=== PATIENT | male | born 1960 | race Caucasian/White ===

== ENCOUNTER → 2018-09-22 15:12 | Outpatient (CLI) | payer BC, SELFPAY | PROVIDERS: PCP Family Medicine; Visit Provider Nurse Practitioner Family | DX: G47.33 Obstructive sleep apnea (adult) (pediatric) (principal); R06.83 Snoring; R40.0 Somnolence; R94.30 Abnormal result of cardiovascular function study, unspecified | CPT/HCPCS: 95806 ==

== ENCOUNTER → 2019-02-02 07:57 | Outpatient (POV) | payer BC, SELFPAY | PROVIDERS: Visit Provider Dermatology | DX: Z00.00 Encounter for general adult medical examination without abnormal findings (principal) ==

== ENCOUNTER → 2019-03-01 07:32 | Outpatient (CLI) | payer BC, SELFPAY ==
--- NOTE | 2019-03-01 07:35 | XR_ITS ---
PROCEDURE: XR FOOT WT BEARING LT 3V CLINICAL INDICATION: pain Left foot pain COMPARISON: No exams were available for comparison FINDINGS: No fracture or dislocation. No lytic or blastic change. There is normal mineralization. There are mild osteoarthritic changes at the 1st metatarsophalangeal joint and at the talonavicular joint Other findings:There is a small os trigonum IMPRESSION: Mild osteoarthritic change Dictated by: Rk Still MD 03/01/2019 12:17 Electronically signed by Rk Still MD in [place] 03/01/2019 12:17
--- NOTE | 2019-03-01 07:35 | XR_ITS ---
PROCEDURE: XR FOOT WT BEARING RT 3V CLINICAL INDICATION: pain Right foot pain COMPARISON: No exams were available for comparison FINDINGS: No fracture or dislocation. No lytic or blastic change. There is normal mineralization. Mild osteoarthritis 1st MTP joint and talonavicular joint and navicular cuneiform joint posteriorly with a small calcaneal spur noted Other findings:None. IMPRESSION: Mild osteoarthritis Dictated by: Rk Still MD 03/01/2019 12:18 Electronically signed by Rk Still MD in [place] 03/01/2019 12:18
== END ==
PROVIDERS: PCP Family Medicine; Visit Provider Podiatrist
DX: M79.672 Pain in left foot (principal); M79.671 Pain in right foot
CPT/HCPCS: 73630

== ENCOUNTER → 2019-11-03 16:02 | Outpatient (CLI) | payer BC, SELFPAY | PROVIDERS: PCP Family Medicine; Visit Provider Nurse Practitioner Family | DX: G47.33 Obstructive sleep apnea (adult) (pediatric) (principal) | CPT/HCPCS: 94762 ==

== ENCOUNTER 2020-11-22 16:30 | Outpatient (RCR) | payer BC, SELFPAY | END 2020-11-22 17:24 | disposition home or self-care (01) | LOC: PT 16:30 | PROVIDERS: PCP Family Medicine; Visit Provider Internal Medicine | DX: M54.41 Lumbago with sciatica, right side (principal) | CPT/HCPCS: 97010; 97014; 97035; 97110; 97163; G0283 ==

== ENCOUNTER → 2020-12-05 07:42 | Outpatient (CLI) | payer BC, SELFPAY ==
--- NOTE | 2020-12-05 07:46 | MR_ITS ---
PROCEDURE: MR LUMBAR SPINE WO CON CLINICAL INDICATION: LUMBAGO WITH RIGHT SCIATICA Low back pain with right leg pain COMPARISON: No exams were available for comparison TECHNIQUE: Standard multiplanar multiecho sequences are performed without contrast. 3-D MIP and myelographic images are also rendered and reviewed FINDINGS: There is normal alignment. The spinal cord ends at the L1-L2 level. No acute fracture. T11-T12: Minimal bulging disc with mild degenerative disc disease. T12-L1: Mild degenerative disc disease. L1-L2: Unremarkable. Small lipoma or lipid rich hemangioma at L2 vertebral body on the right at 9 mm L2-L3: Mild facet and ligamentum hypertrophy. L3-L4: Mild facet and ligamentum hypertrophy. Small hemangioma versus lipoma of L3 vertebral body at 11 mm. L4-5: Degenerative disc disease with mild bulging disc. 3 mm anterolisthesis of L4. Severe facet hypertrophic change with severe bilateral lateral recess narrowing . Canal stenosis is present. The facet and ligamentum hypertrophy is causing some severe bilateral lateral recess narrowing. This is greater on the right and is impinging upon the right L5 nerve root. There is severe bilateral foraminal narrowing slightly greater on the left with encroachment of the exiting L4 nerve roots. L5-S1: Degenerative disc disease. 4 mm retrolisthesis of L5 with bulging disc and facet hypertrophic change with moderate bilateral foraminal narrowing and lateral recess narrowing. Incidental note made of a 4 cm right renal cyst. IMPRESSION: Abnormal MRI of the lumbar spine with multilevel lumbar spondylosis with degenerative disc disease, bulging discs, facet and ligamentum hypertrophy with lateral recess and foraminal narrowing and canal stenosis. Please see above for detailed description at each level. Dictated by: kR Still MD 12/06/2020 09:16 Rk Still MD in [place] 12/06/2020 09:16
== END ==
PROVIDERS: PCP Internal Medicine; Visit Provider Internal Medicine
DX: M54.41 Lumbago with sciatica, right side (principal)
CPT/HCPCS: 72148; 76376

== ENCOUNTER → 2021-02-05 10:41 | Outpatient (CLI) | payer BC, SELFPAY | PROVIDERS: Visit Provider Surgery | DX: Z01.812 Encounter for preprocedural laboratory examination (principal); Z11.52 Encounter for screening for COVID-19; Z12.11 Encounter for screening for malignant neoplasm of colon | CPT/HCPCS: C9803; U0003; U0005 ==

== ENCOUNTER 2021-02-07 10:20 | Day surgery (SDC) | payer BC, SELFPAY ==
[2021-02-05 10:18] VITALS: BMI 37.3
[2021-02-07] VITALS (8 sets, daily range): BP systolic 84–149; BP diastolic 36–76; PULSE 63–71; RESP 16–18; TEMP 36.2–36.4; O2SAT 92–100
--- NOTE | 2021-02-07 10:34 | HMH.ANESCL ---
[facility] Anesthesia Checklist - Patient Identification Patient Identification: Arm Band - Structural Data Admitted From: Home Planned Operative Procedure/s: Colonoscopy Consent for Planned Operative Procedure(s) Verified: Yes - NPO Status Verified Time NPO: 00:00 - Airway Assessment C-Spine Mobility Assessed: Yes TMJ Mobility Assessed: Yes Dentition: Good Dentition - Neurological Assessment Level of Consciousness: Awake Hx Seizures: No Numbness or tingling in extremities: No - Anesthesia Plan Anesthesia Risk discussed: Yes Anesthesia Plan: Verified ASA Class: II Anesthesia Type: MAC [facility] History I have reviewed the patient's past medical history: Yes Medical History: Reports:: Hyperlipidemia, Hypertension Denies:: Cancer, Diabetes Mellitus Type 1, Diabetes Mellitus Type 2, Internal Pacemaker, MRSA, Seizures *Have you ever received a pneumonia vaccine?: No *Have you received a flu vaccine this season?: Yes Other Medical History: Reports: Other Anesthesia experience/problems:: None Laterality Cases: Left: Arthroscopy Shoulder, Bilateral: Tonsillectomy Other Surgeries: Yes: Cardiac Catheterization, Colonoscopy. No: Pacemaker Amputation: No - *Social History Last grade of school completed: 11th or 12th Smoking Status: Never smoker Alcohol Intake: never Alcohol Intake Frequency:: holidays/special occasions only Substance Use Type: denies use *Occupational Status:: employed Housing: house Household Members: spouse *Travel in the last 8 weeks: None Family Hx:: No significant family history
--- NOTE | 2021-02-07 12:23 | HMH.SCOPE ---
- Procedure: Date: 02/07/21 Patient Date of :: 1960 Procedure Performed:: Colonoscopy with polypectomy Indications:: Patient is a 60-year-old male. He had undergone screening colonoscopy 10 or 11 years ago which was reportedly normal. He presents for screening colonoscopy. Performing Provider:: Vadim Anderson MD Referring Provider:: Win Mccauley MD Sedation:: Propofol Procedure:: Patient was taken to endoscopy procedure room. He was positioned in lateral decubitus position. Digital examination was performed which was unremarkable. Variable stiffness Olympus colonoscope was inserted via the anus. Was advanced to the cecum. Ileocecal valve and appendiceal orifice were clearly identified. Within the cecum there were several tiny diminutive polyps. These were removed with cold biopsy forceps. At the hepatic flexure there was a small diminutive polyp removed with snare followed by biopsy. In the descending colon there was a small diminutive polyp removed with cold biopsy forceps. There were 1 or 2 diverticuli in the distal sigmoid. Retroflexion within the rectum revealed nonpathologic internal hemorrhoids. Colonoscope was withdrawn. Findings:: Tiny diminutive polyps as noted above 1-2 distal sigmoid diverticuli Recommendations:: Follow-up colonoscopy pending pathology, if adenomatous component likely 5 years. Complications:: None immediately apparent Estimated blood obtained (mL): 2
== END 2021-02-07 13:10 | disposition home or self-care (01) ==
LOC: OUTP 10:21
PROVIDERS: PCP Internal Medicine; Visit Provider Surgery
PROC: 0DJD8ZZ Inspection of Lower Intestinal Tract, Via Natural or Artificial Opening Endoscopic (ICD-10-PCS; CPT 45380; principal; 2021-02-07 11:30)
DX: Z12.11 Encounter for screening for malignant neoplasm of colon (principal); K63.5 Polyp of colon; K57.30 Diverticulosis of large intestine without perforation or abscess without bleeding
CPT/HCPCS: 45380; J2704

== ENCOUNTER → 2021-02-15 11:32 | Outpatient (CLI) | payer BC, SELFPAY | PROVIDERS: PCP Internal Medicine; Visit Provider Nurse Practitioner | DX: Z20.822 Contact with and (suspected) exposure to COVID-19 (principal); U07.1 COVID-19 | CPT/HCPCS: C9803; U0003; U0005 ==

== ENCOUNTER → 2021-02-17 07:59 | Outpatient (CLI) | payer BC, SELFPAY | PROVIDERS: PCP Internal Medicine; Visit Provider Internal Medicine | DX: U07.1 COVID-19 (principal); Z23 Encounter for immunization | CPT/HCPCS: 96365 ==

== ENCOUNTER 2021-02-27 10:00 | Outpatient (RCR) | payer BC, SELFPAY | END 2021-02-27 10:05 | disposition home or self-care (01) | LOC: PT 10:00 | PROVIDERS: PCP Internal Medicine; Visit Provider Anesthesiology Pain Medicine | DX: M48.062 Spinal stenosis, lumbar region with neurogenic claudication (principal) | CPT/HCPCS: 97014; 97110; 97113; 97163; G0283 ==

== ENCOUNTER → 2021-07-25 13:36 | Outpatient (CLI) | payer BC, SELFPAY ==
[2021-07-25 15:35] LABS: Basophils # 0.1 K/mm3 (0-0.2); Basophils % 1.4 % (0.1-2.0); Eosinophils # 0.7 K/mm3 (0.0-0.4); Hematocrit 50.2 % (42.0-52.0); Hemoglobin 16.8 g/dL (14.1-18.0); Lymphocytes # 2.3 K/mm3 (0.7-4.5); Lymphocytes % 26.5 % (10-50); Mean Corpuscular HGB Conc 33.5 g/dL (31.8-35.4); Mean Corpuscular Hemoglobin 31.5 pg (27.0-31.2); Mean Platelet Volume 8.9 fl (7.4-10.4); Monocytes # 0.7 K/mm3 (0.1-1.0); Monocytes % 8.1 % (1.7-9.3); Neutrophils # 4.9 K/mm3 (1.8-7.8); Neutrophils % 55.9 % (37.0-80.0); Platelet Count 286 K/mm3 (142-424); Red Blood Count 5.34 M/mm3 (4.60-6.20); Red Cell Distribution Width 12.7 % (11.5-17.5); White Blood Count 8.7 K/mm3 (4.8-10.8)
[2021-07-25 16:07] LABS: Alanine Aminotransferase 28 U/L (12-78); Albumin Level 4.3 g/dl (3.5-5.0); Albumin/Globulin Ratio 1.4 (1.1-1.8); Alkaline Phosphatase 85 U/L (38-126); Anion Gap 12.1 mEq/L (5-15); Aspartate Amino Transferase 26 U/L (17-59); Bilirubin,Total 0.9 mg/dl (0.2-1.3); Blood Urea Nitrogen 19 mg/dl (9-20); Calcium 9.1 mg/dl (8.4-10.2); Carbon Dioxide 30 mmol/L (22.0-30.0); Chloride 100 mmol/L (98-107); Chol/HDL Ratio 4.2 (1-3.5); Cholesterol 165 mg/dl (140-200); Estimated Glomerular Filt Rate 99 ml/min (>60); GFR (African American) 120 ML/MIN (>60); Glucose 90 mg/dl (74-100); HDL Cholesterol 39 mg/dl (40-60); Potassium 4.1 mmoL/L (3.5-5.1); Sodium 138 mmol/L (136-145); Total Protein,Serum 7.3 g/dl (6.3-8.2); Triglycerides 137 mg/dl (30-150); VLDL Cholesterol 27 mg/dL (0-40)
[2021-07-25 16:18] LABS: Direct LDL Cholesterol 90.58 mg/dL (100-129)
[2021-07-25 16:36] LABS: Prostate Specific Ag Screen 1.3 ng/ml (0.0-4.0)
== END ==
PROVIDERS: Visit Provider Internal Medicine
DX: Z00.01 Encounter for general adult medical examination with abnormal findings (principal); I10 Essential (primary) hypertension; R73.01 Impaired fasting glucose; Z12.5 Encounter for screening for malignant neoplasm of prostate
CPT/HCPCS: 80053; 80061; 85025; G0103

== ENCOUNTER 2021-08-30 11:00 | Outpatient (RCR) | payer BC, SELFPAY | END 2021-08-30 11:05 | disposition home or self-care (01) | LOC: PT 11:00 | PROVIDERS: PCP Internal Medicine; Visit Provider Physician Assistant Surgical | DX: M48.062 Spinal stenosis, lumbar region with neurogenic claudication (principal) | CPT/HCPCS: 97010; 97014; 97110; 97163; G0283 ==

== ENCOUNTER → 2021-10-17 11:27 | Outpatient (CLI) | payer BC, SELFPAY ==
--- NOTE | 2021-10-17 11:30 | XR_ITS ---
FINAL REPORT CLINICAL HISTORY: LT MEDIAL KNEE PAIN FINDINGS: LEFT KNEE: Three views of the left knee were obtained. There is no acute fracture or dislocation. There are mild to moderate degenerative changes. There is medial compartment narrowing. There is a small joint effusion. There is a chronic calcification adjacent to the medial tibial plateau. IMPRESSION: [id number] degenerative changes. Small joint effusion. Reviewed, Interpreted and Dictated by Vadim Calhoun III, MD Transcribed by Meka Sherwood Authenticated and [facility]
== END ==
PROVIDERS: PCP Internal Medicine; Visit Provider Internal Medicine
DX: M25.562 Pain in left knee (principal)
CPT/HCPCS: 73562

== ENCOUNTER → 2022-01-29 14:51 | Outpatient (CLI) | payer BC, SELFPAY ==
[2022-01-29 18:55] LABS: Basophils # 0.6 K/mm3 (0-0.2); Basophils % 4.6 % (0.1-2.0); Eosinophils # 0.7 K/mm3 (0.0-0.4); Eosinophils % 5.2 % (0.1-12.0); Hemoglobin 16.4 g/dL (14.1-18.0); Lymphocytes # 3.5 K/mm3 (0.7-4.5); Lymphocytes % 25.3 % (10-50); Mean Corpuscular HGB Conc 26.8 g/dL (31.8-35.4); Mean Corpuscular Hemoglobin 30.2 pg (27.0-31.2); Mean Corpuscular Volume 112.6 fl (80-94); Mean Platelet Volume 23.5 fl (7.4-10.4); Monocytes # 1.1 K/mm3 (0.1-1.0); Monocytes % 7.9 % (1.7-9.3); Neutrophils # 8.6 K/mm3 (1.8-7.8); Neutrophils % 61.6 % (37.0-80.0); Platelet Count 200 K/mm3 (142-424); Red Blood Count 5.45 M/mm3 (4.60-6.20); Red Cell Distribution Width 19.6 % (11.5-17.5)
[2022-01-29 19:42] LABS: Hematocrit 61.4 % (42.0-52.0)
[2022-01-29 20:31] LABS: Alanine Aminotransferase 33 U/L (12-78); Albumin Level 4.2 g/dl (3.5-5.0); Albumin/Globulin Ratio 1.4 (1.1-1.8); Alkaline Phosphatase 119 U/L (38-126); Anion Gap 15.8 mEq/L (5-15); Aspartate Amino Transferase 34 U/L (17-59); Blood Urea Nitrogen 22 mg/dl (9-20); Carbon Dioxide 28 mmol/L (22.0-30.0); Chloride 100 mmol/L (98-107); Chol/HDL Ratio 4.1 (1-3.5); Cholesterol 160 mg/dl (140-200); Estimated Glomerular Filt Rate 99 ml/min (>60); GFR (African American) 120 ML/MIN (>60); Globulin 2.9 g/dL (1.3-3.2); Glucose 77 mg/dl (74-100); HDL Cholesterol 39 mg/dl (40-60); Potassium 4.8 mmoL/L (3.5-5.1); Sodium 139 mmol/L (136-145); Total Protein,Serum 7.1 g/dl (6.3-8.2); Triglycerides 92 mg/dl (30-150); VLDL Cholesterol 18 mg/dL (0-40)
[2022-01-29 20:44] LABS: Direct LDL Cholesterol 97.09 mg/dL (100-129)
[2022-01-29 21:04] LABS: Prostate Specific Ag Screen 1.1 ng/ml (0.0-4.0); Thyroid Stimulating Hormone 1.03 uIU/mL (0.465-4.68)
[2022-02-01 14:46] LABS: Peripheral Smear Review Scanned Result
== END ==
PROVIDERS: PCP Internal Medicine; Visit Provider Internal Medicine
DX: I10 Essential (primary) hypertension (principal); E78.5 Hyperlipidemia, unspecified; R73.09 Other abnormal glucose; N40.1 Benign prostatic hyperplasia with lower urinary tract symptoms; Z12.5 Encounter for screening for malignant neoplasm of prostate
CPT/HCPCS: 80053; 80061; 84443; 85025; G0103

== ENCOUNTER → 2022-02-01 12:42 | Outpatient (CLI) | payer BC, SELFPAY ==
--- NOTE | 2022-02-01 12:46 | CA_ITS ---
FINAL REPORT TECHNIQUE: Color Doppler, duplex Doppler and francisco scale sonography of the bilateral neck arterial vasculature was performed. Velocities were measured in the carotid arteries. Stenosis evaluation based on the validated velocity criteria. CLINICAL HISTORY: DIZZINESS,HTN,HLD FINDINGS: The peak systolic velocity of the right common carotid artery is 103 cm/s. The peak systolic velocity of the right internal carotid artery is 81 cm/s and end diastolic velocity 26 cm/s. The ICA/CCA ratio is 0.82. A small amount of plaque is present. The right external carotid artery is patent. The right vertebral artery is patent with antegrade flow. The peak systolic velocity of the left common carotid artery is 98 cm/s. The peak systolic velocity of the left internal carotid artery is 120 cm/s and end diastolic velocity 45 cm/s. The ICA/CCA ratio is 1.3. A small amount of plaque is present. The left external carotid artery is patent.The left vertebral artery is patent with antegrade flow. IMPRESSION: Less than 50% bilateral carotid stenoses. Bilateral patent vertebral arteries with antegrade flow. If indicated, CTA or MRA could further evaluate. Reviewed, Interpreted and Dictated by Vadim Calhoun III, MD Transcribed by Nash Kumar Authenticated and [facility]
== END ==
PROVIDERS: PCP Internal Medicine; Visit Provider Physician Assistant
DX: R42 Dizziness and giddiness (principal); I51.7 Cardiomegaly; I45.10 Unspecified right bundle-branch block; I25.10 Atherosclerotic heart disease of native coronary artery without angina pectoris; I11.9 Hypertensive heart disease without heart failure; E78.2 Mixed hyperlipidemia
CPT/HCPCS: 93880

== ENCOUNTER → 2022-02-14 10:39 | Outpatient (CLI) | payer BC, SELFPAY ==
--- NOTE | 2022-02-14 10:44 | US_ITS ---
FINAL REPORT CLINICAL HISTORY: ELEVATED HCT/WBC FINDINGS: Sonographic images of the abdomen were obtained. There is a 1.2 cm hepatic cyst. The gallbladder has an unremarkable appearance without evidence of gallstones. There is no evidence of biliary ductal dilatation. The common hepatic duct measures 3 mm, which is within normal limits. Limited images of the pancreas are unremarkable. The spleen size is normal. The right kidney measures 14.2 cm in length. There is a cyst in the lower pole of the right kidney measuring 3.5 cm. The left kidney measures 13.6 cm in length. There is normal renal echogenicity. There is no evidence of hydronephrosis. The aorta has an unremarkable appearance. Limited images of the inferior vena cava are unremarkable. IMPRESSION: Hepatic and renal cysts. Reviewed, Interpreted and Dictated by Vadim Calhoun III, MD Transcribed by Saritha Vargas Authenticated and [facility]
== END ==
PROVIDERS: PCP Internal Medicine; Visit Provider Internal Medicine
DX: R71.8 Other abnormality of red blood cells (principal); D72.89 Other specified disorders of white blood cells
CPT/HCPCS: 76700

== ENCOUNTER 2022-02-15 09:40 | Outpatient (CLI) | payer BC, SELFPAY ==
[2022-02-15 09:47] VITALS: BMI 36.1
[2022-02-15 10:17] LABS: Hematocrit 49.6 % (42.0-52.0); Hemoglobin 16.4 g/dL (14.1-18.0)
--- NOTE | 2022-02-15 10:17 | PC.NURSE ---
0955-BLOOD DRAWN FOR H/H USING BUTTERFLY NEEDLE AT THIS TIME.
== END 2022-02-15 10:45 | disposition home or self-care (01) ==
LOC: INF 09:41
PROVIDERS: PCP Internal Medicine; Visit Provider Internal Medicine
DX: R71.8 Other abnormality of red blood cells (principal); D72.829 Elevated white blood cell count, unspecified
CPT/HCPCS: 36415; 85014; 85018

== ENCOUNTER → 2022-07-31 12:33 | Outpatient (CLI) | payer OTHER, SELFPAY ==
[2022-07-31 14:53] LABS: Basophils # 0.1 K/mm3 (0-0.2); Basophils % 0.9 % (0.1-2.0); Eosinophils # 0.6 K/mm3 (0.0-0.4); Eosinophils % 6.5 % (0.1-12.0); Hematocrit 49.3 % (42.0-52.0); Lymphocytes # 2.3 K/mm3 (0.7-4.5); Lymphocytes % 25.9 % (10-50); Mean Corpuscular HGB Conc 32.4 g/dL (31.8-35.4); Mean Corpuscular Hemoglobin 29.9 pg (27.0-31.2); Mean Corpuscular Volume 92.1 fl (80-94); Mean Platelet Volume 8.8 fl (7.4-10.4); Monocytes # 0.7 K/mm3 (0.1-1.0); Monocytes % 7.5 % (1.7-9.3); Neutrophils # 5.4 K/mm3 (1.8-7.8); Neutrophils % 59.2 % (37.0-80.0); Platelet Count 262 K/mm3 (142-424); Red Blood Count 5.35 M/mm3 (4.60-6.20); Red Cell Distribution Width 12.9 % (11.5-17.5)
[2022-07-31 15:41] LABS: Alanine Aminotransferase 32 U/L (12-78); Albumin Level 4.6 g/dl (3.5-5.0); Albumin/Globulin Ratio 1.5 (1.1-1.8); Alkaline Phosphatase 80 U/L (38-126); Anion Gap 10.2 mEq/L (5-15); Aspartate Amino Transferase 33 U/L (17-59); Bilirubin,Total 0.9 mg/dl (0.2-1.3); Blood Urea Nitrogen 25 mg/dl (9-20); Calcium 9.1 mg/dl (8.4-10.2); Carbon Dioxide 28 mmol/L (22.0-30.0); Chloride 101 mmol/L (98-107); Chol/HDL Ratio 4.2 (1-3.5); Cholesterol 159 mg/dl (140-200); Estimated Glomerular Filt Rate 99 ml/min (>60); GFR (African American) 119 ML/MIN (>60); Globulin 3.1 g/dL (1.3-3.2); Glucose 86 mg/dl (74-100); HDL Cholesterol 38 mg/dl (40-60); Potassium 4.2 mmoL/L (3.5-5.1); Sodium 135 mmol/L (136-145); Total Protein,Serum 7.7 g/dl (6.3-8.2); Triglycerides 117 mg/dl (30-150); VLDL Cholesterol 23 mg/dL (0-40)
[2022-07-31 15:52] LABS: Direct LDL Cholesterol 100.04 mg/dL (100-129)
[2022-07-31 16:14] LABS: Prostate Specific Ag Screen 1.5 ng/ml (0.0-4.0)
== END ==
PROVIDERS: PCP Internal Medicine; Visit Provider Internal Medicine
DX: I10 Essential (primary) hypertension (principal); E78.5 Hyperlipidemia, unspecified; M54.41 Lumbago with sciatica, right side; Z12.5 Encounter for screening for malignant neoplasm of prostate
CPT/HCPCS: 80053; 80061; 85025; G0103

== ENCOUNTER → 2022-08-29 10:49 | Outpatient (POV) | payer OTHER, SELFPAY ==
--- NOTE | 2022-08-29 10:56 | EXP.PAIN.OV ---
HPI Data of Consult Patient: new to practice Consult date: 08/29/22 Requesting Physician: Sandy Sandoval APRN Consult Narrative Reason for consult: Low back pain, bilateral lower extremity pain History of present illness: Mr. Hawkins is a 62 year old male who presents today as a new patient. He is a referral from Dr. Mccauley's office. Today he rates his pain at 8 out of 10. He states his pain is all in his low back that radiates into his bilateral lower extremities stopping at his knees. Patient states this has been going on for a couple years and progressively worsened over time. He does describe this as an aching sensation with numbness and tingling into his lower extremities. Patient does take Tylenol and diclofenac daily along with heating pad with minimal improvement. He states he was prescribed the diclofenac for his arthritis in his knee and does believe it helps some of his back issues. Patient has been in physical therapy with no improvement noted. He does continue to exercise and do home stretching every day. He did have a right foraminotomy by Dr. Elizabeth in 2021 that did help some of the tingling in his right leg however it has started to come back. He does even state that now it is bilaterally. He states in the past he has had 1 injection that did provide approximately 2 weeks worth of relief. He states he is okay with trying the injections again. Patient did just retire approximately 6 months ago and did change insurance so he had put off seeking medical attention for this issue however it is becoming more bothersome to where it is affecting his everyday activities such as cooking and cleaning. Patient states he does continue to walk daily and frequently does have to take breaks. He does state his pain does seem to be better when he is sitting with a chair with a straight back. Often times he states in other chairs that are leaning back or reclined he does have additional pain and that he will frequently reposition for some relief. He does state that his pain is aggravated by activity such as lifting. He is very active and still continues to try and play golf from time to time. He has bought a back brace for additional support when he is doing these activities. Patient is not on any scheduled medications. Patient does have history of cardiac issues. His Martin is [id number]. Its been reviewed and appropriate. CC: Sandy Sandoval APRN [facility] Disclaimer: The information contained in this section may have been updated after the patient was seen, as this information can be updated by other users. Family History (Updated 01/29/22 @ 10:32 by Elisha Lin) Other Hypertension Social History Smoking Status: Never smoker alcohol intake: never substance use type: denies use current occupational status: employed Travel in the last 8 weeks: Inside the [place] household members: spouse housing: house current occupation: [employer] caffeine: Yes Review of Systems Review of Systems Review of systems:: pertinent systems reviewed and negative unless documented below Review of systems (narrative): Review of Systems: General: No recent weight changes, no fever, no sleep disturbances Respiratory: No cough, no shortness of air, no recurring pulmonary infections Cardiovascular/peripheral vascular: No chest pain, no palpitations, no edema, no shortness of breath Gastrointestinal: No new onset incontinence, normal bowel movements reported Genitourinary: No new onset incontinence Musculoskeletal: Low back pain, bilateral lower extremity pain Psychiatric: [Normal mood/affect] Neurological: [Denies weakness in extremities] Meds Home Medications and Allergies Home Medications Medication Instructions Recorded Confirmed Type atorvastatin 40 mg tablet (Lipitor) 40 mg PO DAILY Cholesterol 08/14/18 01/29/22 History aspirin 81 mg tablet,delayed 81 mg PO DAILY Supple
[2022-08-29 11:58] VITALS: BP 101/65; PULSE 70; RESP 20; O2SAT 97; BMI 36.6
== END ==
PROVIDERS: Visit Provider Nurse Practitioner Family
DX: M51.16 Intervertebral disc disorders with radiculopathy, lumbar region (principal); M47.26 Other spondylosis with radiculopathy, lumbar region; M24.28 Disorder of ligament, vertebrae; M48.061 Spinal stenosis, lumbar region without neurogenic claudication
CPT/HCPCS: 99202; G0463

== ENCOUNTER 2022-09-10 07:43 | Day surgery (SDC) | payer OTHER, SELFPAY ==
[2022-09-10 08:11] VITALS: BP 128/74; PULSE 71; RESP 18; TEMP 36.4; O2SAT 99; BMI 36.6
[2022-09-10 08:36] VITALS: BP 128/68; PULSE 67; RESP 20; O2SAT 97
[2022-09-10 08:44] VITALS: BP 129/79; PULSE 62; RESP 18; O2SAT 99
--- NOTE | 2022-09-10 08:52 | EXP.PAIN.PRO ---
Procedure Date: 09/10/22 Time: 08:30 Anesthesiologist:: Curly Rodríguez CRNA Complications:: None Pre-procedure Diagnosis:: Degenerative disc lumbar spine multilevels. Lumbar radiculopathy. Lumbar spinal stenosis. Lumbar postlaminectomy syndrome. Post-procedure Diagnosis:: Same. Indications for Procedure:: Patient is a pleasant 62-year-old male that comes our clinic today for lumbar epidural steroid injection at the L4-5 level with epidurogram. Patient complains of low back pain as well as bilateral hip and leg radicular symptoms at times. Left greater than right. Procedure Details:: Procedure: Lumbar epidural steroid injection under fluoroscopy Informed consent was obtained and the risks and benefits of the procedure were explained to the patient. The patient was taken to the procedure room and noninvasive monitors placed, including noninvasive blood pressure cuff and pulse oximeter. The back was viewed using C-arm Fluoroscopy and prepped using Chloraprep as a cleansing solution and the L4-L5 interspace was palpated. Skin and subcutaneous tissues were anesthetized using lidocaine 1.5% and a 25-gauge needle. After this, an 18-gauge Touhy epidural needle was placed into the L4-L5 interspace and advanced using fluoroscopic guidance and loss of resistance to air until the epidural space was encountered. After confirmation of needle placement in the epidural space, with dye, a solution containing normal saline, 3 mL and Depo-Medrol 80 mg were incrementally injected into the lumbar epidural space. The patient tolerated the procedure well with no complications. The patient was observed in the Pain Clinic and then discharged home neurologically intact. Plan and Disposition:: Patient was discharged without incident.
== END 2022-09-10 08:44 | disposition home or self-care (01) ==
LOC: SC.PAINP 07:44
PROVIDERS: PCP Internal Medicine; Visit Provider Nurse Anesthetist, Certified Registered
DX: M51.16 Intervertebral disc disorders with radiculopathy, lumbar region (principal); M48.061 Spinal stenosis, lumbar region without neurogenic claudication; M96.1 Postlaminectomy syndrome, not elsewhere classified
CPT/HCPCS: 62323; J1040; Q9966

== ENCOUNTER → 2023-01-02 13:05 | Outpatient (POV) | payer OTHER, SELFPAY ==
--- NOTE | 2023-01-02 13:33 | EXP.PAIN.SOA ---
[facility] Pain Management SOAP Note Subjective:: Patient is a pleasant 62-year-old male who presents today for follow-up. We are currently treating the patient for degenerative disc disease of lumbar spine with lumbar radiculopathy symptoms, spinal stenosis with neurogenic claudication symptoms. Today he rates his pain an 8 out of 10. Patient states his pain is all in his low back with radiating symptoms into his bilateral lower extremities. He does state that his left leg is the worst leg. He describes this as an aching sensation with tingling down both bilateral extremities to his feet. Patient does state he also has history of neuropathy and takes gabapentin 300 mg 3 times daily however he does not notice significant improvement. Patient does state his low back pain does interfere with his ability perform activities of daily living such as cooking and cleaning. Patient did previously have a lumbar epidural steroid injection back in August that did provide significant improvement of more than 50% lasting several months. It patient is interested in repeating this injection at today's visit. His Martin has been reviewed and is appropriate. Review of Systems: General: No recent weight changes, no fever, no sleep disturbances Respiratory: No cough, no shortness of air, no recurring pulmonary infections Cardiovascular/peripheral vascular: No chest pain, no palpitations, no edema, no shortness of breath Gastrointestinal: No new onset incontinence, normal bowel movements reported Genitourinary: No new onset incontinence Musculoskeletal: Low back pain, bilateral lower leg pain Psychiatric: [Normal mood/affect] Neurological: [Denies weakness in extremities], [denies balance issues] Objective:: Physical Exam: General: Alert and oriented x3, no acute distress, pleasant and cooperative Lungs: Respirations even and unlabored, symmetrical chest expansion Eyes: PERRL Musculoskeletal: Flexion and extension of lumbar [spine] somewhat guarded secondary to pain, [antalgic gait noted] Neurological: Speech clear, no gross sensory deficit Assessment:: Degenerative disc disease of lumbar spine with lumbar radiculopathy symptoms, lumbar spinal stenosis with neurogenic claudication symptoms Plan:: Patient is experiencing worsening low back pain that radiates into his bilateral lower extremities. I have discussed with the patient that he may benefit from repeat lumbar epidural steroid injection. Risk and benefits were discussed with the patient and he would like to proceed forward with this plan of care. Patient is not on any blood thinners. Patient did previously get at least 50% improvement lasting several months with his last lumbar epidural. Patient will be scheduled for a LESI L4-L5. I will also order the patient a compounded cream. Patient has been instructed to contact the clinic with any concerns before the next appointment. Dr. Kern has reviewed this note and agrees with this plan of care. This note was dictated using voice recognition software and make contain errors or omissions. [facility] Disclaimer: The information contained in this section may have been updated after the patient was seen, as this information can be updated by other users. Medical History CAD (coronary artery disease) GERD (gastroesophageal reflux disease) HLD (hyperlipidemia) HTN (hypertension) JET (obstructive sleep apnea) Surgical History H/O colonoscopy H/O shoulder surgery History of cardiac cath Hx of tonsillectomy Previous back surgery Family History Other Hypertension Social History Smoking Status: Never smoker alcohol intake: never substance use type: denies use current occupational status: retired Travel in the last 8 weeks: None household members: spouse
== END ==
PROVIDERS: PCP Internal Medicine; Visit Provider Nurse Practitioner Family
DX: M51.16 Intervertebral disc disorders with radiculopathy, lumbar region (principal); M48.062 Spinal stenosis, lumbar region with neurogenic claudication
CPT/HCPCS: 99212; G0463

== ENCOUNTER → 2023-01-07 12:57 | Outpatient (POV) | payer OTHER, SELFPAY | PROVIDERS: Visit Provider Dermatology | DX: Z00.00 Encounter for general adult medical examination without abnormal findings (principal) ==

== ENCOUNTER 2023-01-14 08:55 | Day surgery (SDC) | payer OTHER, SELFPAY ==
[2023-01-14 09:00] VITALS: BP 131/71; PULSE 70; RESP 16; TEMP 36.4; O2SAT 98; BMI 37.3
[2023-01-14 09:23] VITALS: BP 139/84; PULSE 69; RESP 18; O2SAT 98
--- NOTE | 2023-01-14 09:23 | P.PCN_ITS ---
Procedure Date: 01/14/23 Time: 09:15 Anesthesiologist:: Curly Rodríguez CRNA Complications:: None Pre-procedure Diagnosis:: Degenerative disc lumbar spine multilevels. Lumbar radiculopathy. Lumbar postlaminectomy syndrome. Lumbar spinal stenosis. Lumbar facet arthropathy Post-procedure Diagnosis:: Same. Indications for Procedure:: Patient is a pleasant 62-year-old male that comes our clinic today for lumbar epidural steroid injection at the L4-5 level. Patient is status post lumbar d iscectomy/laminectomy several years ago. He complains of low back pain he describes as constant, dull, aching. Patient also reports bilateral hip and leg radicular symptoms. He has difficulty ambulating secondary to lumbar back pain. Patient had a recent visit with Dr. Elizabeth regarding surgery option. No surgery recommended at this time. Procedure Details:: Procedure: Lumbar epidural steroid injection under fluoroscopy Informed consent was obtained and the risks and benefits of the procedure were explained to the patient. The patient was taken to the procedure room and noninvasive monitors placed, including noninvasive blood pressure cuff and pulse oximeter. The back was viewed using C-arm Fluoroscopy and prepped using Chloraprep as a cleansing solution and the L4-L5 interspace was palpated. Skin and subcutaneous tissues were anesthetized using lidocaine 1.5% and a 25-gauge needle. After this, an 18-gauge Touhy epidural needle was placed into the L4-L5 interspace and advanced using fluoroscopic guidance and loss of resistance to air until the epidural space was encountered. After confirmation of needle placement in the epidural space, with dye, a solution containing normal saline, 3 mL and Depo-Medrol 80 mg were incrementally injected into the lumbar epidural space. The patient tolerated the procedure well with no complications. The patient was observed in the Pain Clinic and then discharged home neurologically intact. Plan and Disposition:: Patient was discharged without incident.
[2023-01-14 09:34] VITALS: BP 124/42; PULSE 72; RESP 18; O2SAT 93
[2023-01-14 09:42] VITALS: BP 124/42; PULSE 72; RESP 18; O2SAT 93
== END 2023-01-14 09:23 | disposition home or self-care (01) ==
PROVIDERS: PCP Internal Medicine; Visit Provider Nurse Anesthetist, Certified Registered
DX: M51.16 Intervertebral disc disorders with radiculopathy, lumbar region (principal); M96.1 Postlaminectomy syndrome, not elsewhere classified; M47.26 Other spondylosis with radiculopathy, lumbar region; M48.061 Spinal stenosis, lumbar region without neurogenic claudication
CPT/HCPCS: 62323; J1040

== ENCOUNTER → 2023-01-31 08:20 | Outpatient (POV) | payer OTHER, SELFPAY ==
[2023-01-31 08:40] VITALS: BP 134/78; PULSE 72; RESP 20; BMI 37.3
--- NOTE | 2023-01-31 09:49 | EXP.PAIN.SOA ---
[facility] Pain Management SOAP Note Subjective:: This patient is a very pleasant 62-year-old male that comes our clinic today for follow-up visit after receiving lumbar epidural steroid injection at the L4-5 level. Patient reports 75% improvement terms of his overall low back pain as well as bilateral hip and leg radicular symptoms. Patient is status post lumbar discectomy laminectomy several years ago. Patient also has degenerative disc lumbar spine multilevels. Lumbar radiculopathy. Patient reports today sitting, standing or ambulating for any length of time increases pain. However, lumbar epidural steroid injections help decrease pain substantially which allows him to do these things. He is now able to do some light housework. Light yard work. Patient had an appointment on 01/29/[address] Elizabeth did recommend lumbar fusion, however patient not ready for fusion at this time. We will continue treating him conservatively with injection therapy. I also discussed with him spinal cord stimulator therapy. Gave him a brochure. Patient's Martin #[id number] is been reviewed and appropriate. Objective:: Patient is awake alert [place] x3. In no acute distress. Flexion-extension lumbar spine somewhat guarded secondary to pain. Deep tendon reflexes upper lower extremities normal. Motor strength upper and lower extremities normal. There is no sensory deficit. Gait is normal. Assessment:: Degenerative disc lumbar spine multilevels. Lumbar radiculopathy. Lumbar postlaminectomy syndrome. Lumbar spinal stenosis. Multilevel lumbar facet arthropathy. Plan:: Patient requesting a repeat of lumbar epidural steroid injection in late March. I think this is appropriate. We will see him at that time. [facility] Disclaimer: The information contained in this section may have been updated after the patient was seen, as this information can be updated by other users. Medical History CAD (coronary artery disease) GERD (gastroesophageal reflux disease) HLD (hyperlipidemia) HTN (hypertension) JET (obstructive sleep apnea) Surgical History H/O colonoscopy H/O shoulder surgery History of cardiac cath Hx of tonsillectomy Previous back surgery Family History Other Hypertension Social History Smoking Status: Never smoker alcohol intake: never substance use type: denies use current occupational status: other Travel in the last 8 weeks: None household members: spouse housing: house current occupation: [employer] caffeine: Yes
== END ==
PROVIDERS: PCP Internal Medicine; Visit Provider Nurse Anesthetist, Certified Registered
DX: M51.16 Intervertebral disc disorders with radiculopathy, lumbar region (principal); M96.1 Postlaminectomy syndrome, not elsewhere classified; M48.061 Spinal stenosis, lumbar region without neurogenic claudication; M47.26 Other spondylosis with radiculopathy, lumbar region
CPT/HCPCS: 99212; G0463

== ENCOUNTER 2023-04-08 08:44 | Day surgery (SDC) | payer OTHER, SELFPAY ==
[2023-04-08 09:04] VITALS: BP 135/70; PULSE 77; RESP 20; O2SAT 98; BMI 37.3
[2023-04-08 09:15] VITALS: BP 138/88; PULSE 76; RESP 18; O2SAT 97
[2023-04-08 09:18] VITALS: BP 138/88; PULSE 76; RESP 18; O2SAT 97
--- NOTE | 2023-04-08 09:21 | EXP.PAIN.PRO ---
Procedure Date: 04/08/23 Time: 09:10 Anesthesiologist:: Curly Rodríguez CRNA Complications:: None Pre-procedure Diagnosis:: Degenerative disc disease lumbar spine multilevels. Lumbar radiculopathy. Lumbar postlaminectomy syndrome. Lumbar spondylosis. Multilevel lumbar facet arthropathy. Post-procedure Diagnosis:: Same. Indications for Procedure:: Patient is a very pleasant 63-year-old male comes our clinic today for repeat lumbar epidural steroid injection. His 2 previous lumbar epidural steroid injections him at the L4-5 level. This is the level of his hemilaminectomy in the past. I will move the injection into the L3-4 level to see if this provides him any increased relief. He reports 40 to 50% in terms of overall low back pain is bilateral hip and leg radicular symptoms with previous injections. Procedure Details:: Procedure: Lumbar epidural steroid injection under fluoroscopy Informed consent was obtained and the risks and benefits of the procedure were explained to the patient. The patient was taken to the procedure room and noninvasive monitors placed, including noninvasive blood pressure cuff and pulse oximeter. The back was viewed using C-arm Fluoroscopy and prepped using Chloraprep as a cleansing solution and the L3-4 interspace was palpated. Skin and subcutaneous tissues were anesthetized using lidocaine 1.5% and a 25-gauge needle. After this, an 18-gauge Touhy epidural needle was placed into the L3-4 interspace and advanced using fluoroscopic guidance and loss of resistance to air until the epidural space was encountered. After confirmation of needle placement in the epidural space, with dye, a solution containing normal saline, 3 mL and Depo-Medrol 80 mg were incrementally injected into the lumbar epidural space. The patient tolerated the procedure well with no complications. The patient was observed in the Pain Clinic and then discharged home neurologically intact. Plan and Disposition:: Patient was discharged without incident.
[2023-04-08 09:25] VITALS: BP 144/76; PULSE 69; O2SAT 98
== END 2023-04-08 09:20 | disposition home or self-care (01) ==
PROVIDERS: PCP Internal Medicine; Visit Provider Nurse Anesthetist, Certified Registered
DX: M51.16 Intervertebral disc disorders with radiculopathy, lumbar region (principal); M96.1 Postlaminectomy syndrome, not elsewhere classified; M47.26 Other spondylosis with radiculopathy, lumbar region
CPT/HCPCS: 62323; J1040

== ENCOUNTER 2023-04-09 10:00 | Outpatient (RCR) | payer OTHER, SELFPAY | END 2023-04-09 11:05 | disposition home or self-care (01) | LOC: OT 10:00 | PROVIDERS: PCP Internal Medicine; Visit Provider Orthopaedic Surgery | DX: M25.531 Pain in right wrist (principal) | CPT/HCPCS: 97010; 97014; 97035; 97110; 97140; 97165; G0283 ==

== ENCOUNTER → 2023-04-16 13:57 | Outpatient (CLI) | payer OTHER, SELFPAY ==
[2023-04-16 14:26] LABS: Basophils # 0.1 K/mm3 (0-0.2); Basophils % 0.6 % (0.1-2.0); Eosinophils # 0.3 K/mm3 (0.0-0.4); Eosinophils % 2.4 % (0.1-12.0); Hematocrit 46.7 % (42.0-52.0); Hemoglobin 15.8 g/dL (14.1-18.0); Lymphocytes # 2.5 K/mm3 (0.7-4.5); Mean Corpuscular HGB Conc 33.8 g/dL (31.8-35.4); Mean Corpuscular Hemoglobin 29.6 pg (27.0-31.2); Mean Corpuscular Volume 87.6 fl (80-94); Mean Platelet Volume 8.9 fl (7.4-10.4); Monocytes # 0.8 K/mm3 (0.1-1.0); Monocytes % 7.5 % (1.7-9.3); Neutrophils # 6.9 K/mm3 (1.8-7.8); Neutrophils % 65.5 % (37.0-80.0); Platelet Count 267 K/mm3 (142-424); Red Blood Count 5.33 M/mm3 (4.60-6.20); Red Cell Distribution Width 13.4 % (11.5-17.5); White Blood Count 10.6 K/mm3 (4.8-10.8)
[2023-04-16 15:09] LABS: Alanine Aminotransferase 31 U/L (12-78); Albumin Level 4.2 g/dl (3.5-5.0); Albumin/Globulin Ratio 1.4 (1.1-1.8); Alkaline Phosphatase 81 U/L (38-126); Anion Gap 13.1 mEq/L (5-15); Aspartate Amino Transferase 29 U/L (17-59); Bilirubin,Total 0.6 mg/dl (0.2-1.3); Blood Urea Nitrogen 25 mg/dl (9-20); Calcium 8.7 mg/dl (8.4-10.2); Carbon Dioxide 23 mmol/L (22.0-30.0); Chloride 102 mmol/L (98-107); Chol/HDL Ratio 3.9 (1-3.5); Cholesterol 156 mg/dl (140-200); Estimated Glomerular Filt Rate 76 ml/min (>60); GFR (African American) 92 ML/MIN (>60); Globulin 3.1 g/dL (1.3-3.2); Glucose 81 mg/dl (74-100); HDL Cholesterol 40 mg/dl (40-60); Potassium 4.1 mmoL/L (3.5-5.1); Sodium 134 mmol/L (136-145); Total Protein,Serum 7.3 g/dl (6.3-8.2); Triglycerides 133 mg/dl (30-150); VLDL Cholesterol 27 mg/dL (0-40)
[2023-04-16 15:20] LABS: Direct LDL Cholesterol 87.32 mg/dL (100-129)
== END ==
LOC: LAB.DROPOF 13:58
PROVIDERS: PCP Internal Medicine; Visit Provider Internal Medicine
DX: I10 Essential (primary) hypertension (principal); E78.5 Hyperlipidemia, unspecified; M47.27 Other spondylosis with radiculopathy, lumbosacral region; E66.8 Other obesity; Z68.37 Body mass index [BMI] 37.0-37.9, adult
CPT/HCPCS: 80053; 80061; 85025

== ENCOUNTER 2023-07-16 13:15 | Outpatient (POV) | payer MEDICARE, SELFPAY ==
--- NOTE | 2023-07-16 13:35 | EXP.PAIN.SOA ---
[facility] Pain Management SOAP Note Subjective:: Patient is a pleasant 63-year-old male who presents today for 3-month follow-up. Today he rates his pain an 8 out of 10. He denies any new trauma or injury. He does state that he continues to experience significant pain throughout his low back that does radiate into his legs with numbness and tingling. Patient does state the bulk of his pain is into his low back however. He describes it as a constant aching sensation that is worse with increased activity or ambulation. He states he cannot walk very far without having to stop and take breaks due to the pain. It is interfering with his ability to perform activities of daily living such as cooking and cleaning. Patient states that he did have updated imaging within the last couple of years at [facility]. Patient did have lumbar surgery back in May 2021. Patient does she use [id number] Tylenol along with heat and ice and topicals. His Martin has been reviewed and is appropriate. Review of Systems: General: No recent weight changes, no fever, no sleep disturbances Respiratory: No cough, no shortness of air, no recurring pulmonary infections Cardiovascular/peripheral vascular: No chest pain, no palpitations, no edema, no shortness of breath Gastrointestinal: No new onset incontinence, normal bowel movements reported Genitourinary: No new onset incontinence Musculoskeletal: Low back pain, bilateral leg pain Psychiatric: [Normal mood/affect] Neurological: [Denies weakness in extremities], [denies balance issues] Objective:: Physical Exam: General: Alert and oriented x3, no acute distress, pleasant and cooperative Lungs: Respirations even and unlabored, symmetrical chest expansion Eyes: PERRL Musculoskeletal: Flexion and extension of lumbar [spine] somewhat guarded secondary to pain, [antalgic gait noted] Neurological: Speech clear, no gross sensory deficit MRI of lumbar spine without contrast August 21, 2022 Findings: There are postsurgical changes at the L4-L5 level. There is a grade 1 anterolisthesis of L4 on L5. There is a grade 1 retrolisthesis of L5 on S1. There is disc desiccation at L4-L5 and L5-S1. There are acute on chronic degenerative endplate changes noted at L4-L5 and L5-S1. There is a hemangioma noted at the L3 vertebral body and a couple smaller hemangioma suspected within the sacrum and L2 vertebral body. There is fat signal in the pedicles of L4 and L5 which may be additional hemangiomas are related to chronic arthritic changes. There is mild wedging of T12. There is small disc herniation at T11-T12 which is incompletely assessed on the study. There are renal cystic lesions incompletely assessed on the study. There is clumping of the nerve roots in the lower lumbar spine. There is an enhancing nerve root in the cauda equina at the L4-L5 level presumedly and neuritis T12-L1: Mild articular facet disease. No significant canal or foraminal stenosis L1-2: Small disc bulge with mild articular facet disease no significant canal or foraminal stenosis L2-3: Small disc bulge without significant narrowing L3-4: Small disc bulge with mild articular facet disease no significant canal or foraminal stenosis L4-5: Concentric disc bulge with moderate articular facet disease there is laminectomy defect on the right with enhancing granulation tissue extending along the right side of the canal and to the ventral surface. There is small disc osteophyte complex formation and enhancing granulation component. There is moderate ligamentum flavum hypertrophy. There is fluid signal interposed between the articular facets which can suggest motion. There is moderate canal narrowing and moderate to severe foraminal narrowing. The disc material extending up into the foraminal region and impinging upon the exiting L4 nerve roots bilaterally L5-S1: There is disc osteophyte complex formation with moderate to severe foraminal narrowing and mild canal narrowing Assessment:: Degenerative disc disease of lumbar spine with lumbar radiculopathy symptoms, lumbar postlaminectomy syndrome, lumbar spondylosis, multilevel lumbar facet arthropathy Plan:: Patient is experiencing worsening pain in his low back and legs with limited range of motion. I have discussed with the patient that he may benefit from repeat lumbar epidural steroid injection. Risk and benefits were discussed with patient and he would like to proceed forward with this plan of care. Patient has had these injections in the past that did provide approximately 50% relief of more. I have also discussed with the patient that I will reach out to [facility] and get a copy of his updated imaging to confirm injection placement. Patient will be scheduled for an LESI L4-L5 under fluoroscopy. Patient has been instructed to contact the clinic with any concerns before the next appointment. Dr. Kern has reviewed this note and agrees with this plan of care. This note was dictated using voice recognition software and make contain errors or omissions. PFSH PFSH Disclaimer: The information contained in this section may have been updated after the patient was seen, as this information can be updated by other users. Medical History CAD (coronary artery disease) GERD (gastroesophageal reflux disease) HLD (hyperlipidemia) HTN (hypertension) JET (obstructive sleep apnea) Surgical History H/O colonoscopy H/O shoulder surgery History of cardiac cath Hx of tonsillectomy Previous back surgery Family History Other Hypertension Social History (Updated 04/08/23 @ 09:04 by Nano Abdul RN) Smoking Status: Never smoker alcohol intake: never substance use type: denies use current occupational status: employed and other Travel in the last 8 weeks: None household members: spouse housing: house current occupation: [employer] caffeine: Yes
[2023-07-17 07:44] VITALS: BP 128/81; PULSE 70; RESP 18; O2SAT 20; BMI 36.9
== END 2023-07-16 23:59 ==
LOC: SC.PAIN 13:17
PROVIDERS: PCP Internal Medicine; Visit Provider Nurse Practitioner Family
DX: M51.16 Intervertebral disc disorders with radiculopathy, lumbar region (principal); M96.1 Postlaminectomy syndrome, not elsewhere classified; M47.26 Other spondylosis with radiculopathy, lumbar region
CPT/HCPCS: 99212; G0463

== ENCOUNTER 2023-08-12 10:19 | Day surgery (SDC) | payer MEDICARE, SELFPAY ==
[2023-08-12 10:35] VITALS: BP 104/62; PULSE 65; RESP 16; TEMP 37; O2SAT 100; BMI 37.3
[2023-08-12] MEDS: methylPREDNISolone ACETATE 80MG/ML VIAL 80 MG (10:58)
--- NOTE | 2023-08-12 10:58 | P.PCN_ITS ---
Procedure Date: 08/12/23 Time: 10:30 Anesthesiologist:: Curly Rodríguez CRNA Complications:: None Pre-procedure Diagnosis:: Degenerative disc lumbar spine multilevels. Lumbar radiculopathy. Lumbar postlaminectomy syndrome. Post-procedure Diagnosis:: Same. Indications for Procedure:: Patient is a pleasant 63-year-old male comes to clinic today for lumbar epidural steroid injection at the L4-5 level. Patient reporting low back pain that is constant, dull, aching. Also some bilateral hip and leg radicular symptoms at times. Rates his pain 7/10. Procedure Details:: Procedure: Lumbar epidural steroid injection under fluoroscopy Informed consent was obtained and the risks and benefits of the procedure were explained to the patient. The patient was taken to the procedure room and noninvasive monitors placed, including noninvasive blood pressure cuff and pulse oximeter. The back was viewed using C-arm Fluoroscopy and prepped using Chloraprep as a cleansing solution and the L4-L5 interspace was palpated. Skin and subcutaneous tissues were anesthetized using lidocaine 1.5% and a 25-gauge needle. After this, an 18-gauge Touhy epidural needle was placed into the L4-L5 interspace and advanced using fluoroscopic guidance and loss of resistance to air until the epidural space was encountered. After confirmation of needle placement in the epidural space, with dye, a solution containing normal saline, 3 mL and Depo-Medrol 80 mg were incrementally injected into the lumbar epidural space. The patient tolerated the procedure well with no complications. The patient was observed in the Pain Clinic and then discharged home neurologic ally intact. Plan and Disposition:: Patient was discharged without incident.
[2023-08-12 11:00] VITALS: BP 150/90; PULSE 74; RESP 18; O2SAT 95
[2023-08-12 11:03] VITALS: BP 150/90; PULSE 74; RESP 18; O2SAT 95
[2023-08-12 11:05] VITALS: BP 127/80; PULSE 67; RESP 18; O2SAT 100
== END 2023-08-12 11:05 | disposition home or self-care (01) ==
LOC: SC.PAINP 10:21
PROVIDERS: PCP Internal Medicine; Visit Provider Nurse Anesthetist, Certified Registered
DX: M51.16 Intervertebral disc disorders with radiculopathy, lumbar region (principal); M96.1 Postlaminectomy syndrome, not elsewhere classified
CPT/HCPCS: 62323; J1010

== ENCOUNTER 2023-09-29 10:19 | Outpatient (POV) | payer MEDICARE, SELFPAY ==
[2023-09-29 10:57] VITALS: BP 106/47; PULSE 76; RESP 18; O2SAT 97; BMI 37.3
--- NOTE | 2023-09-29 12:13 | A.OFFVIS_ITS ---
[facility] Pain Management SOAP Note Subjective:: Patient is a pleasant 63-year-old male who presents today for follow-up of lumbar epidural steroid injection of L4-L5 back in August 11. Patient does state that he had at least 75 to 80% relief with this injection and it did last at least a month if not longer. Patient states that he did go on a golf trip and did a lot of walking and may have aggravated some of his symptoms. Patient does state today his pain is a 9 out of 10. He denies any new trauma or injury or change to location or type of pain he experiences. Patient does describe it as an aching, throbbing sensation with numbness and tingling into his legs. Patient does state the pain interferes with his ability perform activities of daily living such as cooking and cleaning. Patient is interested in an additional injection therapy. His Martin has been reviewed and is appropriate. Review of Systems: General: No recent weight changes, no fever, no sleep disturbances Respiratory: No cough, no shortness of air, no recurring pulmonary infections Cardiovascular/peripheral vascular: No chest pain, no palpitations, no edema, no shortness of breath Gastrointestinal: No new onset incontinence, normal bowel movements reported Genitourinary: No new onset incontinence Musculoskeletal: Low back pain, bilateral leg pain Psychiatric: [Normal mood/affect] Neurological: [Denies weakness in extremities], [denies balance issues] Objective:: Physical Exam: General: Alert and oriented x3, no acute distress, pleasant and cooperative Lungs: Respirations even and unlabored, symmetrical chest expansion Eyes: PERRL Musculoskeletal: Flexion and extension of lumbar [spine] somewhat guarded secondary to pain, [antalgic gait noted] Neurological: Speech clear, no gross sensory deficit Assessment:: Degenerative disc disease of lumbar spine with lumbar radiculopathy symptoms, prior lumbar surgery, lumbar spondylosis, lumbar facet arthropathy Plan:: At her last visit we did review over that the patient did have moderate ligamentum flavum hypertrophy along the L4-L5 level. I have gone over with the patient that he may be a minimally invasive lumbar decompression candidate. Risk and benefits and educational handouts were reviewed during today's visit. We will discuss this at future visits. I have discussed due to his continued pain in his low back and legs that he may benefit from a repeat lumbar epidural with epidurogram to see if he is a possible lumbar decompression candidate in the future. Patient does state that when he had his prior lumbar surgery that he thought it was a foraminotomy. Patient has tried and failed conservative therapy including continued at home stretching exercise between injections. We will submit to insurance for the lumbar epidural steroid injection L4-L5 under fluoroscopy with epidurogram. Patient has had significant relief from the lumbar epidurals in the past with his last 1 providing about 80% relief lasting over a month. Patient did have improved function overall. Patient has been instructed to contact the clinic with any concerns before the next appointment. Dr. Kern has reviewed this note and agrees with this plan of c are. This note was dictated using voice recognition software and make contain errors or omissions. [facility] Disclaimer: The information contained in this section may have been updated after the patient was seen, as this information can be updated by other users. Medical History CAD (coronary artery disease) GERD (gastroesophageal reflux disease) HLD (hyperlipidemia) HTN (hypertension) JET (obstructive sleep apnea) Surgical History H/O colonoscopy H/O shoulder surgery History of cardiac cath Hx of tonsillectomy Previous back surgery Family History Other Hypertension Social History Smoking Status: Never smoker alcohol intake: never substance use type: denies use current occupational status: other Travel in the last 8 weeks: None household members: spouse housing: house current occupation: [employer] caffeine: Yes
== END 2023-09-29 23:59 | disposition home or self-care (01) ==
LOC: SC.PAIN 10:20
PROVIDERS: PCP Internal Medicine; Visit Provider Nurse Practitioner Family
DX: M51.16 Intervertebral disc disorders with radiculopathy, lumbar region (principal); Z98.890 Other specified postprocedural states; M47.26 Other spondylosis with radiculopathy, lumbar region
CPT/HCPCS: 99212; G0463

== ENCOUNTER 2023-10-21 11:17 | Day surgery (SDC) | payer MEDICARE, SELFPAY ==
[2023-10-21 11:24] VITALS: BP 125/70; PULSE 68; RESP 18; TEMP 36.8; O2SAT 98; BMI 37.3
[2023-10-21] MEDS: IOPAMIDOL-200 (41%);10ML VIAL 10 ML IV (11:32)
[2023-10-21 11:34] VITALS: BP 113/62; PULSE 62; RESP 18; O2SAT 96
[2023-10-21] MEDS: methylPREDNISolone ACETATE 80MG/ML VIAL 80 MG (11:34)
[2023-10-21 11:35] VITALS: BP 113/62; PULSE 65; RESP 18; O2SAT 96
--- NOTE | 2023-10-21 11:37 | EXP.PAIN.PRO ---
Procedure Date: 10/21/23 Time: 11:30 Anesthesiologist:: Curly Rodríguez CRNA Complications:: None Pre-procedure Diagnosis:: Degenerative disc lumbar spine multilevels. Lumbar radiculopathy. Lumbar postlaminectomy syndrome. Post-procedure Diagnosis:: Same. Indications for Procedure:: Patient is a very pleasant 63-year-old male comes our clinic today for repeat L4-5 lumbar epidural steroid injection. Patient reports moderate improvement terms of her overall low back pain as well as bilateral hip and leg radicular symptoms with previous injection. He rates his pain today 7/10. Procedure Details:: Procedure: Lumbar epidural steroid injection under fluoroscopy Informed consent was obtained and the risks and benefits of the procedure were explained to the patient. The patient was taken to the procedure room and noninvasive monitors placed, including noninvasive blood pressure cuff and pulse oximeter. The back was viewed using C-arm Fluoroscopy and prepped using Chloraprep as a cleansing solution and the L4-L5 interspace was palpated. Skin and subcutaneous tissues were anesthetized using lidocaine 1.5% and a 25-gauge needle. After this, an 18-gauge Touhy epidural needle was placed into the L4-L5 interspace and advanced using fluoroscopic guidance and loss of resistance to air until the epidural space was encountered. After confirmation of needle placement in the epidural space, with dye, a solution containing normal saline, 3 mL and Depo-Medrol 80 mg were incrementally injected into the lumbar epidural space. The patient tolerated the procedure well with no complications. The patient was observed in the Pain Clinic and then discharged home neurologically intact. Plan and Disposition:: Patient was discharged without incident.
[2023-10-21 11:43] VITALS: BP 125/77; PULSE 62; RESP 18; O2SAT 96
== END 2023-10-21 11:44 | disposition home or self-care (01) ==
PROVIDERS: PCP Internal Medicine; Visit Provider Nurse Anesthetist, Certified Registered
DX: M54.16 Radiculopathy, lumbar region (principal); M96.1 Postlaminectomy syndrome, not elsewhere classified; M51.36 Other intervertebral disc degeneration, lumbar region
CPT/HCPCS: 62323; J1010; Q9966

== ENCOUNTER 2023-11-12 10:19 | Outpatient (POV) | payer MEDICARE, SELFPAY ==
[2023-11-12 10:35] VITALS: BP 122/70; PULSE 78; RESP 18; O2SAT 96; BMI 37.3
--- NOTE | 2023-11-12 10:45 | A.OFFVIS_ITS ---
[facility] Disclaimer: The information contained in this section may have been updated after the patient was seen, as this information can be updated by other users. Medical History CAD (coronary artery disease) GERD (gastroesophageal reflux disease) HLD (hyperlipidemia) HTN (hypertension) JET (obstructive sleep apnea) Surgical History H/O colonoscopy H/O shoulder surgery History of cardiac cath Hx of tonsillectomy Previous back surgery Family History Other Hypertension Social History Smoking Status: Never smoker alcohol intake: never substance use type: denies use current occupational status: retired Travel in the last 8 weeks: None household members: spouse housing: house current occupation: [employer] caffeine: Yes PM Subjective & Objective Subjective Subjective:: Patient is a pleasant 63-year-old male who presents today for follow-up of lumbar epidural steroid injection on 10/21/2023 of L4-L5. Today he rates his pain a 3 out of 10. Patient denies any new trauma or injury. He does state that he has had at least 50% improvement following this injection and feels like it still helping. Patient does state that he still has pain but it is definitely not as severe or not as consistent. Patient does state that he still has to watch what he is doing because if he does a lot of activity he will feel it the next day. His Martin has been reviewed and is appropriate. Review of Systems: General: No recent weight changes, no fever, no sleep disturbances Respiratory: No cough, no shortness of air, no recurring pulmonary infections Cardiovascular/peripheral vascular: No chest pain, no palpitations, no edema, no shortness of breath Gastrointestinal: No new onset incontinence, normal bowel movements reported Genitourinary: No new onset incontinence Musculoskeletal: Low back pain Psychiatric: [Normal mood/affect] Neurological: [Denies weakness in extremities], [denies balance issues] Pain at rest (0-10 scale): 3 Objective Objective:: Physical Exam: General: Alert and oriented x3, no acute distress, pleasant and cooperative Lungs: Respirations even and unlabored, symmetrical chest expansion Eyes: PERRL Musculoskeletal: Flexion and extension of lumbar [spine] somewhat guarded secondary to pain, [antalgic gait noted] Neurological: Speech clear, no gross sensory deficit Has patient had previous pain injection?: Yes Percent improvement in pain since last injection: 50% Conservative treatment options previously tried: Home exercise plan Length of treatment: Longer than 8 weeks Meds Home Medications and Allergies Home Medications ?Medication ?Instructions ?Recorded ?Confirmed ?Type aspirin 81 mg tablet,delayed 81 mg PO DAILY Supplement 08/20/18 11/12/23 History release (Adult Low Dose Aspirin) ramipril 5 mg capsule 5 mg PO DAILY BP 08/20/18 11/12/23 History diclofenac sodium 75 mg 75 mg PO BID Pain 01/29/22 11/12/23 History tablet,delayed release famotidine 20 mg tablet 20 mg PO DAILY . 12/04/22 11/12/23 History spironolactone 25 mg tablet 25 mg PO Q OTHER DAY Fluid #30 tabs 07/01/23 11/12/23 Rx atorvastatin 40 mg tablet See Rx Instructions .Route 10/30/23 11/12/23 Rx .COMPLEX #90 tabs hydrocortisone 2.5 % topical cream 1 applic OK QID PRN hemorrhoids 11/09/23 11/12/23 Rx with perineal applicator #30 grams ([facility] ) New Prescriptions to Start Prescriptions: Allergies Allergy/AdvReac Type Severity Reaction Status Date / Time No Known Allergies Allergy Verified 10/21/23 11:24 Assessment and Plan *Assessment and plan (1) Degenerative disc disease, lumbar: Status: Acute Category: Medical Code(s): M51.36 - Other intervertebral disc degeneration, lumbar region (2) Lumbar radiculopathy: Status: Acute Category: Medical Code(s): M54.16 - Radiculopathy, lumbar region Plan Patient has had significant improvement following his injection and does not require any additional injection therapy. Patient will return to clinic in 1 month. I will order the patient a compounded cream. Patient has been instructed to contact the clinic with any concerns before the n ext appointment. Dr. Kern has reviewed this note and agrees with this plan of care. This note was dictated using voice recognition software and make contain errors or omissions.
== END 2023-11-12 23:59 | disposition home or self-care (01) ==
LOC: SC.PAIN 10:20
PROVIDERS: PCP Internal Medicine; Visit Provider Nurse Practitioner Family
DX: M51.36 Other intervertebral disc degeneration, lumbar region (principal); M54.16 Radiculopathy, lumbar region
CPT/HCPCS: 99212; G0463

== ENCOUNTER 2023-12-11 10:56 | Outpatient (POV) | payer MEDICARE, SELFPAY ==
--- NOTE | 2023-12-11 12:11 | A.OFFVIS_ITS ---
[facility] Disclaimer: The information contained in this section may have been updated after the patient was seen, as this information can be updated by other users. Medical History GERD (gastroesophageal reflux disease) JET (obstructive sleep apnea) CAD (coronary artery disease) HLD (hyperlipidemia) HTN (hypertension) Surgical History Previous back surgery H/O colonoscopy Hx of tonsillectomy History of cardiac cath H/O shoulder surgery Family History Other Hypertension Social History Smoking Status: Never smoker alcohol intake: never substance use type: denies use current occupational status: retired Travel in the last 8 weeks: None household members: spouse housing: house current occupation: [employer] caffeine: Yes PM Subjective & Objective Subjective Subjective:: Patient is a pleasant 63-year-old male who presents today for follow-up. Today he rates his pain a 7 out of 10. He denies any new trauma or injury. He does still state that he is starting to have more pain throughout his low back and legs. He does state it is worse with increased activity and that it is very limiting when it does flareup. Patient did previously have a lumbar epidural of L4-L5 back in October that did provide more than 50% relief and felt like it has at least taken down the severity to where the pain is more manageable. He does state that he would like to see a little bit longer before he decides about another injection. He is prescribed compounded cream and states it did not seem to do as much for his low back but did really help his knees. His Martin has been reviewed and is appropriate. Review of Systems: General: No recent weight changes, no fever, no sleep disturbances Respiratory: No cough, no shortness of air, no recurring pulmonary infections Cardiovascular/peripheral vascular: No chest pain, no palpitations, no edema, no shortness of breath Gastrointestinal: No new onset incontinence, normal bowel movements reported Genitourinary: No new onset incontinence Musculoskeletal: Low back pain, leg pain Psychiatric: [Normal mood/affect] Neurological: [Denies weakness in extremities], [denies balance issues] Pain at rest (0-10 scale): 7 Objective Objective:: Physical Exam: General: Alert and oriented x3, no acute distress, pleasant and cooperative Lungs: Respirations even and unlabored, symmetrical chest expansion Eyes: PERRL Musculoskeletal: Flexion and extension of lumbar [spine] somewhat guarded secondary to pain, [antalgic gait noted] Neurological: Speech clear, no gross sensory deficit Has patient had previous pain injection?: No Conservative treatment options previously tried: Home exercise plan Length of treatment: Longer than 6 weeks Meds Home Medications and Allergies Home Medications ?Medication ?Instructions ?Recorded ?Confirmed ?Type aspirin 81 mg tablet,delayed 81 mg PO DAILY Supplement 08/20/18 12/08/23 History release (Adult Low Dose Aspirin) ramipril 5 mg capsule 5 mg PO DAILY BP 08/20/18 12/08/23 History famotidine 20 mg tablet 20 mg PO DAILY . 12/04/22 12/08/23 History spironolactone 25 mg tablet 25 mg PO Q OTHER DAY Fluid #30 tabs 07/01/23 12/08/23 Rx atorvastatin 40 mg tablet See Rx Instructions .Route 10/30/23 12/08/23 Rx .COMPLEX #90 tabs hydrocortisone 2.5 % topical cream 1 applic [place] QID PRN hemorrhoids 11/09/23 12/08/23 Rx with perineal applicator #30 grams (Procto-Med ) diclofenac sodium 75 mg See Rx Instructions .Route 12/03/23 12/08/23 Rx tablet,delayed release .COMPLEX #180 tabs doxycycline hyclate 20 mg tablet 20 mg PO DAILY 12/08/23 12/08/23 History methocarbamol 750 mg tablet 750 mg PO BID PRN muscle pain #28 12/11/23 Rx tabs New Prescriptions to Start Prescriptions: methocarbamol Sandy Sandoval Allergies Allergy/AdvReac Type Severity Reaction Status Date / Time No Known Allergies Allergy Verified 12/08/23 10:15 Assessment and Plan *Assessment and plan (1) Lumbar radiculopathy: Status: Acute Category: Medical Code(s): M54.16 - Radiculopathy, lumbar region Plan I have discussed with the patient that I will send in methocarbamol 750 mg twice daily as needed with 28 tablets. Patient was counseled to try this as needed for times worsening pain. Patient will return to clinic in 1 month for reevaluation of symptoms and plan of care. Patient has been instructed to contact the clinic with any concerns before the next appointment. Dr. Kern has reviewed this note and agrees with this plan of care. This note was dictated using voice recognition software and make contain errors or omissions. All injections are used with Lidocaine or Bupivacaine and Depo Medrol.
[2023-12-11 12:34] VITALS: BP 126/71; PULSE 87; RESP 16; O2SAT 96; BMI 37.3
== END 2023-12-11 23:59 | disposition home or self-care (01) ==
PROVIDERS: PCP Internal Medicine; Visit Provider Nurse Practitioner Family
DX: M54.16 Radiculopathy, lumbar region (principal)
CPT/HCPCS: 99212; G0463

== ENCOUNTER 2024-01-08 11:16 | Outpatient (POV) | payer MEDICARE, SELFPAY ==
[2024-01-08 11:37] VITALS: BP 108/63; PULSE 78; RESP 18; O2SAT 97; BMI 37.3
--- NOTE | 2024-01-08 12:08 | A.OFFVIS_ITS ---
[facility] Disclaimer: The information contained in this section may have been updated after the patient was seen, as this information can be updated by other users. Medical History GERD (gastroesophageal reflux disease) JET (obstructive sleep apnea) CAD (coronary artery disease) HLD (hyperlipidemia) HTN (hypertension) Surgical History Previous back surgery H/O colonoscopy Hx of tonsillectomy History of cardiac cath H/O shoulder surgery Family History Other Hypertension Social History Smoking Status: Never smoker alcohol intake: never substance use type: denies use current occupational status: retired Travel in the last 8 weeks: None household members: spouse housing: house current occupation: [employer] caffeine: Yes PM Subjective & Objective Subjective Subjective:: Patient is a pleasant 63-year-old male who presents today for follow-up. Today he rates his pain an 8 out of 10. Patient denies any new trauma or injury. He states he has been experiencing worsening pain in his low back with radiating symptoms down into his lower extremities. Patient states he did just play golf on Friday and had worsening pain for about 3 days. Patient states the pain does interfere with his ability perform activities of daily living such as cooking and cleaning. Patient did previously have a lumbar epidural in October that did provide more than 50% relief and has lasted overall really well up until the last week or so. Patient is interested in repeating this injection. Patient has tried and failed conservative therapy. He has recently been tried on methocarbamol however states that really did not seem to make much difference. He was prescribed compounded cream however he stated it did not do much on his back but really helped his knees. Patient does also state he has tried Aleve recently and it did seem like it may have helped better than the diclofenac. His Martin has been reviewed and is appropriate. Review of Systems: General: No recent weight changes, no fever, no sleep disturbances Respiratory: No cough, no shortness of air, no recurring pulmonary infections Cardiovascular/peripheral vascular: No chest pain, no palpitations, no edema, no shortness of breath Gastrointestinal: No new onset incontinence, normal bowel movements reported Genitourinary: No new onset incontinence Musculoskeletal: Low back pain, leg pain Psychiatric: [Normal mood/affect] Neurological: [Denies weakness in extremities], [denies balance issues] Pain at rest (0-10 scale): 8 Objective Objective:: Physical Exam: General: Alert and oriented x3, no acute distress, pleasant and cooperative Lungs: Respirations even and unlabored, symmetrical chest expansion Eyes: PERRL Musculoskeletal: Flexion and extension of lumbar [spine] somewhat guarded secondary to pain, [antalgic gait noted] Neurological: Speech clear, no gross sensory deficit Has patient had previous pain injection?: No Conservative treatment options previously tried: Home exercise plan Length of treatment: Longer than 6 weeks Meds Home Medications and Allergies Home Medications ?Medication ?Instructions ?Recorded ?Confirmed ?Type aspirin 81 mg tablet,delayed 81 mg PO DAILY Supplement 08/20/18 01/08/24 History release (Adult Low Dose Aspirin) ramipril 5 mg capsule 5 mg PO DAILY BP 08/20/18 01/08/24 History spironolactone 25 mg tablet 25 mg PO Q OTHER DAY Fluid #30 tabs 07/01/23 01/08/24 Rx atorvastatin 40 mg tablet See Rx Instructions .Route 10/30/23 01/08/24 Rx .COMPLEX #90 tabs hydrocortisone 2.5 % topical cream 1 applic [place] QID PRN hemorrhoids 11/09/23 01/08/24 Rx with perineal applicator #30 grams (Procto-Med ) diclofenac sodium 75 mg See Rx Instructions .Route 12/03/23 01/08/24 Rx tablet,delayed release .COMPLEX #180 tabs doxycycline hyclate 20 mg tablet 20 mg PO DAILY 12/08/23 01/08/24 History methocarbamol 750 mg tablet 750 mg PO BID PRN muscle pain #28 12/11/23 01/08/24 Rx tabs famotidine 20 mg tablet See Rx Instructions .Route 01/06/24 01/08/24 Rx .COMPLEX #90 tabs New Prescriptions to Start Prescriptions: Allergies Allergy/AdvReac Type Severity Reaction Status Date / Time No Known Allergies Allergy Verified 12/08/23 10:15 Assessment and Plan *Assessment and plan (1) Lumbar facet arthropathy: Status: Acute Category: Medical Code(s): M47.816 - Spondylosis without myelopathy or radiculopathy, lumbar region (2) Low back pain: Status: Acute Category: Medical Code(s): M54.50 - Low back pain, unspecified (3) Lumbar radiculopathy: Status: Acute Category: Medical Code(s): M54.16 - Radiculopathy, lumbar region (4) Degenerative disc disease, lumbar: Status: Acute Category: Medical Code(s): M51.36 - Other intervertebral disc degeneration, lumbar region Plan EpiduralPatient is experiencing worsening pain throughout his low back and legs with limited range of motion. I did discuss with the patient that he may benefit from repeat steroid injection. Risk and benefits were discussed with the patient and he would like to proceed forward with this plan of care. Patient has had these injections in the past and it has provided more than 50% improvement lasting nearly 3 months. Patient is not on any blood thinners. We will schedule the patient for an LESI L4-L5 with fluoroscopy. Patient was counseled if he tries the Aleve to discontinue the diclofenac while he is on this medication. Patient acknowledges understanding. Patient has been instructed to contact the clinic with any concerns before the next appointment. Dr. Kern has reviewed this note and agrees with this plan of care. This note was dictated using voice recognition software and make contain errors or omissions. All injections are used with Lidocaine or Bupivacaine and Depo Medrol.
== END 2024-01-08 23:59 | disposition home or self-care (01) ==
LOC: SC.PAIN 11:17
PROVIDERS: PCP Internal Medicine; Visit Provider Nurse Practitioner Family
DX: M54.50 Low back pain, unspecified; M47.26 Other spondylosis with radiculopathy, lumbar region; M51.16 Intervertebral disc disorders with radiculopathy, lumbar region; Z73.89 Other problems related to life management difficulty
CPT/HCPCS: 99212; G0463

== ENCOUNTER 2024-01-27 10:28 | Day surgery (SDC) | payer MEDICARE, SELFPAY ==
[2024-01-27 10:48] VITALS: BP 125/68; PULSE 65; RESP 16; TEMP 36.8; O2SAT 98; BMI 37.3
[2024-01-27 10:49] VITALS: BP 132/83; PULSE 76; RESP 18; O2SAT 95
[2024-01-27] MEDS: methylPREDNISolone ACETATE 80MG/ML VIAL 80 MG (10:49)
[2024-01-27 10:51] VITALS: BP 132/83; PULSE 70; RESP 18; O2SAT 97
[2024-01-27 10:56] VITALS: BP 125/68; PULSE 65; RESP 16; O2SAT 98
--- NOTE | 2024-01-27 11:02 | EXP.PAIN.PRO ---
Procedure Date: 01/27/24 Time: 10:50 Anesthesiologist:: Curly Rodríguez CRNA Complications:: None Pre-procedure Diagnosis:: Degenerative disc lumbar spine multilevels. Lumbar radiculopathy. Lumbar postlaminectomy syndrome. Post-procedure Diagnosis:: Same. Indications for Procedure:: Patient is a very pleasant 63-year-old male who comes our clinic today for lumbar epidural steroid injection at the L4-5 level. Patient has had right sided discectomy laminectomy in the past. He reports low back pain as well as bilateral hip and leg radicular symptoms. Left leg greater than right. Procedure Details:: Procedure: Lumbar epidural steroid injection under fluoroscopy Informed consent was obtained and the risks and benefits of the procedure were explained to the patient. The patient was taken to the procedure room and noninvasive monitors placed, including noninvasive blood pressure cuff and pulse oximeter. The back was viewed using C-arm Fluoroscopy and prepped using Chloraprep as a cleansing solution and the L5-S1 interspace was palpated. Skin and subcutaneous tissues were anesthetized using lidocaine 1.5% and a 25-gauge needle. After this, an 18-gauge Touhy epidural needle was placed into the L5-S1 interspace and advanced using fluoroscopic guidance and loss of resistance to air until the epidural space was encountered. After confirmation of needle placement in the epidural space, with dye, a solution containing normal saline, 3 mL and Depo-Medrol 80 mg were incrementally injected into the lumbar epidural space. The patient tolerated the procedure well with no complications. The patient was observed in the Pain Clinic and then discharged home neurologically intact. Plan and Disposition:: Patient was discharged without incident.
== END 2024-01-27 10:56 | disposition home or self-care (01) ==
PROVIDERS: PCP Internal Medicine; Visit Provider Nurse Anesthetist, Certified Registered
DX: M51.16 Intervertebral disc disorders with radiculopathy, lumbar region (principal); M96.1 Postlaminectomy syndrome, not elsewhere classified
CPT/HCPCS: 62323; J1010

== ENCOUNTER 2024-04-12 15:24 | Outpatient (CLI) | payer MEDICARE, SELFPAY ==
[2024-04-12 13:34] LABS: Alanine Aminotransferase 25 U/L (12-78); Albumin Level 4.1 g/dl (3.5-5.0); Albumin/Globulin Ratio 1.4 (1.1-1.8); Alkaline Phosphatase 84 U/L (38-126); Anion Gap 10.7 mEq/L (5-15); Aspartate Amino Transferase 32 U/L (17-59); Bilirubin,Total 0.8 mg/dl (0.2-1.3); Blood Urea Nitrogen 20 mg/dl (9-20); Calcium 9.7 mg/dl (8.4-10.2); Carbon Dioxide 29 mmol/L (22.0-30.0); Chloride 105 mmol/L (98-107); Chol/HDL Ratio 3.8 (1-3.5); Cholesterol 148 mg/dl (140-200); Estimated Glomerular Filt Rate 86 ml/min (>60); GFR (African American) 103 ML/MIN (>60); Globulin 2.9 g/dL (1.3-3.2); Glucose 96 mg/dl (74-100); HDL Cholesterol 39 mg/dl (40-60); Potassium 4.7 mmoL/L (3.5-5.1); Sodium 140 mmol/L (136-145); Triglycerides 133 mg/dl (30-150); VLDL Cholesterol 27 mg/dL (0-40)
[2024-04-12 13:45] LABS: Direct LDL Cholesterol 79.95 mg/dL (100-129)
[2024-04-12 14:00] LABS: Hematocrit 44.1 % (42.0-52.0); Hemoglobin 14.1 g/dL (14.1-18.0); Mean Corpuscular Hemoglobin 26.5 pg (27.0-31.2); Mean Corpuscular Volume 82.9 fl (80-94); Red Blood Count 5.32 M/mm3 (4.60-6.20); White Blood Count 9.4 K/mm3 (4.8-10.8)
[2024-04-12 14:01] LABS: Basophils # 0.1 K/mm3 (0-0.2); Eosinophils # 0.6 K/mm3 (0.0-0.4); Eosinophils % 6.6 % (0.1-12.0); Lymphocytes # 2.1 K/mm3 (0.7-4.5); Lymphocytes % 22.3 % (10-50); Monocytes # 0.8 K/mm3 (0.1-1.0); Monocytes % 8.8 % (1.7-9.3); Neutrophils # 5.7 K/mm3 (1.8-7.8); Platelet Count 303 K/mm3 (142-424); Red Cell Distribution Width 13.8 % (11.5-17.5)
[2024-04-12 14:04] LABS: Prostate Specific Ag Screen 1.2 ng/ml (0.0-4.0)
== END 2024-04-12 23:59 | disposition home or self-care (01) ==
LOC: LAB.DROPOF 15:25
PROVIDERS: PCP Internal Medicine; Visit Provider Internal Medicine
DX: Z12.5 Encounter for screening for malignant neoplasm of prostate (principal); E78.5 Hyperlipidemia, unspecified; I10 Essential (primary) hypertension; E66.01 Morbid (severe) obesity due to excess calories; Z68.39 Body mass index [BMI] 39.0-39.9, adult; I25.10 Atherosclerotic heart disease of native coronary artery without angina pectoris
CPT/HCPCS: 80053; 80061; 85025; G0103

== ENCOUNTER 2024-05-24 10:23 | Outpatient (POV) | payer MEDICARE, SELFPAY ==
[2024-05-24 10:33] VITALS: BP 127/65; PULSE 75; RESP 14; O2SAT 97; BMI 38.4
--- NOTE | 2024-05-24 10:53 | A.OFFVIS_ITS ---
[facility] Disclaimer: The information contained in this section may have been updated after the patient was seen, as this information can be updated by other users. Medical History GERD (gastroesophageal reflux disease) JET (obstructive sleep apnea) CAD (coronary artery disease) HLD (hyperlipidemia) HTN (hypertension) Surgical History Previous back surgery H/O colonoscopy Hx of tonsillectomy History of cardiac cath H/O shoulder surgery Family History Other Hypertension Social History Smoking Status: Never smoker alcohol intake: never substance use type: denies use current occupational status: other Travel in the last 8 weeks: None household members: spouse housing: house current occupation: [employer] caffeine: Yes PM Subjective & Objective Subjective Subjective:: Patient is a pleasant 64-year-old male who presents today for worsening pain. He does rates his pain an 8 out of 10. He denies any new trauma or injury. Patient did previously have a lumbar epidural steroid injection L5-S1 back in January that did provide more than 50% improvements and lasted more than 3 months. He does state that he feels like this injection has worn off and would like to get scheduled for repeat injection. He states the pain is constant and describes it as an aching, throbbing sensation with numbness into his legs. He does state the pain is interfering with his ability perform activities of daily living such as cooking and cleaning. Patient has continued conservative treatment with no additional changes. His Martin has been reviewed and is appropriate. Review of Systems: General: No recent weight changes, no fever, no sleep disturbances Respiratory: No cough, no shortness of air, no recurring pulmonary infections Cardiovascular/peripheral vascular: No chest pain, no palpitations, no edema, no shortness of breath Gastrointestinal: No new onset incontinence, normal bowel movements reported Genitourinary: No new onset incontinence Musculoskeletal: Low back pain, bilateral leg pain Psychiatric: [Normal mood/affect] Neurological: [Denies weakness in extremities], [denies balance issues] Pain at rest (0-10 scale): 8 Objective Objective:: Physical Exam: General: Alert and oriented x3, no acute distress, pleasant and cooperative Lungs: Respirations even and unlabored, symmetrical chest expansion Eyes: PERRL Musculoskeletal: Flexion and extension of lumbar [spine] somewhat guarded secondary to pain, [antalgic gait noted] positive leg raise Neurological: Speech clear, no gross sensory deficit Has patient had previous pain injection?: No Conservative treatment options previously tried: Home exercise plan Length of treatment: Longer than 12 weeks Meds Home Medications and Allergies Home Medications ?Medication ?Instructions ?Recorded ?Confirmed ?Type aspirin 81 mg tablet,delayed 81 mg PO DAILY Supplement 08/20/18 05/24/24 History release (Adult Low Dose Aspirin) spironolactone 25 mg tablet 25 mg PO Q OTHER DAY Fluid #30 tabs 07/01/23 05/24/24 Rx hydrocortisone 2.5 % topical cream 1 applic [place] QID PRN hemorrhoids 11/09/23 05/24/24 Rx with perineal applicator #30 grams (Procto-Med HC) famotidine 20 mg tablet See Rx Instructions .Route 01/06/24 05/24/24 Rx .COMPLEX #90 tabs ramipril 5 mg capsule 5 mg PO DAILY BP #90 caps 02/26/24 05/24/24 Rx flu vacc [id number] 6mos up(PF) 45 1 ml IM DIRECTED 04/12/24 05/24/24 History mcg(15mcg x3)/0.5 mL IM syringe (Fluarix Triv [id number] (PF)) ibuprofen 800 mg tablet 800 mg PO TID PRN pain #90 tabs 04/12/24 05/24/24 Rx atorvastatin 40 mg tablet See Rx Instructions .Route 04/22/24 05/24/24 Rx .COMPLEX #90 tabs New Prescriptions to Start Prescriptions: Allergies Allergy/AdvReac Type Severity Reaction Status Date / Time No Known Allergies Allergy Verified 04/12/24 10:04 Assessment and Plan *Assessment and plan (1) Lumbar facet arthropathy: Status: Acute Category: Medical Code(s): M47.816 - Spondylosis without myelopathy or radiculopathy, lumbar region (2) Lumbar radiculopathy: Status: Acute Category: Medical Code(s): M54.16 - Radiculopathy, lumbar region (3) Degenerative disc disease, lumbar: Status: Acute Category: Medical Code(s): M51.369 - Other intervertebral disc degeneration, lumbar region without mention of lumbar back pain or lower extremity pain Plan Patient is experiencing worsening pain in his low back with numbness and tingling into his lower extremities. Patient did have limited range of motion of his lumbar spine with a positive leg raise. I did discuss with patient that I do believe they would benefit from a lumbar epidural steroid injection. Risk and benefits were discussed with patient and the patient would like to proceed forward with this plan of care. Patient is not on any blood thinners. Patient has tried and failed conservative therapy including continued at home stretching exercise for longer than 12 weeks between injections. Patient did previously have a lumbar epidural back in January that provided more than 50% relief and lasted longer than 3 months. We will schedule the patient for an LESI L5-S1 under fluoroscopy. Patient has been instructed to contact the clinic with any concerns before the next appointment. Dr. Kern has reviewed this note and agrees with this plan of care. This note was dictated using voice recognition software and make contain errors or omissions. All injections are used with Lidocaine, Bupivacaine and Depo Medrol. Occasionally urine drug screen is needed to verify patient's compliance with our office pain contract. This is ordered based off specific treatments related to chronic pain with the potential to abuse certain medications.
== END 2024-05-24 23:59 | disposition home or self-care (01) ==
LOC: SC.PAIN 10:24
PROVIDERS: PCP Internal Medicine; Visit Provider Nurse Practitioner Family
DX: M47.26 Other spondylosis with radiculopathy, lumbar region (principal); M51.16 Intervertebral disc disorders with radiculopathy, lumbar region; Z73.89 Other problems related to life management difficulty
CPT/HCPCS: 99212; G0463

== ENCOUNTER 2024-06-15 09:31 | Day surgery (SDC) | payer MEDICARE, SELFPAY ==
[2024-06-15 09:46] VITALS: BP 132/73; PULSE 56; RESP 16; TEMP 35.9; O2SAT 99; BMI 38.7
[2024-06-15] MEDS: methylPREDNISolone ACETATE 80MG/ML VIAL 80 MG (10:14)
[2024-06-15 10:15] VITALS: BP 129/68; PULSE 71; RESP 18; O2SAT 96
[2024-06-15 10:20] VITALS: BP 144/73; PULSE 66; RESP 16; O2SAT 99
--- NOTE | 2024-06-15 10:21 | EXP.PAIN.PRO ---
Procedure Date: 06/15/24 Time: 10:00 Anesthesiologist:: Curly Rodríguez CRNA Complications:: None Pre-procedure Diagnosis:: Degenerative disc lumbar spine multilevels. Lumbar radiculopathy. Lumbar postlaminectomy syndrome. Post-procedure Diagnosis:: Same. Indications for Procedure:: Patient is a pleasant 64-year-old male who comes our clinic today for lumbar epidural steroid injection at the L5-S1 level. Patient describes low lumbar back pain as well as bilateral hip and leg radicular symptoms. He rates his pain 6/10. Procedure Details:: Procedure: Lumbar epidural steroid injection under fluoroscopy Informed consent was obtained and the risks and benefits of the procedure were explained to the patient. The patient was taken to the procedure room and noninvasive monitors placed, including noninvasive blood pressure cuff and pulse oximeter. The back was viewed using C-arm Fluoroscopy and prepped using Chloraprep as a cleansing solution and the L5-S1 interspace was palpated. Skin and subcutaneous tissues were anesthetized using lidocaine 1.5% and a 25-gauge needle. After this, an 18-gauge Touhy epidural needle was placed into the L5-S1 interspace and advanced using fluoroscopic guidance and loss of resistance to air until the epidural space was encountered. After confirmation of needle placement in the epidural space, with dye, a solution containing normal saline, 3 mL and Depo-Medrol 80 mg were incrementally injected into the lumbar epidural space. The patient tolerated the procedure well with no complications. The patient was observed in the Pain Clinic and then discharged home neurologically intact. Plan and Disposition:: Patient was discharged without incident.
[2024-06-15 10:22] VITALS: BP 129/68; PULSE 71; RESP 18; O2SAT 96
== END 2024-06-15 10:20 | disposition home or self-care (01) ==
PROVIDERS: PCP Internal Medicine; Visit Provider Nurse Anesthetist, Certified Registered
DX: M51.16 Intervertebral disc disorders with radiculopathy, lumbar region (principal); M96.1 Postlaminectomy syndrome, not elsewhere classified
CPT/HCPCS: 62323; J1010

== ENCOUNTER 2024-08-02 09:10 | Outpatient (CLI) | payer MEDICARE, SELFPAY ==
[2024-08-02 09:49] LABS: Basophils # 0.1 K/mm3 (0-0.2); Basophils % 0.7 % (0.1-2.0); Eosinophils # 0.6 K/mm3 (0.0-0.4); Eosinophils % 6.4 % (0.1-12.0); Hematocrit 46.8 % (42.0-52.0); Hemoglobin 15.1 g/dL (14.1-18.0); Lymphocytes # 1.8 K/mm3 (0.7-4.5); Lymphocytes % 19.6 % (10-50); Mean Corpuscular HGB Conc 32.3 g/dL (31.8-35.4); Mean Corpuscular Hemoglobin 26.6 pg (27.0-31.2); Mean Corpuscular Volume 82.4 fl (80-94); Mean Platelet Volume 9.7 fl (7.4-10.4); Monocytes # 0.8 K/mm3 (0.1-1.0); Monocytes % 8.1 % (1.7-9.3); Neutrophils % 64.8 % (37.0-80.0); Nucleated Red Blood Cells # 0 10^3/uL; Nucleated Red Blood Cells % 0 %; Platelet Count 275 K/mm3 (142-424); Red Blood Count 5.68 M/mm3 (4.60-6.20); Red Cell Distribution Width 14.9 % (11.5-17.5); Red Cell Distribution Width-SD 44.6 fL; White Blood Count 9.3 K/mm3 (4.8-10.8)
[2024-08-02 10:02] LABS: Albumin Level 3.8 g/dl (3.5-5.0); Chloride 103 mmol/L (98-107); Sodium 140 mmol/L (136-145)
[2024-08-02 10:04] LABS: Bilirubin,Unconjugated 0.6 mg/dL (0.0-1.1); Blood Urea Nitrogen 17 mg/dl (9-20); Estimated Glomerular Filt Rate 98 ml/min (>60); GFR (African American) 119 ML/MIN (>60)
[2024-08-02 10:05] LABS: Alanine Aminotransferase 20 U/L (12-78); Alkaline Phosphatase 98 U/L (38-126); Aspartate Amino Transferase 25 U/L (17-59); Bilirubin,Direct 0.2 mg/dl (0.0-0.4); Bilirubin,Indirect 0.6 mg/dL (0.0-0.9); Bilirubin,Total 0.8 mg/dl (0.2-1.3); Calcium 9.2 mg/dl (8.4-10.2); Carbon Dioxide 28 mmol/L (22.0-30.0); Chol/HDL Ratio 3.5 (1-3.5); Cholesterol 156 mg/dl (140-200); Glucose 148 mg/dl (74-100); HDL Cholesterol 45 mg/dl (40-60); Magnesium 1.6 mg/dl (1.6-2.3); Total Protein,Serum 7.1 g/dl (6.3-8.2); Triglycerides 166 mg/dl (30-150); VLDL Cholesterol 33 mg/dL (0-40)
[2024-08-02 10:17] LABS: Direct LDL Cholesterol 83.18 mg/dL (100-129)
[2024-08-02 10:35] LABS: Thyroid Stimulating Hormone 1.39 uIU/mL (0.465-4.68)
== END 2024-08-02 23:59 | disposition home or self-care (01) ==
LOC: RT 09:11
PROVIDERS: PCP Internal Medicine; Visit Provider Nurse Practitioner
DX: R42 Dizziness and giddiness (principal); R94.31 Abnormal electrocardiogram [ECG] [EKG]; I10 Essential (primary) hypertension; I25.10 Atherosclerotic heart disease of native coronary artery without angina pectoris; E78.2 Mixed hyperlipidemia
CPT/HCPCS: 36415; 80048; 80061; 80076; 83735; 84439; 84443; 85025; 93225; 93227

== ENCOUNTER 2024-08-04 09:35 | Outpatient (CLI) | payer MEDICARE, SELFPAY ==
--- OUTSIDE RECORDS SUMMARY | 2024-08-04 09:38 | XMS_ITS ---
Author Organization Unknown TREATMENT PLAN Planned Care Start Date Provider Encounter for Check-up [id number] [facility]
== END 2024-08-04 23:59 | disposition home or self-care (01) ==
LOC: RT 09:37
PROVIDERS: PCP Internal Medicine; Visit Provider Nurse Practitioner
DX: R42 Dizziness and giddiness (principal); R94.31 Abnormal electrocardiogram [ECG] [EKG]; I10 Essential (primary) hypertension; I25.10 Atherosclerotic heart disease of native coronary artery without angina pectoris; E78.2 Mixed hyperlipidemia
CPT/HCPCS: 93270

== ENCOUNTER 2024-08-10 07:12 | Outpatient (CLI) | payer MEDICARE, SELFPAY ==
--- NOTE | 2024-08-10 | CA_ITS ---
APPROVED REPORT Exam: Exercise Treadmill Technologist: Mary Orellana Ht: 5 ft 10 in Wt: 272 lbs BSA: 2.38 m2 HR: 67 bpm BP: 138/79 mmHg Stress Test Details Test: Lexiscan HR Resting HR: 67 bpm Max Heart Rate (APMHR): 158.326899 bpm Max HR Achieved: 93 bpm Target HR (85% APMHR): 134.436737 bpm % of APMHR: 58.86 Recovery HR: 74 bpm BP Resting BP: 138.0/79.0 mmHg Max BP: 138.0/79.0 mmHg Recovery BP: 111.0/79.0 mmHg ECG Resting ECG: Sinus rhythm, right bundle branch block Stress ECG Conclusion Symptoms: Dyspnea Arrhythmias/Ectopy: - ST-T Changes: Baseline abnormalities Conclusion: EKG unremarkable due to Lexiscan infusion. Electronically signed by : Aracely Alonzo MD 08/10/2024 15:24:33
--- NOTE | 2024-08-10 07:30 | NM_ITS ---
APPROVED REPORT Exam: Nuclear Stress Test Indication: Abnormal EKG, HTN, High cholesterol, CAD Patient Location: Outpatient Stress Tech: Mary Orellana NM Tech:Guadalupe Atkinson, ARRT, RT (R)(N) Ht: 5 ft 10 in Wt: 270 lbs HR: 64 bpm BP: 138/79 mmHg BSA: 2.37 m2 TID: 1.23 BMI: 38.7 History: Abnormal EKG, HTN, High cholesterol, CAD Procedure: Patient received 0.4 mg of intravenous Lexiscan, resting heart rate 64 bpm, resting blood pressure 138/79 mmHg, with Lexiscan maximum heart rate achieved was 96 bpm which is % of the maximum predicted heart rate and blood pressure was 122/75 mmHg. With Lexiscan, patient denied any complaint of chest pain. Cardiac Stress and Resting SPECT Images: Cardiac Stress and Resting SPECT images were obtained using technetium 99m Myoview 32.0 mCi stress and 10.45 mCi at rest. Resting and stress images in supine and prone positions demonstrate a medium sized, moderate, partially reversible perfusion defect in the inferior LV wall. There is increase in transient ischemic dilatation ratio (TID 1.23), suggestive of possible multivessel disease or balanced ischemia. Gated imaging demonstrates normal global LV systolic function. LVEF is calculated at 54%. Conclusion: Medium sized, moderate, partially reversible perfusion defect in the inferior LV wall. Findings are suggestive of partial reversible ischemia. There is increase in transient ischemic dilatation ratio (TID 1.23), suggestive of possible multivessel disease or balanced ischemia. Gated imaging demonstrates normal global LV systolic function. LVEF is calculated at 54%. Electronically signed by : Aracely Alonzo MD 08/10/2024 12:06:29
[2024-08-10] MEDS: REGADENOSON 0.4MG/5ML SYRINGE 0.4 MG IV (09:14)
[2024-08-10] MEDS: ISOTOPE MYOVIEW (PER STUDY) 1 DOSE IV (09:14)
[2024-08-10] MEDS: SODIUM CHLORIDE 0.9% 10ML SYR (RAD ONLY) 10 ML IV ×2 (09:14)
== END 2024-08-10 23:59 | disposition home or self-care (01) ==
LOC: RAD 07:13
PROVIDERS: PCP Internal Medicine; Visit Provider Nurse Practitioner
DX: R94.31 Abnormal electrocardiogram [ECG] [EKG] (principal); R42 Dizziness and giddiness; I25.10 Atherosclerotic heart disease of native coronary artery without angina pectoris; E78.2 Mixed hyperlipidemia; I11.9 Hypertensive heart disease without heart failure; I10 Essential (primary) hypertension
CPT/HCPCS: 78452; 93017; 93018; A9502; J2785

== ENCOUNTER 2024-08-13 12:37 | Outpatient (CLI) | payer MEDICARE, SELFPAY ==
--- NOTE | 2024-08-13 | CA_ITS ---
APPROVED REPORT EXAM: Comprehensive 2D, Doppler, and color-flow Echocardiogram Waredresser: Rossana Kumari CRT Ht: 5 ft 10 in Wt: 272lbs BSA: 2.38 BP: 113/71 mmHg Indications: CAD, Hyperlipidemia, Hypertension/HDD, RBBB, JET, GERD, dizziness 2D Dimensions LA Volume 56.30 mL LA Volume Index 23.10 mL/m2 (M/F) 16-34 M-Mode Dimensions RVDd 2.20 cm (0.9-2.6) LA Diam 4.17 cm (1.9-4.0) LVDd 5.31 cm (3.5-5.7) LVDs 2.62 cm (3.5-5.7) IVSd 1.71 cm (0.6-1.1) PWd 0.87 cm (0.6-1.1) EF (Teich) 81.50% FS 50.70% EDV (Teich) 135.90 mL TAPSE 2.02 (<1.7) ESV (Teich) 25.10 mL LV Diastology E Decel Time 177 (160-240 msec) E/A Ratio 1.06 Aortic Valve AO Peak GR. 10.30 mmHg Mitral Valve MV E Max Scott. 86.0 (40-130 cm/s) MV A Velocity 81.0 (40-130 cm/s) E/A Ratio 1.06 MV PHT 52.0 ms Pulmonary Valve PV Peak Velocity 111.0 (50-150 cm/s) Tricuspid Valve TR P. Velocity 202.00 cm/s Left Ventricle The left ventricle is normal size. The left ventricular systolic function is normal. The left ventricular ejection fraction is within the normal range. There is increase of wall thickness. There is normal LV segmental wall motion. The left ventricular diastolic function is normal. LVEF is 55%. Right Ventricle The right ventricle is normal size. The right ventricular systolic function is normal. Atria The left atrium size is normal. The right atrium size is normal. There is no Doppler evidence of interatrial shunt. Aortic Valve Aortic valve is mildly thickened. There is no aortic valvular stenosis. No aortic regurgitation is present. Mitral Valve The mitral valve is normal in structure. No evidence of mitral valve stenosis. Trace mitral regurgitation. Tricuspid Valve Tricuspid valve is grossly normal in structure and function. Mild tricuspid regurgitation. RVSP is normal. Pulmonic Valve The pulmonary valve is normal in structure. Trace pulmonic regurgitation. Great Vessels The aortic root is normal in size. IVC is normal in size and collapses >50% with inspiration. Pericardium There is no pericardial effusion. Other Information Study Quality: Fair Conclusion Normal biventricular systolic function. Mild TR. Electronically signed by : Aracely Alonzo MD 08/16/2024 02:08:26
--- NOTE | 2024-08-13 13:00 | CA_ITS ---
FINAL REPORT TECHNIQUE: Cook scale, color and spectral doppler images of the bilateral carotid arteries were obtained. CLINICAL HISTORY: Dizziness COMPARISON: 02/01/2022 FINDINGS: Peak systolic velocity in the right internal carotid artery is 82 cm/sec. The internal carotid to common carotid artery ratio is 0.9. There is no significant carotid artery stenosis and no significant plaque formation. The right vertebral artery is normal in direction. Peak systolic velocity in the left internal carotid artery is 118 cm/sec. The internal carotid to common carotid artery ratio is 1.2. There is no significant carotid artery stenosis and no significant plaque formation. The left vertebral artery is normal in direction. A complex right thyroid cystic mass is incidentally noted, measuring 1.4 cm in diameter. IMPRESSION: No ultrasound evidence of hemodynamically significant carotid artery stenosis. Normal peak systolic velocities and normal internal to common carotid artery ratios bilaterally. A complex right thyroid cystic mass is incidentally noted. Recommend dedicated thyroid ultrasound for further evaluation. Reviewed, Interpreted and Dictated by Álvaro Lira MD Transcribed by Vannesa Lara Authenticated and [facility]
== END 2024-08-13 23:59 | disposition home or self-care (01) ==
LOC: RT 12:38
PROVIDERS: PCP Internal Medicine; Visit Provider Nurse Practitioner
DX: I36.1 Nonrheumatic tricuspid (valve) insufficiency (principal); I10 Essential (primary) hypertension; I25.10 Atherosclerotic heart disease of native coronary artery without angina pectoris; R94.31 Abnormal electrocardiogram [ECG] [EKG]; R42 Dizziness and giddiness; E78.2 Mixed hyperlipidemia
CPT/HCPCS: 93306; 93880

== ENCOUNTER 2024-08-16 14:19 | Outpatient (POV) | payer MEDICARE, SELFPAY ==
--- NOTE | 2024-08-16 14:24 | A.OFFVIS_ITS ---
[facility] Disclaimer: The information contained in this section may have been updated after the patient was seen, as this information can be updated by other users. Medical History Abnormal ECG Lightheadedness GERD (gastroesophageal reflux disease) JET (obstructive sleep apnea) CAD (coronary artery disease) HLD (hyperlipidemia) HTN (hypertension) Surgical History Previous back surgery H/O colonoscopy Hx of tonsillectomy History of cardiac cath H/O shoulder surgery Family History Other Hypertension Social History Smoking Status: Never smoker alcohol intake: never substance use type: denies use current occupational status: other Travel in the last 8 weeks: None household members: spouse housing: house current occupation: [employer] caffeine: Yes PM Subjective & Objective Subjective Subjective:: Patient is a pleasant 64-year-old male who presents today for worsening pain. Today he rates his pain a 8 out of 10. He denies any new falls or injuries. He does state it still on the same overall back pain that is worse with certain activities. He does state that he feels like on the left side it is a little w orse than the right side. Patient states when he does get up and walks for longer periods he may notice some worsening symptoms into his legs otherwise overall it just stays at his low back. Patient states the pain does interfere with his ability perform activities of daily living such as cooking and cleaning. Patient does state that he would like to try another injection to see if this does help. Patient states if this injection does not do as well he probably will proceed forward with going back to neurosurgery to see about surgical intervention. He states that the injections have been helpful however some of them have not worked as well as others. Patient has continued conservative treatment. Patient does state that he is scheduled for a cardiac cath coming up. He states he had been having some vertigo and was put on meclizine.He is prescribed compounded cream. His Martin has been reviewed and is appropriate. Review of Systems: General: No recent weight changes, no fever, no sleep disturbances Respiratory: No cough, no shortness of air, no recurring pulmonary infections Cardiovascular/peripheral vascular: No chest pain, no palpitations, no edema, no shortness of breath Gastrointestinal: No new onset incontinence, normal bowel movements reported Genitourinary: No new onset incontinence Musculoskeletal: Low back pain Psychiatric: [Normal mood/affect] Neurological: [Denies weakness in extremities], [denies balance issues] Pain at rest (0-10 scale): 8 Objective Objective:: Physical Exam: General: Alert and oriented x3, no acute distress, pleasant and cooperative Lungs: Respirations even and unlabored, symmetrical chest expansion Eyes: PERRL Musculoskeletal: Flexion and extension of lumbar [spine] somewhat guarded secondary to pain, positive Kemps test Neurological: Speech clear, no gross sensory deficit Has patient had previous pain injection?: No Conservative treatment options previously tried: Home exercise plan Length of treatment: Longer than 12 weeks Meds Home Medications and Allergies Home Medications ?Medication ?Instructions ?Recorded ?Confirmed ?Type aspirin 81 mg tablet,delayed 81 mg PO DAILY Supplement 08/20/18 08/16/24 History release (Adult Low Dose Aspirin) ramipril 5 mg capsule 5 mg PO DAILY BP #90 caps 02/26/24 08/16/24 Rx ibuprofen 800 mg tablet 800 mg PO TID PRN pain #90 tabs 04/12/24 08/16/24 Rx atorvastatin 40 mg tablet See Rx Instructions .Route 04/22/24 08/16/24 Rx .COMPLEX #90 tabs spironolactone 25 mg tablet See Rx Instructions .Route 06/15/24 08/16/24 Rx .COMPLEX #45 tabs famotidine 20 mg tablet See Rx Instructions .Route 07/09/24 08/16/24 Rx .COMPLEX #90 tabs meclizine 25 mg tablet 25 mg PO .COMPLEX #60 tabs 08/05/24 08/16/24 Rx New Prescriptions to Start Prescriptions: Allergies Allergy/AdvReac Type Severity Reaction Status Date / Time No Known Allergies Allergy Verified 08/16/24 09:36 Assessment and Plan *Assessment and plan (1) Degenerative disc disease: Status: Acute Category: Medical (2) Low back pain: Status: Acute Category: Medical Code(s): M54.50 - Low back pain, unspecified (3) Lumbar facet arthropathy: Status: Acute Category: Medical Code(s): M47.816 - Spondylosis without myelopathy or radiculopathy, lumbar region Plan Patient is experiencing significant pain in his low back that is worse with bending, twisting or lifting. Patient did have limited range of motion of his lumbar spine with a positive Kemps test during today's visit. I did discuss with the patient that I do believe he would benefit from a lumbar medial branch block. Risk and benefits were discussed with the patient and he would like to proceed forward with this plan of care. Patient has tried and failed conservative therapy including oral medications, heat and ice, topicals, at home stretching exercise for longer than 12 weeks. Patient has been experiencing chronic low back pain for years. Patient was counseled that if he does get significant relief with his first lumbar medial branch block that we will plan on repeating it with the plan to progress forward to a lumbar RFA at a later date. Patient agrees with this plan of care. Patient has had chronic low back pain for longer than 6 months. Patient has also had imaging that did show multilevel lumbar facet arthropathy. Patient will be scheduled for his first diagnostic lumbar medial branch block bilaterally L4-L5 and L5-S1 under fluoroscopy. Patient has been instructed to contact the clinic with any concerns before the next appointment. Dr. Kern has reviewed this note and agrees with this plan of care. This note was dictated using voice recognition software and make contain errors or omissions. All injections are used with Lidocaine, Bupivacaine and dexamethasone. Occasionally urine drug screen is needed to verify patient's compliance with our office pain contract. This is ordered based off specific treatments related to chronic pain with the potential to abuse certain medications.
[2024-08-16 14:32] VITALS: BP 127/78; PULSE 77; RESP 16; O2SAT 97; BMI 38.7
== END 2024-08-16 23:59 | disposition home or self-care (01) ==
LOC: SC.PAIN 14:20
PROVIDERS: PCP Internal Medicine; Visit Provider Nurse Practitioner Family
DX: M54.50 Low back pain, unspecified (principal); M47.816 Spondylosis without myelopathy or radiculopathy, lumbar region; Z73.89 Other problems related to life management difficulty
CPT/HCPCS: 99212; G0463

== ENCOUNTER 2024-08-19 08:43 | Day surgery (SDC) | payer MEDICARE, SELFPAY ==
[2024-08-19] VITALS (9 sets, daily range): BP systolic 102–137; BP diastolic 57–78; PULSE 56–85; RESP 18–20; O2SAT 93–98; BMI 39.0
--- NOTE | 2024-08-19 07:07 | IR_ITS ---
APPROVED REPORT Patient Location: Outpatient PROCEDURES Left heart catheterization Left ventriculogram Selective coronary angiogram INDICATION Angina pectoris, Abnormal Myoview Informed consent was obtained prior to the procedure. COMPLICATIONS NONE Estimated Blood Loss: LESS THAN 10 ML TECHNIQUE One percent lidocaine used to anesthetize the right anterior aspect of the wrist. The right radial artery was accessed via the Seldinger technique. A 6 Japanese sheath was placed in the right radial artery. 2.5 mg of Verapamil, 800 mcg of nitroglycerin, 1mg Lidocaine and 5000 U Heparin were given through the arterial sheath. The 6 Japanese JL 3 guide catheter was also used to perform left heart catheterization, left ventriculogram and selective coronary angiogram. At the end of the procedure the sheath was removed good hemostasis was achieved using Traclet band, patient was transferred to the postop holding area in stable condition. ANGIOGRAPHIC RESULTS The left main artery Normal The left anterior descending artery Proximally normal with a mid vessel smooth 30% long concentric stenosis The circumflex artery Codominant normal The right coronary artery Codominant normal The MORGAN ventriculogram reveals Normal 65% The left ventricular end-diastolic pressure 15 mmHg IMPRESSION A long mild to moderate smooth concentric mid LAD stenosis Normal ejection fraction Normal LVEDP PLAN 1. Medical management 2. Risk factor modification Electronically signed by : Doni Trujillo MD 08/19/2024 12:22:41
[2024-08-19 09:04] LABS: Basophils # 0.1 K/mm3 (0-0.2); Basophils % 0.8 % (0.1-2.0); Eosinophils # 0.5 Kmm3 (0.0-0.4); Eosinophils % 5.2 % (0.1-12.0); Hematocrit 45.2 % (42.0-52.0); Hemoglobin 15.1 g/dL (14.1-18.0); Lymphocytes # 2.2 K/mm3 (0.7-4.5); Lymphocytes % 24.3 % (10-50); Mean Corpuscular HGB Conc 33.4 g/dL (31.8-35.4); Mean Corpuscular Hemoglobin 27.4 pg (27.0-31.2); Mean Corpuscular Volume 81.9 fl (80-94); Mean Platelet Volume 9.1 fl (7.4-10.4); Monocytes # 0.8 K/mm3 (0.1-1.0); Neutrophils # 5.5 K/mm3 (1.8-7.8); Neutrophils % 60.3 % (37.0-80.0); Nucleated Red Blood Cells # 0 10^3/uL; Nucleated Red Blood Cells % 0 %; Platelet Count 253 K/mm3 (142-424); Red Blood Count 5.52 M/mm3 (4.60-6.20); Red Cell Distribution Width 14.6 % (11.5-17.5); Red Cell Distribution Width-SD 43.4 fL; White Blood Count 9.1 K/mm3 (4.8-10.8)
[2024-08-19 09:11] LABS: Chloride 107 mmol/L (98-107); Sodium 138 mmol/L (136-145)
[2024-08-19 09:14] LABS: Blood Urea Nitrogen 16 mg/dl (9-20); Calcium 9.4 mg/dl (8.4-10.2); Carbon Dioxide 26 mmol/L (22.0-30.0); Creatinine Clearance Estimated 134 mL/min (50-200); Estimated Glomerular Filt Rate 86 ml/min (>60); GFR (African American) 103 ML/MIN (>60); Glucose 109 mg/dl (74-100)
[2024-08-19] MEDS: MIDAZOLAM HCL 1MG/ML 5ML VIAL 1 MG IV (11:53)
[2024-08-19] MEDS: diphenhydrAMINE 50MG/ML VIAL 50 MG IV (11:53)
[2024-08-19] MEDS: LIDOCAINE 1% 10ML MDV 10 ML IJ (11:53)
[2024-08-19] MEDS: FENTANYL 100MCG/2ML VIAL 50 MCG IV (11:53)
[2024-08-19] MEDS: HEPARIN 1,000 UNITS/500ML NS (CATH LAB) 3000 UNIT IV (11:53)
[2024-08-19] MEDS: 0.9 % SODIUM CHLORIDE 500 ML 25 ML IV (11:53)
[2024-08-19] MEDS: NITROGLYCERIN 800MCG/8ML SYR (CATH LAB) 800 MCG IA (11:54)
[2024-08-19] MEDS: HEPARIN 1,000 UNITS/ML 10ML VIAL (CATH LAB) 5000 UNIT IV (11:54)
[2024-08-19] MEDS: IOPAMIDOL-370 (76%);100ML BOTTLE 50 ML IV ×2 (18:29)
== END 2024-08-19 14:19 | disposition home or self-care (01) ==
LOC: CATHLAB 08:43
PROVIDERS: PCP Internal Medicine; Visit Provider Internal Medicine
PROC: 4A023N7 Measurement of Cardiac Sampling and Pressure, Left Heart, Percutaneous Approach (ICD-10-PCS; CPT 93452; principal; 2024-08-19 11:00)
DX: R94.31 Abnormal electrocardiogram [ECG] [EKG] (principal); E04.1 Nontoxic single thyroid nodule; E78.5 Hyperlipidemia, unspecified; R42 Dizziness and giddiness; I25.10 Atherosclerotic heart disease of native coronary artery without angina pectoris; I45.10 Unspecified right bundle-branch block; I11.9 Hypertensive heart disease without heart failure; G47.33 Obstructive sleep apnea (adult) (pediatric); E66.9 Obesity, unspecified; K21.9 Gastro-esophageal reflux disease without esophagitis; R06.02 Shortness of breath; Z79.82 Long term (current) use of aspirin; Z79.899 Other long term (current) drug therapy; Z68.39 Body mass index [BMI] 39.0-39.9, adult
CPT/HCPCS: 80048; 85025; 93452; 99152; C1725; C1769; J1200; J1644; J3010; Q9967

== ENCOUNTER 2024-08-23 08:12 | Outpatient (CLI) | payer MEDICARE, SELFPAY ==
--- NOTE | 2024-08-23 08:30 | US_ITS ---
FINAL REPORT TECHNIQUE: Sonographic images of the thyroid gland were obtained in the longitudinal and transverse planes. CLINICAL HISTORY: thyroid nodules COMPARISON: None FINDINGS: The right lobe measures 5.8 cm. The right lobe is homogeneous. There is a 1.5 cm cyst present in the right lobe of the thyroid gland. There is a second mass, a hypoechoic, 9 mm in size nodule, a TI-RADS category 4 nodule. The left lobe measures 4.4 cm. The left lobe is homogeneous. There are no cystic or solid nodules. The isthmus measures 5 mm. This is normal. IMPRESSION: 1. TIRADS category 4 nodule in the right lobe. Based on size, there are no current recommendations regarding follow up. 2. There is a 1.5 cm cyst present in the right lobe of the thyroid gland. Reviewed, Interpreted and Dictated by Genoveva Zepeda MD Transcribed by Vannesa Lara Authenticated and [facility]
== END 2024-08-23 23:59 | disposition home or self-care (01) ==
LOC: RAD 08:13
PROVIDERS: PCP Internal Medicine; Visit Provider Physician Assistant
DX: R94.31 Abnormal electrocardiogram [ECG] [EKG] (principal); I25.10 Atherosclerotic heart disease of native coronary artery without angina pectoris; E04.1 Nontoxic single thyroid nodule
CPT/HCPCS: 76536

== ENCOUNTER 2024-08-31 10:59 | Day surgery (SDC) | payer MEDICARE, SELFPAY ==
[2024-08-31 11:21] VITALS: BP 131/85; PULSE 68; RESP 18; O2SAT 96
[2024-08-31 11:22] VITALS: BP 117/62; PULSE 61; RESP 16; TEMP 36.8; O2SAT 97; BMI 38.7
[2024-08-31] MEDS: LIDOCAINE 1% 5ML PF VIAL 5 ML (11:22)
[2024-08-31] MEDS: BUPIVACAINE 0.25% 10ML INJ 25 MG IJ (11:22)
[2024-08-31] MEDS: DEXAMETHASONE 10MG/ML 1ML VIAL 10 MG (11:22)
[2024-08-31 11:29] VITALS: BP 118/76; PULSE 66; RESP 16; O2SAT 99
--- NOTE | 2024-08-31 11:29 | P.PCN_ITS ---
Procedure Date: 08/31/24 Time: 11:20 Anesthesiologist:: Curly Rodríguez CRNA Complications:: None Pre-procedure Diagnosis:: Degenerative disc lumbar spine multilevels. Lumbar radiculopathy. Lumbar spondylosis. Multilevel lumbar facet arthropathy. Post-procedure Diagnosis:: Same. Indications for Procedure:: Patient is a very pleasant 64-year-old male who comes our clinic today for lumbar medial branch block/facet block at the bilateral L4-5, L5-S1 levels. He describes low back pain as constant, dull, aching. He reports difficulty with lumbar flexion, extension, left and right rotation. He rates his pain 7/10. Procedure Details:: Informed consent was obtained and the risk and benefits of the procedure was explained to the patient. Patient was taken to the procedure room where noninvasive monitors were placed, including noninvasive blood pressure cuff as well as pulse oximeter. The area over the lumbar spine was cleansed using chlorhexidine as a cleansing solution. I anesthetized the skin and subcutaneous tissues with 1% Lidocaine. I placed 22-gauge spinal needles into the facet joint/ medial branches of L4-L5, and L5-S1] bilaterally. Needle placement was confirmed with fluoroscopy. After confirmation of needle placement, each site was injected with 1 mL of 1% lidocaine and 0.25 % Marcaine and 10 mg of Depo- Medrol. A total of 80 mg of depo medrol was used for bilateral medial branch blocks of L4-L5, and L5-S1] bilaterally. Patient tolerated the procedure without difficulty. There were no complications. Plan and Disposition:: Patient was discharged without incident.
== END 2024-08-31 11:29 | disposition home or self-care (01) ==
PROVIDERS: PCP Internal Medicine; Visit Provider Nurse Anesthetist, Certified Registered
DX: M47.816 Spondylosis without myelopathy or radiculopathy, lumbar region (principal); M51.369 Other intervertebral disc degeneration, lumbar region without mention of lumbar back pain or lower extremity pain
CPT/HCPCS: 64493; 64494; J1100

== ENCOUNTER 2024-12-27 11:16 | Outpatient (CLI) | payer MEDICARE, SELFPAY ==
--- OUTSIDE RECORDS SUMMARY | 2024-10-27 14:00 | XMS_ITS | Encounter Summary ---
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 Role Phone Win Mccauley MD Primary Care Provider [phone] Encounter Details Date Type Department Care Team (Late st Contact Info) Description 10/27/2024 2:00 PM EDT Office Visit [facility] [address] [phone] Apro, Rika Rivera PA-C [address] [facility] [address] [place] [phone] Spinal stenosis of lumbar region without neurogenic claudication (Primary Dx); Spondylolisthesis of lumbar region; Lumbar radiculopathy; Abnormal findings on diagnostic imaging of other parts of musculoskeletal system Social History Tobacco Use Types Packs/Day Years Used Date Smoking Tobacco: Never Smokeless Tobacco: Never Tobacco Cessation:Counseling Given: Not Answered Alcohol Use Standard Drinks/Week Comments Yes 8 (1 standard drink = 0.6 oz pur e alcohol) sometimes on weekend PHQ-2 Answer Date Recorded Retired Total Score 0 01/25/2021 Sex and Gender Information Value Date Recorded Sex Assigned at Male 09/23/2024 2:54 PM EDT Legal Sex Male 12:00 PM EDT Gender Identity Not on file Sexual Orientation Not on file documented as of this encounter Last Filed Vital Signs Vital Sign Reading Time Taken Comments Blood Pressure - - Pulse - - Temperature 36.2 C (97.1 F) 10/27/2024 1:56 PM EDT Respiratory Rate - - Oxygen Saturation - - Inhaled Oxygen Concentration - - Weight 125 kg (274 lb 8 oz) 10/27/2024 1:56 PM E DT Height 177.8 cm (5' 10 ) 10/27/2024 1:56 PM EDT Body Mass Index 39.39 10/27/2024 1:56 PM EDT documented in this encounter Progress Notes * Felicia, Rika Rivera PA-C - 10/27/2024 2:00 PM EDT Patient: Huan Hawkins : 1960 Chart #: [id number] Date of Service: 10/27/2024 CHIEF COMPLAINT: Low back pain with walking and standing intolerance History of Present Illness Mr. 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 Elizabeth service. On 06/11/2021 he underwent right L4-5 foraminotomy. He did wellfor a little while and then returned with recurrent symptoms. MRI demonstrated a fair amount of stenosis at L4-5 which is dynamic on flexion-extension plain films. Surgery has been discussed however he has tried to exhaust nonoperative measures. Since his last visit on 01/29/2023 he has been participating in physical therapy. He has undergone numerous epidural injections including one just a month ago. He has been prescribed nonsteroidal anti-inflammatories. Symptoms have progressively worsened. His walking is very limited. Pain improves with sitting. Past Medical History: Diagnosis Date Arthritis Back problem Hypertension Low back pain RBBB (right bundle branch block) Sleep apnea BiPAP compliant (settings 12 and 16 per pt) Wears glasses Current Outpatient Medications: acetaminophen (Tylenol 8 Hour Arthritis Pain) 650 MG 8 hr tablet, , Disp: , Rfl: aspirin 81 MG chewable tablet, Chew 1 tablet Daily., Disp: , Rfl: atorvastatin (LIPITOR) 40 MG tablet, Take 1 tablet by mouth every night at bedtime., Disp: , Rfl: diclofenac (VOLTAREN) 75 MG EC tablet, Take 1 tablet by mouth 2 (Two) Times a Day With Meals., Disp: , Rfl: famotidine (PEPCID) 20 MG tablet, Take 1 tablet by mouth 2 (Two) Times a Day., Disp: , Rfl: Hydrocortisone, Perianal, (Procto-Med HC) 2.5 % rectal cream, APPLY CREAM RECTALLY 4 TIMES DAILY ASNEEDED HEMORRHOIDS, Disp: , Rfl: ibuprofen (ADVIL,MOTRIN) 800 MG tablet, Take 1 tablet by mouth 3 (Three) Times a Day As Needed. forpain, Disp: , Rfl: meclizine (ANTIVERT) 25 MG tablet, TAKE 1/2 TO 1 (ONE-HALF TO ONE) TABLET BY MOUTH EVERY 8 HOURS ASNEEDED FOR DIZZINESS, Disp: , Rfl: naproxen sodium (Aleve) 220 MG tablet, , Disp: , Rfl: ramipril (ALTACE) 5 MG capsule, Take 1 capsule by mouth Every Morning., Disp: , Rfl: spironolactone (ALDACTONE) 25 MG tablet, Take 1 tablet by mouth Every Other Day., Disp: , Rfl: Chlorhexidine Gluconate 4 % solution, Shower each day with solution for 5 days beginning 5 days before surgery., Disp: 120 mL, Rfl: 0 mupirocin (BACTROBAN) 2 % nasal ointment, Apply to the inside of each nostril with a cotton swab two times daily, morning and evening, for 5 days before surgery., Disp: 10 each, Rfl: 0 No current facility-administered medications for this visit. Facility-Administered Medications Ordered in Other Visits: mupirocin (BACTROBAN) 2 % nasal ointment, , Nasal, BID, Park Swartz PA-C Past Surgical History: Procedure Laterality Date BACK SURGERY 2021 CARDIAC CATHETERIZATION 08/19/2018 COLONOSCOPY LUMBAR DISCECTOMY Right 06/11/2021 Procedure: Foraminotomy Right L4-5; Surgeon: Modesto Elizabeth MD; Location: [facility]; Service: Neurosurgery; Laterality: Right; ROTATOR CUFF REPAIR Left 2013 TONSILLECTOMY Social History Socioeconomic History Marital status: Tobacco Use Smoking status: Never Smokeless tobacco: Never Vaping Use Vaping status: Never Used Substance and Sexual Activity Alcohol use: Yes Alcohol/week: 8.0 standard drinks of alcohol Types: 8 Cans of beer per week Comment: sometimes on weekend Drug use: Never Sexual activity: Defer Review of Systems Constitutional: Negative for activity change, appetite change, chills, diaphoresis, fatigue, fever and unexpected weight change. HENT: Negative for congestion, dental problem, drooling, ear discharge, ear pain, facial swelling, hearing loss, mouth sores, nosebleeds, postnasal drip, rhinorrhea, sinus pressure, sinus pain, sneezing, sore throat, tinnitus, trouble swallowing and voice change. Eyes: Negative for photophobia, pain, discharge, redness, itching and visual disturbance. Respiratory: Positive for apnea. Negative for cough, choking, chest tightness, shortness of breath,wheezing and stridor. Cardiovascular: Negative for chest pain, palpitations and leg swelling. Gastrointestinal: Negative for abdominal distention, abdominal pain, anal bleeding, blood in stool,constipation, diarrhea, nausea, rectal pain and vomiting. Endocrine: Negative for cold intolerance, heat intolerance, polydipsia, polyphagia and polyuria. Genitourinary: Negative for decreased urine volume, difficulty urinating, dysuria, enuresis, flank pain, frequency, genital sores, hematuria, penile discharge, penile pain, penile swelling, scrotal swelling, testicular pain and urgency. Musculoskeletal: Positive for back pain. Negative for arthralgias, gait problem, joint swelling, myalgias, neck pain and neck stiffness. Skin: Negative for color change, pallor, rash and wound. Allergic/Immunologic: Negative for environmental allergies, food allergies and immunocompromised state. Neurological: Negative for dizziness, tremors, seizures, syncope, facial asymmetry, speech difficulty, weakness, light-headedness, numbness and headaches. Hematological: Negative for adenopathy. Does not bruise/bleed easily. Psychiatric/Behavioral: Negative for agitation, behavioral problems, confusion, decreased concentration, dysphoric mood, hallucinations, self-injury, sleep disturbance and suicidal ideas. The patientis not nervous/anxious and is not hyperactive. Objective Vital Signs: Temperature 97.1 ??F (36.2 ??C), temperature source Infrared, height 177.8 cm (70 ), weight 125 kg (274 lb 8 oz). Physical Exam Vitals and nursing note reviewed. Constitutional: General: He is not in acute distress. Appearance: He is well-developed. HENT: Head: Normocephalic and atraumatic. Psychiatric: Behavior: Behavior normal. Thought Content: Thought content normal. Musculoskeletal: Strength is intact in upper and lower extremities to direct testing. Station and gait are normal. Neurologic: Muscle tone is normal throughout. Coordination is intact. Patient is oriented to person, place, and time. Independent review of radiographic imaging: MRI lumbar spine dated 10/12/2024 demonstrates anterior listhesis at L4-5 where there is moderate spinal canal stenosis and significant instability on flexion-extension plain films. There a degenerative disc at L5-S1 with disc space collapse and foraminal narrowing. Assessment & Plan Diagnosis: 1. L4-5 spondylolisthesis with pratik instability 2. Lumbar stenosis with neurogenic claudication 3. Lumbar radiculopathy Medical Decision Making: Mr. Hawkins has been struggling with progressive symptoms for couple years now. He has tried to put off having surgery by undergoing physical therapy, epidural injections, and taking nonsteroidal anti- inflammatories. Ultimately nothing is providing lasting relief. Dr Elizabeth has recommended decompression, fusion, and stabilization at L4-5 and L5-S1. I have discussed the general nature of this procedure as well as risks, limitations and possible complications and patienthas agreed to proceed. Dr Elizabeth stepped in to answer questions. Diagnoses and all orders for this visit: 1. Spinal stenosis of lumbar region without neurogenic claudication (Primary) 2. Spondylolisthesis of lumbar region 3. Lumbar radiculopathy 4. Abnormal findings on diagnostic imaging of other parts of musculoskeletal system - Rika Duarte PA-C Patient Care Team: Win Mccauley MD as PCP - General (Internal Medicine) Win Mccauley MD as Referring Physician (Internal Medicine) Modesto Elizabeth MD as Surgeon (Neurosurgery) documented in this encounter Plan of Treatment Upcoming Encounters Date Type Department Care Team (Late st Contact Info) Description 02/16/2025 11:20 AM EDT Office Visit [facility] [address] [phone] Modesto Elizabeth MD [address] [phone] documented as of this encounter Results * (ABNORMAL) Comprehensive Metabolic Panel (11/22/2024 9:04 AM EDT) Glucose 101(H) 65 - 99 mg/dL 11/22/2024 9:53 AM [facility] BUN 16.4 8.0 - 23.0 mg/dL 11/22/2024 9:53 AM [facility] Creatinine 0.81 0.76 - 1.27 mg/dL 11/22/2024 9:53 AM [facility] Sodium 139 136 - 145 mmol/L 11/22/2024 9:53 AM [facility] Potassium 4.2 3.5 - 5.2 mmol/L 11/22/2024 9:53 AM [facility] Chloride 104 98 - 107 mmol/L 11/22/2024 9:53 AM [facility] CO2 25.0 22.0 - 29.0 mmol/L 11/22/2024 9:53 AM [facility] Calcium 9.1 8.6 - 10.5 mg/dL 11/22/2024 9:53 AM [facility] Total Protein 7.0 6.0 - 8.5 g/dL 11/22/2024 9:53 AM [facility] Albumin 4.0 3.5 - 5.2 g/dL 11/22/2024 9:53 AM [facility] ALT (SGPT) 16 1 - 41 U/L 11/22/2024 9:53 AM [facility] AST (SGOT) 18 1 - 40 U/L 11/22/2024 9:53 AM [facility] Alkaline Phosphatase 94 39 - 117 U/L 11/22/2024 9:53 AM [facility] Total Bilirubin 0.5 0.0 - 1.2 mg/dL 11/22/2024 9:53 AM [facility] Globulin 3.0 gm/dL 11/22/2024 9:53 AM [facility] Comment:Calculated Result A/G Ratio 1.3 g/dL 11/22/2024 9:53 AM [facility] BUN/Creatinine Ratio 20.2 7.0 - 25.0 11/22/2024 9:53 AM EDT [facility] Anion Gap 10.0 5.0 - 15.0 mmol/L 11/22/2024 9:53 AM EDT [facility] eGFR 99.7 >60.0 mL/min/1.7 3 11/22/2024 9:53 AM EDT [facility] Blood Venipuncture / Unknown 11/22/2024 9:04 AM EDT 11/22/2024 9:18 AM EDT Narrative [facility] - 11/22/2024 9:53 AM EDT GFR Categories in Chronic Kidney Disease (CKD) GFR Category GFR (mL/min/1.73) Interpretation G1 90 or greater Normal or high (1) G2 60-89 Mild decrease (1) G3a 45-59 Mild to moderate decrease G3b 30-44 Moderate to severe decrease G4 15-29 Severe decrease G5 14 or less Kidney failure (1)In the absence of evidence of kidney disease, neither GFR category G1 or G2 fulfill the criteria for CKD. eGFR calculation 2020 CKD-EPI creatinine equation, which does not include race as a factor Rika Duarte PA-C LAB BLOOD ORDERABLES [facility] Result [facility]
[address] [place] [address], * MRSA Screen Culture (Outpatient) - Swab, Nares (11/22/2024 9:04 AM EDT) MRSA Screen Cx No Methicillin Resistant Staphylococcus aureus isolated SARI 11/23/2024 1:52 PM EDT [facility] Swab Structure of anterior naris / Unknown Collection / Unknown 11/22/2024 9:04 AM EDT 11/22/2024 9:24 AM EDT Narrative [facility] - 11/23/2024 1:52 PM EDT The negative predictive value of this diagnostic test is high and should only be used to consider de-escalating anti-MRSA therapy. A positive result may indicate colonization with MRSA and must be correlated clinically. Rika Duarte PA-C MICROBIOLOGY - GENERAL ORDERABLES Final Result [facility]
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
--- OUTSIDE RECORDS SUMMARY | 2024-11-22 09:30 | XMS_ITS | Encounter Summary ---
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 Heavy Duty Press Operator Name Role Phone Win Mccauley MD Primary Care Provider [phone] Encounter Details Date Type Department Care Team (Latest Contact Info) Description 11/22/2024 9:30 AM EDT Pre-Admission Testing [facility] [address] [place] [address] Spinal stenosis of lumbar region without neurogenic claudication; Abnormal findings on diagnostic imaging of other parts of musculoskeletal system Anesthesia Record Procedure Summary Procedure Name Responsible Anesthesiologist Anesthesia Start Time Anesthesia Stop Time LUMBAR FUSION DECOMPRESSION WITH PEDICLE SCREWS L4-5, L5-S1 (Spine Lumbar) Efren Jeter MD 11/29/24 0806 11/29/24 1324 Events Date Time Event Comment 11/29/2024 0708 0749 AN Equip Check 0806 An Start The patient was reevaluated immediately before moderate or deep sedation use and before anesthesia induction. 0806 An Start Data 0809 An Induction 0812 An Intubation 1314 An Extubation 1314 an stop data 1324 Handoff to RN The following has been completed: 1. Identification of Patient, maldonado family member(s) or patient surrogate 2. Identification of the responsible Practitioner (primary service) 3. Discussion of the pertinent/attainable medical history 4. Discussion of the surgical/procedure course (procedure, reason for surgery, procedure performed) 5. Intraoperative anesthetic management and issue/concerns to include things such as airway, hemodynamics, narcotic, sedation level and paralytic management and intravenous fluids/blood products and urine output during the procedure 6. Expectations/Plans for the early post-procedure period to include things such as anticipated course (anticipatory guidance), complications, need for laboratory or ECG and medication administration 7. Opportunity for questions and acknowledgment of understanding of report from the receiving PACU/ICU team 1324 An Stop Meds * Agents No agents on file. * Blood No blood administrations on file. Lines, Drains, and Airways Type Details Placement Removal Wound 11/29/24; lumbar spi ne; Surgical; Closed Surgi 11/29/24 0000 by Juany Benitez RN Closed/Suction Drain 11/29/24; Yes; 1; Inferior; Back; Accordion; Per order 11/29/24 0000 by Juany Benitez RN 12/02/24 0927 by Aristeo Schulte RN Peripheral IV Placement Date: 11/29/24; Placement Time: 702; Catheter Size: 18 G; Orientation: Left, Posterior; Location: Hand; Site Prep: Chlorhexidine; Local Anes: None; Technique: Anatomical landmarks; Inserted by: HALLEY Aldana; Insertion Attempts: 1; Patient Tolerance: Tolerated well; Removal Date: 12/02/24; Removal Time: 92411/29/24 0703 by Jovan Higginbotham RN 12/02/24 0925 by Aristeo Schulte RN ETT Placement Date: 11/29/24; Placement Time: 811 (created via procedure documentation); Blade Size: 3; Location: Oral; Removal Date: 11/29/24; Removal Time: 13111/29/24 0812 by Elena Scott CRNA 11/29/24 1314 by Elena Scott CRNA Urethral Catheter Placement Date: 11/29/24; Placement Time: 1313; Inserted by: Juany Wagner RN; Type: Silicone; Size: 16 Fr.; Urine Returned: Yes; Removal Date: 11/29/24; Removal Time: 1316 11/29/24 1314 by Juany Benitez RN 11/29/24 1316 by Juany Benitez RN documented in this encounter Social History Tobacco Use Types Packs/Day Years Used Date Smoking Tobacco: Never Smokeless Tobacco: Never Alcohol Use Standard Drinks/Week Comments Yes 8 (1 standard drink = 0.6 oz pur e alcohol) sometimes on weekend PHQ-2 Answer Date Recorded Retired Total Score 0 01/25/2021 Abuse Screen Answer Date Recorded Feels Unsafe at Home or Work/School no 11/22/2024 Feels Threatened by Someone no 07/2024 Does Anyone Try to Keep You From Having Contact with Others or Doing Things Outside Your Home? no 11/22/2024 Physical Signs of Abuse Present no 11/22/2024 Education Answer Date Recorded Help with school or training? Not on file Preferred Language Syrian 11/22/2024 Sex and Gender Information Value Date Recorded Sex Assigned at Male 09/23/2024 2:54 PM EDT Legal Sex Male 12:00 PM EDT Gender Identity Not on file Sexual Orientation Not on file documented as of this encounter Last Filed Vital Signs Vital Sign Reading Time Taken Comments Blood Pressure - - Pulse - - Temperature - - Respiratory Rate - - Oxygen Saturation - - Inhaled Oxygen Concentration - - Weight 124 kg (272 lb 6.1 oz) 11/22/2024 8:51 AM EDT Height 177.8 cm (5' 10 ) 11/22/2024 8:51 AM EDT Body Mass Index 39.08 11/22/2024 8:51 AM EDT documented in this encounter OR Notes * JOSÉ MIGUEL - Terri Cordon RN - 11/22/2024 9:30 AM EDT An arrival time for procedure was not provided during PAT visit. If patient had any questions or concerns about their arrival time, they were instructed to contact their surgeon/physician. Additionally, if the patient referred to an arrival time that was acquired from their my chart account, patient was encouraged to verify that time with their surgeon/physician. Arrival times are NOT provided inPre Admission Testing Department. Patient viewed general PAT education video as instructed in their preoperative information receivedfrom their surgeon. Patient stated the general PAT education video was viewed in its entirety and survey completed. Copies of [facility] general education handouts (Incentive Spirometry, Meds to Beds Program, Patient Belongings, Pre-op skin preparation instructions, Blood Glucose testing, Visitor policy, Surgery FAQ, Code H) distributed to patient if not printed. Education related to the PAT pass and skin preparation for surgery (if applicable) completed in PAT as a reinforcement to PAT education video. Patient instructed to return PAT pass provided today as well as completed skin preparation sheet ( if applicable) on the day of procedure. Additionally if patient had not viewed video yet but intended to view it at home or in our waiting area, then referred them to the handout with QR code/link provided during PAT visit. Encouraged patient/family to read PAT general education handouts thoroughly and notify PAT staff with any questionsor concerns. Patient verbalized understanding of all information and priority content. Per Anesthesia Request, patient instructed not to take their ROQUE/ARB medications on the AM of surgery. Patient denies any current skin issues. Bactroban (if prescribed) and Chlorhexidine Prescription prescribed by physician before PAT visit. Verified with patient that medication(s) were picked up from their pharmacy. Written instructions given to patient during PAT visit. Patient/family also instructed to complete skin prep checklist and return the checklist on the day of surgery to preoperative staff. Patient/family verbalized understanding. Patient to apply Chlorhexadine wipes to surgical area (as instructed) the night before procedure and the AM of procedure. Wipes provided. Patient instructed to drink 20 ounces of Gatorade or Gatorlyte (if diabetic) and it needs to be completed 1 hour (for Main OR patients) or 2 hours (scheduled section & [facility] patients) before given arrival time for procedure (NO RED Gatorade and NO Gatorade Zero). Patient verbalized understanding. Patient instructed to bring CPAP mask and tubing to the hospital for overnight stay. Explained thatit is not necessary to bring their CPAP machine to the hospital instead a CPAP machine will be provided for use by the hospital. If patient knows their CPAP settings, those settings will be implemented. If not, the CPAP machine will be utilized on the auto setting using their mask and tubing. Patient verbalized understanding. EKG from PAT today faxed to anesthesiology department for review and cardiac clearance. RN spoke with Dr. Walsh and reviewed pertinent medical history and EKG results. Per Dr. Walsh, patient is cleared to proceed with procedure as planned without additional cardiac testing. Patient denies chest pain or increased shortness of breath. documented in this encounter Plan of Treatment Upcoming Encounters Date Type Department Care Team (Late st Contact Info) Description 02/16/2025 11:20 AM EDT Office Visit [facility] [address] [place] [address] Modesto Elizabeth MD [address] [place] [address] documented as of this encounter Procedures Procedure Name Priority Date/Time Associated Diagnosis Comments ECG 12-LEAD Routine 11/22/2024 9:20 AM EDT CBC WITH AUTO DIFFERENTIAL Routine 11/22/2024 9:04 AM EDT Spinal stenosis of lumbar region without neurogenic claudication Abnormal findings on diagnostic imaging of other parts of musculoskeletal system CBC AND DIFFERENTIAL Routine 11/22/2024 9:04 AM EDT Spinal stenosis of lumbar region without neurogenic claudication Abnormal findings on diagnostic imaging of other parts of musculoskeletal system MRSA SCREEN Routine 11/22/2024 9:04 AM EDT Spinal stenosis of lumbar region without neurogenic claudication HEMOGLOBIN A1C Routine 11/22/2024 9:04 AM EDT COMPREHENSIVE METABOLIC PANEL Routine 11/22/2024 9:04 AM EDT Spinal stenosis of lumbar region without neurogenic claudication SCANNED EKG 11/22/2024 documented in this encounter Results * ECG 12 Lead (11/22/2024 9:20 AM EDT) QT Interval 452 ms ECG QTC Interval 452 ms ECG 11/22/2024 9:20 AM EDT 11/23/2024 6:12 PM EDT Narrative ECG - 11/23/2024 6:12 PM EDT Test Reason : Pre-Op / Pre-Procedure Blood Pressure : */* mmHG Vent. Rate : 60 BPM Atrial Rate : 60 BPM P-R Int : 194 ms QRS Dur : 186 ms QT Int : 452 ms P-R-T Axes : 21 -68 40 degrees QTcB Int : 452 ms Normal sinus rhythm Right bundle branch block Left anterior fascicular block Bifascicular block Minimal voltage criteria for LVH, may be normal variant ( R in aVL ) Abnormal ECG When compared with ECG of 08-Jun-2021 12:37, premature supraventricular complexes are no longer present Criteria for Septal infarct are no longer present Confirmed by Hubert Malcolm ([id number]) on 11/23/2024 6:12:54 PM Referred By: Confirmed By: Hubert Malcolm Procedure Note Hubert Malcolm MD - 11/23/2024 Test Reason : Pre-Op / Pre-Procedure Blood Pressure : */* mmHG Vent. Rate : 60 BPM Atrial Rate : 60 BPM P-R Int : 194 ms QRS Dur : 186 ms QT Int : 452 ms P-R-T Axes : 21 -68 40 degrees QTcB Int : 452 ms Normal sinus rhythm Right bundle branch block Left anterior fascicular block Bifascicular block Minimal voltage criteria for LVH, may be normal variant ( R in aVL ) Abnormal ECG When compared with ECG of 08-Jun-2021 12:37, premature supraventricular complexes are no longer present Criteria for Septal infarct are no longer present Confirmed by Hubert Malcolm ([id number]) on 11/23/2024 6:12:54 PM Referred By: Confirmed By: Hubert Malcolm us Modesto Elizabeth MD ECG ORDERABLES Final Result ECG * (ABNORMAL) CBC Auto Differential (11/22/2024 9:04 AM EDT) [facility] Signature WBC 8.82 3.40 - 10.80 10*3/mm3 11/22/2024 9:26 AM EDT [facility] RBC 5.34 4.14 - 5.80 10*6/mm3 11/22/2024 9:26 AM EDT [facility] Hemoglobin 14.7 13.0 - 17.7 g/dL [facility]24 [facility] Hematocrit 44.3 37.5 - 51.0 % 11/22/2024 9:26 AM EDT [facility] MCV 83.0 79.0 - 97.0 fL 11/22/2024 [facility] MCH 27.5 26.6 - 33.0 pg 11/22/2024 9:[facility] MCHC 33.2 31.5 - 35.7 g/dL 11/22/2024 9:[facility] RDW 13.6 12.3 - 15.4 % 11/22/2024 9:26 AM [facility] RDW-SD 40.7 37.0 - 54.0 fl 11/22/2024 9:26 AM [facility] MPV 9.5 6.0 - 12.0 fL 11/22/2024 9:26 AM [facility] Platelets 270 140 - 450 10*3/mm3 11/22/2024 9:26 AM [facility] Neutrophil % 54.9 42.7 - 76.0 % 11/22/2024 9:26 AM [facility] Lymphocyte % 25.4 19.6 - 45.3 % 11/22/2024 9:26 AM [facility] Monocyte % 10.9 5.0 - 12.0 % 11/22/2024 9:[facility] Eosinophil % 7.7(H) 0.3 - 6.2 % 11/22/2024 9:26 [facility] Basophil % 0.9 0.0 - 1.5 % 11/22/2024 9:[facility] Immature Grans % 0.2 0.0 - 0.5 % 11/22/2024 9:26 AM [facility] Neutrophils, Absolute 4.84 1.70 - 7.00 10*3/mm3 11/22/2024 9:26 [facility] Lymphocytes, Absolute 2.24 0.70 - 3.10 10*3/mm3 11/22/2024 9:26 AM EDT [facility] Monocytes, Absolute 0.96(H) 0.10 - 0.90 10*3/mm3 11/22/2024 9:26 AM EDT [facility] Eosinophils, Absolute 0.68(H) 0.00 - 0.40 10*3/mm3 11/22/2024 9:26 AM EDT [facility] Basophils, Absolute 0.08 0.00 - 0.20 10*3/mm3 11/22/2024 9:26 AM EDT [facility] Immature Grans, Absolute 0.02 0.00 - 0.05 10*3/mm3 11/22/2024 9:26 AM EDT [facility] nRBC 0.0 0.0 - 0.2 /100 WBC 11/22/2024 9:26 AM EDT [facility] Blood Venipuncture / Unknown 11/22/2024 9:04 AM EDT 11/22/2024 9:18 AM EDT Rika Duarte PA-C LAB BLOOD ORDERABLES Fi nal Result [facility]
[address] [place] [address], * (ABNORMAL) Comprehensive Metabolic Panel (11/22/2024 9:04 AM EDT) Glucose 101(H) 65 - 99 mg/dL 11/22/2024 9:53 AM EDT [facility] BUN 16.4 8.0 - 23.0 mg/dL 11/22/2024 9:53 AM EDT [facility] Creatinine 0.81 0.76 - 1.27 mg/dL 11/22/2024 9:53 AM EDT [facility] Sodium 139 136 - 145 mmol/L 11/22/2024 9:53 AM EDT [facility] Potassium 4.2 3.5 - 5.2 mmol/L 11/22/2024 9:53 AM [facility] Chloride 104 98 - 107 mmol/L 11/22/2024 9:53 AM [facility] CO2 25.0 22.0 - 29.0 mmol/L 11/22/2024 9:53 AM [facility] Calcium 9.1 8.6 - 10.5 mg/dL 11/22/2024 9:53 AM [facility] Total Protein 7.0 6.0 - 8.5 g/dL 11/22/2024 9:53 AM [facility] Albumin 4.0 3.5 - 5.2 g/dL 11/22/2024 9:53 AM [facility] ALT (SGPT) 16 1 - 41 U/L 11/22/2024 9:53 AM [facility] AST (SGOT) 18 1 - 40 U/L 11/22/2024 9:53 AM [facility] Alkaline Phosphatase 94 39 - 117 U/L 11/22/2024 9:53 AM [facility] Total Bilirubin 0.5 0.0 - 1.2 mg/dL 11/22/2024 9:53 AM [facility] Globulin 3.0 gm/dL 11/22/2024 9:53 AM [facility] Comment:Calculated Result A/G Ratio 1.3 g/dL 11/22/2024 9:53 AM [facility] BUN/Creatinine Ratio 20.2 7.0 - 25.0 11/22/2024 9:53 AM [facility] Anion Gap 10.0 5.0 - 15.0 mmol/L 11/22/2024 9:53 AM [facility] eGFR 99.7 >60.0 mL/min/1.7 3 11/22/2024 9:53 AM [facility] Blood Venipuncture / Unknown 11/22/2024 9:04 AM EDT 11/22/2024 9:18 AM EDT Narrative [facility] - 11/22/2024 9:53 AM EDT GFR [...] does not include race as a factor [facility] S-cubism Felicia PA-C LAB BLOOD ORDERABLES Fi nal Result Performing Organization Address [facility]/ZIP Co de Phone Number [facility]
[address] [place] [address], [place] [phone] * MRSA Screen Culture (Outpatient) - Swab, Nares (11/22/2024 9:04 AM EDT) [facility] MRSA Screen Cx No Methicillin Resistant Staphylococcus aureus isolated SARI 11/23/2024 1:52 PM EDT [facility] Swab Structure of anterior naris / Unknown Collection / Unknown 11/22/2024 9:04 AM EDT 11/22/2024 9:24 AM EDT Narrative [facility] - 11/23/2024 1:52 PM EDT The negative predictive value of this diagnostic test is high and should only be used to consider de-escalating anti-MRSA therapy. A positive result may indicate colonization with MRSA and must be correlated clinically. [facility] S-cubism Felicia PA-C MICROBIOLOGY - GENERAL ORDERABLES Final Result Performing Organization Address [facility] Co de Phone Number [facility]
[address] [place] [address], [place] [phone] * (ABNORMAL) Hemoglobin A1c (11/22/2024 9:04 AM EDT) Pathologist [facility] Hemoglobin A1C 5.76(H) 4.80 - 5.60 % 11/22/2024 10:28 AM EDT [facility] Blood Venipuncture / Unknown 11/22/2024 9:04 AM EDT 11/22/2024 9:18 AM EDT Narrative [facility] - 11/22/2024 10:28 AM EDT Hemoglobin A1C Ranges: Increased Risk for Diabetes 5.7% to 6.4% Diabetes >= 6.5% Diabetic Goal < 7.0% Modesto Elizabeth MD LAB BLOOD ORDERABLES Final Re sult [facility]
[address] [place] [address], * ECG Scan (11/22/2024) [facility] ECG ORDERABLES Final Result documented in this encounter Visit Diagnoses Diagnosis Spinal stenosis of lumbar region without neurogenic claudication Abnormal findings on diagnostic imaging of other parts of musculoskeletal system documented in this encounter Administered Medications Active Administered Medications - up to 3 most recent administrations Medication Order MAR Action Action Date Dose Rate Site mupirocin (BACTROBAN) 2 % nasal ointment Nasal, 2 Times Daily, First dose on Fri11/22/24 at 0930, Instill Into Nares Night Before and Morning of Surgery As Directed ([facility])Indications:Spinal stenosis of lumbar region without neurogenic claudication documented in this encounter Care Teams Heavy Duty Press Operator Relationship Specialty Start Date End Date Win Mccauley MD [address] [facility] [address] [place] [address] PCP - General Internal Medicine 12/19/20 documented as of this encounter
--- OUTSIDE RECORDS SUMMARY | 2024-11-29 06:35 | XMS_ITS | Encounter Summary ---
Author Organization [facility] Address [address] [place] [address] Care Team Providers Care Magnetic Resonance Imaging Coordinator Name Role Phone Win Mccauley MD Primary Care Provider [phone] Reason for Visit * Auth/Cert Specialty Diagnoses / Procedures Referred By Contac t Referred To Contact Diagnoses Spinal stenosis of lumbar region without neurogenic claudication Spinal stenosis of lumbar region without neurogenic claudication [M48.061] Procedures FL EDWARDS FACETECTOMY & FORAMOTOMY 1 VRT SGM LUMBAR LUMBAR FUSION DECOMPRESSON WITH PEDICLE SCREWS L4-5, L5-S1 Referral ID Status Reason Start Date Expiration Date Visits Re quested Visits Authorized [id number] 1 1 Encounter Details Date Type Department Care Team (Late st Contact Info) Description 11/29/2024 6:35 AM EDT - 12/02/2024 11:58 AM EDT Hospital Encounter [address] [place] [address] Modesto Elizabeth MD [address] [address] Spinal stenosis of lumbar region without neurogenic claudication Discharge Disposition: Home or Self Care Social History Tobacco Use Types Packs/Day Years Used Date Smoking Tobacco: Never Smokeless Tobacco: Never Alcohol Use Standard Drinks/Week Comments Yes 8 (1 standard drink = 0.6 oz pur e alcohol) sometimes on weekend AUDIT-C Answer Date Recorded Q1: How often do you have a drink containing alc ohol? Monthly or less 11/29/2024 Q2: How many drinks containi ng alcohol do you have on a typical day when you are drinking? 1 or 2 11/29/2024 Q3: How often do you have si x or more drinks on one occasion? Never 11/29/2024 PHQ-2 Answer Date Recorded Retired Total Score 0 01/25/2021 Abuse Screen Answer Date Recorded Feels Unsafe at Home or Work/School no 11/29/2024 Feels Threatened by Someone no 11/19 Does Anyone Try to Keep You From Having Contact with Others or Doing Things Outside Your Home? no 11/29/2024 Physical Signs of Abuse Present no 11/29/2024 Housing Stability Answer Date Recorded Current Living Arrangements home 11/19 Potentially Unsafe Housing Conditions Not on angélica e 11/30/2024 Disabilities Answer Date Recorded Difficulty Concentrating, Remembering or Making Decisions no 11/29/2024 Difficulty Managing Errands Independently no 11/29/2024 Education Answer Date Recorded Help with school or training? Not on file Preferred Language [place] 11/22/2024 Sex and Gender Information Value Date Recorded Sex Assigned at Male 09/23/2024 2:54 PM EDT Legal Sex Male 12:00 PM EDT Gender Identity Not on file Sexual Orientation Not on file documented as of this encounter Last Filed Vital Signs Vital Sign Reading Time Taken Comments Blood Pressure 121/86 12/02/2024 8:24 AM EDT Pulse 100 12/02/2024 8:29 AM EDT Temperature 37 C (98.6 F) 12/02/2024 8:24 AM EDT Respiratory Rate 16 12/02/2024 8:24 AM EDT Oxygen Saturation 98% 12/02/2024 8:24 AM EDT Inhaled Oxygen Concentration - - Weight 120 kg (265 lb) 11/29/2024 6:36 PM EDT Height 177.8 cm (5' 10 ) 11/29/2024 6:36 PM EDT Body Mass Index 38.02 11/29/2024 6:36 PM EDT documented in this encounter Functional Status * Question Answer Date of Assessment Author 1. Wish to be (Past 1 Month) No 025 7:03 AM EDT Jovan Higginbotham, RN 2. Non-Specific Active Suici julia Thoughts (Past 1 Month) No 11/29/2024 7:03 AM EDJovan Elliott RN * Calculated C-SSRS Risk Score (Lifetime/Recent) Answer Date of Assessment Author No Risk Indicated 11/29/2024 7:03 AM Jovan Choe RN * [place] Suicide Severity Rating Scale (Screener/Recent Self-Report) Question Answer Date of Assessment Author 6. Suicidal Behavior (Lifetime) No 7:03 AM Jovan Choe RN documented as of this encounter Discharge Instructions * Attachments The following attachments cannot be sent through Care Everywhere. * Surgical Spinal Decompression Care After ([place]) * Spinal Stenosis [id number]-vh-Acnv ([place]) * How to Prevent Constipation After Surgery ([place]) * Fall Prevention in the Home Adult Tldl-bo-Zrex ([place]) * Acute Back Pain Adult ([place]) documented in this encounter Medications at Time of Discharge acetaminophen (Tylenol 8 Hour Arthritis Pain) 650 MG 8 hr tablet aspirin 81 MG chewable tablet Chew 1 tablet Daily. atorvastatin (LIPITOR) 40 MG tablet Take 1 tablet by mouth every night at bedtime. 09/27/2020 cetirizine (zyrTEC) 10 MG tablet Take 1 tablet by mouth Daily. famotidine (PEPCID) 20 MG tablet Take 1 tablet by mouth 2 (Two) Times a Day. Hydrocortisone, Perianal, (Procto-Med HC) 2.5 % rectal cream APPLY CREAM RECTALLY 4 TIMES DAILY NEEDED HEMORRHOIDS meclizine (ANTIVERT) 25 MG tablet TAKE 1/2 TO 1 (ONE-HALF TO ONE) TABLET BY MOUTH EVERY 8 HOURS NEEDED FOR DIZZINESS 08/05/2024 ramipril (ALTACE) 5 MG capsule Take 1 capsule by mouth Every Morning. 09/28/2020 spironolactone (ALDACTONE) 25 MG tablet Take 1 tablet by mouth Every Other Day. 12/06/2020 ibuprofen (ADVIL,MOTRIN) 800 MG tablet Take 1 tablet by mouth 3 (Three) Times a Day As Needed. for pain 08/17/2024 naloxone (NARCAN) 4 MG/0.1ML nasal spray Call 911. Don't prime. [place] in 1 nostril for overdose. Repeat in 2-3 minutes in other nostril if no or minimal breathing/respon siveness. 2 each 12/02/2024 5 oxyCODONE-acetamin ophen (PERCOCET) 7.5-325 MG per tabletIndications: Spinal stenosis of lumbar region without neurogenic claudication Take 1 tablet by mouth Every 6 (Six) Hours As Needed for Severe Pain. 20 tablet 12/02/2024 5 documented as of this encounter Progress Notes * Modesto Elizabeth MD - 12/02/2024 6:07 AM EDT NEUROSURGERY PROGRESS NOTE LOS: 0 days Patient Care Team: Win Mccauley MD as PCP - General (Internal Medicine) Win Mccauley MD as Referring Physician (Internal Medicine) Modesto Elizabeth MD as Surgeon (Neurosurgery) Chief Complaint: Low back pain with walking and standing intolerance. POD#: 3 Days Post-Op Procedures: L4-S1 PLIF. Interval History: Patient Complaints: Incisional pain. Patient Denies: Voiding difficulty or weakness. Vital Signs: Blood pressure 121/73, pulse 99, temperature 97.8 ??F (36.6 ??C), temperature source Oral, resp. rate 18, height 177.8 cm (70 ), weight 120 kg (265 lb), SpO2 98%. Intake/Output: Intake/Output Summary (Last 24 hours) at 12/02/2024 0607 Last data filed at 12/02/2024 0300 Gross per 24 hour Intake 1898 ml Output 2410 ml Net -512 ml Drain output: 150/40 mL. Physical Exam: The patient is awake and alert. He is in good spirits. He appears reasonably comfortable. Dry dressing in place on his incision. Assessment/Plan: 1. L4-5 spondylolisthesis and stenosis with instability as well as biforaminal narrowing at L5-S1 status post L4-S1 PLIF. 2. Hypertension. 3. Hyperlipidemia. 4. Disposition: Discontinue drain. Home this morning. Follow-up with [facility] in my office in approximately 3 weeks. Modesto Elizabeth MD 12/02/24 06:07 EDT * Modesto Elizabeth MD - 12/01/2024 6:34 AM EDT NEUROSURGERY PROGRESS NOTE LOS: 0 days Patient Care Team: Win Mccauley MD as PCP - General (Internal Medicine) Win Mccauley MD as Referring Physician (Internal Medicine) Modesto Elizabeth MD as Surgeon (Neurosurgery) Chief Complaint: Low back pain with walking and standing intolerance. POD#: 2 Days Post-Op Procedures: L4-S1 PLIF. Interval History: Patient Complaints: Severe pain yesterday afternoon but fairly improved this morning. He has some numbness in his anterior thighs. Patient Denies: Voiding difficulty. Vital Signs: Blood pressure 138/77, pulse 89, temperature 99.2 ??F (37.3 ??C), temperature source Oral, resp. rate 18, height 177.8 cm (70 ), weight 120 kg (265 lb), SpO2 97%. Intake/Output: Intake/Output Summary (Last 24 hours) at 12/01/2024 0634 Last data filed at 12/01/2024 0334 Gross per 24 hour Intake 900 ml Output 2850 ml Net -1950 ml Drain output: 330/120 mL. Physical Exam: The patient is awake and alert. Her dressing is in place on his incision. Data Review: Results from last 7 days Lab Units 11/30/24 0739 HEMOGLOBIN g/dL 12.0* HEMATOCRIT % 36.6* Assessment/Plan: 1. L4-5 spondylolisthesis and stenosis with instability as well as biforaminal narrowing at L5-S1 status post L4-S1 PLIF. 2. Hypertension. 3. Hyperlipidemia. 4. Disposition: Mobilize patient. Hopefully home tomorrow. Modesto Elizabeth MD 12/01/24 06:34 EDT * Modesto Elizabeth MD - 11/30/2024 6:17 AM EDT NEUROSURGERY PROGRESS NOTE LOS: 0 days Patient Care Team: Win Mccauley MD as PCP - General (Internal Medicine) Win Mccauley MD as Referring Physician (Internal Medicine) Modesto Elizabeth MD as Surgeon (Neurosurgery) Chief Complaint: Low back pain with walking and standing intolerance. POD#: 1 Day Post-Op Procedures: L4-S1 PLIF. Interval History: The patient has ambulated in the [place]. Patient Complaints: Incisional pain. Patient Denies: Voiding difficulty. Vital Signs: Blood pressure 117/77, pulse 77, temperature 97.3 ??F (36.3 ??C), temperature source Oral, resp. rate 16, height 177.8 cm (70 ), weight 120 kg (265 lb), SpO2 92%. Intake/Output: Intake/Output Summary (Last 24 hours) at 11/30/2024 0617 Last data filed at 11/30/2024 0529 Gross per 24 hour Intake 2480 ml Output 2970 ml Net -490 ml Drain output: 230/340 mL. Physical Exam: The patient awakens easily. He moves about uncomfortably. Dry dressing is in place on his incision. Motor function is intact. Data Review: H&H pending. Assessment/Plan: 1. L4-5 spondylolisthesis and stenosis with instability as well as biforaminal narrowing at L5-S1 status post L4-S1 PLIF. 2. Hypertension. 3. Hyperlipidemia. 4. Disposition: Mobilize patient. Continue IV fluids for now. I anticipate that he will be discharged home in a couple of days. Modesto Elizabeth MD 11/30/24 06:17 EDT documented in this encounter H&P Notes * Isabella Arriaza APRN - 11/29/2024 7:07 AM EDT Pre-Op H&P Huan Hawkins [id number] 1960 Chief complaint: Back pain Subjective: Patient is a 64 y.o.male presents for scheduled surgery by Dr. Elizabeth. He anticipates a LUMBAR FUSION DECOMPRESSON WITH PEDICLE SCREWS L4-5, L5-S1 today. He reports previous back surgery in May 2021. He said he had some pain relief for short time. The pain has gotten more severe over the last year and a half. Pain runs down bilateral lower extremities, L> R. No saddle anesthesia. MRI demonstrated a fair amount of stenosis at L4-5 which is dynamic on flexion- extension plain films. He tried PT and numerous epidural injections without benefit. Review of Systems: Constitutional-- No fever, chills or sweats. No fatigue. CV-- No chest pain, palpitation or syncope. +HTN, HLD Resp-- No SOB, cough, hemoptysis. +JET on bipap Skin--No rashes or lesions Allergies: No Known Allergies Home Meds: Medications Prior to Admission Medication Sig Dispense Refill Last Dose/Taking acetaminophen (Tylenol 8 Hour Arthritis Pain) 650 MG 8 hr tablet 11/28/2024 at 8:00 PM aspirin 81 MG chewable tablet Chew 1 tablet Daily. 11/29/2024 at 4:45 AM atorvastatin (LIPITOR) 40 MG tablet Take 1 tablet by mouth every night at bedtime. 11/28/2024 at 8:00 PM cetirizine (zyrTEC) 10 MG tablet Take 1 tablet by mouth Daily. 11/29/2024 at 4:45 AM Chlorhexidine Gluconate 4 % solution Shower each day with solution for 5 days beginning 5 days before surgery. 120 mL 0 diclofenac (VOLTAREN) 75 MG EC tablet Take 1 tablet by mouth 2 (Two) Times a Day With Meals. famotidine (PEPCID) 20 MG tablet Take 1 tablet by mouth 2 (Two) Times a Day. Hydrocortisone, Perianal, (Procto-Med HC) 2.5 % rectal cream APPLY CREAM RECTALLY 4 TIMES DAILY NEEDED HEMORRHOIDS ibuprofen (ADVIL,MOTRIN) 800 MG tablet Take 1 tablet by mouth 3 (Three) Times a Day As Needed. for pain meclizine (ANTIVERT) 25 MG tablet TAKE 1/2 TO 1 (ONE-HALF TO ONE) TABLET BY MOUTH EVERY 8 HOURS NEEDED FOR DIZZINESS mupirocin (BACTROBAN) 2 % nasal ointment Apply to the inside of each nostril with a cotton swab twotimes daily, morning and evening, for 5 days before surgery. 10 each 0 naproxen sodium (Aleve) 220 MG tablet ramipril (ALTACE) 5 MG capsule Take 1 capsule by mouth Every Morning. 11/28/2024 at 7:00 AM spironolactone (ALDACTONE) 25 MG tablet Take 1 tablet by mouth Every Other Day. 11/29/2024 Morning traMADol (ULTRAM) 50 MG tablet Take 1 tablet by mouth Every 6 (Six) Hours As Needed for Moderate Pain. 50 tablet 0 11/25/2024 Morning PMH: Past Medical History: Diagnosis Date Arthritis Back problem Disease of thyroid gland THYROID NODULE- RIGHT (FOLLOWING WITH ENT) Hyperlipidemia Hypertension Low back pain RBBB (right bundle branch block) Sleep apnea BiPAP compliant (settings 12 and 16 per pt) Wears glasses PSH: Past Surgical History: Procedure Laterality Date CARDIAC CATHETERIZATION 08/19/201808/2024 COLONOSCOPY LUMBAR DISCECTOMY Right 06/11/2021 Procedure: Foraminotomy Right L4-5; Surgeon: Modesto Elizabeth MD; Location: [facility]; Service: Neurosurgery; Laterality: Right; ROTATOR CUFF REPAIR Left 2013 TONSILLECTOMY Immunization History: Influenza: UTD Pneumococcal: No Tetanus: Unknown Social History: Tobacco: Social History Tobacco Use Smoking Status Never Smokeless Tobacco Never Alcohol: Social History Substance and Sexual Activity Alcohol Use Yes Alcohol/week: 8.0 standard drinks of alcohol Types: 8 Cans of beer per week Comment: sometimes on weekend Physical Exam:BP 140/80 (BP Location: Right arm, Patient Position: Lying) Pulse 73 Temp 98.3 ??F (36.8 ??C) (Temporal) Resp 16 SpO2 99% General Appearance: Alert, cooperative, no distress, appears stated age Head: Normocephalic, without obvious abnormality, atraumatic Lungs: Clear to auscultation bilaterally, respirations unlabored Heart: Regular rate and rhythm, S1 and S2 normal Abdomen: Soft without tenderness Extremities: Extremities normal, atraumatic, no cyanosis or edema Skin: Skin color, texture, turgor normal, no rashes or lesions Neurologic: Grossly intact Results Review: LABS: Lab Results Component Value Date WBC 8.82 11/22/2024 HGB 14.7 11/22/2024 HCT 44.3 11/22/2024 MCV 83.0 11/22/2024 PLT 270 11/22/2024 NEUTROABS 4.84 11/22/2024 GLUCOSE 101 (H) 11/22/2024 BUN 16.4 11/22/2024 CREATININE 0.81 11/22/2024 EGFRIFNONA 90 06/08/2021 NA 139 11/22/2024 K 4.2 11/22/2024 CL 104 11/22/2024 CO2 25.0 11/22/2024 CALCIUM 9.1 11/22/2024 ALBUMIN 4.0 11/22/2024 AST 18 11/22/2024 ALT 16 11/22/2024 BILITOT 0.5 11/22/2024 RADIOLOGY: Study Result Narrative & Impression XR SPINE LUMBAR FLEX AND EXT Date of Exam: 10/11/2024 2:33 PM EDT Indication: pain Comparison: 01/25/2021 Technique: Lateral flexion and extension radiographs of the lumbar spine were obtained. Findings: There is normal height of the lumbar vertebral bodies. There is moderate disc space narrowing at the L4/5 and L5/S1 levels. With flexion there is 13 mm of anterolisthesis of L4 on L5. This decreases to 10 mm with extension. No subluxation at any other lumbar vertebral level. IMPRESSION: Impression: 1. 13 mm of anterior listhesis of L4 on L5 with flexion decreasing to 10 mm with extension. I reviewed the patient's new clinical results. Cancer Staging (if applicable) Cancer Patient: __ yes __no __unknown; If yes, clinical stage T:__ N:__M:__, stage group or __N/A Impression: Spinal stenosis of lumbar region without neurogenic claudication Plan: LUMBAR FUSION DECOMPRESSON WITH PEDICLE SCREWS L4-5, L5-S1 Isabella Arriaza APRN 11/29/2024 07:08 EDT Cosigned by Modesto Elizabeth MD at 11/29/2024 7:33 AM EDT Associated attestation - Modesto Elizabeth MD - 11/29/2024 7:33 AM EDT . documented in this encounter Nursing Notes * Rhoda Heard, PT - 12/02/2024 8:35 AM EDT Goal Outcome Evaluation: Plan of Care Reviewed With: patient Progress: improving Outcome Evaluation: Pt ambulated 700 ft unsupported and navigated 3 steps w/o handrail use, CGA forsafety. No LOB or knee buckling noted. Pt able to recall spinal precautions and tolerated HEP. Pt would continue to benefit from IP PT services while hospitalized. Recommend home w/ assist at d/c. Anticipated Discharge Disposition (PT): home with assist * Lashonda Hernandez RN - 12/02/2024 8:32 AM EDT Problem: Adult Inpatient Plan of Care Goal: Plan of Care Review Outcome: Progressing Goal: Patient-Specific Goal (Individualized) Outcome: Progressing Goal: Absence of Hospital-Acquired Illness or Injury Outcome: Progressing Intervention: Identify and Manage Fall Risk Recent Flowsheet Documentation Taken 12/01/20242009 by Lashonda Hernandez RN Safety Promotion/Fall Prevention: activity supervised safety round/check completed room organization consistent nonskid shoes/slippers when out of bed Intervention: Prevent Skin Injury Recent Flowsheet Documentation Taken 12/01/20242009 by Lashonda Hernandez RN Body Position: supine heels elevated Skin Protection: incontinence pads utilized Intervention: Prevent and Manage VTE (Venous Thromboembolism) Risk Recent Flowsheet Documentation Taken 12/01/20242009 by Lashonda Hernandez RN VTE Prevention/Management: (heparin) other (see comments) Intervention: Prevent Infection Recent Flowsheet Documentation Taken 12/01/20242009 by Lashonda Hernandez RN Infection Prevention: rest/sleep promoted Goal: Optimal Comfort and Wellbeing Outcome: Progressing Intervention: Monitor Pain and Promote Comfort Recent Flowsheet Documentation Taken 12/02/2024 014 by Lashonda Hernandez RNv belt coverer Interventions: pain medication given Intervention: Provide Person-Centered Care Recent Flowsheet Documentation Taken 12/01/20242009 by Lashonda Hernandez RN Trust Relationship/Rapport: care explained Goal: Readiness for Transition of Care Outcome: Progressing Goal Outcome Evaluation: * Lashonda Hernandez RN - 12/02/2024 6:00 AM EDT Patient ambulated with staff through hallway for two complete laps, approximately 700 feet with no adverse side effects noted. * Lashonda Hernandez RN - 12/01/2024 8:20 PM EDT Patient ambulated in hallway with standby assist x 1 with gait belt. Ambulated approximately 350 feet with no side effects noted. Patient currently resting back in bed. Hemovac emptied 40 ml serous drainage thus far this shift. Bordered dressing to back noted with serosanguinous dried drainage, no new drainage noted. * Brooke Marin, PT - 12/01/2024 3:05 PM EDT Goal Outcome Evaluation: Plan of Care Reviewed With: patient Progress: improving Outcome Evaluation: Pt with good effort and ambulated 350' with SBA and no AD. He also navigated steps with good stability and cues for sequencing. No LOB or knee buckling. HEP and precautions reviewed. Pt continues to present below baseline with elevated pain and decreased endurance. Further IPPT is warrented. PT will progress as able per POC. Anticipated Discharge Disposition (PT): home with assist * Mary Spencer RN - 12/01/2024 12:07 AM EDT Patient states pain level is as high as it can gets . Requires both PO and IV analgesic for painmanagement. Amount of drainage has subsided. Febrile at the beginning of the shift. Border dressingremains CDI. On RA. Call light in reach. * Terri Chong OT - 11/30/2024 10:35 AM EDT Goal Outcome Evaluation: Plan of Care Reviewed With: patient Progress: no change (OT IE) Outcome Evaluation: OT evaluation completed. Pt presents with decreased I in ADLs, related t/fs andmobility compared to PLOF limited by decreased activity tolerance, impaired balance, muscle weakness at BUEs, fatigue with more dynamic demands, decreased distal reach toward LEs and persistent pain at low back. OT issued LH AE to assist with distal reach and further educated pt on use for improvedI and safety in ADLs. Pt demonstrated need for less A w/ LB ADLs with use. Pt req'd some A in all ADLs. Pt req'd CGA to min A for bed mobility w/ log roll tech and SBA to CGA in fxl t/fs and mob without AD. Pt would benefit from IPOT POC and home w/ A at d/c when medically ready. Anticipated Discharge Disposition (OT): home with assist * Brooke Marin, PT - 11/30/2024 8:57 AM EDT Goal Outcome Evaluation: Plan of Care Reviewed With: patient Progress: no change Outcome Evaluation: PT initial eval completed. Pt presents below his functional baseline with weakness, acute pain, and decreased endurance. Spinal precautions reviewed, pt verbalized understanding. Ambulation of 450' with CGA and no AD was well tolerated. Further IPPT is warrented. PT rec d/c homewith assist when medically appropriate. Anticipated Discharge Disposition (PT): home with assist * Mary Spencer RN - 11/29/2024 9:33 PM EDT Patient ambulated in hallway approximately 350 ft with one assist. 100 ml of drainage released fromHemovac at the beginning of the shift. Intermittent localized aches to lower back incision site adequately controlled with PO medications. VSS on RA, voids independently. Call light in reach. documented in this encounter OR Notes * Op Note - Modesto Elizabeth MD - 11/29/2024 8:33 AM EDT NEUROSURGICAL OPERATIVE NOTE PREOPERATIVE DIAGNOSIS: Lumbar stenosis with neurogenic claudication L4-5 spondylolisthesis with instability POSTOPERATIVE DIAGNOSIS: Same PROCEDURE: 1. Arthrodesis interbody type L4-5 and L5-S1 2. L4-5 and L5-S1 laminectomies with partial facetectomies and foraminotomies 3. Bilateral L4-5 and L5-S1 discectomies with bilateral Adaptix cage placement at each level 4. Segmental pedicle screw fixation L4-S1 utilizing Solera 5. Use of MagnetOs and local autograft 6. Stealth stereotaxy utilized in conjunction with O arm imaging SURGEON: Modesto Elizabeth M.D. PICKER TENDER HELPER: Noelle Sandoval PA-C PAC assisted with: Suctioning Retraction Tying Suturing Closing Application of dressing Skilled neurosurgery PA assistance was necessary to perform this procedure. ANESTHESIA: General ESTIMATED BLOOD LOSS: 800 mL SPECIMEN: None DRAINS: Hemovac COMPLICATIONS: None Spinal Surgery Levels Completed:2 Levels CLINICAL NOTE: The patient is a 64-year-old gentleman with chronic progressive low back pain with walking and standing intolerance. Studies demonstrate significant central stenosis as well as severe biforaminal stenosis at L5-S1. There is also a spondylolisthesis at L4-5 with pratik instability. As such, the patient presents at this time for lumbar decompression with fusion and stabilization. The nature of the procedure as well as the potential risks, complications, limitations, and alternatives to the procedure were discussed at length with the patient and the patient has agreed to proceed with surgery. TECHNICAL NOTE: The patient was brought to the operating room and while on his cart, general endotracheal anesthesia was achieved. He was then turned prone onto the Naren table. Special care was ensured to protectpressure points. His low back was prepared and draped in the usual fashion. A localizing radiographwas obtained with the spinal needle in the lumbosacral midline. Based on this, a several centimetervertical incision was fashioned. Underlying tissues were divided with cautery to provide exposure to the posterior spinal elements from L4 to the sacrum. Reference frame was affixed to the spinous process and O-arm imaging ensued. These images were downloaded into the [employer] using Stealth f rameless stereotaxy. Each of the pedicle screw hole sites at L4, L5 and S1 bilaterally were marked,drilled, and tapped. All screws placed were 6.5 mm in diameter x 50 mm in length. These were placedonce again bilaterally at L4, L5, and S1. [place] rongeur was then utilized to remove the spinous processes at L4, L5, and the upper aspect of S1. Markedly overgrown ligament was removed. There was overgrown fat. All of this was very tenacious and adherent to the dura. There was particularly significant granulation tissue on the right at L4-5 where he had undergone previous decompression. All of this was cleaned out. Facet complexes were subtotally resected bilaterally at each level. The C-arm was brought into use and beginning on the right at L4-5 the disk was incised and evacuated piecemealwith an array of rongeurs, punches, and curettes. Ultimately an 11 x 24 mm Adaptix cage was impacted into place using fluoroscopic guidance. The cage had been packed with local autograft. Attention was turned to the L5-S1 level where similarly the disk space was prepared and an 8 x 24 mm Adaptix cage was impacted into place. This was also packed with local autograft. I then moved contralaterally and after preparing the disk space at each level, similar Adaptix cages were placed at each level. Prior to doing this, MagnetOs wafers and additional bone graft were placed in the midline and anteriorly before each of the second cages were impacted into the disk space. Nerve roots were well decompressed on each side; 65 mm Solera rods were then affixed to the screw heads using mechanical senior sales operations analyst,the L4 screws were brought up to the tahira by reducing the spondylolisthesis. Compression was performed across the disk space at each level on each side, before tightening and breaking off the set screws. The wound was washed out with saline solution. There was a continuous ooze throughout the entireprocedure that resulted in generous blood loss. The patient remained hemodynamically stable throughout the case. Gelfoam was left at the decompression sites on each side at each level. Hemovac drain was brought in through a separate stab incision and left in the epidural space. The paraspinous muscle and fascia were reapproximated in interrupted fashion with 0 Vicryl suture. Marcaine 0.25% was instilled in the paraspinous musculature and subcutaneous tissues. Subcutaneous tissues were closed inlayers with 2-0 followed by 3-0 Vicryl suture. The skin was closed in a running subcuticular fashion with 3-0 Vicryl suture. Steri-Strips and sterile dressing were applied. He was rolled onto his cart, extubated, and taken to the recovery room in satisfactory condition. Modesto Elizabeth M.D. documented in this encounter Miscellaneous Notes * Therapy Treatment Note - Rhoda Heard, PT - 12/02/2024 8:35 AM EDT Images from the original note were not included. Patient Name: Huan Hawkins : 1960 Today's Date: 12/02/2024 Admit Date: 11/29/2024 Visit Dx: ICD-10-CM ICD-9-CM 1. 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 Spondylolisthesis, lumbar region Moderate obesity Spinal stenosis of lumbar region without neurogenic claudication Past Medical History: Diagnosis Date Arthritis Back problem Disease of thyroid gland THYROID NODULE- RIGHT (FOLLOWING WITH ENT) Hyperlipidemia Hypertension Low back pain RBBB (right bundle branch block) Sleep apnea BiPAP compliant (settings 12 and 16 per pt) Wears glasses Past Surgical History: Procedure Laterality Date CARDIAC CATHETERIZATION 08/19/201808/2024 COLONOSCOPY LUMBAR DISCECTOMY Right 06/11/2021 Procedure: Foraminotomy Right L4-5; Surgeon: Modesto Elizabeth MD; Location: [facility]; Service: Neurosurgery; Laterality: Right; LUMBAR LAMINECTOMY WITH FUSION N/A 11/29/2024 Procedure: LUMBAR FUSION DECOMPRESSION WITH PEDICLE SCREWS L4-5, L5-S1; Surgeon: Modesto Elizabeth MD; Location: [facility]; Service: Neurosurgery; Laterality: N/A; ROTATOR CUFF REPAIR Left 2014 TONSILLECTOMY General Information Row Name 12/02/24 0957 Physical Therapy Time and Intention Document Type therapy note (daily note) - Mode of Treatment physical therapy;individual therapy - Row Name 08/956 General Information Patient Profile Reviewed yes - Existing Precautions/Restrictions fall;spinal;other (see comments) hemovac - Barriers to Rehab none identified -[facility] Name 12/02/24956 Cognition Orientation Status (Cognition) oriented x 4 -[facility] Name 12/02/24956 Safety Issues/Impairments Affecting Functional Mobility Safety Issues Affecting Function (Mobility) insight into deficits/self-awareness - Impairments Affecting Function (Mobility) endurance/activity tolerance;pain - User Engel (r) = Recorded By, (t) = Taken By, (c) = Cosigned By Initials Name Provider Type Rhoda Heard PT Physical Therapist Mobility Row Name 12/02/24956 Bed Mobility Comment, (Bed Mobility) Sitting EOB pre/post tx -[facility] Name 12/02/24956 Transfers Comment, (Transfers) Pt demo good hand placement and sequencing. Knowledgeable of spinal precautions -[facility] Name 12/02/24956 Sit-Stand Transfer Sit-Stand [place] (Transfers) supervision;verbal cues - Comment, (Sit-Stand Transfer) No AD -[facility] Name 12/02/24956 Gait/Stairs (Locomotion) [place] Level (Gait) standby assist;verbal cues - Patient was able to Ambulate yes - Distance in Feet (Gait) 700 - Deviations/Abnormal Patterns (Gait) bilateral deviations;kimber decreased;gait speed decreased;stride length decreased - [place] Level (Stairs) contact guard;1 person assist;verbal cues - Handrail Location (Stairs) none - Number of Steps (Stairs) 3 - Ascending Technique (Stairs) [id number] - Descending Technique (Stairs) [id number] - Comment, (Gait/Stairs) Pt demo step through gait pattern at slow pace. No LOB. Navigated 3 steps w/o handrail use. No LOB or unsteadiness - User Engel (r) = Recorded By, (t) = Taken By, (c) = Cosigned By Initials Name Provider Type Rhoda Heard PT Physical Therapist Obj/Interventions Row Name 12/02/24 1002 Motor Skills Therapeutic Exercise hip;knee;ankle;other (see comments) abd sets x10, BKFO x10 - Row Name 12/02/24 1002 Shoulder (Therapeutic Exercise) Shoulder (Therapeutic Exercise) AROM (active range of motion) - Shoulder AROM (Therapeutic Exercise) bilateral;flexion;extension;10 repetitions - Row Name 12/02/24 1002 Hip (Therapeutic Exercise) Hip (Therapeutic Exercise) isometric exercises;AROM (active range of motion) - Hip AROM (Therapeutic Exercise) bilateral;external rotation;internal rotation;10 repetitions - Hip Isometrics (Therapeutic Exercise) bilateral;gluteal sets;10 repetitions - Row Name 12/02/24 1002 Knee (Therapeutic Exercise) Knee (Therapeutic Exercise) isometric exercises;strengthening exercise - Knee Isometrics (Therapeutic Exercise) bilateral;quad sets;10 repetitions - Knee Strengthening (Therapeutic Exercise) bilateral;heel slides;10 repetitions - Row Name 12/02/24 1002 Ankle (Therapeutic Exercise) Ankle (Therapeutic Exercise) AROM (active range of motion) - Ankle AROM (Therapeutic Exercise) bilateral;dorsiflexion;plantarflexion;10 repetitions - Row Name 12/02/24 1002 Balance Balance Assessment sitting static balance;sitting dynamic balance;standing static balance;standing dynamic balance - Static Sitting Balance independent - Dynamic Sitting Balance independent - Position, Sitting Balance unsupported;sitting edge of bed - Static Standing Balance supervision - Dynamic Standing Balance standby assist - Position/Device Used, Standing Balance unsupported - Balance Interventions sitting;standing;sit to stand;supported;static;dynamic - User Engel (r) = Recorded By, (t) = Taken By, (c) = Cosigned By Initials Name Provider Type Rhoda Heard, PT Physical Therapist Goals/Plan No documentation. Clinical Impression [facility] Name 12/02/24 1003 Pain Pretreatment Pain Rating 5/10 - Posttreatment Pain Rating 5/10 - Pain Location back - Pain Side/Orientation medial - Pain Management Interventions activity modification encouraged;exercise or physical activity utilized;positioning techniques utilized - Response to Pain Interventions activity participation with tolerable pain -[facility] Name 12/02/24 1003 Plan of Care Review Plan of Care Reviewed With patient - Progress improving - Outcome Evaluation Pt ambulated 700 ft unsupported and navigated 3 steps w/o handrail use, CGA for safety. No LOB or knee buckling noted. Pt able to recall spinal precautions and tolerated HEP. Pt would continue to benefit from PT services while hospitalized. Recommend home w/ assist at d/c. - Row Name 12/02/24 1003 Vital Signs Pre Systolic BP Rehab 121 - Pre Treatment Diastolic BP 86 - Row Name 12/02/24 1003 Positioning and Restraints Pre-Treatment Position in bed - Post Treatment Position bed - In Bed notified nsg;sitting EOB;call light within reach;encouraged to call for assist exit alarm formerly [facility] - User Engel (r) = Recorded By, (t) = Taken By, (c) = Cosigned By Initials Name Provider Type Rhoda Heard, EVE Physical Therapist Outcome Measures Row Name 12/02/24 1005 12/02/24 0824 How much help from another person do you currently need... Turning from your back to your side while in flat bed without using bedrails? 4 - 4 -TAYLOR Moving from lying on back to sitting on the side of a flat bed without bedrails? 4 - 4 -TAYLOR Moving to and from a bed to a chair (including a wheelchair)? 4 - 4 -TAYLOR Standing up from a chair using your arms (e.g., wheelchair, bedside chair)? 4 - 4 -TAYLOR Climbing 3-5 steps with a railing? 3 - 3 -TAYLOR To walk in hospital room? 3 - 4 -TAYLOR AM-PAC 6 Clicks Score (PT) 22 - 23 -TAYLOR Highest Level of Mobility Goal Walk 25 Feet or More-7 - Walk 25 Feet or More-7 -TAYLOR Row Name 12/02/24 1005 Functional Assessment Outcome Measure Options AM-PAC 6 Clicks Basic Mobility (PT) - User Engel (r) = Recorded By, (t) = Taken By, (c) = Cosigned By Initials Name Provider Type Aristeo Adam, HALLEY Registered Nurse Rhoda Heard, PT Physical Therapist Physical Therapy Education Title: PT OT LASTING MACHINE OPERATOR HAND METHOD Therapies (In Progress) Topic: Physical Therapy (Done) Point: Mobility training (Done) Learning Progress Summary Patient Acceptance, E, VU,DU,NR by at 12/02/2024 1005 Acceptance, E,D,H, VU,DU by at 12/01/2024 1621 Acceptance, E,D,H, VU,DU by AB at 11/30/2024 1030 Point: Home exercise program (Done) Learning Progress Summary Patient Acceptance, E, VU,DU,NR by at 12/02/2024 1005 Acceptance, E,D,H, VU,DU by at 12/01/2024 1621 Acceptance, E,D,H, VU,DU by at 11/30/2024 1030 Point: Body mechanics (Done) Learning Progress Summary Patient Acceptance, E, VU,DU,NR by at 12/02/2024 1005 Acceptance, E,D,H, VU,DU by AB at 12/01/2024 1621 Acceptance, E,D,H, VU,DU by AB at 11/30/2024 1030 Point: Precautions (Done) Learning Progress Summary Patient Acceptance, E, VU,DU,NR by at 12/02/2024 1005 Acceptance, E,D,H, VU,DU by at 12/01/2024 1621 Acceptance, E,D,H, VU,DU by AB at 11/30/2024 1030 User Engel Initials Effective Dates Name Provider Type Discipline 01/10/22 - Brooke Marin, PT Physical Therapist PT 01/09/23 - Rhoda Heard PT Physical Therapist PT PT Recommendation and Plan Recommended discharge disposition is based on the functional assessment performed by PT/OT/Speech therapy (as applicable) and may not reflect the medical necessity determined by your provider or services covered by an individual patient's insurance plan or patient resource. Progress: improving Outcome Evaluation: Pt ambulated 700 ft unsupported and navigated 3 steps w/o handrail use, CGA forsafety. No LOB or knee buckling noted. Pt able to recall spinal precautions and tolerated HEP. Pt would continue to benefit from IP PT services while hospitalized. Recommend home w/ assist at d/c. Time Calculation: PT Charges Row Name 12/02/24 1005 Time Calculation Start Time 0835 - PT Received On 12/02/24 - PT Goal Re-Cert Due Date 12/10/24 - Timed Charges 80438 - PT Therapeutic Exercise Minutes 10 - 90655 - Gait Training Minutes 13 - Total Minutes Timed Charges Total Minutes 23 - Total Minutes - User Engel (r) = Recorded By, (t) = Taken By, (c) = Cosigned By Initials Name Provider Type Rhoda Heard, PT Physical Therapist Therapy Charges for Today Code Description Service Date Service Provider Modifiers Qty [id number] PT THER PROC EA 15 MIN 12/02/2024 Rhoda Heard, PT GP 1 [id number] HC GAIT TRAINING EA 15 MIN 12/02/2024 Rhoda Heard, PT GP 1 PT G-Codes Outcome Measure Options: AM-PAC 6 Clicks Basic Mobility (PT) AM-PAC 6 Clicks Score (PT): 22 AM-PAC 6 Clicks Score (OT): 20 PT Discharge Summary Anticipated Discharge Disposition (PT): home with assist Rhoda Heard, EVE 12/02/2024 * Therapy Treatment Note - Brooke Marin, PT - 12/01/2024 3:05 PM EDT Images from the original note were not included. Patient Name: Huan Hawkins : 1960 Today's Date: 12/01/2024 Admit Date: 11/29/2024 Visit Dx: ICD-10-CM ICD-9-CM 1. 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 Spondylolisthesis, lumbar region Moderate obesity Spinal stenosis of lumbar region without neurogenic claudication Past Medical History: Diagnosis Date Arthritis Back problem Disease of thyroid gland THYROID NODULE- RIGHT (FOLLOWING WITH ENT) Hyperlipidemia Hypertension Low back pain RBBB (right bundle branch block) Sleep apnea BiPAP compliant (settings 12 and 16 per pt) Wears glasses Past Surgical History: Procedure Laterality Date CARDIAC CATHETERIZATION 08/19/201808/2024 COLONOSCOPY LUMBAR DISCECTOMY Right 06/11/2021 Procedure: Foraminotomy Right L4-5; Surgeon: Modesto Elizabeth MD; Location: [facility]; Service: Neurosurgery; Laterality: Right; LUMBAR LAMINECTOMY WITH FUSION N/A 11/29/2024 Procedure: LUMBAR FUSION DECOMPRESSION WITH PEDICLE SCREWS L4-5, L5-S1; Surgeon: Modesto Elizabeth MD; Location: [facility]; Service: Neurosurgery; Laterality: N/A; ROTATOR CUFF REPAIR Left 2014 TONSILLECTOMY General Information Row Name 12/01/24 1614 Physical Therapy Time and Intention Document Type therapy note (daily note) -AB Mode of Treatment physical therapy -AB Row Name 12/01/241613 General Information Patient Profile Reviewed yes -AB Existing Precautions/Restrictions fall;other (see comments);spinal hemovac -AB Barriers to Rehab none identified -AB Row Name 12/01/241613 Cognition Orientation Status (Cognition) oriented x 4 -AB Row Name 12/01/24 161 Safety Issues/Impairments Affecting Functional Mobility Safety Issues Affecting Function (Mobility) insight into deficits/self-awareness -AB Impairments Affecting Function (Mobility) endurance/activity tolerance;pain -AB User Engel (r) = Recorded By, (t) = Taken By, (c) = Cosigned By Initials Name Provider Type AB Brooke Marin, PT Physical Therapist Mobility Row Name 12/01/241614 Bed Mobility Bed Mobility sidelying-sit;rolling right -AB Rolling Left [place] (Bed Mobility) standby assist -AB Sidelying-Sit [place] (Bed Mobility) standby assist;1 person assist;verbal cues -AB Comment, (Bed Mobility) good use of logroll -AB Row Name 12/01/241614 Transfers Comment, (Transfers) Cues for hand placement and sequencing. -AB Row Name 12/01/241614 Sit-Stand Transfer Sit-Stand [place] (Transfers) standby assist;1 person assist;verbal cues -AB Row Name 12/01/241614 Gait/Stairs (Locomotion) [place] Level (Gait) 1 person assist;verbal cues;standby assist -AB Patient was able to Ambulate yes -AB Distance in Feet (Gait) 350 -AB Deviations/Abnormal Patterns (Gait) bilateral deviations;kimber decreased;gait speed decreased;stride length decreased -AB [place] Level (Stairs) contact guard;1 person assist;verbal cues -AB Handrail Location (Stairs) none -AB Number of Steps (Stairs) 3 -AB Ascending Technique (Stairs) [id number] -AB Descending Technique (Stairs) [id number] -AB Comment, (Gait/Stairs) Pt ambulated with step through gait pattern at a slightly slowed pace. No overt LOB or knee buckling. He also navigated steps with good stability and cues fro sequencing. -AB User Engel (r) = Recorded By, (t) = Taken By, (c) = Cosigned By Initials Name Provider Type AB Brooke Marin PT Physical Therapist Obj/Interventions Row Name 12/01/241615 Motor Skills Therapeutic Exercise shoulder;hip;knee;ankle abdominal sets x10; BKFO x10 -AB Row Name 12/01/241615 Shoulder (Therapeutic Exercise) Shoulder (Therapeutic Exercise) AROM (active range of motion) -AB Shoulder AROM (Therapeutic Exercise) bilateral;flexion;10 repetitions -AB Row Name 12/01/241615 Hip (Therapeutic Exercise) Hip (Therapeutic Exercise) isometric exercises;AROM (active range of motion) -AB Hip AROM (Therapeutic Exercise) bilateral;external rotation;internal rotation;10 repetitions -AB Hip Isometrics (Therapeutic Exercise) bilateral;gluteal sets;10 repetitions -AB Row Name 12/01/241615 Knee (Therapeutic Exercise) Knee (Therapeutic Exercise) isometric exercises;strengthening exercise -AB Knee Isometrics (Therapeutic Exercise) bilateral;quad sets;10 repetitions -AB Knee Strengthening (Therapeutic Exercise) bilateral;heel slides;10 repetitions -AB Row Name 12/01/241615 Ankle (Therapeutic Exercise) Ankle (Therapeutic Exercise) AROM (active range of motion) -AB Ankle AROM (Therapeutic Exercise) bilateral;dorsiflexion;plantarflexion;10 repetitions -AB Row Name 12/01/241615 Balance Balance Assessment sitting static balance;sitting dynamic balance;standing static balance;standing dynamic balance -AB Static Sitting Balance independent -AB Dynamic Sitting Balance independent -AB Position, Sitting Balance unsupported;sitting edge of bed -AB Static Standing Balance standby assist -AB Dynamic Standing Balance standby assist -AB Position/Device Used, Standing Balance unsupported -AB Balance Interventions sitting;standing;sit to stand;static;dynamic;occupation based/functional task-AB User Engel (r) = Recorded By, (t) = Taken By, (c) = Cosigned By Initials Name Provider Type AB Brooke Marin PT Physical Therapist Goals/Plan No documentation. Clinical Impression Row Name 12/01/241616 Pain Pretreatment Pain Rating 5/10 -AB Posttreatment Pain Rating 5/10 -AB Pain Location back -AB Pain Side/Orientation generalized;lower -AB Pain Management Interventions activity modification encouraged;exercise or physical activity utilized;positioning techniques utilized -AB Response to Pain Interventions activity participation with tolerable pain -AB Row Name 12/01/24 1617 Plan of Care Review Plan of Care Reviewed With patient -AB Progress improving -AB Outcome Evaluation Pt with good effort and ambulated 350' with SBA and no AD. He also navigated steps with good stability and cues for sequencing. No LOB or knee buckling. HEP and precautions reviewed. Pt continues to present below baseline with elevated pain and decreased endurance. Further IPPT is warrented. PT will progress as able per POC. -AB Row Name 12/01/24 1617 Vital Signs Pre Systolic BP Rehab 130 -AB Pre Treatment Diastolic BP 79 -AB O2 Delivery Pre Treatment room air -AB O2 Delivery Intra Treatment room air -AB O2 Delivery Post Treatment room air -AB Pre Patient Position Supine -AB Intra Patient Position Standing -AB Post Patient Position Sitting -AB Row Name 12/01/24 1617 Positioning and Restraints Pre-Treatment Position in bed -AB Post Treatment Position chair -AB In Chair notified nsg;sitting;reclined;call light within reach;legs elevated;waffle cushion no alarm on upon entry to room, left off post treatment session. -AB User Engel (r) = Recorded By, (t) = Taken By, (c) = Cosigned By Initials Name Provider Type AB Brooke Marin, PT Physical Therapist Outcome Measures Row Name 12/01/24 1620 12/01/24 0800 How much help from another person do you currently need... Turning from your back to your side while in flat bed without using bedrails? 4 -AB 4 -AP Moving from lying on back to sitting on the side of a flat bed without bedrails? 3 -AB 4 -AP Moving to and from a bed to a chair (including a wheelchair)? 3 -AB 4 -AP Standing up from a chair using your arms (e.g., wheelchair, bedside chair)? 3 - AB 4 -AP Climbing 3-5 steps with a railing? 3 -AB 3 -AP To walk in hospital room? 3 -AB 3 -AP AM-PAC 6 Clicks Score (PT) 19 -AB 22 -AP Highest Level of Mobility Goal Walk 10 Steps or More-6 -AB Walk 25 Feet or More- 7 -AP Row Name 12/01/24 1620 Functional Assessment Outcome Measure Options AM-PAC 6 Clicks Basic Mobility (PT) - User Engel (r) = Recorded By, (t) = Taken By, (c) = Cosigned By Initials Name Provider Type Koby Mireles, RN Registered Nurse Brooke Polanco, PT Physical Therapist Physical Therapy Education Title: PT OT LASTING MACHINE OPERATOR HAND METHOD Therapies (In Progress) Topic: Physical Therapy (Done) Point: Mobility training (Done) Learning Progress Summary Patient Acceptance, E,D,H, VU,DU by at 12/01/2024 1621 Acceptance, E,D,H, VU,DU by at 11/30/2024 1030 Point: Home exercise program (Done) Learning Progress Summary Patient Acceptance, E,D,H, VU,DU by at 12/01/2024 1621 Acceptance, E,D,H, VU,DU by at 11/30/2024 1030 Point: Body mechanics (Done) Learning Progress Summary Patient Acceptance, E,D,H, VU,DU by at 12/01/2024 1621 Acceptance, E,D,H, VU,DU by at 11/30/2024 1030 Point: Precautions (Done) Learning Progress Summary Patient Acceptance, E,D,H, VU,DU by at 12/01/2024 1621 Acceptance, E,D,H, VU,DU by at 11/30/2024 1030 User Engel Initials Effective Dates Name Provider Type [facility] 01/10/22 - Brooke Marin, PT Physical Therapist PT PT Recommendation and Plan Recommended discharge disposition is based on the functional assessment performed by PT/OT/Speech therapy (as applicable) and may not reflect the medical necessity determined by your provider or services covered by an individual patient's insurance plan or patient resource. Planned Therapy Interventions (PT): balance training, bed mobility training, gait training, home exercise program, patient/family education, postural re- education, transfer training, stretching, strengthening, ROM (range of motion), stair training Therapy Frequency (PT): daily Progress: improving Outcome Evaluation: Pt with good effort and ambulated 350' with SBA and no AD. He also navigated steps with good stability and cues for sequencing. No LOB or knee buckling. HEP and precautions reviewed. Pt continues to present below baseline with elevated pain and decreased endurance. Further IPPT is warrented. PT will progress as able per POC. Time Calculation: PT Evaluation Complexity History, PT Evaluation Complexity: 1-2 personal factors and/or comorbidities Examination of Body Systems (PT Eval Complexity): total of 3 or more elements Clinical Presentation (PT Evaluation Complexity): stable Clinical Decision Making (PT Evaluation Complexity): low complexity Overall Complexity (PT Evaluation Complexity): low complexity PT Charges Row Name 12/01/24 1621 Time Calculation Start Time 1505 -AB PT Received On 12/01/24 -AB Timed Charges 51216 - PT Therapeutic Exercise Minutes 10 -AB 51547 - Gait Training Minutes 10 -AB 16042 - PT Therapeutic Activity Minutes 3 -AB Total Minutes Timed Charges Total Minutes 23 -AB Total Minutes 23 -AB User Engel (r) = Recorded By, (t) = Taken By, (c) = Cosigned By Initials Name Provider Type AB Brooke Marin, PT Physical Therapist Therapy Charges for Today Code Description Service Date Service Provider Modifiers Qty [id number] HC GAIT TRAINING EA 15 MIN 11/30/2024 Brooke Marin, PT GP 1 [id number] HC PT EVAL LOW COMPLEXITY 4 11/30/2024 Brooke Marin, PT GP 1 67154620084 HC PT THER PROC EA 15 MIN 12/01/2024 Brooke Marin, PT GP 1 83023212821 HC GAIT TRAINING EA 15 MIN 12/01/2024 Brooke Marin, PT GP 1 PT G-Codes Outcome Measure Options: AM-PAC 6 Clicks Basic Mobility (PT) AM-PAC 6 Clicks Score (PT): 19 AM-PAC 6 Clicks Score (OT): 20 PT Discharge Summary Anticipated Discharge Disposition (PT): home with assist Brooke Marin PT 12/01/2024 * Case Management/Social Work - Rosaura Troncoso RN - 12/01/2024 10:51 AM EDT Continued Stay Note ROYA Zapien Patient Name: Huan Hawkins Today's Date: 12/01/2024 Admit Date: 11/29/2024 Plan: home Discharge Plan Row Name 12/01/24 2060 Plan Plan home Patient/Family in Agreement with Plan yes Plan Comments Pt lives in [facility] with his . He is independent with ADLs and mobility. Denies current use of any DME. Pt is followed by his PCP and has drug coverage. At this time his plan for discharge is to return home. No dc needs at this time Final Discharge Disposition Code 01 - home or self-care Discharge Codes No documentation. Rosaura Troncoso RN * Therapy Evaluation - Terri Chong, OT - 11/30/2024 10:35 AM EDT Images from the original note were not included. Patient Name: Huan Hawkins : 1960 Today's Date: 11/30/2024 Admit Date: 11/29/2024 Visit Dx: ICD-10-CM ICD-9-CM 1. 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 Spondylolisthesis, lumbar region Moderate obesity Spinal stenosis of lumbar region without neurogenic claudication Past Medical History: Diagnosis Date Arthritis Back problem Disease of thyroid gland THYROID NODULE- RIGHT (FOLLOWING WITH ENT) Hyperlipidemia Hypertension Low back pain RBBB (right bundle branch block) Sleep apnea BiPAP compliant (settings 12 and 16 per pt) Wears glasses Past Surgical History: Procedure Laterality Date CARDIAC CATHETERIZATION 08/19/201808/2024 COLONOSCOPY LUMBAR DISCECTOMY Right 06/11/2021 Procedure: Foraminotomy Right L4-5; Surgeon: Modesto Elizabeth MD; Location: [facility]; Service: Neurosurgery; Laterality: Right; LUMBAR LAMINECTOMY WITH FUSION N/A 11/29/2024 Procedure: LUMBAR FUSION DECOMPRESSION WITH PEDICLE SCREWS L4-5, L5-S1; Surgeon: Modesto Elizabeth MD; Location: [facility]; Service: Neurosurgery; Laterality: N/A; ROTATOR CUFF REPAIR Left 2014 TONSILLECTOMY General Information Row Name 11/30/24 1116 OT Time and Intention Document Type evaluation -JY Mode of Treatment occupational therapy;individual therapy -JY Row Name 11/30/24 1116 General Information Patient Profile Reviewed yes -JY Prior Level of Function independent:;all household mobility;community mobility;gait;transfer;bed mob ility;ADL's;feeding;grooming;dressing;bathing;driving;using stairs limited by pain at back, spouse A with IADLs for convenience vs actual need for A; no AD used at baseline; denies any falls -JY Existing Precautions/Restrictions fall;other (see comments);spinal hemovac -JY Barriers to Rehab none identified -JY Row Name 11/30/24 1116 Occupational Profile Environmental Supports and Barriers (Occupational Profile) tub/shower combo, standard toilet; no DME used; has access to FWW -JY Patient Goals (Occupational Profile) to return to PLOF -JY Row Name 11/30/24 1116 Living Environment Current Living Arrangements home -JY People in Home spouse -JY Row Name 11/30/24 1116 Home Main Entrance Number of Stairs, Main Entrance two -JY Stair Railings, Main Entrance none -JY Row Name 11/30/24 1116 Stairs Within Home, Primary Number of Stairs, Within Home, Primary none -JY Row Name 11/30/24 1116 Cognition Orientation Status (Cognition) oriented x 4 -JY Row Name 11/30/24 1116 Safety Issues/Impairments Affecting Functional Mobility Safety Issues Affecting Function (Mobility) insight into deficits/self- awareness;safety precaution awareness;safety precautions follow- through/compliance -JY Impairments Affecting Function (Mobility) endurance/activity tolerance;strength;pain -JY Comment, Safety Issues/Impairments (Mobility) pt alert and able to follow commands; cognizant of spinal precautions -JY User Engel (r) = Recorded By, (t) = Taken By, (c) = Cosigned By Initials Name Provider Type Terri Shearer OT Occupational Therapist Mobility/ADL's Row Name 11/30/24 1119 Bed Mobility Bed Mobility sidelying-sit;sit-sidelying;rolling right -JY Rolling Right [place] (Bed Mobility) contact guard;verbal cues -JChavo Sidelying-Sit [place] (Bed Mobility) minimum assist (75% patient effort);1 person assist;verbal cues -TIA Sit-Sidelying [place] (Bed Mobility) contact guard;1 person assist;verbal cues -JY Assistive Device (Bed Mobility) bed rails;head of bed elevated -JY Comment, (Bed Mobility) educated on log roll tech with good return demo w/ cues on sequential steps; min A to fully advance LEs over EOB -TIA Osorio Name 11/30/24 111 Transfers Transfers sit-stand transfer;stand-sit transfer;toilet transfer -JY Comment, (Transfers) cues for optimal hand placement for controlled ascend, descend specifically topush up from seated surface, to reach back prior to sitting once aligned and in close proximity to seated surface; emphasized adherence to spinal precautions dmitry decreased flexion in ascend, descend -TIA Osorio Name 11/30/24 111 Sit-Stand Transfer Sit-Stand [place] (Transfers) standby assist;1 person assist;verbal cues -JY Assistive Device (Sit-Stand Transfers) other (see comments) no AD used -TIA Osorio Name 11/30/241118 Stand-Sit Transfer Stand-Sit [place] (Transfers) standby assist;1 person assist;verbal cues -JY Assistive Device (Stand-Sit Transfers) other (see comments) no AD used -TIA Osorio Name 11/30/24 111 Toilet Transfer Type (Toilet Transfer) sit-stand;stand-sit -JY [place] Level (Toilet Transfer) standby assist;1 person assist;verbal cues -JY Assistive Device (Toilet Transfer) commode;raised toilet seat;grab bars/safety frame -JY Comment, (Toilet Transfer) educated pt on option for home set up improvement with use of BSC over top of toilet for extended height and BUE with various options presented, pt verbalized understanding-TIA Osorio Name 11/30/241118 Functional Mobility Functional Mobility- Ind. Level contact guard assist;1 person;verbal cues required -JChavo Functional Mobility- Device other (see comments) no AD used -TIA Functional Mobility-Distance (Feet) -- in room ADL related mobility -JY Functional Mobility- Comment defer to PT for specifics however during in room ADL related mobility pt req'd gross CGA w/o AD used; slower pace, CGA for safety w/ increased pain -JY Patient was able to Ambulate yes -TIA Osorio Name 11/30/24 111 Activities of Daily Living BADL Assessment/Intervention upper body dressing;lower body dressing;grooming;toileting;bathing -J Row Name 11/30/24 111 Upper Body Dressing Assessment/Training [place] Level (Upper Body Dressing) doff;don;pajama/robe;minimum assist (75% patient effort) -JY Position (Upper Body Dressing) edge of bed sitting -JY Comment, (Upper Body Dressing) min A for proximal and posterior mgmt of gown; situational A for mgmt around IV - Row Name 11/30/24 111 Lower Body Dressing Assessment/Training [place] Level (Lower Body Dressing) doff;don;socks;contact guard assist;verbal cues -JY Assistive Devices (Lower Body Dressing) long-handled shoe horn;certified legal secretary specialist;sock- aid;other (see comments) issued AE to assist w/ safe distal reach while adhering to spinal precautions -JY Position (Lower Body Dressing) edge of bed sitting -JY Comment, (Lower Body Dressing) pt u/a to achieve d/d socks w/o AE and adhere to spinal precautions,improved CGA w/ sock aid used; educated on how to use AE for pants, undergarments too - Row Name 11/30/241118 Grooming Assessment/Training [place] Level (Grooming) wash face, hands;set up -JY Position (Grooming) sitting up in bed -[facility] Name 11/30/241118 Toileting Assessment/Training [place] Level (Toileting) adjust/manage clothing;standby assist;perform perineal hygiene;supervision -JY Assistive Devices (Toileting) toilet paper aid -JY Position (Toileting) unsupported sitting;unsupported standing -JY Comment, (Toileting) simulated toilet t/f and discussed option for elevated height; based on skill set and observations, SBA for toileting CM and spv for hygiene; emphasized use of wipe assist to complete posterior hygiene safely - Row Name 11/30/241118 Bathing Assessment/Intervention [place] Level (Bathing) bathing skills;not tested -JY Assistive Devices (Bathing) long-handled sponge -JY Comment, (Bathing) did not assess authentic bathing this session yet educated pt on adhering to spinal precautions w/ use of LH sponge; anticipate follow through w/ use of LH sponge -JY User Engel (r) = Recorded By, (t) = Taken By, (c) = Cosigned By Initials Name Provider Type Terri Shearer OT Occupational Therapist Obj/Interventions [facility] Name 11/30/24 1127 Sensory Assessment (Somatosensory) Sensory Assessment (Somatosensory) bilateral UE;sensation intact -J Bilateral UE Sensory Assessment general sensation;light touch awareness;intact -JY Sensory Assessment denies any numbness or tingling and able to recognize LT stimuli as intact and symmetrical [facility]7 Vision Assessment/Intervention Visual Impairment/Limitations corrective lenses full-time - Vision Assessment Comment no acute changes to vision -[facility] 11/30/24 1127 Range of Motion Comprehensive General Range of Motion bilateral upper extremity ROM WFL -[facility] 11/30/24 1127 Strength Comprehensive (MMT) Comment, General Manual Muscle Testing (MMT) Assessment abbreviated MMT d/t acute spinal sx; anticipate with hand grasp assessment and observation, at least 4/5 -[facility] 11/30/24 1127 Motor Skills Motor Skills functional endurance;coordination -JY Coordination bilateral;upper extremity;finger to nose;other (see comments);WFL finger thumb opposition -JY Functional Endurance decreased activity tolerance toward more dynamic tasks -[facility] 11/30/24 1127 Balance Balance Assessment sitting static balance;sitting dynamic balance;standing static balance;standing dynamic balance -JY Static Sitting Balance independent -JY Dynamic Sitting Balance independent -JY Position, Sitting Balance unsupported;sitting edge of bed -JY Static Standing Balance standby assist -JY Dynamic Standing Balance contact guard;verbal cues -JY Position/Device Used, Standing Balance unsupported -JY Balance Interventions sitting;standing;static;dynamic;sit to stand;supported;occupation based/functional task -JY Comment, Balance no overt LOB during seated or standing tasks -JY User Engel (r) = Recorded By, (t) = Taken By, (c) = Cosigned By Initials Name Provider Type Terri Shearer OT Occupational Therapist Goals/Plan Row Name 11/30/24 1134 Transfer Goal 1 (OT) Activity/Assistive Device (Transfer Goal 1, OT) qny-vq-bhymx/lufcv-mt-yza;dtj-fn-dolsb/bxeye-vh-hpk;toilet;commode -JY [place] Level/Cues Needed (Transfer Goal 1, OT) standby assist;verbal cues required -JY Time Frame (Transfer Goal 1, OT) long chain quiller tender goal (LTG);5 days -JY Progress/Outcome (Transfer Goal 1, OT) new goal -JY Row Name 11/30/24 1134 Dressing Goal 1 (OT) Activity/Device (Dressing Goal 1, OT) upper body dressing;lower body dressing;other (see comments) d/d TB garments with LH AE PRN and adherence to spinal precautions -JY [place]/Cues Needed (Dressing Goal 1, OT) standby assist -JY Time Frame (Dressing Goal 1, OT) jail goal (LTG);5 days -JY Progress/Outcome (Dressing Goal 1, OT) new goal -JY Row Name 11/30/24 1134 Toileting Goal 1 (OT) Activity/Device (Toileting Goal 1, OT) adjust/manage clothing;perform perineal hygiene;commode;commode, bedside without drop arms;grab bar/safety frame;raised toilet seat -JY [place] Level/Cues Needed (Toileting Goal 1, OT) supervision required;independent -JY Time Frame (Toileting Goal 1, OT) jail goal (LTG);5 days -JY Progress/Outcome (Toileting Goal 1, OT) new goal -JY Row Name 11/30/24 5800 Therapy Assessment/Plan (OT) Planned Therapy Interventions (OT) activity tolerance training;adaptive equipment training;BADL retraining;functional balance retraining;occupation/activity based interventions;patient/caregiver educa tion/training;ROM/therapeutic exercise;strengthening exercise;transfer/mobility retraining -JY User Engel (r) = Recorded By, (t) = Taken By, (c) = Cosigned By Initials Name Provider Type Terri Shearer, CARLOS Occupational Therapist Clinical Impression Row Name 11/30/24 4432 Pain Assessment Pretreatment Pain Rating 8/10 -JY Posttreatment Pain Rating 8/10 -JY Pain Location back -JY Pain Side/Orientation lower -JY Pain Management Interventions activity modification encouraged;exercise or physical activity utilized;positioning techniques utilized;nursing notified -JY Response to Pain Interventions activity participation with tolerable pain -JY Pre/Posttreatment Pain Comment persistent pain at 8/10 throughout session, offered ice and pt declined, RN notified -JChavo Row Name 11/30/24 1130 Plan of Care Review Plan of Care Reviewed With patient -JY Progress no change OT IE -JY Outcome Evaluation OT evaluation completed. Pt presents with decreased I in ADLs, related t/fs and mobility compared to PLOF limited by decreased activity tolerance, impaired balance, muscle weaknessat BUEs, fatigue with more dynamic demands, decreased distal reach toward LEs and persistent pain at low back. OT issued AE to assist with distal reach and further educated pt on use for improved I and safety in ADLs. Pt demonstrated need for less A w/ LB ADLs with use. Pt req'd some A in all ADLs. Pt req'd CGA to min A for bed mobility w/ log roll tech and SBA to CGA in fxl t/fs and mob without AD. Pt would benefit from IPOT POC and home w/ A at d/c when medically ready. -JY Row Name 11/30/24 1130 Therapy Assessment/Plan (OT) Patient/Family Therapy Goal Statement (OT) to return to PLOF -JY Rehab Potential (OT) good -JY Criteria for Skilled Therapeutic Interventions Met (OT) yes;skilled treatment is necessary -JY Therapy Frequency (OT) daily -JY Predicted Duration of Therapy Intervention (OT) 5 days -JChavo Row Name 11/30/24 1130 Therapy Plan Review/Discharge Plan (OT) Equipment Needs Upon Discharge (OT) dressing equipment;bathing equipment -JY Anticipated Discharge Disposition (OT) home with assist -JY Row Name 11/30/24 1130 Vital Signs Pre Systolic BP Rehab 103 -JY Pre Treatment Diastolic BP 54 -JY Post Systolic BP Rehab 126 -JY Post Treatment Diastolic BP 73 -JY Pretreatment Heart Rate (beats/min) 74 -JY Posttreatment Heart Rate (beats/min) 73 -JY Pre SpO2 (%) 97 -JY O2 Delivery Pre Treatment room air -JY O2 Delivery Intra Treatment room air -JY Post SpO2 (%) 96 -JY O2 Delivery Post Treatment room air -JY Pre Patient Position Supine -JY Intra Patient Position Standing -JY Post Patient Position Supine -JY Row Name 11/30/24 1130 Positioning and Restraints Pre-Treatment Position in bed -JY Post Treatment Position bed -JY In Bed notified nsg;supine;call light within reach;encouraged to call for assist;exit alarm on;siderails up x2 -JY User Engel (r) = Recorded By, (t) = Taken By, (c) = Cosigned By Initials Name Provider Type Terri Shearer, CARLOS Occupational Therapist Outcome Measures Row Name 11/30/24 1135 How much help from another is currently needed... Putting on and taking off regular lower body clothing? 3 -JY Bathing (including washing, rinsing, and drying) 3 -JY Toileting (which includes using toilet bed abebe or urinal) 3 -JY Putting on and taking off regular upper body clothing 3 -JY Taking care of personal grooming (such as brushing teeth) 4 -JY Eating meals 4 -JY AM-PAC 6 Clicks Score (OT) 20 -JY Row Name 11/30/24 1030 11/30/24 0810 How much help from another person do you currently need... Turning from your back to your side while in flat bed without using bedrails? 3 -AB 4 -SJ Moving from lying on back to sitting on the side of a flat bed without bedrails? 3 -AB 4 -SJ Moving to and from a bed to a chair (including a wheelchair)? 3 -AB 3 -SJ Standing up from a chair using your arms (e.g., wheelchair, bedside chair)? 3 - AB 3 -SJ Climbing 3-5 steps with a railing? 3 -AB 3 -SJ To walk in hospital room? 3 -AB 3 -SJ AM-PAC 6 Clicks Score (PT) 18 -AB 20 -SJ Highest Level of Mobility Goal Walk 10 Steps or More-6 -AB Walk 10 Steps or More-6 -SJ Row Name 11/30/24 1135 11/30/24 1030 Functional Assessment Outcome Measure Options AM-PAC 6 Clicks Daily Activity (OT) -JY AM-PAC 6 Clicks Basic Mobility (PT)-AB User Engel (r) = Recorded By, (t) = Taken By, (c) = Cosigned By Initials Name Provider Type [place] RN Registered Nurse Terri Shearer OT Occupational Therapist Brooke Polanco, PT Physical Therapist Occupational Therapy Education Title: PT OT LASTING MACHINE OPERATOR HAND METHOD Therapies (In Progress) Topic: Occupational Therapy (In Progress) Point: ADL training (In Progress) Learning Progress Summary Patient Acceptance, E,D, NR by TIA at 11/30/2024 1035 Point: Precautions (In Progress) Learning Progress Summary Patient Acceptance, E,D, NR by TIA at 11/30/2024 1035 Point: Body mechanics (In Progress) Learning Progress Summary Patient Acceptance, E,D, NR by TIA at 11/30/2024 1035 User Engel Initials Effective Dates Name Provider Type Discipline TIA 10/04/20 - Terri Chong OT Occupational Therapist OT OT Recommendation and Plan Recommended discharge disposition is based on the functional assessment performed by PT/OT/Speech therapy (as applicable) and may not reflect the medical necessity determined by your provider or services covered by an individual patient's insurance plan or patient resource. Planned Therapy Interventions (OT): activity tolerance training, adaptive equipment training, BADL retraining, functional balance retraining, occupation/activity based interventions, patient/caregiver education/training, ROM/therapeutic exercise, strengthening exercise, transfer/mobility retraining Therapy Frequency (OT): daily Plan of Care Review Plan of Care Reviewed With: patient Progress: no change (OT IE) Outcome Evaluation: OT evaluation completed. Pt presents with decreased I in ADLs, related t/fs andmobility compared to PLOF limited by decreased activity tolerance, impaired balance, muscle weakness at BUEs, fatigue with more dynamic demands, decreased distal reach toward LEs and persistent pain at low back. OT issued AE to assist with distal reach and further educated pt on use for improvedI and safety in ADLs. Pt demonstrated need for less A w/ LB ADLs with use. Pt req'd some A in all ADLs. Pt req'd CGA to min A for bed mobility w/ log roll tech and SBA to CGA in fxl t/fs and mob without AD. Pt would benefit from IPOT POC and home w/ A at d/c when medically ready. Time Calculation: Evaluation Complexity (OT) Review Occupational Profile/Medical/Therapy History Complexity: brief/low complexity Assessment, Occupational Performance/Identification of Deficit Complexity: 1-3 performance deficits Clinical Decision Making Complexity (OT): problem focused assessment/low complexity Overall Complexity of Evaluation (OT): low complexity Time Calculation- OT Row Name 11/30/24 1137 11/30/24 1031 Time Calculation- OT OT Start Time 1035 -JY -- OT Received On 11/30/24 - -- OT Goal Re-Cert Due Date 12/10/24 -JY -- Timed Charges 20497 - Gait Training Minutes -- 10 -AB 40186 - OT Self Care/Mgmt Minutes 11 -JY -- Untimed Charges OT Eval/Re-eval Minutes 62 -JY -- Total Minutes Timed Charges Total Minutes 11 -JY 10 -AB Untimed Charges Total Minutes 62 -JY -- Total Minutes 73 -JY 10 -AB User Engel (r) = Recorded By, (t) = Taken By, (c) = Cosigned By Initials Name Provider Type Terri Shearer OT Occupational Therapist AB Brooke Marin, PT Physical Therapist Therapy Charges for Today Code Description Service Date Service Provider Modifiers Qty [id number] HC OT SELF CARE/MGMT/TRAIN EA 15 MIN 11/30/2024 Terri Chong OT GO 1 [id number] HC-OT EVAL LOW COMPLEXITY 5 11/30/2024 Terri Chong OT 1 Terri Chong OT 11/30/2024 * Therapy Evaluation - Brooke Marin, PT - 11/30/2024 8:57 AM EDT Images from the original note were not included. Patient Name: Huan Hawkins : 1960 Today's Date: 11/30/2024 Admit Date: 11/29/2024 Visit Dx: ICD-10-CM ICD-9-CM 1. 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 Spondylolisthesis, lumbar region Moderate obesity Spinal stenosis of lumbar region without neurogenic claudication Past Medical History: Diagnosis Date Arthritis Back problem Disease of thyroid gland THYROID NODULE- RIGHT (FOLLOWING WITH ENT) Hyperlipidemia Hypertension Low back pain RBBB (right bundle branch block) Sleep apnea BiPAP compliant (settings 12 and 16 per pt) Wears glasses Past Surgical History: Procedure Laterality Date CARDIAC CATHETERIZATION 08/19/201808/2024 COLONOSCOPY LUMBAR DISCECTOMY Right 06/11/2021 Procedure: Foraminotomy Right L4-5; Surgeon: Modesto Elizabeth MD; Location: [facility]; Service: Neurosurgery; Laterality: Right; ROTATOR CUFF REPAIR Left 2014 TONSILLECTOMY General Information Row Name 11/30/24 0947 Physical Therapy Time and Intention Document Type evaluation -AB Mode of Treatment physical therapy -AB Row Name 11/30/24946 General Information Patient Profile Reviewed yes -AB Prior Level of Function independent:;all household mobility;community mobility;gait;transfer;w/c orscooter;bed mobility;ADL's Denied falls or AD use. -AB Existing Precautions/Restrictions fall;other (see comments);spinal hemovac -AB Barriers to Rehab none identified -AB Row Name 11/30/24946 Living Environment Current Living Arrangements home -AB People in Home spouse -AB Row Name 11/30/24946 Home Main Entrance Number of Stairs, Main Entrance two -AB Stair Railings, Main Entrance none -AB Row Name 11/30/24946 Stairs Within Home, Primary Stairs, Within Home, Primary all needs met on main level -AB Row Name 11/30/24946 Cognition Orientation Status (Cognition) oriented x 4 -AB Row Name 11/30/24946 Safety Issues/Impairments Affecting Functional Mobility Safety Issues Affecting Function (Mobility) insight into deficits/self- awareness;safety precaution awareness;safety precautions follow- through/compliance -AB Impairments Affecting Function (Mobility) endurance/activity tolerance;strength;pain -AB User Engel (r) = Recorded By, (t) = Taken By, (c) = Cosigned By Initials Name Provider Type AB Brooke Marin PT Physical Therapist Mobility Row Name 11/30/24 0948 Bed Mobility Bed Mobility rolling left;sit-sidelying -AB Rolling Left [place] (Bed Mobility) 1 person assist;verbal cues;contact guard -AB Sit-Sidelying [place] (Bed Mobility) 1 person assist;verbal cues;contact guard -AB Assistive Device (Bed Mobility) bed rails -AB Comment, (Bed Mobility) Education provided for logroll technique. -AB Row Name 11/30/24947 Transfers Comment, (Transfers) Cues for hand placement and sequencing. Spinal precautions reviewed, pt verbalized understanding. -AB Row Name 11/30/24947 Sit-Stand Transfer Sit-Stand [place] (Transfers) standby assist;1 person assist -AB Row Name 11/30/24947 Gait/Stairs (Locomotion) [place] Level (Gait) 1 person assist;contact guard;verbal cues -AB Patient was able to Ambulate yes -AB Distance in Feet (Gait) 450 -AB Deviations/Abnormal Patterns (Gait) bilateral deviations;kimber decreased;gait speed decreased;stride length decreased -AB [place] Level (Stairs) unable to assess -AB Comment, (Gait/Stairs) Pt ambulated with step through gait pattern at a slowed pace with no AD. Cues provided for scapular retraction and forward gaze. No overt LOB or knee buckling. Further activitylimited by pain. Will need to trial steps next session. -AB User Engel (r) = Recorded By, (t) = Taken By, (c) = Cosigned By Initials Name Provider Type AB Brooke Marin, PT Physical Therapist Obj/Interventions Row Name 11/30/24952 Range of Motion Comprehensive General Range of Motion bilateral lower extremity ROM WNL -AB Row Name 11/30/24952 Strength Comprehensive (MMT) General Manual Muscle Testing (MMT) Assessment lower extremity strength deficits identified -AB Comment, General Manual Muscle Testing (MMT) Assessment BLE grossly 4-/5 as observed during functional activity. -AB Row Name 11/30/24952 Motor Skills Therapeutic Exercise hip;knee;ankle abdominal sets x10 -AB Row Name 11/30/24952 Hip (Therapeutic Exercise) Hip (Therapeutic Exercise) isometric exercises -AB Hip Isometrics (Therapeutic Exercise) bilateral;gluteal sets;10 repetitions -AB Row Name 11/30/24952 Knee (Therapeutic Exercise) Knee (Therapeutic Exercise) isometric exercises -AB Knee Isometrics (Therapeutic Exercise) bilateral;quad sets;10 repetitions -AB Row Name 11/30/24952 Ankle (Therapeutic Exercise) Ankle (Therapeutic Exercise) AROM (active range of motion) -AB Ankle AROM (Therapeutic Exercise) bilateral;dorsiflexion;plantarflexion;20 repititions -AB Row Name 11/30/24952 Balance Balance Assessment standing dynamic balance;standing static balance;sitting static balance;sitting dynamic balance -AB Static Sitting Balance independent -AB Dynamic Sitting Balance independent -AB Position, Sitting Balance unsupported;sitting in chair -AB Static Standing Balance standby assist -AB Dynamic Standing Balance contact guard;1-person assist;verbal cues -AB Position/Device Used, Standing Balance unsupported -AB Balance Interventions sitting;standing;sit to stand;static;dynamic;occupation based/functional task-AB Comment, Balance no LOB. -AB Row Name 11/30/24 0953 Sensory Assessment (Somatosensory) Sensory Assessment (Somatosensory) LE sensation intact;other (see comments) Pt reports overall sensation intact w/ small area of decreased sensation on L lateral thigh. -AB User Engel (r) = Recorded By, (t) = Taken By, (c) = Cosigned By Initials Name Provider Type AB Brooke Marin, PT Physical Therapist Goals/Plan Row Name 11/30/24 1029 Bed Mobility Goal 1 (PT) Activity/Assistive Device (Bed Mobility Goal 1, PT) sit to supine;supine to sit -AB [place] Level/Cues Needed (Bed Mobility Goal 1, PT) independent -AB Time Frame (Bed Mobility Goal 1, PT) short term goal (STG);5 days -AB Row Name 11/30/24 1029 Transfer Goal 1 (PT) Activity/Assistive Device (Transfer Goal 1, PT) dzo-tj-bilxa/xyulf-fy-zqh;tah-ti-dcxst/qoapo-jx-lou-AB [place] Level/Cues Needed (Transfer Goal 1, PT) independent -AB Time Frame (Transfer Goal 1, PT) long chain quiller tender goal (LTG);10 days -AB Row Name 11/30/24 1029 Gait Training Goal 1 (PT) Activity/Assistive Device (Gait Training Goal 1, PT) gait (walking locomotion) -AB [place] Level (Gait Training Goal 1, PT) standby assist -AB Distance (Gait Training Goal 1, PT) 500 -AB Time Frame (Gait Training Goal 1, PT) long chain quiller tender goal (LTG);10 days -AB Row Name 11/30/24 1029 Stairs Goal 1 (PT) Activity/Assistive Device (Stairs Goal 1, PT) ascending stairs;descending stairs -AB [place] Level/Cues Needed (Stairs Goal 1, PT) contact guard required -AB Number of Stairs (Stairs Goal 1, PT) 2 -AB Time Frame (Stairs Goal 1, PT) long chain quiller tender goal (LTG);10 days -AB Row Name 11/30/24 1029 Therapy Assessment/Plan (PT) Planned Therapy Interventions (PT) balance training;bed mobility training;gait training;home exercise program;patient/family education;postural re- education;transfer training;stretching;strengthening;ROM (range of motion);stair training -AB User Engel (r) = Recorded By, (t) = Taken By, (c) = Cosigned By Initials Name Provider Type AB Brooke Marin, PT Physical Therapist Clinical Impression Row Name 11/30/24 09 Pain Pretreatment Pain Rating 6/10 -AB Posttreatment Pain Rating 7/10 -AB Pain Location back -AB Pain Side/Orientation lower -AB Pain Management Interventions activity modification encouraged;exercise or physical activity utilized;positioning techniques utilized;nursing notified -AB Response to Pain Interventions activity participation with tolerable pain -AB Row Name 11/30/24 09 Plan of Care Review Plan of Care Reviewed With patient -AB Progress no change -AB Outcome Evaluation PT initial eval completed. Pt presents below his functional baseline with weakness, acute pain, and decreased endurance. Spinal precautions reviewed, pt verbalized understanding. Ambulation of 450' with CGA and no AD was well tolerated. Further IPPT is warrented. PT rec d/c home with assist when medically appropriate. -AB Row Name 11/30/24 09 Therapy Assessment/Plan (PT) Rehab Potential (PT) good -AB Criteria for Skilled Interventions Met (PT) yes;meets criteria;skilled treatment is necessary -AB Therapy Frequency (PT) daily -AB Predicted Duration of Therapy Intervention (PT) 3 days -AB Row Name 11/30/24 09 Vital Signs Pre Systolic BP Rehab 103 -AB Pre Treatment Diastolic BP 65 -AB Pre SpO2 (%) 100 -AB O2 Delivery Pre Treatment room air -AB O2 Delivery Intra Treatment room air -AB O2 Delivery Post Treatment room air -AB Pre Patient Position Sitting -AB Intra Patient Position Standing -AB Post Patient Position Supine -AB Row Name 11/30/24 0984 Positioning and Restraints Pre-Treatment Position sitting in chair/recliner -AB Post Treatment Position bed -AB In Bed notified nsg;supine;call light within reach;encouraged to call for assist;exit alarm on -AB User Engel (r) = Recorded By, (t) = Taken By, (c) = Cosigned By Initials Name Provider Type AB Brooke Marin, PT Physical Therapist Outcome Measures Row Name 11/30/24 1030 11/30/24 0810 How much help from another person do you currently need... Turning from your back to your side while in flat bed without using bedrails? 3 -AB 4 -SJ Moving from lying on back to sitting on the side of a flat bed without bedrails? 3 -AB 4 -SJ Moving to and from a bed to a chair (including a wheelchair)? 3 -AB 3 -SJ Standing up from a chair using your arms (e.g., wheelchair, bedside chair)? 3 - AB 3 -SJ Climbing 3-5 steps with a railing? 3 -AB 3 -SJ To walk in hospital room? 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 HAND METHOD Therapies (Done) Topic: Physical Therapy (Done) Point: Mobility training (Done) Learning Progress Summary Patient Acceptance, E,D,H, VU,DU by at 11/30/2024 103 Point: Home exercise program (Done) Learning Progress Summary Patient Acceptance, E,D,H, VU,DU by at 11/30/2024 1030 Point: Body mechanics (Done) Learning Progress Summary Patient Acceptance, E,D,H, VU,DU by at 11/30/2024 1030 Point: Precautions (Done) Learning Progress Summary Patient Acceptance, E,D,H, VU,DU by at 11/30/2024 1030 User Engel Initials Effective Dates Name Provider Type Discipline 01/10/22 - Brooke Marin, PT Physical Therapist PT PT Recommendation and Plan Recommended discharge disposition is based on the functional assessment performed by PT/OT/Speech therapy (as applicable) and may not reflect the medical necessity determined by your provider or services covered by an individual patient's insurance plan or patient resource. Planned Therapy Interventions (PT): balance training, bed mobility training, gait training, home exercise program, patient/family education, postural re- education, transfer training, stretching, strengthening, ROM (range of motion), stair training Therapy Frequency (PT): daily Progress: no change Outcome Evaluation: PT initial eval completed. Pt presents below his functional baseline with weakness, acute pain, and decreased endurance. Spinal precautions reviewed, pt verbalized understanding. Ambulation of 450' with CGA and no AD was well tolerated. Further IPPT is warrented. PT rec d/c homewith assist when medically appropriate. Time Calculation: PT Evaluation Complexity History, PT Evaluation Complexity: 1-2 personal factors and/or comorbidities Examination of Body Systems (PT Eval Complexity): total of 3 or more elements Clinical Presentation (PT Evaluation Complexity): stable Clinical Decision Making (PT Evaluation Complexity): low complexity Overall Complexity (PT Evaluation Complexity): low complexity PT Charges Row Name 11/30/24 1031 Time Calculation Start Time 0857 -AB PT Received On 11/30/24 -AB PT Goal Re-Cert Due Date 12/10/24 -AB Timed Charges 51253 - Gait Training Minutes 10 -AB Untimed Charges PT Eval/Re-eval Minutes 50 -AB Total Minutes Timed Charges Total Minutes 10 -AB Untimed Charges Total Minutes 50 -AB Total Minutes 60 -AB User Engel (r) = Recorded By, (t) = Taken By, (c) = Cosigned By Initials Name Provider Type AB Brooke Marin, PT Physical Therapist Therapy Charges for Today Code Description Service Date Service Provider Modifiers Qty [id number] HC GAIT TRAINING EA 15 MIN 11/30/2024 Brooke Marin, PT GP 1 [id number] HC PT EVAL LOW COMPLEXITY 4 11/30/2024 Brooke Marin, PT GP 1 PT G-Codes Outcome Measure Options: AM-PAC 6 Clicks Basic Mobility (PT) AM-PAC 6 Clicks Score (PT): 18 PT Discharge Summary Anticipated Discharge Disposition (PT): home with assist Brooke Marin PT 11/30/2024 documented in this encounter Plan of Treatment Upcoming Encounters Date Type Department Care Team (Late st Contact Info) Description 02/16/2025 11:20 AM EDT Office Visit [facility] [address] [phone] Modesto Elizabeth MD [address] [id number] documented as of this encounter Procedures Procedure Name Priority Date/Time Associated Diagnosis Comments HEMOGLOBIN AND HEMATOCRIT, BLOOD Routine 11/30/2024 7:39 AM EDT FL C ARM DURING SURGERY Routine 11/29/2024 12:58 PM EDT FL O ARM DURING SURGERY Routine 11/29/2024 9:39 AM EDT FL EDWARDS FACETECTOMY & FORAMOTOMY 1 VRT SGM LUMBAR 11/29/2024 7:51 AM EDT Spinal stenosis of lumbar region without neurogenic claudication Special Needs FILMS AT PACS, STEALTH, O ARM, NAREN TABLE, C ARM, [employer] ~ documented in this encounter Results * (ABNORMAL) Hemoglobin & Hematocrit, Blood (11/30/2024 7:39 AM EDT) Hemoglobin 12.0(L) 13.0 - 17.7 g/dL 11/30/2024 8:27 AM EDT [facility] Hematocrit 36.6(L) 37.5 - 51.0 % 11/30/2024 8:27 AM EDT [facility] Blood Venipuncture / Unknown 11/30/2024 7:39 AM EDT 11/30/2024 8:19 AM EDT us Modesto Elizabeth MD LAB BLOOD ORDERABLES Final Re sult [facility]
[address] [place] [address], [place] [phone] * FL C Arm During Surgery (11/29/2024 12:58 PM EDT) Narrative SYSTEMGENERATED, DOCUMENTATION - 11/29/2024 1:37 PM EDT This procedure was auto-finalized with no dictation required. Modesto Elizabeth MD [facility] [place] FLUOROSCOPY ORDERABLES Fi nal Result * FL O Arm During Surgery (11/29/2024 9:39 AM EDT) Narrative SYSTEMGENERATED, DOCUMENTATION - 11/29/2024 9:41 AM EDT This procedure was auto-finalized with no dictation required. us Modesto Elizabeth MD [facility] [place] FLUOROSCOPY ORDERABLES Fi nal Result documented in this encounter Visit Diagnoses Diagnosis Spinal stenosis of lumbar region without neurogenic claudication- Primary Spinal stenosis of lumbar region without neurogenic claudication Lumbar stenosis with neurogenic claudication documented in this encounter Admitting Diagnoses Diagnosis Spinal stenosis of lumbar region without neurogenic claudication Lumbar stenosis with neurogenic claudication documented in this encounter Administered Medications Inactive Administered Medications - up to 3 most recent administrations Medication Order MAR Action Action Date Dose Rate Site acetaminophen (TYLENOL) 160 MG/5ML oral solution 650 mg 650 mg, Oral, Every 4 Hours PRN, Mild Pain, Starting on Fri11/29/24 at 1332, If given for fever, use fever parameter: fever greater than 100.4 F Based on patient request - if ordered for moderate or severe pain, provider allows for administration of a medication prescribed for a lower pain scale. Do not exceed 4 grams of acetaminophen in a 24 hr period. Max dose of 2gm for AST/ALT greater than 120 units/L. If given for pain, use the following pain scale: Mild Pain = Pain Score of 1-3, CPOT 1-2 Moderate Pain = Pain Score of 4-6, CPOT 3-4 Severe Pain = Pain Score of 7-10, CPOT 5-8 acetaminophen (TYLENOL) suppository 650 mg 650 mg, Rectal, Every 4 Hours PRN, Mild Pain, Starting on Fri11/29/24 at 1332, If given for fever, use fever parameter: fever greater than 100.4 F Based on patient request - if ordered for moderate or severe pain, provider allows for administration of a medication prescribed for a lower pain scale. Do not exceed 4 grams of acetaminophen in a 24 hr period. Max dose of 2gm for AST/ALT greater than 120 units/L. If given for pain, use the following pain scale: Mild Pain = Pain Score of 1-3, CPOT 1-2 Moderate Pain = Pain Score of 4-6, CPOT 3-4 Severe Pain = Pain Score of 7-10, CPOT 5-8 acetaminophen (TYLENOL) tablet 650 mg 650 mg, Oral, Every 4 Hours PRN, Mild Pain, Starting on 11/29/24 at 1332, If given for fever, use fever parameter: fever greater than 100.4 F Based on patient request - if ordered for moderate or severe pain, provider allows for administration of a medication prescribed for a lower pain scale. Do not exceed 4 grams of acetaminophen in a 24 hr period. Max dose of 2gm for AST/ALT greater than 120 units/L. If given for pain, use the following pain scale: Mild Pain = Pain Score of 1-3, CPOT 1-2 Moderate Pain = Pain Score of 4-6, CPOT 3-4 Severe Pain = Pain Score of 7-10, CPOT 5-8 Given 12/01/2024 8:28 PM EDT 650 mg aspirin chewable tablet 81 mg 81 mg, Oral, Daily, First dose on Fri11/30/24 at 0900, Herbal/drug interaction: Avoid use with ginkgo biloba. Based on patient request - if ordered for moderate or severe pain, provider allows for administration of a medication prescribed for a lower pain scale. Do not exceed 4 grams of aspirin in a 24 hr period. If given for pain, use the following pain scale: Mild Pain = Pain Score of 1-3, CPOT 1-2 Moderate Pain = Pain Score of 4-6, CPOT 3-4 Severe Pain = Pain Score of 7-10, CPOT 5-8 Given 12/02/2024 8:24 AM EDT 81 mg Given 12/01/2024 8:42 AM EDT 81 mg Given 11/30/2024 8:15 AM EDT 81 mg atorvastatin (LIPITOR) tablet 40 mg 40 mg, Oral, Nightly, First dose on Fri11/29/24 at 2100, Avoid grapefruit juice. Given 12/01/2024 8:29 PM EDT 40 mg Given 11/30/2024 7:22 PM EDT 40 mg Given 11/29/2024 8:12 PM EDT 40 mg bisacodyl (DULCOLAX) EC tablet 5 mg 5 mg, Oral, Daily PRN, Constipation, Use if polyethylene glycol is ineffective, Starting on Fri11/29/24 at 1332, Use if no bowel movement after 12 hours. Swallow whole. Do not crush, split, or chew tablet. Given 12/02/2024 1:45 AM EDT 5 mg bisacodyl (DULCOLAX) suppository 10 mg 10 mg, Rectal, Daily PRN, Constipation, Use if bisacodyl oral is ineffective, Starting on Fri11/29/24 at 1332, Use if no bowel movement after 12 hours. Hold for diarrhea ceFAZolin 2000 mg IVPB in 100 mL NS (MBP) 2,000 mg, Intravenous, Administer over 30 Minutes, Every 8 Hours, First dose on Fri11/29/24 at 2000, For 2 doses, Time first dose from pre-op dose. Caution: Look alike/sound alike drug alert, Indications: Surgical ProphylaxisIndications:Surgical Prophylaxis New Bag 11/30/2024 3:17 AM EDT 2,000 mg New Bag 11/29/2024 8:13 PM EDT 2,000 mg cetirizine (zyrTEC) tablet 10 mg 10 mg, Oral, Daily, First dose on Fri11/30/24 at 0900 Given 12/02/2024 8:24 AM EDT 10 mg Given 12/01/2024 8:41 AM EDT 10 mg Given 11/30/2024 8:15 AM EDT 10 mg diphenhydrAMINE (BENADRYL) capsule 25 mg 25 mg, Oral, Nightly PRN, Sleep, Starting on Fri11/29/24 at 1332, Caution: Look alike/sound alike drug alert. This med may be ordered in other forms and routes. Before giving verify the last time the drug was given by any route/form. Given 12/01/2024 10:55 PM EDT 25 mg famotidine (PEPCID) tablet 20 mg 20 mg, Oral, 30 min pre-op, Starting on Fri11/29/24 at 0658, For 1 dose, Give with sip of water the morning of surgeryIndications:Spinal stenosis of lumbar region without neurogenic claudication Given 11/29/2024 7:29 AM EDT 20 mg famotidine (PEPCID) tablet 20 mg 20 mg, Oral, 2 Times Daily, First dose on Fri11/29/24 at 2100 Given 12/02/2024 8:24 AM EDT 20 mg Given 12/01/2024 8:29 PM EDT 20 mg Given 12/01/2024 8:41 AM EDT 20 mg fentaNYL citrate (PF) (SUBLIMAZE) 50 mcg/mL injection - ADS Override Pull Starting on Fri11/29/24 at 1340, For 1 dose, Created by cabinet override If given for pain, use the following pain scale: Mild Pain = Pain Score of 1-3, CPOT 1-2 Moderate Pain = Pain Score of 4-6, CPOT 3-4 Severe Pain = Pain Score of 7-10, CPOT 5-8 fentaNYL citrate (PF) (SUBLIMAZE) injection 50 mcg 50 mcg, Intravenous, Every 5 Minutes PRN, Moderate Pain, Starting on Fri11/29/24 at 1304, For 4 doses, Maximum total dose of fentanyl is 200 mcg. If given for pain, use the following pain scale: Mild Pain = Pain Score of 1-3, CPOT 1-2 Moderate Pain = Pain Score of 4-6, CPOT 3-4 Severe Pain = Pain Score of 7-10, CPOT 5-8 Given 11/29/2024 2:09 PM EDT 50 mcg Given 11/29/2024 1:58 PM EDT 50 mcg Given 11/29/2024 1:45 PM EDT 50 mcg heparin (porcine) 5000 UNIT/ML injection 5,000 Units 5,000 Units, Subcutaneous, Every 8 Hours Scheduled, First dose on Fri12/01/24 at 0730, Indications: VTE ProphylaxisIndications:VTE Prophylaxis Given 12/02/2024 6:37 AM EDT 5,000 Units Left Upper Abdomen Given 12/01/2024 8:28 PM EDT 5,000 Units L eft Upper Abdomen Given 12/01/2024 2:14 PM EDT 5,000 Units L eft Lower Abdomen HYDROcodone-acetaminophen (NORCO) 5-325 MG per tablet 1 tablet 1 tablet, Oral, Every 4 Hours PRN, Moderate Pain, Starting on Fri11/29/24 at 1332, For 5 days, Based on patient request - if ordered for moderate or severe pain, provider allows for administration of a medication prescribed for a lower pain scale. [KATIE] Do not exceed 4 grams of acetaminophen in a 24 hr period. Max dose of 2gm for AST/ALT greater than 120 units/L If given for pain, use the following pain scale: Mild Pain = Pain Score of 1-3, CPOT 1-2 Moderate Pain = Pain Score of 4-6, CPOT 3-4 Severe Pain = Pain Score of 7-10, CPOT 5-8 Given 12/01/2024 8:41 AM EDT 1 tablet Given 11/29/2024 9:27 PM EDT 1 tablet HYDROcodone-acetaminophen (NORCO) 7.5-325 MG per tablet - ADS Override Pull Starting on Fri11/29/24 at 1639, For 1 dose, Created by cabinet override [KATIE] Do not exceed 4 grams of acetaminophen in a 24 hr period. Max dose of 2gm for AST/ALT greater than 120 units/L If given for pain, use the following pain scale: Mild Pain = Pain Score of 1-3, CPOT 1-2 Moderate Pain = Pain Score of 4-6, CPOT 3-4 Severe Pain = Pain Score of 7-10, CPOT 5-8 HYDROcodone-acetaminophen (NORCO) 7.5-325 MG per tablet 1 tablet 1 tablet, Oral, Every 4 Hours PRN, Severe Pain, Starting on Fri11/29/24 at 1304, For 5 days, Based on patient request - if ordered for moderate or severe pain, provider allows for administration of a medication prescribed for a lower pain scale. [KATIE] Do not exceed 4 grams of acetaminophen in a 24 hr period. Max dose of 2gm for AST/ALT greater than 120 units/L If given for pain, use the following pain scale: Mild Pain = Pain Score of 1-3, CPOT 1-2 Moderate Pain = Pain Score of 4-6, CPOT 3-4 Severe Pain = Pain Score of 7-10, CPOT 5-8 Given 11/29/2024 4:40 PM EDT 1 tablet HYDROmorphone (DILAUDID) 1 MG/ML injection - ADS Override Pull Starting on Fri11/29/24 at 1329, For 1 dose, Created by cabinet noelide (KATIE) Caution: Look alike/sound alike drug alert If given for pain, use the following pain scale: Mild Pain = Pain Score of 1-3, CPOT 1-2 Moderate Pain = Pain Score of 4-6, CPOT 3-4 Severe Pain = Pain Score of 7-10, CPOT 5-8 HYDROmorphone (DILAUDID) injection 0.5 mg 0.5 mg, Intravenous, Every 10 Minutes PRN, Severe Pain, Starting on Fri11/29/24 at 1304, For 4 doses, Maximum total dose of hydromorphone is 2 mg. If given for pain, use the following pain scale: Mild Pain = Pain Score of 1-3, CPOT 1-2 Moderate Pain = Pain Score of 4-6, CPOT 3-4 Severe Pain = Pain Score of 7-10, CPOT 5-8 Given 11/29/2024 3:44 PM EDT 0.5 mg Given 11/29/2024 2:35 PM EDT 0.5 mg Given 11/29/2024 2:00 PM EDT 0.5 mg lactated ringers infusion 9 mL/hr, Intravenous, Continuous, Starting on Fri11/30/24 at 0600, For 1 day, May switch to NS IV at O if renal / if indicated Currently Infusing 11/30/2024 5:03 AM EDT 9 mL/hr 9 mL/hr New Bag 11/29/2024 7:29 AM EDT 9 mL/hr 9 mL/hr lisinopril (PRINIVIL,ZESTRIL) tablet 5 mg 5 mg, Oral, Every 24 Hours Scheduled, First dose on Fri11/29/24 at 2000 Given 12/02/2024 8:24 AM EDT 5 mg Given 12/01/2024 8:41 AM EDT 5 mg Given 11/29/2024 8:13 PM EDT 5 mg meclizine (ANTIVERT) tablet 12.5 mg 12.5 mg, Oral, 3 Times Daily PRN, Dizziness, Starting on Fri11/29/24 at 1331 Given 11/30/2024 8:26 AM ED T 12.5 mg Morphine sulfate (PF) 4 MG/ML injection - ADS Override Pull Starting on Fri11/29/24 at 1714, For 1 dose, Created by cabinet override (KATIE) Caution: Look alike/sound alike drug alert If given for pain, use the following pain scale: Mild Pain = Pain Score of 1-3, CPOT 1-2 Moderate Pain = Pain Score of 4-6, CPOT 3-4 Severe Pain = Pain Score of 7-10, CPOT 5-8 Morphine sulfate (PF) injection 4 mg 4 mg, Intravenous, Every 4 Hours PRN, Severe Pain, Starting on Fri11/29/24 at 1332, For 5 days, Based on patient request - if ordered for moderate or severe pain, provider allows for administration of a medication prescribed for a lower pain scale. (KATIE) Caution: Look alike/sound alike drug alert If given for pain, use the following pain scale: Mild Pain = Pain Score of 1-3, CPOT 1-2 Moderate Pain = Pain Score of 4-6, CPOT 3-4 Severe Pain = Pain Score of 7-10, CPOT 5-8 Given 12/01/2024 10:55 PM EDT 4 mg Given 12/01/2024 2:14 PM EDT 4 mg Given 12/01/2024 9:38 AM EDT 4 mg ondansetron (ZOFRAN) injection 4 mg 4 mg, Intravenous, Every 6 Hours PRN, Nausea, Vomiting, Starting on Fri11/29/24 at 1332, If BOTH ondansetron (ZOFRAN) and promethazine (PHENERGAN) are ordered use ondansetron first and THEN promethazine IF ondansetron is ineffective. ondansetron ODT (ZOFRAN-ODT) disintegrating tablet 4 mg 4 mg, Oral, Every 6 Hours PRN, Nausea, Vomiting, Starting on Fri11/29/24 at 1332, If BOTH ondansetron (ZOFRAN) and promethazine (PHENERGAN) are ordered use ondansetron first and THEN promethazine IF ondansetron is ineffective. Place on tongue and allow to dissolve. oxyCODONE-acetaminophen (PERCOCET) 7.5-325 MG per tablet 1 tablet 1 tablet, Oral, Every 4 Hours PRN, Severe Pain, Starting on Fri11/29/24 at 1332, For 5 days, Based on patient request - if ordered for moderate or severe pain, provider allows for administration of a medication prescribed for a lower pain scale. [KATEI] Do not exceed 4 grams of acetaminophen in a 24 hr period. Max dose of 2gm for AST/ALT greater than 120 units/L If given for pain, use the following pain scale: Mild Pain = Pain Score of 1-3, CPOT 1-2 Moderate Pain = Pain Score of 4-6, CPOT 3-4 Severe Pain = Pain Score of 7-10, CPOT 5-8 Given 12/02/2024 6:37 AM EDT 1 tablet Given 12/02/2024 1:45 AM EDT 1 tablet Given 12/01/2024 8:29 PM EDT 1 tablet polyethylene glycol (MIRALAX) packet 17 g 17 g, Oral, Daily PRN, Constipation, Use if senna-docusate is ineffective, Starting on Fri11/29/24 at 1332, Use if no bowel movement after 12 hours. Mix in 6-8 ounces of water. Use 4-8 ounces of water, tea, or juice for each 17 gram dose. promethazine (PHENERGAN) suppository 12.5 mg 12.5 mg, Rectal, Every 6 Hours PRN, Nausea, Vomiting, Starting on Fri11/29/24 at 1332, If BOTH ondansetron (ZOFRAN) and promethazine (PHENERGAN) are ordered use ondansetron first and THEN promethazine IF ondansetron is ineffective promethazine (PHENERGAN) tablet 12.5 mg 12.5 mg, Oral, Every 6 Hours PRN, Nausea, Vomiting, Starting on Fri11/29/24 at 1332, If BOTH ondansetron (ZOFRAN) and promethazine (PHENERGAN) are ordered use ondansetron first and THEN promethazine IF ondansetron is ineffective. ([facility]) sennosides-docusate (PERICOLACE) 8.6-50 MG per tablet 2 tablet 2 tablet, Oral, 2 Times Daily, First dose on Fri11/29/24 at 2100, HOLD MEDICATION IF PATIENT HAS HAD BOWEL MOVEMENT. Start bowel management regimen if patient has not had a bowel movement after 12 hours. Given 12/02/2024 8:24 AM EDT 2 tablets Given 12/01/2024 8:29 PM EDT 2 tablets Given 12/01/2024 8:41 AM EDT 2 tablets sodium chloride 0.9 % flush 10 mL 10 mL, Intravenous, Every 12 Hours Scheduled, First dose on Fri11/29/24 at 1335 Given 12/02/2024 8:27 AM EDT 10 mL Given 12/01/2024 8:30 PM EDT 10 mL Given 12/01/2024 8:42 AM EDT 10 mL sodium chloride 0.9 % infusion 125 mL/hr, Intravenous, Continuous, Starting on Fri11/29/24 at 1819, For 2 hours New Bag 11/29/2024 8:13 PM EDT 125 mL/hr 12 5 mL/hr sodium chloride 0.9 % infusion 125 mL/hr, Intravenous, Continuous, Starting on Fri11/30/24 at 0715, For 1 day New Bag 11/30/2024 6:27 AM EDT 125 mL/hr 125 mL/hr spironolactone (ALDACTONE) tablet 25 mg 25 mg, Oral, Every Other Day, First dose on Fri12/01/24 at 0900, Hold for SBP less than 100, DBP less than 60. Group 1 (Yellow) Hazardous Drug - See Handling Guide Given 12/01/2024 8:42 AM EDT 25 mg documented in this encounter Active and Recently Administered Medications Times are shown in EDT. Scheduled Medication Order 11/30/2024 12/01/2024 12/02/2024 aspirin chewable tablet 81 mg 81 mg, Oral, Daily, First dose on Fri11/30/24 at 0900, Herbal/drug interaction: Avoid use with ginkgo biloba. Based on patient request - if ordered for moderate or severe pain, provider allows for administration of a medication prescribed for a lower pain scale. Do not exceed 4 grams of aspirin in a 24 hr period. If given for pain, use the following pain scale: Mild Pain = Pain Score of 1-3, CPOT 1-2 Moderate Pain = Pain Score of 4-6, CPOT 3-4 Severe Pain = Pain Score of 7-10, CPOT 5-8 0815 (Given - Provider: Park Rowan RN) 0842 (Given - Provider: Koby Banda, HALLEY) 0824 (Given - Provider: Aristeo Schulte, RN) atorvastatin (LIPITOR) tablet 40 mg 40 mg, Oral, Nightly, First dose on Fri11/29/24 at 2100, Avoid grapefruit juice. 1921 (Given - Provider: Mary Spencer RN)2199 (Canceled Entry - Provider: Mary Spencer RN) 2028 (Given - Provider: Lashonda Hernandez, HALLEY) ceFAZolin 2000 mg IVPB in 100 mL NS (MBP) (COMPLETED) 2,000 mg, Intravenous, Administer over 30 Minutes, Every 8 Hours, First dose on Fri11/29/24 at 2000, For 2 doses, Time first dose from pre-op dose. Caution: Look alike/sound alike drug alert, Indications: Surgical Prophylaxis 0317 (New Bag - Provider: Mary Spencer RN) cetirizine (zyrTEC) tablet 10 mg 10 mg, Oral, Daily, First dose on Fri11/30/24 at 0900 0815 (Given - Provider: Park Rowan RN) 08 (Given - Provider: Koby Banda, HALLEY) 0824 (Given - Provider: Aristeo Schulte, HALLEY) famotidine (PEPCID) tablet 20 mg 20 mg, Oral, 2 Times Daily, First dose on Fri11/29/24 at 2100 0817 (Not Given - Provider: Park Rowan RN - Reason: Patient/family refused)1921 (Given - Provider: Mary Spencer RN)2199 (Canceled Entry - Provider: Mary Spencer RN) 08 (Given - Provider: Koby Banda, HALLEY)2028 (Given - Provider: Lashonda Hernandez, HALLEY) 0824 (Given - Provider: Aristeo Schulte, HALLEY) heparin (porcine) 5000 UNIT/ML injection 5,000 Units 5,000 Units, Subcutaneous, Every 8 Hours Scheduled, First dose on Fri12/01/24 at 0730, Indications: VTE Prophylaxis 0842 (Given - Provider: Koby Banda RN)1414 (Given - Provider: Koby Banda, HALLEY)2027 (Given - Provider: Lashonda Hernandez, HALLEY) 0637 (Given - Provider: Lashonda Hernandez RN) lisinopril (PRINIVIL,ZESTRIL) tablet 5 mg 5 mg, Oral, Every 24 Hours Scheduled, First dose on Fri11/29/24 at 2000 0818 (Not Given - Provider: Park Rowan RN - Reason: Order parameters not met) 0841 (Given - Provider: Koby Banda RN) 0824 (Given - Provider: Aristeo Schulte, RN) sennosides-docusate (PERICOLACE) 8.6-50 MG per tablet 2 tablet(Linked Group 1) 2 tablet, Oral, 2 Times Daily, First dose on Fri11/29/24 at 2100, HOLD MEDICATION IF PATIENT HAS HAD BOWEL MOVEMENT. Start bowel management regimen if patient has not had a bowel movement after 12 hours. 0815 (Given - Provider: Park Rowan RN)1921 (Given - Provider: Mary Spencer RN)220 (Canceled Entry - Provider: Mary Spencer, HALLEY) 08 (Given - Provider: Koby Banda RN)2028 (Given - Provider: Lashonda Hernandez, HALLEY) 08 (Given - Provider: Aristeo Schulte, HALLEY) sodium chloride 0.9 % flush 10 mL 10 mL, Intravenous, Every 12 Hours Scheduled, First dose on Fri11/29/24 at 1335 0818 (Not Given - Provider: Park Rowan RN - Reason: Other - Comment: fluids infusing)192 (Given - Provider: Mary Spencer, HALLEY)2200 (Canceled Entry - Provider: Mary Spencer, HALLEY) 0842 (Given - Provider: Koby Banda, HALLEY)2029 (Given - Provider: Lashonda Hernandez, HALLEY) 08 (Given - Provider: Aristeo Schulte, HALLEY) spironolactone (ALDACTONE) tablet 25 mg 25 mg, Oral, Every Other Day, First dose on Fri12/01/24 at 0900, Hold for SBP less than 100, DBP less than 60. Group 1 (Yellow) Hazardous Drug - See Handling Guide 0842 (Given - Provider: Koby Banda, HALLEY) Continuous Medication Order 11/30/2024 12/01/2024 12/02/2024 lactated ringers infusion () 9 mL/hr, Intravenous, Continuous, Starting on Fri11/30/24 at 0600, For 1 day, May switch to NS IV at KVO if renal / if indicated 0503 (Currently Infusing - Provider: Mary Spencer RN)0728 (Canceled Entry - Provider: Mary Spencer RN - Comment: [Order ends at this time. Document the following action when infusion is complete: Stopped]) sodium chloride 0.9 % infusion (CANCELED) 125 mL/hr, Intravenous, Continuous, Starting on Fri11/30/24 at 0715, For 1 day 0627 (New Bag - Provider: Mary Spencer RN) 0759 (Stopped - Provider: Koby Banda RN - Comment: [Order ends at this time. Document the following action when infusion is complete: Stopped]) PRN Medication Order 11/30/2024 12/01/2024 12/02/2024 acetaminophen (TYLENOL) 160 MG/5ML oral solution 650 mg(Linked Group 2) 650 mg, Oral, Every 4 Hours PRN, Mild Pain, Starting on Fri11/29/24 at 1332, If given for fever, use fever parameter: fever greater than 100.4 F Based on patient request - if ordered for moderate or severe pain, provider allows for administration of a medication prescribed for a lower pain scale. Do not exceed 4 grams of acetaminophen in a 24 hr period. Max dose of 2gm for AST/ALT greater than 120 units/L. If given for pain, use the following pain scale: Mild Pain = Pain Score of 1-3, CPOT 1-2 Moderate Pain = Pain Score of 4-6, CPOT 3-4 Severe Pain = Pain Score of 7-10, CPOT 5-8 2027 (Not Given: See Alt - Provider: Lashonda Hernandez RN) acetaminophen (TYLENOL) suppository 650 mg(Linked Group 2) 650 mg, Rectal, Every 4 Hours PRN, Mild Pain, Starting on Fri11/29/24 at 1332, If given for fever, use fever parameter: fever greater than 100.4 F Based on patient request - if ordered for moderate or severe pain, provider allows for administration of a medication prescribed for a lower pain scale. Do not exceed 4 grams of acetaminophen in a 24 hr period. Max dose of 2gm for AST/ALT greater than 120 units/L. If given for pain, use the following pain scale: Mild Pain = Pain Score of 1-3, CPOT 1-2 Moderate Pain = Pain Score of 4-6, CPOT 3-4 Severe Pain = Pain Score of 7-10, CPOT 5-8 2027 (Not Given: See Alt - Provider: Lashonda Hernandez RN) acetaminophen (TYLENOL) tablet 650 mg(Linked Group 2) 650 mg, Oral, Every 4 Hours PRN, Mild Pain, Starting on Fri11/29/24 at 1332, If given for fever, use fever parameter: fever greater than 100.4 F Based on patient request - if ordered for moderate or severe pain, provider allows for administration of a medication prescribed for a lower pain scale. Do not exceed 4 grams of acetaminophen in a 24 hr period. Max dose of 2gm for AST/ALT greater than 120 units/L. If given for pain, use the following pain scale: Mild Pain = Pain Score of 1-3, CPOT 1-2 Moderate Pain = Pain Score of 4-6, CPOT 3-4 Severe Pain = Pain Score of 7-10, CPOT 5-8 2027 (Given - Provider: Lashonda Hernandez RN) bisacodyl (DULCOLAX) EC tablet 5 mg(Linked Group 1) 5 mg, Oral, Daily PRN, Constipation, Use if polyethylene glycol is ineffective, Starting on Fri11/29/24 at 1332, Use if no bowel movement after 12 hours. Swallow whole. Do not crush, split, or chew tablet. 0145 (Given - Provider: Lashonda Hernandez RN) bisacodyl (DULCOLAX) suppository 10 mg(Linked Group 1) 10 mg, Rectal, Daily PRN, Constipation, Use if bisacodyl oral is ineffective, Starting on Fri11/29/24 at 1332, Use if no bowel movement after 12 hours. Hold for diarrhea diphenhydrAMINE (BENADRYL) capsule 25 mg 25 mg, Oral, Nightly PRN, Sleep, Starting on Fri11/29/24 at 1332, Caution: Look alike/sound alike drug alert. This med may be ordered in other forms and routes. Before giving verify the last time the drug was given by any route/form. 2255 (Given - Provider: Lashonda Hernandez RN) HYDROcodone-acetaminophen (NORCO) 5-325 MG per tablet 1 tablet 1 tablet, Oral, Every 4 Hours PRN, Moderate Pain, Starting on Fri11/29/24 at 1332, For 5 days, Based on patient request - if ordered for moderate or severe pain, provider allows for administration of a medication prescribed for a lower pain scale. [KATIE] Do not exceed 4 grams of acetaminophen in a 24 hr period. Max dose of 2gm for AST/ALT greater than 120 units/L If given for pain, use the following pain scale: Mild Pain = Pain Score of 1-3, CPOT 1-2 Moderate Pain = Pain Score of 4-6, CPOT 3-4 Severe Pain = Pain Score of 7-10, CPOT 5-8 0841 (Given - Provider: Koby Banda RN) meclizine (ANTIVERT) tablet 12.5 mg 12.5 mg, Oral, 3 Times Daily PRN, Dizziness, Starting on Fri11/29/24 at 1331 0826 (Given - Provider: Park Rowan RN) Morphine sulfate (PF) injection 4 mg (CANCELED)(Linked Group 3) 4 mg, Intravenous, Every 4 Hours PRN, Severe Pain, Starting on Fri11/29/24 at 1332, For 5 days, Based on patient request - if ordered for moderate or severe pain, provider allows for administration of a medication prescribed for a lower pain scale. (KATIE) Caution: Look alike/sound alike drug alert If given for pain, use the following pain scale: Mild Pain = Pain Score of 1-3, CPOT 1-2 Moderate Pain = Pain Score of 4-6, CPOT 3-4 Severe Pain = Pain Score of 7-10, CPOT 5-8 1922 (Given - Provider: Mary Spencer RN) 0038 (Given - Provider: Mary Spencer RN)0557 (Given - Provider: Mary Spencer RN)0938 (Given - Provider: Koby Banda RN)1414 (Given - Provider: Koby Banda RN)2255 (Given - Provider: Lashonda Hernandez RN) naloxone (NARCAN) injection 0.4 mg(Linked Group 3) 0.4 mg, Intravenous, Every 5 Minutes PRN, Respiratory Depression, Starting on Fri11/29/24 at 1332, If respiratory rate is less than 8 breaths/minute or patient is difficult to arouse stop any narcotics and contact physician. Administer slow IV push. Repeat as ordered until patient's respiratory rate is greater than 12 breaths/minute. ondansetron (ZOFRAN) injection 4 mg(Linked Group 4) 4 mg, Intravenous, Every 6 Hours PRN, Nausea, Vomiting, Starting on Fri11/29/24 at 1332, If BOTH ondansetron (ZOFRAN) and promethazine (PHENERGAN) are ordered use ondansetron first and THEN promethazine IF ondansetron is ineffective. ondansetron ODT (ZOFRAN-ODT) disintegrating tablet 4 mg(Linked Group 4) 4 mg, Oral, Every 6 Hours PRN, Nausea, Vomiting, Starting on Fri11/29/24 at 1332, If BOTH ondansetron (ZOFRAN) and promethazine (PHENERGAN) are ordered use ondansetron first and THEN promethazine IF ondansetron is ineffective. Place on tongue and allow to dissolve. oxyCODONE-acetaminophen (PERCOCET) 7.5-325 MG per tablet 1 tablet 1 tablet, Oral, Every 4 Hours PRN, Severe Pain, Starting on Fri11/29/24 at 1332, For 5 days, Based on patient request - if ordered for moderate or severe pain, provider allows for administration of a medication prescribed for a lower pain scale. [KATIE] Do not exceed 4 grams of acetaminophen in a 24 hr period. Max dose of 2gm for AST/ALT greater than 120 units/L If given for pain, use the following pain scale: Mild Pain = Pain Score of 1-3, CPOT 1-2 Moderate Pain = Pain Score of 4-6, CPOT 3-4 Severe Pain = Pain Score of 7-10, CPOT 5-8 0129 (Given - Provider: Mary Spencer RN)0529 (Given - Provider: Mary Spencer RN)0908 (Given - Provider: Park Rowan RN)1356 (Given - Provider: Guadalupe Bernal RN)1749 (Given - Provider: Guadalupe Bernal RN)2139 (Given - Provider: Mary Spencer RN) 0330 (Given - Provider: Kazumi Johanna, RN)1201 (Given - Provider: Koby Banda RN)1644 (Given - Provider: Koby Banda RN)2029 (Given - Provider: Lashonda Hernandez RN) 0145 (Given - Provider: Lashonda Hernandez RN)0637 (Given - Provider: Lashonda Hernandez RN) polyethylene glycol (MIRALAX) packet 17 g(Linked Group 1) 17 g, Oral, Daily PRN, Constipation, Use if senna-docusate is ineffective, Starting on Fri11/29/24 at 1332, Use if no bowel movement after 12 hours. Mix in 6-8 ounces of water. Use 4-8 ounces of water, tea, or juice for each 17 gram dose. promethazine (PHENERGAN) suppository 12.5 mg(Linked Group 5) 12.5 mg, Rectal, Every 6 Hours PRN, Nausea, Vomiting, Starting on Fri11/29/24 at 1332, If BOTH ondansetron (ZOFRAN) and promethazine (PHENERGAN) are ordered use ondansetron first and THEN promethazine IF ondansetron is ineffective promethazine (PHENERGAN) tablet 12.5 mg(Linked Group 5) 12.5 mg, Oral, Every 6 Hours PRN, Nausea, Vomiting, Starting on Fri11/29/24 at 1332, If BOTH ondansetron (ZOFRAN) and promethazine (PHENERGAN) are ordered use ondansetron first and THEN promethazine IF ondansetron is ineffective. ([facility]) sodium chloride 0.9 % flush 10 mL 10 mL, Intravenous, As Needed, Line Care, Starting on Fri11/29/24 at 1332 sodium chloride 0.9 % infusion 40 mL 40 mL, Intravenous, As Needed, Line Care, Starting on Fri11/29/24 at 1332, Following administration of an IV intermittent medication, flush line with 40mL NS at 100mL/hr. Linked Groups Order Group 1: sennosides-docusate (PERICOLACE) 8.6-50 MG per tablet 2 tabletJump to med 2 tablet, Oral, 2 Times Daily, First dose on Fri11/29/24 at 2100, HOLD MEDICATION IF PATIENT HAS HAD BOWEL MOVEMENT. Start bowel management regimen if patient has not had a bowel movement after 12 hours. And polyethylene glycol (MIRALAX) packet 17 gJump to med 17 g, Oral, Daily PRN, Constipation, Use if senna-docusate is ineffective, Starting on Fri11/29/24 at 1332, Use if no bowel movement after 12 hours. Mix in 6-8 ounces of water. Use 4-8 ounces of water, tea, or juice for each 17 gram dose. And bisacodyl (DULCOLAX) EC tablet 5 mgJump to med 5 mg, Oral, Daily PRN, Constipation, Use if polyethylene glycol is ineffective, Starting on Fri11/29/24 at 1332, Use if no bowel movement after 12 hours. Swallow whole. Do not crush, split, or chew tablet. And bisacodyl (DULCOLAX) suppository 10 mgJump to med 10 mg, Rectal, Daily PRN, Constipation, Use if bisacodyl oral is ineffective, Starting on Fri11/29/24 at 1332, Use if no bowel movement after 12 hours. Hold for diarrhea Group 2: acetaminophen (TYLENOL) tablet 650 mgJump to med 650 mg, Oral, Every 4 Hours PRN, Mild Pain, Starting on Fri11/29/24 at 1332, If given for fever, use fever parameter: fever greater than 100.4 F Based on patient request - if ordered for moderate or severe pain, provider allows for administration of a medication prescribed for a lower pain scale. Do not exceed 4 grams of acetaminophen in a 24 hr period. Max dose of 2gm for AST/ALT greater than 120 units/L. If given for pain, use the following pain scale: Mild Pain = Pain Score of 1-3, CPOT 1-2 Moderate Pain = Pain Score of 4-6, CPOT 3-4 Severe Pain = Pain Score of 7-10, CPOT 5-8 Or acetaminophen (TYLENOL) 160 MG/5ML oral solution 650 mgJump to med 650 mg, Oral, Every 4 Hours PRN, Mild Pain, Starting on Fri11/29/24 at 1332, If given for fever, use fever parameter: fever greater than 100.4 F Based on patient request - if ordered for moderate or severe pain, provider allows for administration of a medication prescribed for a lower pain scale. Do not exceed 4 grams of acetaminophen in a 24 hr period. Max dose of 2gm for AST/ALT greater than 120 units/L. If given for pain, use the following pain scale: Mild Pain = Pain Score of 1-3, CPOT 1-2 Moderate Pain = Pain Score of 4-6, CPOT 3-4 Severe Pain = Pain Score of 7-10, CPOT 5-8 Or acetaminophen (TYLENOL) suppository 650 mgJump to med 650 mg, Rectal, Every 4 Hours PRN, Mild Pain, Starting on Fri11/29/24 at 1332, If given for fever, use fever parameter: fever greater than 100.4 F Based on patient request - if ordered for moderate or severe pain, provider allows for administration of a medication prescribed for a lower pain scale. Do not exceed 4 grams of acetaminophen in a 24 hr period. Max dose of 2gm for AST/ALT greater than 120 units/L. If given for pain, use the following pain scale: Mild Pain = Pain Score of 1-3, CPOT 1-2 Moderate Pain = Pain Score of 4-6, CPOT 3-4 Severe Pain = Pain Score of 7-10, CPOT 5-8 Group 3: Morphine sulfate (PF) injection 4 mg (CANCELED)Jump to med 4 mg, Intravenous, Every 4 Hours PRN, Severe Pain, Starting on Fri11/29/24 at 1332, For 5 days, Based on patient request - if ordered for moderate or severe pain, provider allows for administration of a medication prescribed for a lower pain scale. (KATIE) Caution: Look alike/sound alike drug alert If given for pain, use the following pain scale: Mild Pain = Pain Score of 1-3, CPOT 1-2 Moderate Pain = Pain Score of 4-6, CPOT 3-4 Severe Pain = Pain Score of 7-10, CPOT 5-8 And naloxone (NARCAN) injection 0.4 mgJump to med 0.4 mg, Intravenous, Every 5 Minutes PRN, Respiratory Depression, Starting on Fri11/29/24 at 1332, If respiratory rate is less than 8 breaths/minute or patient is difficult to arouse stop any narcotics and contact physician. Administer slow IV push. Repeat as ordered until patient's respiratory rate is greater than 12 breaths/minute. Group 4: ondansetron ODT (ZOFRAN-ODT) disintegrating tablet 4 mgJump to med 4 mg, Oral, Every 6 Hours PRN, Nausea, Vomiting, Starting on Fri11/29/24 at 1332, If BOTH ondansetron (ZOFRAN) and promethazine (PHENERGAN) are ordered use ondansetron first and THEN promethazine IF ondansetron is ineffective. Place on tongue and allow to dissolve. Or ondansetron (ZOFRAN) injection 4 mgJump to med 4 mg, Intravenous, Every 6 Hours PRN, Nausea, Vomiting, Starting on Fri11/29/24 at 1332, If BOTH ondansetron (ZOFRAN) and promethazine (PHENERGAN) are ordered use ondansetron first and THEN promethazine IF ondansetron is ineffective. Group 5: promethazine (PHENERGAN) tablet 12.5 mgJump to med 12.5 mg, Oral, Every 6 Hours PRN, Nausea, Vomiting, Starting on Fri11/29/24 at 1332, If BOTH ondansetron (ZOFRAN) and promethazine (PHENERGAN) are ordered use ondansetron first and THEN promethazine IF ondansetron is ineffective. ([facility]) Or promethazine (PHENERGAN) suppository 12.5 mgJump to med 12.5 mg, Rectal, Every 6 Hours PRN, Nausea, Vomiting, Starting on Fri11/29/24 at 1332, If BOTH ondansetron (ZOFRAN) and promethazine (PHENERGAN) are ordered use ondansetron first and THEN promethazine IF ondansetron is ineffective documented in this encounter Care Teams Magnetic Resonance Imaging Coordinator Relationship Specialty Start Date End Date Win Mccauley MD [address] [facility] [address] [place] [id number] PCP - General Internal Medicine 12/19/20 documented as of this encounter
--- OUTSIDE RECORDS SUMMARY | 2024-11-29 07:52 | XMS_ITS | Encounter Summary ---
Author Organization [facility] ystem Address [address] [place] [address] Care Team Providers Care Core Blower Operator Name Role Phone Win Mccauley MD Primary Care Provider [phone] Reason for Visit * Auth/Cert Specialty Diagnoses / Procedures Referred By Contac t Referred To Contact Diagnoses Spinal stenosis of lumbar region without neurogenic claudication Spinal stenosis of lumbar region without neurogenic claudication [M48.061] Procedures MA EDWARDS FACETECTOMY & FORAMOTOMY 1 VRT SGM LUMBAR LUMBAR FUSION DECOMPRESSON WITH PEDICLE SCREWS L4-5, L5-S1 Referral ID Status Reason Start Date Expiration Date Visits Re quested Visits Authorized [id number] 1 1 Encounter Details Date Type Department Care Team (Late st Contact Info) Description 11/29/2024 7:52 AM EDT - 11/29/2024 11:50 AM EDT Surgery [facility] [address] [place] [address] Modesto Elizabeth MD [address] [address] LUMBAR FUSION DECOMPRESSION WITH PEDICLE SCREWS L4-5, L5-S1 [91675 (CPT )] Social History Tobacco Use Types Packs/Day Years [...] or training? Not on file Preferred Language Sierra Leonean 11/22/2024 Sex and Gender Information Value Date Recorded Sex Assigned at Male 09/23/2024 2:54 PM EDT Legal Sex Male 12:00 PM EDT Gender Identity Not on file Sexual Orientation Not on file documented as of this encounter Last Filed Vital Signs Vital Sign Reading Time Taken Comments Blood Pressure 140/80 11/29/2024 7:01 AM EDT Pulse 73 11/29/2024 7:01 AM EDT Temperature 36.8 C (98.3 F) 11/29/2024 7:01 AM EDT Respiratory Rate 16 11/29/2024 7:01 AM EDT Oxygen Saturation 99% 11/29/2024 7:01 AM EDT Inhaled Oxygen Concentration - - Weight - - Height - - Body Mass Index - - documented in this encounter Functional Status * Question Answer Date of Assessment Author 1. Wish to be (Past 1 Month) No 025 7:03 AM EDT Jovan Higginbotham RN 2. Non-Specific Active Suici julia Thoughts (Past 1 Month) No 11/29/2024 7:03 AM EDT Jovan Higginbotham, RN * Calculated C-SSRS Risk Score (Lifetime/Recent) Answer Date of Assessment Author No Risk Indicated 11/29/2024 7:03 AM Jovan Choe RN * Victor Suicide Severity Rating Scale (Screener/Recent Self-Report) Question Answer Date of Assessment Author 6. Suicidal Behavior (Lifetime) No 5 7:03 AM Jovan Choe RN documented as of this encounter Discharge Instructions * Attachments The following attachments cannot be sent through Care Everywhere. * Surgical Spinal Decompression Care After (S[place]an) * Spinal Stenosis Ucff-jj-[id number] (S[place] Leonean) * How to Prevent Constipation After Surgery (S[place] Leonean) * Fall Prevention in the Home Adult Nfnk-[id number]-Jadd ([place]an) * Acute Back Pain Adult ([place]an) documented in this encounter Medications at Time [...] a Day As Needed. for pain 08/17/2024 5 naloxone (NARCAN) 4 MG/0.1ML nasal spray Call 911. Don't prime. Coldiron in 1 nostril for overdose. Repeat in 2-3 minutes in other nostril if no or minimal breathing/respon siveness. 2 each 12/02/2024 5 oxyCODONE-acetamin ophen (PERCOCET) 7.5-325 MG per tabletIndications: Spinal stenosis of lumbar region without neurogenic claudication Take 1 tablet by mouth Every 6 (Six) Hours As Needed for Severe Pain. 20 tablet 12/02/2024 documented as of this encounter Progress Notes [...] documented in this encounter H&P Notes * Arsalan IsabellaJORGE - 11/29/2024 7:07 AM EDT Pre-Op H&P Huan Hawkins [id number] 1960 Chief complaint: Back pain Subjective: Patient [...] Right L4-5; Surgeon: Modesto Elizabeth MD; Location: [facility]; Service: Neurosurgery; Laterality: Right; ROTATOR CUFF REPAIR [...] and Promote Comfort Recent Flowsheet Documentation Taken 12/02/2024144 by Lashonda Hernandez RNaluminum pourer Interventions: pain medication given Intervention: Provide Person-Centered [...] O arm imaging SURGEON: Modesto Elizabeth M.D. PROFESSOR OF GERMAN: Noelle Sandoval PA-C PAC assisted with: Suctioning [...] ensued. These images were downloaded into the [employer] using Stealth f rameless stereotaxy. Each [...] affixed to the screw heads using mechanical service operations manager,the L4 screws were brought up to the [...] Neurosurgery; Laterality: N/A; ROTATOR CUFF REPAIR Left 2013 TONSILLECTOMY General Information Row Name 12/02/24 0957 Physical Therapy Time and Intention Document Type therapy note (daily note) - Mode of Treatment physical therapy;individual therapy - Row Name 12/02/24 0957 General Information Patient Profile Reviewed yes - Existing Precautions/Restrictions fall;spinal;other (see comments) hemovac - Barriers to Rehab none identified - Row Name 08/956 Cognition Orientation Status (Cognition) oriented x 4 - Row Name 12/02/24956 Safety Issues/Impairments Affecting Functional Mobility Safety Issues Affecting Function (Mobility) insight into deficits/self-awareness - Impairments Affecting Function (Mobility) endurance/activity tolerance;pain - User Engel (r) = Recorded By, (t) = Taken By, (c) = Cosigned By Initials Name Provider Type Rhoda Heard PT Physical Therapist Mobility Row Name 12/02/24956 Bed Mobility Comment, (Bed Mobility) Sitting EOB pre/post tx -[facility] Name 12/02/24956 Transfers Comment, (Transfers) Pt demo good hand placement and sequencing. Knowledgeable of spinal precautions -[facility] Name 12/02/24956 Sit-Stand Transfer Sit-Stand [place] (Transfers) supervision;verbal cues - Comment, (Sit-Stand Transfer) No AD -[facility] Name 12/02/24956 Gait/Stairs (Locomotion) [place] Level (Gait) standby assist;verbal cues - Patient was able to Ambulate yes - Distance in Feet (Gait) 700 - Deviations/Abnormal Patterns (Gait) bilateral deviations;kimber decreased;gait speed decreased;stride length decreased - [place] Level (Stairs) contact guard;1 person assist;verbal cues - Handrail Location (Stairs) none - Number of Steps (Stairs) 3 - Ascending Technique (Stairs) [id number] - Descending Technique (Stairs) lgyc-gf-pata - Comment, (Gait/Stairs) Pt demo step through gait pattern at slow pace. No LOB. Navigated 3 steps w/o handrail use. No LOB or unsteadiness - User Engel (r) = Recorded By, (t) = Taken By, (c) = Cosigned By Initials Name Provider Type Rhoda Heard PT Physical Therapist Obj/Interventions [facility] Name 12/02/24 1002 Motor Skills Therapeutic Exercise hip;knee;ankle;other (see comments) abd sets x10, BKFO x10 -[facility] Name 12/02/24 1002 Shoulder (Therapeutic Exercise) Shoulder (Therapeutic Exercise) AROM (active range of motion) - Shoulder AROM (Therapeutic Exercise) bilateral;flexion;extension;10 repetitions -[facility] Name 12/02/24 1002 Hip (Therapeutic Exercise) Hip (Therapeutic Exercise) isometric exercises;AROM (active range of motion) - Hip AROM (Therapeutic Exercise) bilateral;external rotation;internal rotation;10 repetitions - Hip Isometrics (Therapeutic Exercise) bilateral;gluteal sets;10 repetitions -[facility] Name 12/02/24 1002 Knee (Therapeutic Exercise) Knee (Therapeutic Exercise) isometric exercises;strengthening exercise - Knee Isometrics (Therapeutic Exercise) bilateral;quad sets;10 repetitions - Knee Strengthening (Therapeutic Exercise) bilateral;heel slides;10 repetitions -[facility] Name 12/02/24 1002 Ankle (Therapeutic Exercise) Ankle (Therapeutic Exercise) AROM (active range of motion) - Ankle AROM (Therapeutic Exercise) bilateral;dorsiflexion;plantarflexion;10 repetitions -[facility] Name 12/02/24 1002 Balance Balance Assessment sitting [...] Provider Type Rhoda Heard PT Physical Therapist Goals/Plan No documentation. Clinical Impression [facility] 12/02/24 1003 Pain Pretreatment Pain Rating 5/10 - Posttreatment Pain Rating 5/10 - Pain Location back - Pain Side/Orientation medial - Pain Management Interventions activity modification encouraged;exercise or physical activity utilized;positioning techniques utilized - Response to Pain Interventions activity participation with tolerable pain -[facility] Name 12/02/24 1003 Plan of Care Review [...] hospitalized. Recommend home w/ assist at d/c. -[facility] Name 12/02/24 1003 Vital Signs Pre Systolic BP Rehab 121 - Pre Treatment Diastolic BP 86 -[facility] 12/02/24 1003 Positioning and Restraints Pre-Treatment Position in bed - Post Treatment Position bed -LH In Bed notified nsg;sitting EOB;call light within reach;encouraged to call for assist exit alarm [facility] - User Engel (r) = Recorded By, [...] Cosigned By Initials Name Provider Type Aristeo Schulte, RN Registered Nurse Rhoda Heard, PT Physical Therapist Physical Therapy Education Title: PT OT TRAFFIC COUNTER Therapies (In Progress) Topic: Physical Therapy (Done) [...] Re-Cert Due Date 12/10/24 - Timed Charges 94850 - PT Therapeutic Exercise Minutes 10 - 00921 - Gait Training Minutes 13 - Total Minutes Timed Charges Total Minutes 23 - Total Minutes 23 - User Engel (r) = Recorded By, (t) = Taken By, (c) = Cosigned By Initials Name Provider Type Rhoda Heard, PT Physical Therapist Therapy Charges for Today Code Description Service Date Service Provider Modifiers Qty 36634473428 HC PT THER PROC EA 15 MIN 12/02/2024 Rhoda Heard, PT GP 1 57277167247 HC GAIT TRAINING EA 15 MIN 12/02/2024 Rhoda Heard, PT GP 1 PT G-Codes Outcome Measure Options: AM-PAC 6 Clicks Basic Mobility (PT) AM-PAC 6 Clicks Score (PT): 22 AM-PAC 6 Clicks Score (OT): 20 PT Discharge Summary Anticipated Discharge Disposition (PT): home with assist Rhoda Heard, PT 12/02/2024 * Therapy Treatment Note - Brooke [...] of Treatment physical therapy -AB Row Name 12/01/24 1614 General Information Patient Profile Reviewed yes -AB Existing Precautions/Restrictions fall;other (see comments);spinal hemovac -AB Barriers to Rehab none identified -AB Row Name 12/01/24 1614 Cognition Orientation Status (Cognition) oriented x 4 -AB Row Name 12/01/24 1614 Safety Issues/Impairments Affecting Functional Mobility Safety Issues Affecting Function (Mobility) insight into deficits/self-awareness -AB Impairments Affecting Function (Mobility) endurance/activity tolerance;pain -AB User Engel (r) = Recorded By, (t) = Taken By, (c) = Cosigned By Initials Name Provider Type AB Brooke Marin PT Physical Therapist Mobility Row Name 12/01/24 161 Bed Mobility Bed Mobility sidelying-sit;rolling right -AB Rolling Left [place] (Bed Mobility) standby assist -AB Sidelying-Sit [place] (Bed Mobility) standby assist;1 person assist;verbal cues -AB Comment, (Bed Mobility) good use of logroll -AB Row Name 12/01/241614 Transfers Comment, (Transfers) Cues for hand placement and sequencing. -AB Row Name 12/01/241614 Sit-Stand Transfer Sit-Stand [place] (Transfers) standby assist;1 person assist;verbal cues -AB Row Name 12/01/241614 Gait/Stairs (Locomotion) [place] Level (Gait) 1 person assist;verbal cues;standby assist -AB Patient was able to Ambulate yes -AB Distance in Feet (Gait) 350 -AB Deviations/Abnormal Patterns (Gait) bilateral deviations;kimber decreased;gait speed decreased;stride length decreased -AB [place] Level (Stairs) contact guard;1 person assist;verbal cues -AB Handrail Location (Stairs) none -AB Number of Steps (Stairs) 3 -AB Ascending Technique (Stairs) [id number] -AB Descending Technique (Stairs) psbh-rw-bfki -AB Comment, (Gait/Stairs) Pt ambulated with step through gait pattern at a slightly slowed pace. No overt LOB or knee buckling. He also navigated steps with good stability and cues fro sequencing. -AB User Engel (r) = Recorded By, (t) = Taken By, (c) = Cosigned By Initials Name Provider Type AB Bayes, Brooke N, PT Physical Therapist Obj/Interventions Row Name 12/01/24 161 Motor Skills Therapeutic Exercise shoulder;hip;knee;ankle abdominal sets [...] Exercise) bilateral;gluteal sets;10 repetitions -AB Row Name 12/01/24 161 Knee (Therapeutic Exercise) Knee (Therapeutic Exercise) isometric [...] Initials Name Provider Type AB Brooke Marin N, PT Physical Therapist Goals/Plan No documentation. Clinical Impression Row Name 12/01/241616 Pain Pretreatment Pain Rating 5/10 -AB Posttreatment Pain Rating 5/10 -AB Pain Location back -AB Pain Side/Orientation generalized;lower -AB Pain Management Interventions activity modification encouraged;exercise or physical activity utilized;positioning techniques utilized -AB Response to Pain Interventions activity participation with tolerable pain -AB Row Name 12/01/241616 Plan of Care Review Plan of Care [...] Therapist Physical Therapy Education Title: PT OT TRAFFIC COUNTER Therapies (In Progress) Topic: Physical Therapy (Done) Point: Mobility training (Done) Learning Progress Summary Patient Acceptance, E,D,H, VU,DU by at 12/01/2024 1621 Acceptance, E,D,H, VU,DU by at 11/30/2024 1030 Point: Home exercise program (Done) Learning Progress Summary Patient Acceptance, E,D,H, VU,DU by at 12/01/2024 1621 Acceptance, E,D,H, VU,DU by AB at 11/30/2024 1030 Point: Body mechanics (Done) [...] PT Received On 12/01/24 -AB Timed Charges 62489 - PT Therapeutic Exercise Minutes 10 -AB 66079 - Gait Training Minutes 10 -AB 41641 - PT Therapeutic Activity Minutes 3 -AB Total Minutes Timed Charges Total Minutes 23 -AB Total Minutes 23 -AB User Engel (r) = Recorded By, (t) = Taken By, (c) = Cosigned By Initials Name Provider Type AB Brooke Marin, PT Physical Therapist Therapy Charges for Today Code Description Service Date Service Provider Modifiers Qty 06093050482 HC GAIT TRAINING EA 15 MIN 11/30/2024 Brooke Marin, PT GP 1 [id number] HC PT EVAL LOW COMPLEXITY 4 11/30/2024 Brooke Marin, PT GP 1 11392918926 HC PT THER PROC EA 15 MIN 12/01/2024 Brooke Marin, PT GP 1 [id number] HC GAIT TRAINING EA 15 MIN 12/01/2024 [...] 12/01/2024 10:51 AM EDT Continued Stay Note [facility] Patient Name: Huan Hawkins Today's Date: 12/01/2024 Admit Date: 11/29/2024 Plan: home Discharge Plan Row Name 12/01/24 9370 Plan Plan home Patient/Family in Agreement with Plan yes Plan Comments Pt lives in [facility] with his . He is independent with [...] -JY Impairments Affecting Function (Mobility) endurance/activity tolerance;strength;pain -JChavo Comment, Safety Issues/Impairments (Mobility) pt alert and able to follow commands; cognizant of spinal precautions -JY User Engel (r) = Recorded By, (t) = Taken By, (c) = Cosigned By Initials Name Provider Type Terri Shearer OT Occupational Therapist Mobility/ADL's Row Name 11/30/24 1119 Bed Mobility Bed Mobility sidelying-sit;sit-sidelying;rolling right -JY Rolling Right [place] (Bed Mobility) contact guard;verbal cues -JChavo Sidelying-Sit [place] (Bed Mobility) minimum assist (75% patient effort);1 person assist;verbal cues -JChavo Sit-Sidelying [place] (Bed Mobility) contact guard;1 person assist;verbal cues -JY Assistive Device (Bed Mobility) bed rails;head of bed elevated -JY Comment, (Bed Mobility) educated on log roll tech with good return demo w/ cues on sequential steps; min A to fully advance LEs over EOB -TIA [facility] Name 11/30/24 111 Transfers Transfers sit-stand transfer;stand-sit transfer;toilet transfer -JY Comment, (Transfers) cues for optimal hand placement for controlled ascend, descend specifically topush up from seated surface, to reach back prior to sitting once aligned and in close proximity to seated surface; emphasized adherence to spinal precautions dmitry decreased flexion in ascend, descend -TIA [facility] 11/30/24 111 Sit-Stand Transfer Sit-Stand [place] (Transfers) standby assist;1 person assist;verbal cues -JY Assistive Device (Sit-Stand Transfers) other (see comments) no AD used -TIA [facility] 11/30/241118 Stand-Sit Transfer Stand-Sit [place] (Transfers) standby assist;1 person assist;verbal cues -JY Assistive Device (Stand-Sit Transfers) other (see comments) no AD used -TIA [facility] 11/30/241118 Toilet Transfer Type (Toilet Transfer) sit-stand;stand-sit -JY [place] Level (Toilet Transfer) standby assist;1 person assist;verbal cues -JY Assistive Device (Toilet Transfer) commode;raised toilet seat;grab bars/safety frame -JY Comment, (Toilet Transfer) educated pt on option for home set up improvement with use of BSC over top of toilet for extended height and BUE with various options presented, pt verbalized understanding-TIA [facility] 11/30/241118 Functional Mobility Functional Mobility- Ind. Level contact guard assist;1 person;verbal cues required -JY Functional Mobility- Device other (see comments) no AD used -JY Functional Mobility-Distance (Feet) -- in room ADL related mobility -JY Functional Mobility- Comment defer to PT for specifics however during in room ADL related mobility pt req'd gross CGA w/o AD used; slower pace, CGA for safety w/ increased pain -JY Patient was able to Ambulate yes -TIA [facility] Name 11/30/24 111 Activities of Daily Living BADL Assessment/Intervention upper body dressing;lower body dressing;grooming;toileting;bathing -TIA [facility] 11/30/24 111 Upper Body Dressing Assessment/Training [place] Level (Upper Body Dressing) doff;don;pajama/robe;minimum assist (75% patient effort) -JY Position (Upper Body Dressing) edge of bed sitting -JY Comment, (Upper Body Dressing) min A for proximal and posterior mgmt of gown; situational A for mgmt around IV - Row Name 11/30/24 1119 Lower Body Dressing Assessment/Training [place] Level (Lower Body Dressing) doff;don;socks;contact guard assist;verbal cues -JY Assistive Devices (Lower Body Dressing) long-handled shoe horn;electrical systems engineer;sock- aid;other (see comments) issued AE to assist w/ safe distal reach while adhering to spinal precautions -JY Position (Lower Body Dressing) edge of bed sitting -Y Comment, (Lower Body Dressing) pt u/a to achieve d/d socks w/o AE and adhere to spinal precautions,improved CGA w/ sock aid used; educated on how to use AE for pants, undergarments too - Row Name 11/30/24 1119 Grooming Assessment/Training [place] Level (Grooming) wash face, hands;set up -JY Position (Grooming) sitting up in bed - Row Name 11/30/24 1119 Toileting Assessment/Training [place] Level (Toileting) adjust/manage clothing;standby assist;perform perineal hygiene;supervision - Assistive Devices (Toileting) toilet paper aid -JY Position (Toileting) unsupported sitting;unsupported standing - Comment, (Toileting) simulated toilet t/f and discussed option for elevated height; based on skill set and observations, SBA for toileting CM and spv for hygiene; emphasized use of wipe assist to complete posterior hygiene safely - Row Name 11/30/24 1119 Bathing Assessment/Intervention [place] Level (Bathing) bathing skills;not tested - Assistive Devices (Bathing) long-handled sponge - Comment, (Bathing) did not assess authentic bathing this session yet educated pt on adhering to spinal precautions w/ use of LH sponge; anticipate follow through w/ use of LH sponge -JY User Engel (r) = Recorded By, (t) = Taken By, (c) = Cosigned By Initials Name Provider Type JY Young, Terri, OT Occupational Therapist Obj/Interventions [facility] Name 11/30/24 1127 Sensory Assessment (Somatosensory) Sensory Assessment (Somatosensory) bilateral UE;sensation intact -Y Bilateral UE Sensory Assessment general sensation;light touch awareness;intact -JY Sensory Assessment denies any numbness or tingling and able to recognize LT stimuli as intact and symmetrical at BUEs -JY [facility] 11/30/24 1127 Vision Assessment/Intervention Visual Impairment/Limitations corrective lenses full-time -J Vision Assessment Comment no acute changes to vision -[facility] Name 11/30/24 1127 Range of Motion Comprehensive General Range of Motion bilateral upper extremity ROM WFL -[facility] 11/30/24 1127 Strength Comprehensive (MMT) Comment, General Manual Muscle Testing (MMT) Assessment abbreviated MMT d/t acute spinal sx; anticipate with hand grasp assessment and observation, at least 4/5 -[facility] 11/30/24 1127 Motor Skills Motor Skills functional endurance;coordination -J Coordination bilateral;upper extremity;finger to nose;other (see comments);WFL finger thumb opposition - Functional Endurance decreased activity tolerance toward more dynamic tasks -[facility] 11/30/24 1127 Balance Balance Assessment sitting static [...] Type Terri Shearer OT Occupational Therapist Goals/Plan [facility] Name 11/30/24 1134 Transfer Goal 1 (OT) Activity/Assistive Device (Transfer Goal 1, OT) jar-bs-kayde/blnge-sv-zzo;jrq-ae-uhhia/bihvk-cu-utw;toilet;commode -JY [place] Level/Cues Needed (Transfer Goal 1, OT) standby assist;verbal cues required -JY Time Frame (Transfer Goal 1, OT) terminal operations supervisor goal (LTG);5 days -JY Progress/Outcome (Transfer Goal 1, OT) new goal -JY Row Name 11/30/24 1134 Dressing Goal 1 (OT) Activity/Device (Dressing Goal 1, OT) upper body dressing;lower body dressing;other (see comments) d/d TB garments with LH AE PRN and adherence to spinal precautions -JY [place]/Cues Needed (Dressing Goal 1, OT) standby assist -JY Time Frame (Dressing Goal 1, OT) terminal operations supervisor goal (LTG);5 days -JY Progress/Outcome (Dressing Goal 1, OT) new goal -JY Row Name 11/30/24 1134 Toileting Goal 1 (OT) Activity/Device (Toileting Goal 1, OT) adjust/manage clothing;perform perineal hygiene;commode;commode, bedside without drop arms;grab bar/safety frame;raised toilet seat -JY [place] Level/Cues Needed (Toileting Goal 1, OT) supervision required;independent -JY Time Frame (Toileting Goal 1, OT) terminal operations supervisor goal (LTG);5 days -JY Progress/Outcome (Toileting Goal 1, OT) new goal -JY Row Name 11/30/24 113 Therapy Assessment/Plan (OT) Planned Therapy Interventions (OT) activity tolerance training;adaptive equipment training;BADL retraining;functional balance retraining;occupation/activity based interventions;patient/caregiver educa tion/training;ROM/therapeutic exercise;strengthening exercise;transfer/mobility retraining -JY User Engel (r) = Recorded By, (t) = Taken By, (c) = Cosigned By Initials Name Provider Type Terri Shearer, OT Occupational Therapist Clinical Impression Row Name 11/30/24 1131 Pain Assessment Pretreatment Pain Rating 8/10 -JY Posttreatment Pain Rating 8/10 -JY Pain Location back -JY Pain Side/Orientation lower -JY Pain Management Interventions activity modification encouraged;exercise or physical activity utilized;positioning techniques utilized;nursing notified -JY Response to Pain Interventions activity participation with tolerable pain -JY Pre/Posttreatment Pain Comment persistent pain at 8/10 throughout session, offered ice and pt declined, RN notified -JY Row Name 11/30/24 1130 Plan of Care [...] Duration of Therapy Intervention (OT) 5 days -JY Row Name 11/30/24 1130 Therapy Plan Review/Discharge [...] Provider Type Terri Shearer OT Occupational Therapist Outcome Measures Row Name 11/30/24 [...] Therapist Occupational Therapy Education Title: PT OT TRAFFIC COUNTER Therapies (In Progress) Topic: Occupational Therapy (In [...] Provider Type Discipline TIA 10/04/20 - Terri Chong, CARLOS Occupational Therapist OT OT Recommendation and Plan [...] 1031 Time Calculation- OT OT Start Time 5 -JY -- OT Received On 11/30/24 -JY -- OT Goal Re-Cert Due Date 12/10/24 -JY -- Timed Charges 04848 - Gait Training Minutes -- 10 -AB 94132 - OT Self Care/Mgmt Minutes 11 -JY [...] Description Service Date Service Provider Modifiers Qty [id number] HC OT SELF CARE/MGMT/TRAIN EA 15 MIN 11/30/2024 Terri Chong OT GO 1 [id number] HC-OT EVAL LOW COMPLEXITY 5 11/30/2024 Terri [...] Right L4-5; Surgeon: Modesto Elizabeth MD; Location: [facility]; Service: Neurosurgery; Laterality: Right; ROTATOR CUFF REPAIR Left 2013 TONSILLECTOMY General Information Row Name 11/30/24 0947 Physical Therapy Time and Intention Document Type evaluation -AB Mode of Treatment physical therapy -AB Row Name 11/30/2447 General Information Patient Profile Reviewed yes -AB [...] Railings, Main Entrance none -AB Row Name 11/30/2447 Stairs Within Home, Primary Stairs, Within Home, [...] Marin, PT Physical Therapist Mobility Row Name 11/30/24947 Bed Mobility Bed Mobility rolling left;sit-sidelying -AB Rolling Left [place] (Bed Mobility) 1 person assist;verbal cues;contact guard -AB Sit-Sidelying [place] (Bed Mobility) 1 person assist;verbal cues;contact guard -AB Assistive Device (Bed Mobility) bed rails -AB Comment, (Bed Mobility) Education provided for logroll technique. -AB Row Name 11/30/24947 Transfers Comment, (Transfers) Cues for hand placement and sequencing. Spinal precautions reviewed, pt verbalized understanding. -AB Row Name 11/30/2448 Sit-Stand Transfer Sit-Stand [place] (Transfers) standby assist;1 person assist -AB Row Name 11/30/24947 Gait/Stairs (Locomotion) [place] Level (Gait) 1 person assist;contact guard;verbal cues -AB Patient was able to Ambulate yes -AB Distance in Feet (Gait) 450 -AB Deviations/Abnormal Patterns (Gait) bilateral deviations;kimber decreased;gait speed decreased;stride length decreased -AB [place] Level (Stairs) unable to assess -AB Comment, [...] PT) sit to supine;supine to sit -AB [place] Level/Cues Needed (Bed Mobility Goal 1, PT) independent -AB Time Frame (Bed Mobility Goal 1, PT) short term goal (STG);5 days -AB Row Name 11/30/24 1029 Transfer Goal 1 (PT) Activity/Assistive Device (Transfer Goal 1, PT) mwg-vt-oaqkb/uoxar-xl-syr;cvl-at-ireig/ogqla-zr-esz-AB [place] Level/Cues Needed (Transfer Goal 1, PT) independent -AB Time Frame (Transfer Goal 1, PT) penitentiary goal (LTG);10 days -AB Row Name 11/30/24 1029 Gait Training Goal 1 (PT) Activity/Assistive Device (Gait Training Goal 1, PT) gait (walking locomotion) -AB [place] Level (Gait Training Goal 1, PT) standby assist -AB Distance (Gait Training Goal 1, PT) 500 -AB Time Frame (Gait Training Goal 1, PT) penitentiary goal (LTG);10 days -AB Row Name 11/30/24 1029 Stairs Goal 1 (PT) Activity/Assistive Device (Stairs Goal 1, PT) ascending stairs;descending stairs -AB [place] Level/Cues Needed (Stairs Goal 1, PT) contact guard required -AB Number of Stairs (Stairs Goal 1, PT) 2 -AB Time Frame (Stairs Goal 1, PT) penitentiary goal (LTG);10 days -AB Row Name 11/30/24 [...] Patient Position Supine -AB Row Name 11/30/24 09 Positioning and Restraints Pre-Treatment Position sitting in [...] Cosigned By Initials Name Provider Type Park Rowan, RN Registered Nurse Brooke Marin, PT Physical Therapist Physical Therapy Education Title: PT OT TRAFFIC COUNTER Therapies (Done) Topic: Physical Therapy (Done) Point: [...] Engel Initials Effective Dates Name Provider Type [facility] 01/10/22 - Brooke Marin, PT Physical Therapist [...] Re-Cert Due Date 12/10/24 -AB Timed Charges 61059 - Gait Training Minutes 10 -AB Untimed [...] Description Service Date Service Provider Modifiers Qty [id number] HC GAIT TRAINING EA 15 MIN 11/30/2024 Brooke Marin, PT GP 1 [id number] HC PT EVAL LOW COMPLEXITY 4 11/30/2024 [...] 02/16/2025 11:20 AM EDT Office Visit [facility] [address] [address] Modesto Elizabeth MD [address] [place] [address] documented as of this encounter Procedures Procedure Name Priority Date/Time Associated Diagnosis Comments HEMOGLOBIN AND HEMATOCRIT, BLOOD Routine 11/30/2024 7:39 AM EDT FL C ARM DURING SURGERY Routine 11/29/2024 12:58 PM EDT FL O ARM DURING SURGERY Routine 11/29/2024 9:39 AM EDT MA EDWARDS FACETECTOMY & FORAMOTOMY 1 VRT SGM LUMBAR 11/29/2024 7:51 AM EDT Spinal stenosis of lumbar region without neurogenic claudication Special Needs FILMS AT PACS, STEALTH, O ARM, NAREN TABLE, C ARM, [employer] ~ documented in this encounter Results * (ABNORMAL) Hemoglobin & Hematocrit, Blood (11/30/2024 7:39 AM EDT) Hemoglobin 12.0(L) 13.0 - 17.7 g/dL 11/30/2024 8:27 AM EDT [facility] Hematocrit 36.6(L) 37.5 - 51.0 % 11/30/2024 8:27 AM EDT [facility] Blood Venipuncture / Unknown 11/30/2024 7:39 AM EDT 11/30/2024 8:19 AM EDT us Modesto Elizabeth MD LAB BLOOD ORDERABLES Final Re sult [facility]
[address] [place] [address], * FL C Arm During Surgery (11/29/2024 12:58 PM EDT) Narrative SYSTEMGENERATED, DOCUMENTATION - 11/29/2024 1:37 PM EDT This procedure was auto-finalized with no dictation required. Modesto Elizabeth MD [facility] ORDERABLES Fi nal Result * FL O Arm During Surgery (11/29/2024 9:39 AM EDT) Narrative SYSTEMGENERATED, DOCUMENTATION - 11/29/2024 9:41 AM EDT This procedure was auto-finalized with no dictation required. Modesto Elizabeth MD [facility] ORDER[facility]LES Fi nal Result documented in this encounter Visit Diagnoses Diagnosis Spinal stenosis of lumbar region without neurogenic claudication- Primary Spinal stenosis of lumbar region without neurogenic claudication Lumbar stenosis with neurogenic claudication Spinal stenosis of lumbar region without neurogenic claudication documented in this encounter Admitting [...] movement after 12 hours. Hold for diarrhea bupivacaine-EPINEPHrine PF (MARCAINE w/EPI) 0.25% -[id number] injection As Needed, Starting on Fri11/29/24 at 0850 Given 11/29/2024 8:50 AM EDT 30 mL ceFAZolin 2000 mg IVPB in 100 mL [...] Given 11/29/2024 1:45 PM EDT 50 mcg floseal injection As Needed, Starting on Fri11/29/24 at 0851 Given 11/29/2024 8:51 AM EDT 10 mL gelatin absorbable 1 each, thrombin 5,000 Units mixture As Needed, Starting on Fri11/29/24 at 0851 Given 11/29/2024 8:51 AM EDT heparin (porcine) 5000 UNIT/ML injection 5,000 Units [...] 1329, For 1 dose, Created by cabinet override [...] at KVO if renal / if indicated Currently Infusing 11/30/2024 5:03 AM EDT 9 mL/hr 9 mL/hr New Bag 11/29/2024 7:29 AM EDT 9 mL/hr 9 mL/hr lisinopril (PRINIVIL,ZESTRIL) tablet 5 mg 5 mg, Oral, Every 24 Hours Scheduled, First dose on 8/11/25 at 2000 Given 12/02/2024 8:24 AM EDT [...] and THEN promethazine IF ondansetron is ineffective. ([facility]) sennosides-docusate (PERICOLACE) 8.6-50 MG per [...] 8:41 AM EDT 2 tablets sodium chloride (NS) irrigation solution As Needed, Starting on Fri11/29/24 at 0850 Given 11/29/2024 8:50 A M EDT 1,000 mL sodium chloride 0.9 % flush 10 mL [...] 6:27 AM EDT 125 mL/hr 125 mL/hr sodium chloride 0.9 % solution As Needed, Starting on Fri11/29/24 at 0851 Given 11/29/2024 8:51 AM EDT 250 mL spironolactone (ALDACTONE) tablet 25 mg 25 mg, Oral, Every Other Day, First dose on Fri12/01/24 at 0900, Hold for SBP less than 100, DBP less than 60. Group 1 (Yellow) Hazardous Drug - See Handling Guide Given 12/01/2024 8:42 AM EDT 25 mg sterile water irrigation solution As Needed, Starting on Fri11/29/24 at 0850 Given 11/29/2024 8:50 AM EDT 1,000 mL vancomycin (VANCOCIN) injection As Needed, Starting on Fri11/29/24 at 0850 Given 11/29/2024 8:50 AM EDT 1 g documented in this encounter Active and Recently [...] Rowan RN) 0842 (Given - Provider: Koby Banda RN) 0824 (Given - Provider: Aristeo Schulte, HALLEY) atorvastatin (LIPITOR) tablet 40 mg 40 mg, Oral, Nightly, First dose on Fri11/29/24 at 2100, Avoid grapefruit juice. 1921 (Given - Provider: Mary Spencer RN)2199 (Canceled Entry - Provider: Mayr Spencer RN) 2028 (Given - Provider: Lashonda Hernandez RN) ceFAZolin 2000 mg IVPB in 100 mL [...] 0815 (Given - Provider: Park Rowan RN) 0841 (Given - Provider: Koby Banda RN) 0824 (Given - Provider: Aristeo Schulte, HALLEY) famotidine (PEPCID) tablet 20 mg 20 mg, Oral, 2 Times Daily, First dose on Fri11/29/24 at 2100 0817 (Not Given - Provider: Park Rowan RN - Reason: Patient/family refused)1921 (Given - Provider: Mary Spencer RN)2199 (Canceled Entry - Provider: Mary Spencer, RN) 840 (Given - Provider: Koby Banda RN)2028 (Given - Provider: Lashonda Hernandez RN) 08 (Given - Provider: Aristeo Schulte RN) heparin (porcine) 5000 UNIT/ML injection 5,000 Units 5,000 Units, Subcutaneous, Every 8 Hours Scheduled, First dose on Fri12/01/24 at 0730, Indications: VTE Prophylaxis 0842 (Given - Provider: Koby Banda RN)1414 (Given - Provider: Koby Banda RN)2027 (Given - Provider: Lashonda Hernandez, HALLEY) 0637 (Given - Provider: Lashonda Hernandez RN) lisinopril (PRINIVIL,ZESTRIL) tablet 5 mg 5 mg, Oral, Every 24 Hours Scheduled, First dose on Fri11/29/24 at 2000 0818 (Not Given - Provider: Park Rowan RN - Reason: Order parameters not met) 840 (Given - Provider: Koby Banda RN) 08 (Given - Provider: Aristeo Schulte RN) sennosides-docusate (PERICOLACE) 8.6-50 MG per tablet 2 tablet(Linked Group 1) 2 tablet, Oral, 2 Times Daily, First dose on Fri11/29/24 at 2100, HOLD MEDICATION IF PATIENT HAS HAD BOWEL MOVEMENT. Start bowel management regimen if patient has not had a bowel movement after 12 hours. 0815 (Given - Provider: Park Rowan RN)1921 (Given - Provider: Mary Spencer, HALLEY)2200 (Canceled Entry - Provider: Mary Spencer RN) 08 (Given - Provider: Koby Banda RN)2028 (Given - Provider: Lashonda Hernandez RN) 0824 (Given - Provider: Aristeo Schulte RN) sodium chloride 0.9 % flush 10 mL 10 mL, Intravenous, Every 12 Hours Scheduled, First dose on Fri11/29/24 at 1335 0818 (Not Given - Provider: Park Rowan RN - Reason: Other - Comment: fluids infusing)1923 (Given - Provider: Mary Spencer RN)220 (Canceled Entry - Provider: Mary Spencer RN) 0842 (Given - Provider: Koby Banda, RN)2029 (Given - Provider: Lashonda Hernandez, HALLEY) 0827 (Given - Provider: Aristeo Schulte, HALLEY) spironolactone [...] at O if renal / if indicated 0503 (Currently [...] Spencer RN) 0759 (Stopped - Provider: Koby Banda, HALLEY - Comment: [Order ends at this time. [...] 2027 (Not Given: See Alt - Provider: Lashnoda Hernandez RN) acetaminophen (TYLENOL) suppository 650 mg(Linked [...] chew tablet. 0145 (Given - Provider: Lashonda Hernandez, HALLEY) bisacodyl (DULCOLAX) suppository 10 mg(Linked Group 1) [...] the drug was given by any route/form. 4297 (Given - Provider: Lashonda Hernandez RN) HYDROcodone-acetaminophen [...] CPOT 5-8 1922 (Given - Provider: Mary Spencer, HALLEY) 0038 (Given - Provider: Mary Spencer, RN)0557 (Given - Provider: Mary Spencer, RN)0938 (Given - Provider: Koby Banda, RN)1414 (Given - Provider: Koby Banda, HALLEY)2255 (Given - Provider: Lashonda Hernandez RN) naloxone [...] Mary Spencer RN)0529 (Given - Provider: Mary Spencer, RN)0952 (Given - Provider: Park Rowan RN)1356 (Given - Provider: Guadalupe Bernal RN)1749 (Given - Provider: Guadalupe Bernal RN)2139 (Given - Provider: Mary Spencer, HALLEY) 0330 (Given - Provider: Mary Spencer RN)1201 (Given - Provider: Koby Banda, HALLEY)1644 (Given - Provider: Koby Banda, HALLEY)2029 (Given - Provider: Lashonda Hernandez, HALLEY) 0145 (Given - Provider: Lashonda Hernandez, HALLEY)0637 (Given - Provider: Lashonda Hernandez RN) polyethylene [...] and THEN promethazine IF ondansetron is ineffective. ([facility]) sodium chloride 0.9 % flush [...] 6 Hours PRN, Nausea, Vomiting, Starting on 11/29/24 at 1332, If BOTH ondansetron (ZOFRAN) and promethazine (PHENERGAN) are ordered use ondansetron first and THEN promethazine IF ondansetron is ineffective documented in this encounter Care Teams Core Blower Operator Relationship Specialty Start Date End Date Win Mccauley MD [facility] [place] [address] [address] [facility] [place] [address] PCP - General Internal Medicine 12/19/20 documented as of this encounter
--- OUTSIDE RECORDS SUMMARY | 2024-11-29 08:06 | XMS_ITS | Encounter Summary ---
[facility] Address [address] [place] [address] Care Team Providers Care Seo Professional Name Role Phone Win Mccauley MD Primary Care Provider [phone] Reason for Visit * Auth/Cert Specialty Diagnoses / Procedures Referred By Contac t Referred To Contact Diagnoses Spinal stenosis of lumbar region without neurogenic claudication Spinal stenosis of lumbar region without neurogenic claudication [M48.061] Procedures SD EDWARDS FACETECTOMY & FORAMOTOMY 1 VRT SGM LUMBAR LUMBAR FUSION DECOMPRESSON WITH PEDICLE SCREWS L4-5, L5-S1 Referral ID Status Reason Start Date Expiration Date Visits Re quested Visits Authorized [id number] 1 1 Encounter Details Date Type Department Care Team (Late st Contact Info) Description 11/29/2024 8:06 AM EDT Anesthesia Event [facility] OR [address] [place] [address] Efren Jeter MD [address] [place], [place] [id number] Anesthesia Record Procedure Summary Procedure Name Responsible [...] receiving PACU/ICU team 1324 An Stop Meds Name Total lidocaine PF 1% 1 % 50 mg rocuronium 50 MG/5ML 180 mg ondansetron 2 mg/mL 4 mg dexAMETHasone 4 MG/ML 8 mg ceFAZolin 2000 mg IVPB in 100 mL NS (MBP ) 6 g propofol (DIPRIVAN) 10 mg/mL injection 2 50 mg sugammadex (BRIDION) 200 mg/2 mL injecti on 300 mg fentaNYL citrate (PF) 100 MCG/2ML 100 mc g dexmedetomidine 80 MCG/20ML 16 mcg Phenylephrine HCl-NaCl 1000-0.9 MCG/10ML -% 300 mcg ePHEDrine Sulfate (Pressors) 50 MG/ML 20 mg lactated ringers infusion 1,800 mL albumin human 5 % 500 mL * Agents Name O2 N2O Air Sevoflurane Inspired Sevoflurane * Blood No blood administrations on file. Lines, Drains, and Airways Type Details Placement Removal Wound 11/29/24; lumbar spi ne; Surgical; Closed Surgi 11/29/24 0000 by Juany Benitez RN Closed/Suction Drain 11/29/24; Yes; 1; Inferior; Back; Accordion; Per order 11/29/24 0000 by Juany Benitez RN 12/02/24 0927 by Aristeo Schulte RN Peripheral IV Placement Date: 11/29/24; Placement Time: 0703; Catheter Size: 18 G; Orientation: Left, Posterior; Location: Hand; Site Prep: Chlorhexidine; Local Anes: None; Technique: Anatomical landmarks; Inserted by: HALLEY Aldana; Insertion Attempts: 1; Patient Tolerance: Tolerated well; Removal Date: 12/02/24; Removal Time: 92411/29/24 0703 by Jovan Higginbotham RN 12/02/24 09 by Aristeo Schulte RN ETT Placement Date: 11/29/24; Placement Time: 811 (created via procedure documentation); Blade Size: 3; Location: Oral; Removal Date: 11/29/24; Removal Time: 131311/29/24 08 by Elena Scott CRNA 11/29/24 131 by Elena Scott CRNA Urethral Catheter Placement Date: 11/29/24; Placement Time: 1313; Inserted by: Juany Wagner RN; Type: Silicone; Size: 16 Fr.; Urine Returned: Yes; Removal Date: 11/29/24; Removal Time: 131511/29/24 131 by Juany Benitez RN 11/29/24 131 by Juany Benitez RN documented in this [...] or training? Not on file Preferred Language [place] Islander 11/22/2024 Sex and Gender Information Value Date Recorded Sex Assigned at Male 09/23/2024 2:54 PM EDT Legal Sex Male 12:00 PM EDT Gender Identity Not on file Sexual Orientation Not on file documented as of this encounter Functional Status * Question Answer Date of Assessment Author 1. Wish to be (Past 1 Month) No 025 7:03 AM EDT Jovan Higginbotham RN 2. Non-Specific Active Suici julia Thoughts (Past 1 Month) No 11/29/2024 7:03 AM EDT Jovan Higginbotham RN * Calculated C-SSRS Risk Score (Lifetime/Recent) Answer Date of Assessment Author No Risk Indicated 11/29/2024 7:03 AM EDT Jovan Higginbotham RN * Amorita Suicide Severity Rating Scale (Screener/Recent Self-Report) Question Answer Date of Assessment Author 6. Suicidal Behavior (Lifetime) No 7:03 AM EDT Jovan Higginbotham RN documented as of this encounter OR Notes * Anesthesia Postprocedure Evaluation - Elena Scott CRNA - 11/29/2024 1:25 PM EDT Patient: Huan Hawkins Procedure Summary Date: 11/29/24 Room / Location: [facility] OR [address] [place] [address] [facility] Anesthesia Start: 0806 Anesthesia Stop: 1324 Procedure: LUMBAR FUSION DECOMPRESSON WITH PEDICLE SCREWS L4-5, L5-S1 (Spine Lumbar) Diagnosis: Spinal stenosis of lumbar region without neurogenic claudication (Spinal stenosis of lumbar region without neurogenic claudication [M48.061]) Surgeons: Modesto Elizabeth MD Provider: Efren Jeter MD Anesthesia Type: general ASA Status: 3 Anesthesia Type: general Vitals Vitals Value Taken Time BP 126/71 11/29/24 13:24 Temp 98.8 ??F (37.1 ??C) 11/29/24 13:24 Pulse 103 11/29/24 13:24 Resp 12 11/29/24 13:24 SpO2 95 % 11/29/24 13:24 Post Anesthesia Care and Evaluation Patient location during evaluation: PACU Patient participation: complete - patient participated Level of consciousness: sleepy but conscious Pain management: adequate Airway patency: patent Anesthetic complications: No anesthetic complications PONV Status: none Cardiovascular status: hemodynamically stable and acceptable Respiratory status: nonlabored ventilation, acceptable and nasal cannula Hydration status: acceptable * Anesthesia Procedure Notes - Elena Scott CRNA - 11/29/2024 8:32 AM EDT Associated Order(s): Airway Airway Reason: elective Date/Time: 11/29/2024 8:12 AM Airway not difficult General Information and Staff Patient location during procedure: OR MOTOR VEHICLE LICENSE CLERK/CAA: Elena Scott CRNA Indications and Patient Condition Indications for airway management: airway protection Preoxygenated: yes MILS not maintained throughout Mask difficulty assessment: 1 - vent by mask Final Airway Details Final airway type: endotracheal airway Successful airway: ETT Cuffed: yes Successful intubation technique: video laryngoscopy Endotracheal tube insertion site: oral Blade: Martinez Blade size: 3 ETT size (mm): 7.5 Cormack-Lehane Classification: grade IIa - partial view of glottis Placement verified by: chest auscultation and capnometry Cuff volume (mL): 10 Measured from: lips ETT/EBT to lips (cm): 23 Number of attempts at approach: 1 Assessment: lips, teeth, and gum same as pre-op and atraumatic intubation Additional Comments Negative epigastric sounds, Breath sound equal bilaterally with symmetric chest rise and fall * Anesthesia Preprocedure Evaluation - Efren Jeter MD - 11/29/2024 6:58 AM EDT Anesthesia Evaluation Patient summary reviewed and Nursing notes reviewed Airway Mallampati: III TM distance: >3 FB Neck ROM: full Possible difficult intubation Dental - normal exam Pulmonary - normal exam (+) ,sleep apnea (BiPAP) Cardiovascular - normal exam (+) hypertension, hyperlipidemia ROS comment: RBBB/LAFB LH 09/12: normal EF, mid LAD 30%; medical management Neuro/Psych- negative ROS GI/Hepatic/Renal/Endo (+) morbid obesity, thyroid problem hypothyroidism Musculoskeletal (-) negative ROS Abdominal - normal exam Bowel sounds: normal. 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 Plan discussed with MOTOR VEHICLE LICENSE CLERK. CODE STATUS: documented in this encounter Plan of Treatment Upcoming Encounters Date Type Department Care Team (Late st Contact Info) Description 02/16/2025 11:20 AM EDT Office Visit [facility] [address] [facility] [address] [place] [address] Modesto Elizabeth MD [address] [facility] [address] [place] [address] documented as of this encounter Procedures Procedure Name Priority Date/Time Associated Diagnosis Comments ANESTHESIA INTUBATION Routine 11/29/2024 8:32 AM EDT documented in this encounter Results * BH AN ETT AIRWAY (11/29/2024 8:32 AM EDT) Narrative Elena Scott CRNA - 11/29/2024 8:32 AM EDT Elena Scott CRNA 11/29/2024 8:32 AM Airway Reason: elective Date/Time: 11/29/2024 8:12 AM Airway not difficult General Information and Staff Patient location during procedure: OR MOTOR VEHICLE LICENSE CLERK/CAA: Elena Scott CRNA Indications and Patient Condition Indications for airway management: airway protection Preoxygenated: yes MILS not maintained throughout Mask difficulty assessment: 1 - vent by mask Final Airway Details Final airway type: endotracheal airway Successful airway: ETT Cuffed: yes Successful intubation technique: video laryngoscopy Endotracheal tube insertion site: oral Blade: Martinez Blade size: 3 ETT size (mm): 7.5 Cormack-Lehane Classification: grade IIa - partial view of glottis Placement verified by: chest auscultation and capnometry Cuff volume (mL): 10 Measured from: lips ETT/EBT to lips (cm): 23 Number of attempts at approach: 1 Assessment: lips, teeth, and gum same as pre-op and atraumatic intubation Additional Comments Negative epigastric sounds, Breath sound equal bilaterally with symmetric chest rise and fall us Efren Jeter MD ANESTHESIA ORDERABLES Final R esult documented in this encounter Visit Diagnoses Not on filedocumented in this encounter Administered Medications Inactive Administered Medications - up to 3 most recent administrations Medication Order MAR Action Action Date Dose Rate Site albumin human 5 % solution Intravenous, Administer over 30 Minutes, Continuous PRN, Starting on Fri11/29/24 at 1119 New Bag 11/29/2024 12:32 PM EDT New Bag 11/29/2024 11:19 AM EDT ceFAZolin 2000 mg IVPB in 100 mL NS (MBP) 2 g, Intravenous, Administer over 30 Minutes, Once, On Fri11/29/24 at 0700, For 1 dose, Administer within 1 hour of surgical incision. Redose 4 hours from pre-op dose if procedure ongoing or >1.5 L blood loss. Caution: Look alike/sound alike drug alert, Indications: Surgical ProphylaxisIndications:Surgical Prophylaxis Bolus 11/29/2024 12:13 PM EDT 3 g New Bag 11/29/2024 8:16 AM EDT 3 g dexAMETHasone (DECADRON) injection Intravenous, As Needed, Starting on Fri11/29/24 at 0816 Given 11/29/2024 8:16 AM EDT 8 mg dexmedetomidine (PRECEDEX) injection Nasal, As Needed, Starting on Fri11/29/24 at 0935 Given 11/29/2024 11:49 AM EDT 4 mcg Given 11/29/2024 10:52 AM EDT 4 mcg Given 11/29/2024 10:02 AM EDT 4 mcg ePHEDrine Sulfate (Pressors) Intravenous, As Needed, Starting on Fri11/29/24 at 0941 Given 11/29/2024 10:58 AM EDT 10 mg Given 11/29/2024 9:41 AM EDT 10 mg fentaNYL citrate (PF) (SUBLIMAZE) injection Intravenous, As Needed, Starting on Fri11/29/24 at 0835 Given 11/29/2024 8:35 AM EDT 100 mcg lactated ringers infusion Intravenous, Continuous PRN, Starting on Fri11/29/24 at 0806 New Bag 11/29/2024 9:39 AM EDT New Bag 11/29/2024 8:06 AM EDT lidocaine PF 1% (XYLOCAINE) injection Intravenous, As Needed, Starting on Fri11/29/24 at 0809 Given 11/29/2024 8:09 AM EDT 50 mg ondansetron (ZOFRAN) injection Intravenous, As Needed, Starting on Fri11/29/24 at 1247 Given 11/29/2024 12:47 PM EDT 4 mg Phenylephrine HCl-NaCl 100 mcg/ml injection Intravenous, As Needed, Starting on Fri11/29/24 at 0857 Given 11/29/2024 9:30 AM EDT 100 mcg Given 11/29/2024 9:15 AM EDT 100 mcg Given 11/29/2024 8:57 AM EDT 100 mcg propofol (DIPRIVAN) injection Intravenous, As Needed, Starting on Fri11/29/24 at 0809 Given 11/29/2024 8:09 AM EDT 250 mg rocuronium (ZEMURON) injection Intravenous, As Needed, Starting on Fri11/29/24 at 0809 Given 11/29/2024 11:55 AM EDT 10 mg Given 11/29/2024 11:22 AM EDT 20 mg Given 11/29/2024 10:27 AM EDT 20 mg sugammadex (BRIDION) injection Intravenous, As Needed, Starting on Fri11/29/24 at 1301 Given 11/29/2024 1:01 PM EDT 300 mg documented in this encounter Care Teams Seo Professional Relationship Specialty Start Date End Date Win Mccauley MD [address] [facility] [address] [address] [place] [address] PCP - General Internal Medicine 12/19/20 documented as of this encounter
--- OUTSIDE RECORDS SUMMARY | 2024-12-22 09:53 | XMS_ITS | Encounter Summary ---
[facility] [address] [place] [address] Care Team Providers Care General Superintendent Name Role Phone Win Mccauley MD Primary Care Provider [phone] Reason for Referral * Diagnostic Imaging (Routine) - Closed Specialty Diagnoses / Procedures Referred By Contac t Referred To Contact Radiology Diagnoses Spinal stenosis of lumbar region without neurogenic claudication Lumbar radiculopathy Spondylolisthesis of lumbar region Procedures XR Spine Lumbar AP & Lateral Modesto Elizabeth MD [address] [place] [address] Phone: tel: fax: [facility] AT [address] [address] Phone: tel: fax: Referral ID Status Reason Start Date Expiration Date Visits Re quested Visits Authorized [id number] Closed 12/02/2024 03/03/2026 1 1 Reason for Visit * Diagnostic Imaging (Routine) - Closed Specialty Diagnoses / Procedures Referred By Contac t Referred To Contact Radiology Diagnoses Spinal stenosis of lumbar region without neurogenic claudication Lumbar radiculopathy Spondylolisthesis of lumbar region Procedures XR Spine Lumbar AP & Lateral Modesto Elizabeth MD [address] [address] Phone: tel: fax: [facility] AT [address] [place] [address] Phone: tel: fax: Referral ID Status Reason Start Date Expiration Date Visits Re quested Visits Authorized [id number] Closed 12/02/2024 03/03/2026 1 1 Encounter Details Date Type Department Care Team (Late st Contact Info) Description 12/22/2024 9:53 AM EDT - 12/22/2024 11:59 PM EDT Hospital Encounter [facility] AT [address] [place] [address] Modesto Elizabeth MD [address] [facility] 301 [place] [address] Spinal stenosis of lumbar region [...] or training? Not on file Preferred Language Ethiopian 11/22/2024 Sex and Gender Information Value Date [...] EVERY 8 HOURS NEEDED FOR DIZZINESS 08/05/2024 methocarbamol (ROBAXIN) 750 MG tablet Take 1 tablet by mouth 3 (Three) Times a Day. 60 tablet 12/22/2024 ramipril (ALTACE) 5 MG capsule Take 1 capsule by mouth Every Morning. 09/28/2020 spironolactone (ALDACTONE) 25 MG tablet Take 1 tablet by mouth Every Other Day. 12/06/2020 traMADol (ULTRAM) 50 MG tabletIndications: Spinal stenosis of lumbar region with neurogenic claudication Take 1 tablet by mouth Every 8 (Eight) Hours As Needed for Moderate Pain or Severe Pain. 30 tablet 12/22/2024 documented as of this encounter Plan of Treatment Upcoming Encounters Date Type Department Care Team (Late st Contact Info) Description 02/16/2025 11:20 AM EDT Office Visit [facility] [address]60 [facility] 301 [place] [address] Modesto Elizabeth MD [address] [facility] 301 [place] [address] documented as of this encounter Procedures Procedure [...] MD 12/22/2024 10:20 AM EDT Workstation ID: [id number] Narrative 12/22/2024 10:20 AM EDT XR SPINE [...] MD 12/22/2024 10:20 AM EDT Workstation ID: [id number] Modesto Elizabeth MD IMG DIAGNOSTIC IMAGING ORDERA BLES Final Result documented in this encounter Visit Diagnoses Diagnosis Spinal stenosis of lumbar region without neurogenic claudication Lumbar radiculopathy Thoracic or lumbosacral neuritis or radiculitis, unspecified Spondylolisthesis of lumbar region documented in this encounter Care Teams General Superintendent Relationship Specialty Start Date End Date Win Mccauley MD [address] [place] [address] [address] [place] [address] PCP - General Internal Medicine 12/19/20 documented as of this encounter
--- OUTSIDE RECORDS SUMMARY | 2024-12-22 13:00 | XMS_ITS | Encounter Summary ---
[facility] Address [address] [place] [address] Care Team Providers Care Jewelry Internship Name Role Phone Win Mccauley MD Primary Care Provider [phone] Encounter Details Date Type Department Care Team (Late st Contact Info) Description 12/22/2024 1:00 PM EDT Office Visit [facility] [address] [address] Apro, Rika Rivera PA-C 1760 [facility] 301 [place] [address] Spondylolisthesis of lumbar region (Primary Dx); Spinal stenosis of lumbar region with neurogenic claudication Social History Tobacco Use Types Packs/Day Years Used Date Smoking Tobacco: Never Smokeless Tobacco: Never Tobacco Cessation:Counseling Given: No Alcohol Use Standard Drinks/Week Comments Yes 8 [...] no 11/29/2024 Feels Threatened by Someone no 08/1 04/2024 Does Anyone Try to Keep You From [...] or training? Not on file Preferred Language Namibian 11/22/2024 Sex and Gender Information Value Date Recorded Sex Assigned at Male 09/23/2024 2:54 PM EDT Legal Sex Male 12:00 PM EDT Gender Identity Not on file Sexual Orientation Not on file documented as of this encounter Last Filed Vital Signs Vital Sign Reading Time Taken Comments Blood Pressure 128/72 12/22/2024 11:52 AM EDT Pulse - - Temperature 36.5 C (97.7 F) 12/22/2024 11:52 AM EDT Respiratory Rate - - Oxygen Saturation - - Inhaled Oxygen Concentration - - Weight 122 kg (269 lb 8 oz) 12/22/2024 11:52 AM EDT Height 177.8 cm (5' 10 ) 12/22/2024 11:52 AM EDT Body Mass Index 38.67 12/22/2024 11:52 AM EDT documented in this encounter Progress Notes * Felicia, Rika Rivera PA-C - 12/22/2024 1:00 PM EDT Patient: Huan Hawkins : 1960 Chart #: [id number] Date of Service: 12/22/2024 CHIEF COMPLAINT: Lumbar spondylolisthesis with stenosis and instability History of Present Illness Mr. Hawkins is a very pleasant 64-year-old gentleman with a history of progressive low back pain. He exhibited walking and standing intolerance. Preoperative studies demonstrated significant central stenosis as well as severe biforaminal stenosis at L5-S1. There was spondylolisthesis at L4- 5 with pratik instability. As such, on 11/29/2024 patient presented for decompression, fusion and stabilization at L4-5 and L5-S1 Patient is 3 weeks postop and doing better. He complains of some discomfort in the left thigh. A muscle relaxer has been helping in that regard. He has some low-grade soreness in the low back. Overall he is walking more without pain. He is also struggling with some left knee difficulties. Past Medical History: Diagnosis Date Arthritis Back [...] every night at bedtime., Disp: , Rfl: cetirizine (zyrTEC) 10 MG tablet, Take 1 tablet by mouth Daily., Disp: , Rfl: famotidine (PEPCID) 20 MG tablet, Take 1 tablet by mouth 2 (Two) Times a Day., Disp: , Rfl: Hydrocortisone, Perianal, (Procto-Med HC) 2.5 % rectal cream, APPLY CREAM RECTALLY 4 TIMES DAILY ASNEEDED HEMORRHOIDS, Disp: , Rfl: meclizine (ANTIVERT) 25 MG tablet, TAKE 1/2 TO 1 (ONE-HALF TO ONE) TABLET BY MOUTH EVERY 8 HOURS ASNEEDED FOR DIZZINESS, Disp: , Rfl: methocarbamol (ROBAXIN) 750 MG tablet, Take 1 tablet by mouth 3 (Three) Times a Day., Disp: 60 tablet, Rfl: 0 ramipril (ALTACE) 5 MG capsule, Take 1 capsule by mouth Every Morning., Disp: , Rfl: spironolactone (ALDACTONE) 25 MG tablet, Take 1 tablet by mouth Every Other Day., Disp: , Rfl: traMADol (ULTRAM) 50 MG tablet, Take 1 tablet by mouth Every 8 (Eight) Hours As Needed for ModeratePain or Severe Pain., Disp: 30 tablet, Rfl: 0 No current facility-administered medications for this visit. Facility-Administered Medications Ordered in Other Visits: mupirocin (BACTROBAN) 2 % nasal ointment, , Nasal, BID, Park Swartz, ZAFAR mupirocin (BACTROBAN) 2 % nasal ointment, , Nasal, BID, Apro, Rika Rivera PA-C Past Surgical History: Procedure Laterality Date BACK SURGERY 2021 CARDIAC CATHETERIZATION 08/19/201808/2024 COLONOSCOPY LUMBAR DISCECTOMY Right 06/11/2021 Procedure: Foraminotomy Right L4-5; Surgeon: Modesto Elizabeth MD; Location: [facility] OR; Service: Neurosurgery; Laterality: Right; LUMBAR LAMINECTOMY WITH FUSION N/A 11/29/2024 Procedure: LUMBAR FUSION DECOMPRESSION WITH PEDICLE SCREWS L4-5, L5-S1; Surgeon: Modesto Elizabeth MD; Location: [facility] OR; Service: Neurosurgery; Laterality: N/A; ROTATOR CUFF REPAIR Left 2013 SPINAL FUSION TONSILLECTOMY Social History Socioeconomic History Marital status: [...] discharge, redness, itching and visual disturbance. Respiratory: Negative for apnea, cough, choking, chest tightness, shortness of breath, wheezing andstridor. Cardiovascular: Negative for chest pain, palpitations and [...] and is not hyperactive. Objective Vital Signs: Blood pressure 128/72, temperature 97.7 ??F (36.5 ??C), temperature source Infrared, height 177.8 cm (70 ), weight 122 kg (269 lb 8 oz). Physical Exam Vitals and nursing note reviewed. Constitutional: General: He is not in acute distress. Appearance: He is well-developed. Psychiatric: Behavior: Behavior normal. Thought Content: Thought content normal. Independent review of radiographic imaging: Plain films demonstrate good positioning of construct L4-S1. Assessment & Plan Diagnosis: 1. Lumbar spondylolisthesis with stenosis and instability status post decompression, fusion and stabilization L4-S1 Medical Decision Making: Patient is 3 weeks postop and doing well. He has some low-grade complaintsthat should improve with more time. I renewed his muscle relaxer. I encouraged him to continue walking. He will follow-up with Dr. Elizabeth in 6-8 weeks. Diagnoses and all orders for this visit: 1. Spondylolisthesis of lumbar region (Primary) 2. Spinal stenosis of lumbar region with neurogenic claudication - traMADol (ULTRAM) 50 MG tablet; Take 1 tablet by mouth Every 8 (Eight) Hours As Needed for Moderate Pain or Severe Pain. Dispense: 30 tablet; Refill: 0 Other orders - methocarbamol (ROBAXIN) 750 MG tablet; Take 1 tablet by mouth 3 (Three) Times a Day. Dispense: 60tablet; Refill: 0 Rika Duarte PA-C Patient Care Team: Win Mccauley MD as PCP - General (Internal Medicine) Win Mccauley MD as Referring Physician (Internal Medicine) Modesto Elizabeth MD as Surgeon (Neurosurgery) documented in this encounter Plan of Treatment Upcoming Encounters Date Type Department Care Team (Late st Contact Info) Description 02/16/2025 11:20 AM EDT Office Visit [facility] [address]60 [facility] 301 [place] [address] Modesto Elizabeth MD [address] [facility] [address] [place] [address] documented as of this encounter Visit Diagnoses Diagnosis Spondylolisthesis of lumbar region- Primary Spinal stenosis of lumbar region with neurogenic claudication documented in this encounter Care Teams Jewelry Internship Relationship Specialty Start Date End Date Win Mccauley MD [address] [facility] [address] [place] [address] PCP - General Internal Medicine 12/19/20 documented as of this encounter
--- NOTE | 2024-12-27 11:18 | XR_ITS ---
FINAL REPORT CLINICAL HISTORY: Left knee pain COMPARISON: None FINDINGS: AP, lateral, sunrise and oblique views of the left knee were obtained. There is no prior exam for comparison. There is no acute osseous abnormality of the left knee. Degenerative joint disease is present, most pronounced in the medial compartment of the knee. The soft tissues are normal. A moderate joint effusion is present. IMPRESSION: Degenerative joint disease, most pronounced in the medial compartment of the knee. Moderate sized joint effusion. Reviewed, Interpreted and Dictated by Genoveva Zepeda MD Transcribed by Vannesa Lara Authenticated and [facility]
--- OUTSIDE RECORDS SUMMARY | 2024-12-27 11:20 | XMS_ITS | Encounter Summary ---
[facility] [address] [place] [address] Care Team Providers Care Airplane Inspector Name Role Phone Win Mccauley MD Primary Care Provider Encounter Details Date Type Department Care Team (Latest Contact Info) Description 11/22/2024 Travel Social History Tobacco Use Types Packs/Day Years Used Date Smoking Tobacco: Never Smokeless Tobacco: Never Alcohol Use Standard Drinks/Week Comments Yes 8 (1 standard drink = 0.6 oz pur e alcohol) sometimes on weekend PHQ-2 Answer Date Recorded Retired Total Score 0 01/25/2021 Abuse Screen Answer Date Recorded Feels Unsafe at Home or Work/School no 11/22/2024 Feels Threatened by Someone no 0807/2024 Does Anyone Try to Keep You From Having Contact with Others or Doing Things Outside Your Home? no 11/22/2024 Physical Signs of Abuse Present no 11/22/2024 Education Answer Date Recorded Help with school or training? Not on file Preferred Language Vietnamese 11/22/2024 Sex and Gender Information Value Date Recorded Sex Assigned at Male 09/23/2024 2:54 PM EDT Legal Sex Male 12:00 PM EDT Gender Identity Not on file Sexual Orientation Not on file documented as of this encounter Plan of Treatment Upcoming Encounters Date Type Department Care Team (Late st Contact Info) Description 02/16/2025 11:20 AM EDT Office Visit [facility] 1760 [facility] 301 [place] [address] Modesto Elizabeth MD 1760 [facility] 301 [place] [address] documented as of this encounter Visit Diagnoses Not on filedocumented in this encounter Care Teams Airplane Inspector Relationship Specialty Start Date End Date Win Mccauley MD [address] [place] [address] [address] [facility] [address] [place] [address] PCP - General Internal Medicine 12/19/20 documented as of this encounter
--- OUTSIDE RECORDS SUMMARY | 2024-12-27 11:20 | XMS_ITS | Encounter Summary ---
[facility] Address [address] [place] [address] Care Team Providers Care Pc Maintenance Technician Name Role Phone Win Mccauley MD Primary Care Provider [phone] Encounter Details Date Type Department Care Team (Latest Contact Info) Description 11/29/2024 Travel Social History Tobacco Use Types Packs/Day [...] or training? Not on file Preferred Language Slovenian 11/22/2024 Sex and Gender Information Value Date Recorded Sex Assigned at Male 09/23/2024 2:54 PM EDT Legal Sex Male 12:00 PM EDT Gender Identity Not on file Sexual Orientation Not on file documented as of this encounter Functional Status * Question Answer Date of Assessment Author 1. Wish to be (Past 1 Month) No 7:03 AM EDT Jovan Higginbotham RN 2. Non-Specific Active Suici julia Thoughts (Past 1 Month) No 11/29/2024 7:03 AM EDT Jovan Higginbotham RN * Calculated C-SSRS Risk Score (Lifetime/Recent) Answer Date of Assessment Author No Risk Indicated 11/29/2024 7:03 AM EDT Jovan Higginbotham RN * Routt Suicide Severity Rating Scale (Screener/Recent Self-Report) Question Answer Date of Assessment Author 6. Suicidal Behavior (Lifetime) No 7:03 AM EDT Jovan Higginbotham RN documented as of this encounter Plan of Treatment Upcoming Encounters Date Type Department Care Team (Late st Contact Info) Description 02/16/2025 11:20 AM EDT Office Visit [facility]UR[facility]ERY 1760 [facility] 301 [place] [address] Modesto Elizabeth MD 1760 [facility] 301 [place] [address] documented as of this encounter Visit Diagnoses Not on filedocumented in this encounter Care Teams Pc Maintenance Technician Relationship Specialty Start Date End Date Win Mccauley MD 1210 [facility] [address] [place] [address] PCP - General Internal Medicine 12/19/20 documented as of this encounter
--- OUTSIDE RECORDS SUMMARY | 2024-12-27 11:21 | XMS_ITS | Encounter Summary ---
Author Organization [facility] Address [address] [place] [address] Care Team Providers Care Semiconductor Packages Leak Tester Name Role Phone Win Mccauley MD Primary Care Provider [phone] Encounter Details Date Type Department Care Team (Late st Contact Info) Description 12/04/2024 Telephone [facility] NEUROSUR[facility]ERY [address] [address] Cinthya Baez PA-C [address] [facility] [address] [place] [address] Social History Tobacco Use Types Packs/Day Years [...] or training? Not on file Preferred Language Italian 11/22/2024 Sex and Gender Information Value Date Recorded Sex Assigned at Male 09/23/2024 2:54 PM EDT Legal Sex Male 12:00 PM EDT Gender Identity Not on file Sexual Orientation Not on file documented as of this encounter Miscellaneous Notes * Telephone Encounter - Cinthya Baez PA-C - 12/04/2024 10:49 AM EDT Spoke with Mr. Hawkins this morning. He is 5 days s/p lumbar fusion at the L4- 5, L5-S1 levels withDr. Elizabeth. He's overall doing well, but has some intermittent episodes of significant left leg pain and numbness. He's breaking up his Percocet 7.5 in halves and using Tylenol. I've sent a muscle relaxant for him to try (Robaxin 750 mg TID). He inquired about gabapentin- gabapentin is a reasonablemedication to use for nerve pain, but can also take about a week or so to build up to a therapeuticlevel in the system. If he continues to struggle with his symptoms, we'll send a prescription for that. Denies fever, chills, problems with his incision. His daughter is an an RN an will come check his incision this afternoon. Encouraged him to call with questions. documented in this encounter Plan of Treatment Upcoming Encounters Date Type Department Care Team (Late st Contact Info) Description 02/16/2025 11:20 AM EDT Office Visit [facility] NE[facility] [address] [phone] Modesto Elizabeth MD [address] [place] [address] documented as of this encounter Visit Diagnoses Not on filedocumented in this encounter Care Teams Semiconductor Packages Leak Tester Relationship Specialty Start Date End Date Win Mccauley MD [address] [facility] [address] [place] [address] PCP - General Internal Medicine 12/19/20 documented as of this encounter
--- OUTSIDE RECORDS SUMMARY | 2024-12-27 11:21 | XMS_ITS | Clinical Summary ---
Author Organization Healthcare Address [address] [place] [address] Care Team Providers Care Roaster Operator Name Role Phone Otilio Pierce MD Primary Care Provider [phone] Social History Tobacco Use Types Packs/Day Years Used Date Smoking Tobacco: Never Alcohol Use Standard Drinks/Week Comments Yes 0 (1 standard drink = 0.6 oz pur e alcohol) Sex and Gender Information Value Date Recorded Sex Assigned at Not on file Legal Sex Male 8:43 PM EDT Gender Identity Not on file Sexual Orientation Not on file Last Filed Vital Signs Vital Sign Reading Time Taken Comments Blood Pressure - - Pulse - - Temperature - - Respiratory Rate - - Oxygen Saturation - - Inhaled Oxygen Concentration - - Weight 112 kg (247 lb 15.9 oz) 11/04/2013 8:50 A M EDT Height 185.4 cm (6' 1 ) 11/04/2013 8:50 AM EDT Body Mass Index 32.72 11/04/2013 8:50 AM EDT Plan of Treatment Not on file Care Teams Roaster Operator Relationship Specialty Start Date End Date Otilio Pierce MD [address] [place] [address] PCP - General 09/01/20
--- OUTSIDE RECORDS SUMMARY | 2024-12-27 11:21 | XMS_ITS | Encounter Summary ---
[facility] Organization [facility] Address [address] [place] [address] Care Team Providers Care Cnc Lathe Programmer Name Role Phone Win Mccauley MD Primary Care Provider [phone] Encounter Details Date Type Department Care Team (Latest Contact Info) Description 12/22/2024 Travel Social History Tobacco Use Types Packs/Day [...] or training? Not on file Preferred Language Filipino 11/22/2024 Sex and Gender Information Value Date Recorded Sex Assigned at Male 09/23/2024 2:54 PM EDT Legal Sex Male 12:00 PM EDT Gender Identity Not on file Sexual Orientation Not on file documented as of this encounter Plan of Treatment Upcoming Encounters Date Type Department Care Team (Late st Contact Info) Description 02/16/2025 11:20 AM EDT Office Visit [facility] NEUROS[facility]ERY [address] [facility] [address] [place] [address] Modesto Elizabeth MD [address] [facility] [address] [place] [address] documented as of this encounter Visit Diagnoses Not on filedocumented in this encounter Care Teams Cnc Lathe Programmer Relationship Specialty Start Date End Date Win Mccauley MD [address] [facility] [address] [facility] [address] [place] [address] PCP - General Internal Medicine 12/19/20 documented as of this encounter
--- OUTSIDE RECORDS SUMMARY | 2024-12-27 11:21 | XMS_ITS | Encounter Summary ---
Author Organization [facility] Address [address] [place] [address] Care Team Providers Care Gymnastics Coach Or Instructor Name Role Phone Win Mccauley MD Primary Care Provider [phone] Reason for Visit * Reason Onset Date Comments Med Refill 12/06/2024 Encounter Details Date Type Department Care Team (Late st Contact Info) Description 12/06/2024 Refill [facility] NEUROSURGERY [address] [facility] [address] [place] [id number] Modesto Elizabeth MD [address] [facility] [address] [place] [address] Spinal stenosis of lumbar region without neurogenic claudication Social History Tobacco Use Types [...] or training? Not on file Preferred Language Hungarian 11/22/2024 Sex and Gender Information Value Date Recorded Sex Assigned at Male 09/23/2024 2:54 PM EDT Legal Sex Male 12:00 PM EDT Gender Identity Not on file Sexual Orientation Not on file documented as of this encounter Miscellaneous Notes * Telephone Encounter - Froilan Celeste RN - 12/06/2024 10:15 AM EDT Provider: Glenn Surgery/Procedure: Lumbar fusion decompression with pedicle screws L4-5, L5-S1 Surgery/Procedure Date: 11/29/24 Last visit: 10/27/24 Next visit: 12/24/24 Reason for call: Refill request for percocet pending. Patient states he is improving, but still is having significant incisional pain. Martin: 1 12/02/2024 [id number] Oxycodone/Acetaminophen 325MG/7.5MG [facility]-0591 20.00 5 45 03 [place] New 12/02/2024 [facility] [place] 1 10/27/2024 [id number] Tramadol Hydrochloride [address] [facility] 10-0591 50.00 13 19 03 [place] New 10/27/2024 [facility] [place] documented in this encounter Plan of Treatment Upcoming Encounters Date Type Department Care Team (Late st Contact Info) Description 02/16/2025 11:20 AM EDT Office Visit [facility] NEUROSURGERY [address] [phone] Modesto Elizabeth MD [address] [facility] [address] [place] [address] documented as of this encounter Visit Diagnoses Diagnosis Spinal stenosis of lumbar region without neurogenic claudication documented in this encounter Care Teams Gymnastics Coach Or Instructor Relationship Specialty Start Date End Date Win Mccauley MD [address] [facility] [address] [place] [address] PCP - General Internal Medicine 12/19/20 documented as of this encounter
--- OUTSIDE RECORDS SUMMARY | 2024-12-27 11:21 | XMS_ITS | Clinical Summary ---
Author Organization [facility] Address [address] [place] [address] Care Team Providers Care Assistant Women'S Tennis Coach Name Role Phone Win Mccauley MD Primary Care Provider [phone] Allergies No known active allergies Medications atorvastatin (LIPITOR) 40 MG tablet Take 1 tablet by mouth every night at bedtime. 021 Active ramipril (ALTACE) 5 MG capsule Take 1 capsule by mouth Every Morning. 021 Active spironolactone (ALDACTONE) 25 MG tablet Take 1 tablet by mouth Every Other Day. 021 Active aspirin 81 MG chewable tablet Chew 1 tablet Daily. Active famotidine (PEPCID) 20 MG tablet Take 1 tablet by mouth 2 (Two) Times a Day. Active meclizine (ANTIVERT) 25 MG tablet TAKE 1/2 TO 1 (ONE-HALF TO ONE) TABLET BY MOUTH EVERY 8 HOURS NEEDED FOR DIZZINESS 025 Active acetaminophen (Tylenol 8 Hour Arthritis Pain) 650 MG 8 hr tablet A ctive Hydrocortisone, Perianal, (Procto-Med HC) 2.5 % rectal cream APPLY CREAM RECTALLY 4 TIMES DAILY NEEDED HEMORRHOIDS Active cetirizine (zyrTEC) 10 MG tablet Take 1 tablet by mouth Daily. Active traMADol (ULTRAM) 50 MG tabletIndications: Spinal stenosis of lumbar region with neurogenic claudication Take 1 tablet by mouth Every 8 (Eight) Hours As Needed for Moderate Pain or Severe Pain. 30 tablet 025 Active methocarbamol (ROBAXIN) 750 MG tablet Take 1 tablet by mouth 3 (Three) Times a Day. 60 tablet Active ibuprofen (ADVIL,MOTRIN) 800 MG tablet Take 1 tablet by mouth 3 (Three) Times a Day As Needed. for pain 2024 Discontinued(* Therapy completed) naproxen sodium (Aleve) 220 MG tablet 2024 Discontinued(S top Taking at Discharge) diclofenac (VOLTAREN) 75 MG EC tablet Take 1 tablet by mouth 2 (Two) Times a Day With Meals. 2024 Discontinued(S top Taking at Discharge) mupirocin (BACTROBAN) 2 % nasal ointment Apply to the inside of each nostril with a cotton swab two times daily, morning and evening, for 5 days before surgery. 10 each 2024 Discontinued Chlorhexidine Gluconate 4 % solution Shower each day with solution for 5 days beginning 5 days before surgery. 120 mL 2024 Discontinued traMADol (ULTRAM) 50 MG tabletIndications: Spinal stenosis of lumbar region without neurogenic claudication,Spond ylolisthesis of lumbar region,Lumbar radiculopathy,Abno rmal findings on diagnostic imaging of other parts of musculoskeletal system Take 1 tablet by mouth Every 6 (Six) Hours As Needed for Moderate Pain. 50 tablet 025 2024 Discontinued(S top Taking at Discharge) oxyCODONE-acetamin ophen (PERCOCET) 7.5-325 MG per tablet Take 1 tablet by mouth Every 6 (Six) Hours As Needed. 2024 Discontinued oxyCODONE-acetamin ophen (PERCOCET) 7.5-325 MG per tabletIndications: Spinal stenosis of lumbar region without neurogenic claudication Take 1 tablet by mouth Every 6 (Six) Hours As Needed for Severe Pain. 20 tablet 2024 Discontinued(* Therapy completed) naloxone (NARCAN) 4 MG/0.1ML nasal spray Call 911. Don't prime. [place] in 1 nostril for overdose. Repeat in 2-3 minutes in other nostril if no or minimal breathing/resp onsiveness. 2 each 025 2024 Discontinued(* Therapy completed) methocarbamol (ROBAXIN) 750 MG tablet Take 1 tablet by mouth 3 (Three) Times a Day. 90 tablet 025 2024 Discontinued(R eorder) HYDROcodone-acetam inophen (NORCO) 7.5-325 MG per tabletIndications: Spinal stenosis of lumbar region without neurogenic claudication Take 1 tablet by mouth Every 12 (Twelve) Hours As Needed for Severe Pain. 20 tablet 025 2024 Discontinued(* Therapy completed) traMADol (ULTRAM) 50 MG tabletIndications: Spinal stenosis of lumbar region without neurogenic claudication Take 1 tablet by mouth Every 8 (Eight) Hours As Needed for Moderate Pain or Severe Pain. 30 tablet 025 2024 Discontinued(R eorder) Active Problems Problem Noted Date Diagnosed Date Spinal stenosis of lumbar re gion without neurogenic claudication 10/27/2024 Moderate obesity 01/25/2021 Lumbar stenosis with neurogenic claudication Spondylosis of lumbar region without myelopathy or radiculopathy 01/18/2021 Degeneration of lumbar or lumbosacral interverte bral disc 01/18/2021 Spondylolisthesis, lumbar region 01/18/2021 Encounters Date Type Department Care Team Description 12/22/2024 1:00 PM EDT Office Visit [facility] [address] [address] Felicia, Rika Rivera PA-C Spondylolisthesis of lumbar region (Primary Dx); Spinal stenosis of lumbar region with neurogenic claudication 12/22/2024 9:53 AM EDT - 12/22/2024 11:59 PM EDT Hospital Encounter [facility] XRAY AT [address] [place] [address] Modesto Elizabeth MD Spinal stenosis of lumbar region without neurogenic claudication; Lumbar radiculopathy; Spondylolisthesis of lumbar region Discharge Disposition: Home or Self Care 12/22/2024 Travel 12/13/2024 Refill [facility] [address] [facility] [address] [place] [address] Modesto Elizabeth MD Spinal stenosis of lumbar region without neurogenic claudication (Primary Dx) 12/06/2024 Refill [facility] [address] [facility] [address] [place] [address] Modesto Elizabeth MD Spinal stenosis of lumbar region without neurogenic claudication 12/04/2024 Telephone [facility] [address] [facility] [address] [place] [address] Cinthya Baez PA-C 12/03/2024 Telephone [facility] [address] [facility] [address] [place] [address]KIEFER-POST OP QUESTIONS 12/02/2024 Telephone [facility] [address] [address] Modesto Elizabeth MD 11/29/2024 8:06 AM EDT Anesthesia Event [facility] OR [address] [place] [address] Efren Jeter MD Green, Ashley E, DO 11/29/2024 7:52 AM EDT - 11/29/2024 11:50 AM EDT Surgery [facility] OR [address] [place] [address] Modesto Elizabeth MD LUMBAR FUSION DECOMPRESSION WITH PEDICLE SCREWS L4-5, L5-S1 [01876 (CPT )] 11/29/2024 6:35 AM EDT - 12/02/2024 11:58 AM EDT Hospital Encounter [facility] 3H [address] [place] [address] Modesto Elizabeth MD Spinal stenosis of lumbar region without neurogenic claudication Discharge Disposition: Home or Self Care 11/29/2024 Travel 11/22/2024 9:30 AM EDT Pre-Admission Testing [facility] T [address] [place] [address] Spinal stenosis of lumbar region without neurogenic claudication; Abnormal findings on diagnostic imaging of other parts of musculoskeletal system 11/22/2024 Travel 10/27/2024 2:00 PM EDT Office Visit [facility] [address] [place] [address] Rika Duarte PA-C Spinal stenosis of lumbar region without neurogenic claudication (Primary Dx); Spondylolisthesis of lumbar region; Lumbar radiculopathy; Abnormal findings on diagnostic imaging of other parts of musculoskeletal system 10/27/2024 Travel 10/11/2024 2:24 PM EDT - 10/11/2024 11:59 PM EDT Hospital Encounter [facility] XRAY AT [address] [place] [address] Rika Duarte PA-C Spinal stenosis of lumbar region without neurogenic claudication; Spondylolisthesis of lumbar region Discharge Disposition: Home or Self Care 10/11/2024 Travel from Last 3 Months Family History Medical History Relation Name Comments Hypertension Father David Hawkins Arthritis Mother Devika Hawkins Relation Name Status Comments Father David Hawkins Alive Mother Devika Hawkins Alive Social History Tobacco Use Types Packs/Day Years [...] or training? Not on file Preferred Language Portuguese 11/22/2024 Sex and Gender Information Value Date Recorded Sex Assigned at Male 09/23/2024 2:54 PM EDT Legal Sex Male 12:00 PM EDT Gender Identity Not on file Sexual Orientation Not on file Last Filed Vital Signs Vital Sign Reading Time Taken Comments Blood Pressure 128/72 12/22/2024 11:52 AM EDT Pulse 100 12/02/2024 8:29 AM EDT Temperature 36.5 C (97.7 F) 12/22/2024 11:52 AM EDT Respiratory Rate 16 12/02/2024 8:24 AM EDT Oxygen Saturation 98% 12/02/2024 8:24 AM EDT Inhaled Oxygen Concentration - - Weight 122 kg (269 lb 8 oz) 12/22/2024 11:52 AM EDT Height 177.8 cm (5' 10 ) 12/22/2024 11:52 AM EDT Body Mass Index 38.67 12/22/2024 11:52 AM EDT Plan of Treatment Upcoming Encounters Date Type Department Care Team (Late st Contact Info) Description 02/16/2025 11:20 AM EDT Office Visit [facility] [address] [phone] Modesto Elizabeth MD [address] [facility] [address] [place] [address] Health Maintenance Due Date Last Done Comments TDAP/TD VACCINES (2 - Tdap) 06/23/2006 06/23/1996 COLOGUARD 2007 COLON CANCER SCREENING 5 YEA R SIGMOIDOSCOPY 2007 COLONOSCOPY 2007 COLORECTAL CANCER SCREENING 2007 CT COLONOGRAPHY 2007 FECAL OCCULT BLOOD TEST 2007 FIT Testing (1 year) 2007 Pneumococcal Vaccine 50+ (1 of 1 - PCV) 02/20/2012 ZOSTER VACCINE (1 of 2) 02/20/2012 ANNUAL WELLNESS VISIT 12/27/2020 HEPATITIS C SCREENING 12/27/2020 COVID-19 Vaccine (3 - 2024-2 6 season) 2024 12/31/2020, 12/06/2020 INFLUENZA VACCINE 01/19/2025 01/23/2024, , 01/26/2021, Additional history exists Medical Devices Implanted Type Area Customer Service Leader Device Identifier Shelf Expiration Date Model / Serial / Lot Kt Seal Hemos Abs Floseal Matrx Fast/Prep 10ml - [id number] Implanted:Qt y: 1 on 06/11/2021 by Modesto Elizabeth MD at [facility] Implant Right: Spine Lumbar MitraSpan [id number] / / NA Hemost Abs Surgifoam Sz100 8x12 10mm - [id number] Implanted:Qt y: 1 on 06/11/2021 by Modesto Elizabeth MD at [facility] Implant Right: Spine Lumbar ETHICON DIV [employer] J AND J 1974 / / NA Spacr Plif/Tlif Adaptix 24x8mm - [id number] Implanted:Qt y: 1 on 11/29/2024 by Modesto Elizabeth MD at [facility] Implant N/A: Spine Lumbar [employer] [id number] / / [id number] Spacr Tlif/Dlif Adaptix 46o95ju - [id number] Implanted:Qt y: 1 on 11/29/2024 by Modesto Elizabeth MD at [facility] Implant N/A: Back [employer] A [employer] CO 12/18/2031 [id number] / / [id number] Scrw Solera Fen Mas 6.5x50mm - [id number] Implanted:Qt y: 6 on 11/29/2024 by Modesto Elizabeth MD at [facility] Implant N/A: Back [employer] [id number] / / Scrw St Solera Brkoff Ti 5.5mm - [id number] Implanted:Qt y: 6 on 11/29/2024 by Modesto Elizabeth MD at [facility] Implant N/A: Back [employer] [id number] / / Keyur Solera Crv Cocr 5.5cm 65mm - [id number] Implanted:Qt y: 2 on 11/29/2024 by Modesto Elizabeth MD at [facility] Implant N/A: Back [employer] [id number] / / Hemost Abs Surgifoam Sz100 8x12 10mm - [id number] Implanted:Qt y: 1 on 11/29/2024 by Modesto Elizabeth MD at [facility] Implant N/A: Back [employer] J [employer] J 09/02/2028 1974 / / [id number] Kt Seal Hemos Abs Floseal Matrx 1.5/Fast/Pre p 5000/Iu 10ml - [id number] Implanted:Qt y: 1 on 11/29/2024 by Modesto Elizabeth MD at [facility] Implant N/A: Back [employer] [id number] 06/26/2026 [id number] / / [id number] Wax Bone Hemo Lukens Sharpoint 2.5gm Wht - [id number] Implanted:Qt y: 1 on 11/29/2024 by Modesto Elizabeth MD at [facility] Implant N/A: Back [employer] T[employer]NA [id number] 09/23/2028 901 / / [id number] Grft Matrx Spine Magnetos Flx 0.69na6ln/Gr anule [id number] Md - [id number] Implanted:Qt y: 1 on 11/29/2024 by Modesto Elizabeth MD at [facility] Implant N/A: Back Acceptd [id number] 01/19/2027 [id number] / / [id number] Kt Seal Hemos Abs Floseal Matrx 1.5/Fast/Pre p 5000/Iu 10ml - [id number] Implanted:Qt y: 1 on 11/29/2024 by Modesto Elizabeth MD at [facility] Implant N/A: Spine Lumbar [employer] [id number] 06/26/2026 [id number] / / [id number] Spacr Tlif/Dlif Adaptix 27u70pm - [id number] Implanted:Qt y: 1 on 11/29/2024 by Modesto Elizabeth MD at [facility] Implant N/A: Spine Lumbar [employer] 01/08/2032 [id number] / / [id number] Spacr Plif/Tlif Adaptix 24x8mm - [id number] Implanted:Qt y: 1 on 11/29/2024 by Modesto Elizabeth MD at [facility] Implant N/A: Spine Lumbar [employer] 07/15/2032 [id number] / / [id number] Procedures Procedure Name Priority Date/Time Associated Diagnosis Comments XR SPINE LUMBAR AP AND LATERAL STAT 12/22/2024 9:56 AM EDT Spinal stenosis of lumbar region without neurogenic claudication Lumbar radiculopathy Spondylolisthesis of lumbar region HEMOGLOBIN AND HEMATOCRIT, BLOOD Routine 11/30/2024 7:39 AM EDT FL C ARM DURING SURGERY Routine 11/29/2024 12:58 PM EDT FL O ARM DURING SURGERY Routine 11/29/2024 9:39 AM EDT ANESTHESIA INTUBATION Routine 11/29/2024 8:32 AM EDT TX EDWARDS FACETECTOMY & FORAMOTOMY 1 VRT SGM LUMBAR 11/29/2024 7:51 AM EDT Spinal stenosis of lumbar region without neurogenic claudication Special Needs FILMS AT PACS, STEALTH, O ARM, GARY TABLE, C ARM, [employer] ~ ECG 12-LEAD Routine 11/22/2024 9:20 AM EDT CBC AND DIFFERENTIAL Routine 11/22/2024 9:04 AM EDT Spinal stenosis of lumbar region without neurogenic claudication Abnormal findings on diagnostic imaging of other parts of musculoskeletal system CBC WITH AUTO DIFFERENTIAL Routine 11/22/2024 9:04 AM EDT Spinal stenosis of lumbar region without neurogenic claudication Abnormal findings on diagnostic imaging of other parts of musculoskeletal system COMPREHENSIVE METABOLIC PANEL Routine 11/22/2024 9:04 AM EDT Spinal stenosis of lumbar region without neurogenic claudication HEMOGLOBIN A1C Routine 11/22/2024 9:04 AM EDT MRSA SCREEN Routine 11/22/2024 9:04 AM EDT Spinal stenosis of lumbar region without neurogenic claudication SCANNED EKG 11/22/2024 XR SPINE LUMBAR FLEX AND EXT Routine 10/11/2024 2:34 PM EDT Spinal stenosis of lumbar region without neurogenic claudication Spondylolisthesis of lumbar region MRI OUTSIDE FILMS Routine 10/11/2024 12:00 AM EDT SCANNED - IMAGING 10/11/2024 from Last 3 Months Results * XR Spine Lumbar AP & [...] MD 12/22/2024 10:20 AM EDT Workstation ID: [id number] Narrative 12/22/2024 10:20 AM EDT XR SPINE [...] MD 12/22/2024 10:20 AM EDT Workstation ID: [id number] Modesto Elizabeth MD IMG DIAGNOSTIC IMAGING ORDERA BLES Final Result * (ABNORMAL) Hemoglobin & Hematocrit, Blood (11/30/2024 7:39 AM EDT) Hemoglobin 12.0(L) 13.0 - 17.7 g/dL 11/30/2024 8:27 AM EDT [facility] Hematocrit 36.6(L) 37.5 - 51.0 % 11/30/2024 8:27 AM EDT [facility] Blood Venipuncture / Unknown 11/30/2024 7:39 AM EDT 11/30/2024 8:19 AM EDT Modesto Elizabeth MD LAB BLOOD ORDERABLES Final Re sult [facility]
[address] [place] [address], * FL C Arm During Surgery (11/29/2024 12:58 PM EDT) Narrative SYSTEMGENERATED, DOCUMENTATION - 11/29/2024 1:37 PM EDT This procedure was auto-finalized with no dictation required. Modesto Elizabeth MD IMG FLUOROSCOPY ORDERABLES Fi nal Result * FL O Arm During Surgery (11/29/2024 9:39 AM EDT) Narrative SYSTEMGENERATED, DOCUMENTATION - 11/29/2024 9:41 AM EDT This procedure was auto-finalized with no dictation required. Modesto Elizabeth MD IMG FLUOROSCOPY ORDERABLES Fi nal Result * BH AN ETT AIRWAY (11/29/2024 8:32 AM EDT) Narrative Elena Scott CRNA - 11/29/2024 8:32 AM EDT Elena Scott CRNA 11/29/2024 8:32 AM Airway Reason: elective Date/Time: 11/29/2024 8:12 AM Airway not difficult General Information and Staff Patient location during procedure: OR BLOCK [facility]OPPER HAND/CAA: Elena Scott CRNA Indications and Patient Condition Indications for airway management: airway protection Preoxygenated: yes MILS not maintained throughout Mask difficulty assessment: 1 - vent by mask Final Airway Details Final airway type: endotracheal airway Successful airway: ETT Cuffed: yes Successful intubation technique: video laryngoscopy Endotracheal tube insertion site: oral Blade: Roldan Blade size: 3 ETT size (mm): 7.5 [...] bilaterally with symmetric chest rise and fall Efren Jeter MD ANESTHESIA ORDERABLES Final R esult * ECG 12 Lead (11/22/2024 9:20 AM [...] PM Referred By: Confirmed By: Hubert Malcolm Modesto Elizabeth MD ECG ORDERABLES Final Result ECG * (ABNORMAL) CBC Auto Differential (11/22/2024 9:04 AM EDT) WBC 8.82 3.40 - 10.80 10*3/mm3 11/22/2024 9:26 AM EDT [facility] RBC 5.34 4.14 - 5.80 10*6/mm3 11/22/2024 9:26 AM EDT [facility] Hemoglobin 14.7 13.0 - 17.7 g/dL 11/22/2024 9:26 AM EDT [facility] Hematocrit 44.3 37.5 - 51.0 % 11/22/2024 9:26 AM EDT [facility] MCV 83.0 79.0 - 97.0 fL 11/22/2024 9:26 AM EDT [facility] MCH 27.5 26.6 - 33.0 pg 11/22/2024 9:26 AM EDT [facility] MCHC 33.2 31.5 - 35.7 g/dL 11/22/2024 9:26 AM EDT [facility] RDW 13.6 12.3 - 15.4 % 11/22/2024 9:26 AM EDT [facility] RDW-SD 40.7 37.0 - 54.0 fl 11/22/2024 9:26 AM EDT [facility] MPV 9.5 6.0 - 12.0 fL 11/22/2024 9:26 AM EDT [facility] Platelets 270 140 - 450 10*3/mm3 11/22/2024 9:26 AM EDT [facility] Neutrophil % 54.9 42.7 - 76.0 % 11/22/2024 9:26 AM EDT [facility] Lymphocyte % 25.4 19.6 - 45.3 % 11/22/2024 9:26 AM EDT [facility] Monocyte % 10.9 5.0 - 12.0 % 11/22/2024 9:26 AM EDT [facility] Eosinophil % 7.7(H) 0.3 - 6.2 % 11/22/2024 9:26 AM EDT [facility] Basophil % 0.9 0.0 - 1.5 % 11/22/2024 9:26 AM EDT [facility] Immature Grans % 0.2 0.0 - 0.5 % 11/22/2024 9:26 AM EDT [facility] Neutrophils, Absolute 4.84 1.70 - 7.00 10*3/mm3 11/22/2024 9:26 AM EDT [facility] Lymphocytes, Absolute 2.24 0.70 - 3.10 10*3/mm3 11/22/2024 9:26 AM EDT [facility] Monocytes, Absolute 0.96(H) 0.10 - 0.90 10*3/mm3 11/22/2024 9:26 AM EDT [facility] Eosinophils, Absolute 0.68(H) 0.00 - 0.40 10*3/mm3 11/22/2024 9:26 AM EDT [facility] Basophils, Absolute 0.08 0.00 - 0.20 10*3/mm3 11/22/2024 9:26 AM EDT [facility] Immature Grans, Absolute 0.02 0.00 - 0.05 10*3/mm3 11/22/2024 9:26 AM EDT [facility] nRBC 0.0 0.0 - 0.2 /100 WBC 11/22/2024 9:26 AM EDT [facility] Blood Venipuncture / Unknown 11/22/2024 9:04 AM EDT 11/22/2024 9:18 AM EDT Rika Duarte PA-C LAB BLOOD ORDERABLES Fi nal Result [facility]
[address] [place] [address], * MRSA Screen Culture (Outpatient) - Swab, Nares (11/22/2024 9:04 AM EDT) Pathologist [facility] MRSA Screen Cx No Methicillin Resistant Staphylococcus aureus isolated SARI 11/23/2024 1:52 PM EDT [facility] Swab Structure of anterior naris / Unknown Collection / Unknown 11/22/2024 9:04 AM EDT 11/22/2024 9:24 AM EDT [facility] - 11/23/2024 1:52 PM EDT The negative predictive value of this diagnostic test is high and should only be used to consider de-escalating anti-MRSA therapy. A positive result may indicate colonization with MRSA and must be correlated clinically. Rika Duarte PA-C MICROBIOLOGY - GENERAL ORDERABLES Final Result Performing Organization Address City/[facility]/ZIP Co de Phone Number [facility]
[address] [place] [address], * (ABNORMAL) Hemoglobin A1c (11/22/2024 9:04 AM EDT) [facility] Hemoglobin A1C 5.76(H) 4.80 - 5.60 % 11/22/2024 10:28 AM EDT [facility] Blood Venipuncture / Unknown 11/22/2024 9:04 AM EDT 11/22/2024 9:18 AM EDT [facility] - 11/22/2024 10:28 AM EDT Hemoglobin A1C Ranges: Increased Risk for Diabetes 5.7% to 6.4% Diabetes >= 6.5% Diabetic Goal < 7.0% Modesto Elizabeth MD LAB BLOOD ORDERABLES Final Re sult [facility]
[address] [place] [address], [place] [phone] * (ABNORMAL) Comprehensive Metabolic Panel (11/22/2024 9:04 AM EDT) [facility] Glucose 101(H) 65 - 99 mg/dL 11/22/2024 9:53 AM [facility] BUN 16.4 8.0 - 23.0 mg/dL 11/22/2024 9:53 AM [facility] Creatinine 0.81 0.76 - 1.27 mg/dL 11/22/2024 9:53 AM [facility] Sodium 139 136 - 145 mmol/L 11/22/2024 9:53 AM [facility] Potassium 4.2 3.5 - 5.2 mmol/L 11/22/2024 9:53 AM [facility] Chloride 104 98 - 107 mmol/L 11/22/2024 9:53 AM [facility] CO2 25.0 22.0 - 29.0 mmol/L 11/22/2024 9:53 AM [facility] Calcium 9.1 8.6 - 10.5 mg/dL 11/22/2024 9:53 AM [facility] Total Protein 7.0 6.0 - 8.5 g/dL 11/22/2024 9:53 AM [facility] Albumin 4.0 3.5 - 5.2 g/dL 11/22/2024 9:53 AM [facility] ALT (SGPT) 16 1 - 41 U/L 11/22/2024 9:53 AM [facility] AST (SGOT) 18 1 - 40 U/L 11/22/2024 9:53 AM [facility] Alkaline Phosphatase 94 39 - 117 U/L 11/22/2024 9:53 AM [facility] Total Bilirubin 0.5 0.0 - 1.2 mg/dL 11/22/2024 9:53 AM [facility] Globulin 3.0 gm/dL 11/22/2024 9:53 AM [facility] Comment:Calculated Result A/G Ratio 1.3 g/dL 11/22/2024 9:53 AM [facility] BUN/Creatinine Ratio 20.2 7.0 - 25.0 11/22/2024 9:53 AM EDT [facility] Anion Gap 10.0 5.0 - 15.0 mmol/L 11/22/2024 9:53 AM EDT [facility] eGFR 99.7 >60.0 mL/min/1.7 3 11/22/2024 9:53 AM EDT [facility] Blood Venipuncture / Unknown 11/22/2024 9:04 AM EDT 11/22/2024 9:18 AM EDT Narrative [facility] - 11/22/2024 9:53 AM [...] factor Rika Duarte PA-C LAB BLOOD ORDERABLES Fi nal Result [facility]
[address] [place] [address], * ECG Scan (11/22/2024) [facility] ECG ORDERABLES Final Result * XR Spine Lumbar Flex & Ext (10/11/2024 2:34 PM EDT) Anatomical Region Laterality Modality Spine, L-spine N/A Radiographic Jagruti ging 10/18/2024 9:14 AM EDT Impressions 10/18/2024 9:16 AM EDT Impression: 1. 13 mm of anterior listhesis of L4 on L5 with flexion decreasing to 10 mm with extension. Electronically Signed: Jaleel Wrya MD 10/18/2024 9:16 AM EDT Workstation ID: [id number] Narrative 10/18/2024 9:16 AM EDT XR SPINE LUMBAR FLEX AND EXT Date [...] subluxation at any other lumbar vertebral level. Procedure Note Ranulfo Wray MD - 10/18/2024 XR SPINE LUMBAR FLEX AND EXT Date of Exam: 10/11/2024 2:33 PM EDT Indication: pain Comparison: 01/25/2021 Technique: Lateral flexion and extension radiographs of the lumbar spinewere obtained. Findings: There is normal height of the lumbar vertebral bodies. There is moderatedisc space narrowing at the L4/5 and L5/S1 levels. With flexion there is13 mm of anterolisthesis of L4 on L5. This decreases to 10 mm withextension. No subluxation at any other lumbar vertebral level. IMPRESSION: Impression: 1. 13 mm of anterior listhesis of L4 on L5 with flexion decreasing to 10mm with extension. Electronically Signed: Jaleel Wray MD 10/18/2024 9:16 AM EDT Workstation ID: [id number] [email or web address] Apro PA-C IMG DIAGNOSTIC IMAGING ORDERABLES Final Result * IMAGING SCANNED (10/11/2024) Anatomical Region Laterality Modality Radiographic Jagruti ging [email or web address] Apro PA-C IMG DIAGNOSTIC IMAGING ORDERABLES Final Result * MRI outside films (10/11/2024 12:00 AM EDT) Narrative SYSTEMGENERATED, DOCUMENTATION - 10/27/2024 2:04 PM EDT This procedure was auto-finalized with no dictation required. Rika Duarte PA-C IMG MRI ORDERABLES Jerilyn l Result from Last 3 Months Insurance [facility] [place] [id number] [facility] MED[facility] ADVANTAGE PPO Advance Directives * CPR (Attempt to Resuscitate) (Latest Code Status on File) Date Activated Date Inactivated Comments 11/29/2024 1:33 PM 12/02/2024 2:04 PM Question Answer Comments Code Status (Patient has no pulse and is not breathing): CPR (Attempt to Resuscitate) Medical Interventions (Patie nt has pulse or is breathing): Full Care Teams Assistant Women'S Tennis Coach Relationship Specialty Start Date End Date Win Mccauley MD [facility]0 [facility] [address] [place] [address] PCP - General Internal Medicine 12/19/20
--- OUTSIDE RECORDS SUMMARY | 2024-12-27 11:21 | XMS_ITS | Encounter Summary ---
[facility] Address [address] [place] [address] Care Team Providers Care Process Controls Technician Name Role Phone Win Mccauley MD Primary Care Provider [phone] Encounter Details Date Type Department Care Team (Late st Contact Info) Description 12/13/2024 Refill [facility] [address] [facility] [address] [place] [address] Modesto Elizabeth MD [address] [facility] [address] [place] [id number] Spinal stenosis of lumbar region without neurogenic claudication (Primary Dx) Social History Tobacco Use Types Packs/Day Years [...] or training? Not on file Preferred Language Fijian 11/22/2024 Sex and Gender Information Value Date Recorded Sex Assigned at Male 09/23/2024 2:54 PM EDT Legal Sex Male 12:00 PM EDT Gender Identity Not on file Sexual Orientation Not on file documented as of this encounter Miscellaneous Notes * Telephone Encounter - Giovana Burrows CMA - 12/13/2024 9:30 AM EDT Provider: Glenn Surgery/Procedure: LUMBAR FUSION DECOMPRESSION WITH PEDICLE SCREWS L4-5, L5-S1 Surgery/Procedure Date: 11-29-24 Last visit: Office Visit with Rika Duarte PA-C (10/27/2024) Next visit: 12-24-24 Reason for call: Patient had a few questions about the surgery and wanted to know if he could have a refill of the [place]. Please Advise and I will put this in. He is supposed to taking these 1 every 12 hours but stated he taking them every 8-9 hours. The Robaxin is helping with the pain and burning feeling. Patient cannot get comfortable at all. Patient gets up and walk 3 times a day No fever No problems with B&B Surgery site looks really good Patient stated he has 2 Norcos left. When did it start:11-26-24 Where is it located:low back surgery site area How long has this been going on/is this new or the same as before surgery: 3 days Characteristics of symptom/severity: dull aches pain Timing- Is it constant or intermittent: intermittent when the pain pill wears off he feels the pain What makes it worse: sitting What makes it better: pain medication and heat What therapies/medications have you tried: [place] 1 every 8 hours Robaxin 1 three times a day Tylenol in between Heat and ice more heat documented in this encounter Plan of Treatment Upcoming Encounters Date Type Department Care Team (Late st Contact Info) Description 02/16/2025 11:20 AM EDT Office Visit [facility] [address] [facility] [address] [place] [phone] Modesto Elizabeth MD [address] [address] documented as of this encounter Visit Diagnoses Diagnosis Spinal stenosis of lumbar region without neurogenic claudication- Primary documented in this encounter Care Teams Process Controls Technician Relationship Specialty Start Date End Date Win Mccauley MD [address] [facility] [address] [place] [address] PCP - General Internal Medicine 12/19/20 documented as of this encounter
--- OUTSIDE RECORDS SUMMARY | 2024-12-27 11:21 | XMS_ITS | Encounter Summary ---
[facility] Address [address] [place] [address] Care Team Providers Care Entertainer & Comic Name Role Phone Win Mccauley MD Primary Care Provider [phone] Reason for Visit * Reason Onset Date Comments -POST OP QUESTIONS 12/03/2024 Encounter Details Date Type Department Care Team (Late st Contact Info) Description 12/03/2024 Telephone [facility]UROS[facility]ERY [address] [place] [phone] Modesto Elizabeth MD [address] [place] [address] -POST OP QUESTIONS Social History Tobacco Use Types Packs/Day Years [...] or training? Not on file Preferred Language Vincentian 11/22/2024 Sex and Gender Information Value Date Recorded Sex Assigned at Male 09/23/2024 2:54 PM EDT Legal Sex Male 12:00 PM EDT Gender Identity Not on file Sexual Orientation Not on file documented as of this encounter Miscellaneous Notes * Telephone Encounter - Froilan Celeste RN - 12/03/2024 10:43 AM EDT Patient had large bowel movement this morning. Advised to be sure to drink plenty of fluids, and totake a daily stool softener while on pain medication. He is going to take Colace, and Myralax as needed while on his pain medications. * Telephone Encounter - Jun Giles RegSched Rep - 12/03/2024 9:28 AM EDT Hub staff attempted to follow warm transfer process and was unsuccessful Caller: Huan Hawkins Relationship to patient: SELF Best call back number: [phone] Patient is needing: PT HAS QUESTIONS ABOUT HIS PAIN MEDS THEY ARE CAUSING CONSTIPATION AND WANTSTO KNOW ABOUT SUBSTITUTION OR ADDITIONAL ASSISTANCE. documented in this encounter Plan of Treatment Upcoming Encounters Date Type Department Care Team (Late st Contact Info) Description 02/16/2025 11:20 AM EDT Office Visit [facility] [address] [phone] Modesto Elizabeth MD [address] [place] [address] documented as of this encounter Visit Diagnoses Not on filedocumented in this encounter Care Teams Entertainer & Comic Relationship Specialty Start Date End Date Win Mccauley MD [address] [facility] [address] [place] [address] PCP - General Internal Medicine 12/19/20 documented as of this encounter
--- OUTSIDE RECORDS SUMMARY | 2024-12-27 11:21 | XMS_ITS | Encounter Summary ---
[facility] Organization [facility] Address [address] [place] [address] Care Team Providers Care Film Tests Checker Name Role Phone Win Mccauley MD Primary Care Provider [phone] Reason for Referral * Diagnostic Imaging (Routine) - Closed Specialty Diagnoses / Procedures Referred By Contac t Referred To Contact Radiology Diagnoses Spinal stenosis of lumbar region without neurogenic claudication Lumbar radiculopathy Spondylolisthesis of lumbar region Procedures XR Spine Lumbar AP & Lateral Modesto Elizabeth MD [address] [address] Phone: tel: fax: [facility] [address] [address] Phone: tel: fax: Referral ID Status Reason Start Date Expiration Date Visits Re quested Visits Authorized [id number] Closed 12/02/2024 03/03/2026 1 1 Encounter Details Date Type Department Care Team (Late st Contact Info) Description 12/02/[address] [facility] NEUROS[facility]ERY [address] [phone] Modesto Elizabeth MD [address] [place] [address] Social History Tobacco Use Types Packs/Day Years [...] or training? Not on file Preferred Language Lebanese 11/22/2024 Sex and Gender Information Value Date Recorded Sex Assigned at Male 09/23/2024 2:54 PM EDT Legal Sex Male 12:00 PM EDT Gender Identity Not on file Sexual Orientation Not on file documented as of this encounter Miscellaneous Notes * Telephone Encounter - Martha Melo RegSched Rep - 12/02/2024 11:34 AM EDT I scheduled a post op visit for this patient 9.09.12. he will need AP & Lateral lumbar spine XR.Can someone put in an order please documented in this encounter Plan of Treatment Upcoming Encounters Date Type Department Care Team (Late st Contact Info) Description 02/16/2025 11:20 AM EDT Office Visit [facility] [address] [facility] [address] [place] [phone] Modesto Elizabeth MD [address] [facility] [address] [place] [address] documented as of this encounter Results * XR Spine Lumbar [...] MD 12/22/2024 10:20 AM EDT Workstation ID: [id number] Narrative 12/22/2024 10:20 AM EDT XR SPINE [...] MD 12/22/2024 10:20 AM EDT Workstation ID: [id number] Modesto Elizabeth MD [facility] DI[facility]NOSTIC IMAG[facility] ORDERA BLES Final Result documented in this encounter Visit Diagnoses Diagnosis Spinal stenosis of lumbar region without neurogenic claudication- Primary Lumbar radiculopathy Thoracic or lumbosacral neuritis or radiculitis, unspecified Spondylolisthesis of lumbar region Spinal stenosis of lumbar region without neurogenic claudication Lumbar radiculopathy Thoracic or lumbosacral neuritis or radiculitis, unspecified Spondylolisthesis of lumbar region documented in this encounter Care Teams Film Tests Checker Relationship Specialty Start Date End Date Win Mccauley MD [facility] [address] [place] [address] PCP - General Internal Medicine 12/19/20 documented as of this encounter
== END 2024-12-27 23:59 | disposition home or self-care (01) ==
LOC: RAD 11:16
PROVIDERS: PCP Internal Medicine; Visit Provider Physician Assistant Surgical
DX: M17.12 Unilateral primary osteoarthritis, left knee (principal); M25.462 Effusion, left knee
CPT/HCPCS: 73562

== ENCOUNTER 2025-01-07 12:37 | Outpatient (RCR) | payer MEDICARE, SELFPAY | END 2025-01-07 23:59 | disposition home or self-care (01) | LOC: PT 12:37 | PROVIDERS: Visit Provider Physician Assistant | DX: M48.062 Spinal stenosis, lumbar region with neurogenic claudication (principal) | CPT/HCPCS: 97162 ==

== ENCOUNTER 2025-02-04 08:51 | Outpatient (CLI) | payer MEDICARE, SELFPAY ==
--- OUTSIDE RECORDS SUMMARY | 2024-12-22 09:53 | XMS_ITS | Encounter Summary ---
[facility] Address [address] [place] [address] Care Team Providers Care Polymerization Supervisor Name Role Phone Win Mccauley MD Primary Care Provider [phone] Reason for Referral * Diagnostic Imaging (Routine) - Closed Specialty Diagnoses / Procedures Referred By Contac t Referred To Contact Radiology Diagnoses Spinal stenosis of lumbar region without neurogenic claudication Lumbar radiculopathy Spondylolisthesis of lumbar region Procedures XR Spine Lumbar AP & Lateral Modesto Elizabteh MD [address] [place] [address] Phone: tel: fax: [facility] AT [address] [address] Phone: tel: fax: Referral ID Status Reason Start Date Expiration Date Visits Re quested Visits Authorized [id number] Closed 12/02/2024 03/03/2026 1 1 Reason for Visit * Diagnostic Imaging (Routine) - Closed Specialty Diagnoses / Procedures Referred By Contac t Referred To Contact Radiology Diagnoses Spinal stenosis of lumbar region without neurogenic claudication Lumbar radiculopathy Spondylolisthesis of lumbar region Procedures XR Spine Lumbar AP & Lateral Modesto Elizabeth MD [address] [address] Phone: tel: fax: [facility] AT [address] [place] [address] Phone: tel: fax: Referral ID Status Reason Start Date Expiration Date Visits Re quested Visits Authorized [id number] Closed 12/02/2024 03/03/2026 1 1 Encounter Details Date Type Department Care Team (Late st Contact Info) Description 12/22/2024 9:53 AM EDT - 12/22/2024 11:59 PM EDT Hospital Encounter [facility] AT [address] [place] [address] Modesto Elizabeth MD [address] [facility] 301 [place] [address] Spinal stenosis of lumbar region without neurogenic claudication; Lumbar radiculopathy; Spondylolisthesis of lumbar region Discharge Disposition: Home or Self Care Social [...] or training? Not on file Preferred Language Macedonian 11/22/2024 Sex and Gender Information Value Date Recorded Sex Assigned at Male 09/23/2024 2:54 PM EDT Legal Sex Male 12:00 PM EDT Gender Identity Not on file Sexual Orientation Not on file documented as of this encounter Medications at Time of Discharge [...] tablet by mouth Every Other Day. 12/06/2020 traMADol (ULTRAM) 50 MG tabletIndications: Spinal stenosis of lumbar region with neurogenic claudication Take 1 tablet by mouth Every 8 (Eight) Hours As Needed for Moderate Pain or Severe Pain. 30 tablet 12/22/2024 methocarbamol (ROBAXIN) 750 MG tablet Take 1 tablet by mouth 3 (Three) Times a Day. 60 tablet 12/22/2024 documented as of this encounter Plan of Treatment Upcoming Encounters Date Type Department Care Team (Late st Contact Info) Description 02/16/2025 11:20 AM EDT Office Visit [facility] [address] [facility] 301 [place] [address] Modesto Elizabeth MD [address] [facility] 301 [place] [id number] documented as of this encounter Goals Goal Patient Goal Type Associated Problems Recent Progress Patient-Stated? Author Autogenera wen Goal Care Plan Autogenerated Problem No Apro, Rika Rivera PA-C documented as of this encounter Procedures Procedure Name Priority Date/Time Associated Diagnosis Comments XR SPINE LUMBAR AP AND LATERAL STAT 12/22/2024 9:56 AM EDT Spinal stenosis of lumbar region without neurogenic claudication Lumbar radiculopathy Spondylolisthesis of lumbar region documented in this encounter Results * XR Spine Lumbar AP & Lateral (12/22/2024 9:56 AM EDT) Anatomical Region Laterality Modality Spine, L-spine N/A Radiographic Jagruti ging 12/22/2024 10:1 7 AM EDT Impressions 12/22/2024 10:20 AM EDT Impression: Stable postoperative appearance of the lumbar spine with L4-5-S1 posterior lumbar interbody fusion. No new lumbar spine pathology is seen. Electronically Signed: Carlin Olivares MD 12/22/2024 10:20 AM EDT Workstation ID: [id number] Narrative 12/22/2024 10:20 AM EDT XR SPINE LUMBAR AP AND LATERAL Date of Exam: 12/22/2024 9:55 AM EDT Indication: lumbar fusion. Comparison: 10/11/2024 lumbar flexion and extension series. Intraoperative images of 11/29/2024 Technique: 2 radiographs of the lumbar spine were obtained. Findings: Posterior lumbar and interbody fusion is again noted at L4-5-S1. Hardware appears intact and stable in position. No significant focal subluxation, or evidence of acute compression deformity is seen. Mild anterior wedging of T12 appears stable. AP view again shows a minimal dextroconvex scoliosis. Included portions of the pelvic bones appear intact. Procedure Note Carlin Olivares MD - 12/22/2024 XR SPINE LUMBAR AP AND LATERAL Date of Exam: 12/22/2024 9:55 AM EDT Indication: lumbar fusion. Comparison: 10/11/2024 lumbar flexion and extension series. Intraoperativeimages of 11/29/2024 Technique: 2 radiographs of the lumbar spine were obtained. Findings: Posterior lumbar and interbody fusion is again noted at L4-5-S1. Hardwareappears intact and stable in position. No significant focal subluxation,or evidence of acute compression deformity is seen. Mild anterior wedgingof T12 appears stable. AP view again shows a minimal dextroconvex scoliosis. Included portions of thepelvic bones appear intact. IMPRESSION: Impression: Stable postoperative appearance of the lumbar spine with L4-5-S1 posteriorlumbar interbody fusion. No new lumbar spine pathology is seen. Electronically Signed: Carlin Olivares MD 12/22/2024 10:20 AM EDT Workstation ID: [id number] Modesto Elizabeth MD [facility] ORDERA BLES Final Result documented in this encounter Visit Diagnoses Diagnosis Spinal stenosis of lumbar region without neurogenic claudication Lumbar radiculopathy Thoracic or lumbosacral neuritis or radiculitis, unspecified Spondylolisthesis of lumbar region documented in this encounter Additional Health Concerns Active Problems Noted Date Diagnosed Date Autogenerated Problem 12/30/2024 documented as of this encounter Care Teams Polymerization Supervisor Relationship Specialty Start Date End Date Win Mccauley MD [address] [facility] [address] [facility] [place] [address] PCP - General Internal Medicine 12/19/20 documented as of this encounter
--- OUTSIDE RECORDS SUMMARY | 2024-12-22 13:00 | XMS_ITS | Encounter Summary ---
[facility] [address] [place] [address] Care Team Providers Care Looper Fixer Name Role Phone Win Mccauley MD Primary Care Provider [phone] Encounter Details Date Type Department Care Team (Late st Contact Info) Description 12/22/2024 1:00 PM EDT Office Visit [facility] [address] [address] Apro, Rika Rivera PA-C 1760 [facility] 301 [place] [address] Spondylolisthesis of lumbar region (Primary [...] or training? Not on file Preferred Language New Zealander 11/22/2024 Sex and Gender Information Value Date [...] Patient: Huan Hawkins : 1960 Chart #: [id number] Date of Service: 12/22/2024 CHIEF COMPLAINT: Lumbar [...] Right L4-5; Surgeon: Modesto Elizabeth MD; Location: [facility] OR; Service: Neurosurgery; Laterality: Right; LUMBAR LAMINECTOMY WITH FUSION N/A 11/29/2024 Procedure: LUMBAR FUSION DECOMPRESSION WITH PEDICLE SCREWS L4-5, L5-S1; Surgeon: Modesto Elziabeth MD; Location: [facility] OR; Service: Neurosurgery; Laterality: N/A; ROTATOR CUFF [...] continue walking. He will follow-up with Dr. Eilzabeth in 6-8 weeks. Diagnoses and all orders [...] Description 02/16/2025 11:20 AM EDT Office Visit [facility] [address] [facility] [address] [place] [address] Modesto Elizabeth MD 1760 [facility] 301 [place] [id number] documented as of this encounter Goals Goal Patient Goal Type Associated Problems Recent Progress Patient-Stated? Author Autogenera wen Goal Care Plan Autogenerated Problem No Rika Duarte PA-C documented as of this encounter Visit Diagnoses Diagnosis Spondylolisthesis of lumbar region- Primary Spinal stenosis of lumbar region with neurogenic claudication documented in this encounter Additional Health Concerns Active Problems Noted Date Diagnosed Date Autogenerated Problem 12/30/2024 documented as of this encounter Care Teams Looper Fixer Relationship Specialty Start Date End Date Win Mccauley MD 1210 [facility] [address] [place] [address] PCP - General Internal Medicine 12/19/20 documented as of this encounter
--- NOTE | 2025-02-04 08:53 | US_ITS ---
FINAL REPORT TECHNIQUE: Sonographic images of the thyroid gland were obtained in the longitudinal and transverse planes. CLINICAL HISTORY: NONTOXIC THYROID NODULE COMPARISON: 08/23/2024 FINDINGS: The right lobe measures 2.0 x 5.5 x 2.2 cm. Predominantly cystic but mixed cystic and solid upper pole right nodule measures 20 mm and was 17 mm. 2nd hypoechoic nodule measuring 9 mm may be cystic but appears stable. The left lobe measures 2.1 x 5.0 x 2.1 cm. The left lobe is homogeneous. There are no cystic or solid nodules. The isthmus measures 4 mm. This is normal. IMPRESSION: Stable 9 mm TR 4 nodule on the right. Slight increase in size of mixed cystic and solid nodule on the right which could be technical. Continued follow-up recommended for both right nodules per TI-RADS criteria. Reviewed, Interpreted and Dictated by Genoveva Zepeda MD Transcribed by Renita Louis Authenticated and [facility]
--- OUTSIDE RECORDS SUMMARY | 2025-02-04 08:53 | XMS_ITS | Clinical Summary ---
Author Organization [facility] Address [address] [place] [address] Care Team Providers Care Bathhouse Attendant Name Role Phone Win Mccauley MD Primary Care Provider [phone] Allergies No known active allergies Medications atorvastatin (LIPITOR) 40 MG tablet Take 1 tablet by mouth every night at bedtime. 09/28/19 21 Active ramipril (ALTACE) 5 MG capsule Take 1 capsule by mouth Every Morning. 09/29/19 21 Active spironolactone (ALDACTONE) 25 MG tablet Take 1 tablet by mouth Every Other Day. 12/07/19 21 Active aspirin 81 MG chewable tablet Chew 1 tablet Daily. Active famotidine (PEPCID) 20 MG tablet Take 1 tablet by mouth 2 (Two) Times a Day. Active meclizine (ANTIVERT) 25 MG tablet TAKE 1/2 TO 1 (ONE-HALF TO ONE) TABLET BY MOUTH EVERY 8 HOURS NEEDED FOR DIZZINESS 08/06/19 25 Active acetaminophen (Tylenol 8 Hour Arthritis Pain) 650 MG 8 hr tablet Active Hydrocortisone, Perianal, (Procto-Med HC) 2.5 % rectal cream APPLY CREAM RECTALLY 4 TIMES DAILY NEEDED HEMORRHOIDS Active cetirizine (zyrTEC) 10 MG tablet Take 1 tablet by mouth Daily. Active traMADol (ULTRAM) 50 MG tabletIndication s:Spinal stenosis of lumbar region with neurogenic claudication Take 1 tablet by mouth Every 8 (Eight) Hours As Needed for Moderate Pain or Severe Pain. 30 tablet 12/23/19 25 Active methocarbamol (ROBAXIN) 750 MG tabletIndication s:Spinal stenosis of lumbar region with neurogenic claudication,Spo ndylolisthesis of lumbar region Take 1 tablet by mouth 3 (Three) Times a Day. 60 tablet 01/22/20 25 Active methocarbamol (ROBAXIN) 750 MG tabletIndication s:Spinal stenosis of lumbar region with neurogenic claudication,Spo ndylolisthesis of lumbar region Take 1 tablet by mouth 3 (Three) Times a Day. 60 tablet 01/06/20 25 025 Discontin ued(Reord er) Active Problems Problem Noted Date Diagnosed Date Spinal stenosis of lumbar re gion without neurogenic claudication 10/27/2024 Moderate obesity 01/25/2021 Lumbar stenosis with neurogenic claudication Spondylosis of lumbar region without myelopathy or radiculopathy 01/18/2021 Degeneration of lumbar or lumbosacral interverte bral disc 01/18/2021 Spondylolisthesis, lumbar region 01/18/2021 Encounters Date Type Department Care Team Description 01/04/2025 Telephone [facility] NEUR[facility]ERY [address] [address] Rika Duarte PA-C 12/22/2024 1:00 PM EDT Office Visit [facility] [address] [facility] [address] Rika Duarte PA-C Spondylolisthesis of lumbar region (Primary Dx); Spinal stenosis of lumbar region with neurogenic claudication 12/22/2024 9:53 AM EDT - 12/22/2024 11:59 PM EDT Hospital Encounter [facility] XRAY AT [address] [place] [address] Modesto Elizabeth MD Spinal stenosis of lumbar region without neurogenic claudication; Lumbar radiculopathy; Spondylolisthesis of lumbar region Discharge Disposition: Home or Self Care 12/22/2024 Travel 12/13/2024 Refill [facility] [address] [facility] [address] [place] [address] Modesto Elizabeth MD Spinal stenosis of lumbar region without neurogenic claudication (Primary Dx) 12/06/2024 Refill [facility] [address] [facility] [address] [place] [address] Modesto Elizabeth MD Spinal stenosis of lumbar region without neurogenic claudication 12/04/2024 Telephone [facility] [address] [facility] [address] [place] [address] Cinthya Baez PA-C 12/03/2024 Telephone [facility] [address] [facility] [address] [place] [address]KIEFER-POST OP QUESTIONS 12/02/2024 Telephone [facility] NEUR[facility] [address] [address] Modesto Elizabeth MD 11/29/2024 8:06 AM EDT Anesthesia Event [facility] OR [address] [place] [address] Efren Jeter MD Green, Ashley E, DO 11/29/2024 7:52 AM EDT - 11/29/2024 11:50 AM EDT Surgery [facility] OR [address] [place] [address] Modesto Elizabeth MD LUMBAR FUSION DECOMPRESSION WITH PEDICLE SCREWS L4-5, L5-S1 [47407 (CPT )] 11/29/2024 6:35 AM EDT - 12/02/2024 11:58 AM EDT Hospital Encounter [facility] 3H [address] [place] [address] Moedsto Elizabeth MD Spinal stenosis of lumbar region without neurogenic claudication Discharge Disposition: Home or Self Care 11/29/2024 Travel 11/22/2024 9:30 AM EDT Pre-Admission Testing [facility] PREADMISSION T [address] [place] [address] Spinal stenosis of lumbar region without neurogenic claudication; Abnormal findings on diagnostic imaging of other parts of musculoskeletal system 11/22/2024 Travel from Last 3 Months Family History [...] or training? Not on file Preferred Language Malian 11/22/2024 Sex and Gender Information Value Date [...] Description 02/16/2025 11:20 AM EDT Office Visit [facility] [address] [facility] [address] [place] [address] Modesto Elizabeth MD [address] [facility] [address] [place] [address] Health Maintenance Due Date Last Done Comments [...] WELLNESS VISIT 12/27/2020 HEPATITIS C SCREENING 12/27/2020 INFLUENZA VACCINE 11/19/2024 01/23/2024, , 01/26/2021, Additional history exists Goals Goal Patient Goal Type Associated Problems Recent Progress Patient-Stated? Author Autogenera wen Goal Care Plan Autogenerated Problem No Apro, Rika Rivera PA-C Medical Devices Implanted Type Area Adolescent Coordinator Device Identifier Shelf Expiration Date Model / Serial / Lot Kt Seal Hemos Abs Floseal Matrx Fast/Prep 10ml - [id number] Implanted:Qt y: 1 on 06/11/2021 by Modesto Elizabeth MD at [facility] Implant Right: Spine Lumbar NIEVES [employer] [id number] / / NA Hemost Abs Surgifoam Sz100 8x12 10mm - [id number] Implanted:Qt y: 1 on 06/11/2021 by Modesto Elizabeth MD at [facility] Implant Right: Spine Lumbar ETHICON DIV OF J AND J 1973 / / NA Spacr Plif/Tlif Adaptix 24x8mm - [id number] Implanted:Qt y: 1 on 11/29/2024 by Modesto Elizabeth MD at [facility] Implant N/A: Spine Lumbar [employer] [id number] / / [id number] Spacr Tlif/Dlif Adaptix 91s46gv - [id number] Implanted:Qt y: 1 on 11/29/2024 by Modesto Elizabeth MD at [facility] Implant N/A: Back [employer]IN[employer] A [employer] CO 12/18/2031 [id number] / / [id number] Scrw Solera Fen Mas 6.5x50mm - [id number] Implanted:Qt y: 6 on 11/29/2024 by Modesto Elizabeth MD at [facility] Implant N/A: Back [employer] [id number] / / Scrw St Solera Brkoff Ti 5.5mm - [id number] Implanted:Qt y: 6 on 11/29/2024 by Modesto Elizabeth MD at [facility] Implant N/A: Back [employer] [id number] / / Keyur Solera Crv Cocr 5.5cm 65mm - [id number] Implanted:Qt y: 2 on 11/29/2024 by Modesto Elizabeth MD at [facility] Implant N/A: Back [employer] [id number] / / Hemost Abs Surgifoam Sz100 8x12 10mm - [id number] Implanted:Qt y: 1 on 11/29/2024 by Modesto Elizabeth MD at [facility] Implant N/A: Back [employer] DIV [employer] J AND J 09/02/2028 [id number] / / [id number] Kt Seal Hemos Abs Floseal Matrx 1.5/Fast/Pre p 5000/Iu 10ml - [id number] Implanted:Qt y: 1 on 11/29/2024 by Modesto Elizabeth MD at [facility] Implant N/A: Back [facility] [id number] 06/26/2026 [id number] / / [id number] Wax Bone Hemo Lukens Sharpoint 2.5gm Wht - [id number] Implanted:Qt y: 1 on 11/29/2024 by Modesto Elizabeth MD at [facility] Implant N/A: Back [employer]ICAL [employer]IES TATIANA [id number] 09/23/2028 [id number] / / [id number] Grft Matrx Spine Magnetos Flx 0.33cl6mt/Gr anule 46w94q7we Md - [id number] Implanted:Qt y: 1 on 11/29/2024 by Modesto Elizabeth MD at [facility] Implant N/A: Back [employer] [id number] 01/19/2027 [id number] / / [id number] Kt Seal Hemos Abs Floseal Matrx 1.5/Fast/Pre p 5000/Iu 10ml - [id number] Implanted:Qt y: 1 on 11/29/2024 by Modesto Elizabeth MD at [facility] Implant N/A: Spine Lumbar [facility] [id number] 06/26/2026 [id number] / / [id number] Spacr Tlif/Dlif Adaptix 98y16rd - [id number] Implanted:Qt y: 1 on 11/29/2024 by Modesto Elizabeth MD at [facility] Implant N/A: Spine Lumbar [employer] 01/08/2032 [id number] / / [id number] Spacr Plif/Tlif Adaptix 24x8mm - [id number] Implanted:Qt y: 1 on 11/29/2024 by Modesto Elizabeth MD at [facility] Implant N/A: Spine Lumbar [employer] 07/15/2032 [id number] / / [id number] Procedures Procedure Name Priority Date/Time Associated Diagnosis [...] ANESTHESIA INTUBATION Routine 11/29/2024 8:32 AM EDT [place] EDWARDS FACETECTOMY & FORAMOTOMY 1 VRT SGM LUMBAR 11/29/2024 7:51 AM EDT Spinal stenosis of lumbar region without neurogenic claudication Special Needs FILMS AT PACS, STEALTH, O ARM, GARY TABLE, C ARM, [employer]IC ~MD ECG 12-LEAD Routine 11/22/2024 9:20 AM EDT [...] region without neurogenic claudication SCANNED EKG 11/22/2024 from Last 3 Months Results * XR [...] MD 12/22/2024 10:20 AM EDT Workstation ID: [id number] Narrative 12/22/2024 10:20 AM EDT XR SPINE [...] MD 12/22/2024 10:20 AM EDT Workstation ID: [id number] us Modesto Elizabeth MD IMG DIAGNOSTIC IMAGING ORDERA BLES Final Result * (ABNORMAL) Hemoglobin & Hematocrit, Blood (11/30/2024 7:39 AM EDT) Hemoglobin 12.0(L) 13.0 - 17.7 g/dL 11/30/2024 8:27 AM EDT [facility] Hematocrit 36.6(L) 37.5 - 51.0 % 11/30/2024 8:27 AM EDT [facility] Blood Venipuncture / Unknown 11/30/2024 7:39 AM EDT 11/30/2024 8:19 AM EDT Modesto Elizabeth MD LAB BLOOD ORDERABLES Final Re sult [facility]
[address] [place] [address], * FL C Arm During Surgery (11/29/2024 [...] and Staff Patient location during procedure: OR FRONT COUNTER ATTENDANT/CAA: Elena Scott CRNA Indications and Patient Condition [...] 6:12:54 PM Referred By: Confirmed By: Hubert Maloclm us Modesto Elizabeth MD ECG ORDERABLES Final Result ECG * (ABNORMAL) CBC Auto Differential (11/22/2024 9:04 AM EDT) [facility] Signature WBC 8.82 3.40 - 10.80 10*3/mm3 11/22/2024 9:26 AM EDT [facility] RBC 5.34 4.14 - 5.80 10*6/mm3 11/22/2024 9:26 AM EDT [facility] Hemoglobin 14.7 13.0 - 17.7 g/dL 11/22/2024 9:26 AM EDT [facility] Hematocrit 44.3 37.5 - 51.0 % 11/22/2024 9:26 AM EDT [facility] MCV 83.0 79.0 - 97.0 fL 11/22/2024 9:26 AM EDT [facility] MCH 27.5 26.6 - 33.0 pg 11/22/2024 9:26 AM EDT [facility] MCHC 33.2 31.5 - 35.7 g/dL 11/22/2024 9:26 AM EDT [facility] RDW 13.6 12.3 - 15.4 % 11/22/2024 9:26 AM [facility] RDW-SD 40.7 37.0 - 54.0 fl 11/22/2024 9:26 AM [facility] MPV 9.5 6.0 - 12.0 fL 11/22/2024 9:26 AM [facility] Platelets 270 140 - 450 10*3/mm3 11/22/2024 9:26 AM [facility] Neutrophil % 54.9 42.7 - 76.0 % 11/22/2024 9:26 AM [facility] Lymphocyte % 25.4 19.6 - 45.3 % 11/22/2024 9:26 AM [facility] Monocyte % 10.9 5.0 - 12.0 % 11/22/2024 9:26 AM [facility] Eosinophil % 7.7(H) 0.3 - 6.2 % 11/22/2024 9:26 AM [facility] Basophil % 0.9 0.0 - 1.5 % 11/22/2024 9:26 AM [facility] Immature Grans % 0.2 0.0 - 0.5 % 11/22/2024 9:26 AM [facility] Neutrophils, Absolute 4.84 1.70 - 7.00 10*3/mm3 11/22/2024 9:26 AM [facility] Lymphocytes, Absolute 2.24 0.70 - 3.10 10*3/mm3 11/22/2024 9:26 AM [facility] Monocytes, Absolute 0.96(H) 0.10 - 0.90 10*3/mm3 11/22/2024 9:26 AM [facility] Eosinophils, Absolute 0.68(H) 0.00 - 0.40 10*3/mm3 11/22/2024 9:26 AM [facility] Basophils, Absolute 0.08 0.00 - 0.20 10*3/mm3 11/22/2024 9:26 AM [facility] Immature Grans, Absolute 0.02 0.00 - 0.05 10*3/mm3 11/22/2024 9:26 AM EDT [facility] nRBC 0.0 0.0 - 0.2 /100 WBC 11/22/2024 9:26 AM EDT [facility] Blood Venipuncture / Unknown 11/22/2024 9:04 AM EDT 11/22/2024 9:18 AM EDT [facility] Kontiki Apro PA-C LAB BLOOD ORDERABLES Fi nal Result Performing Organization Address City/[facility]/ZIP Co de Phone Number [facility]
[address] [place] [address], * MRSA Screen Culture (Outpatient) - Swab, Nares (11/22/2024 9:04 AM EDT) MRSA Screen Cx No Methicillin Resistant Staphylococcus aureus isolated SARI 11/23/2024 1:52 PM EDT [facility] Swab Structure of anterior naris / Unknown Collection / Unknown 11/22/2024 9:04 AM EDT 11/22/2024 9:24 AM EDT Narrative [facility] - 11/23/2024 1:52 PM EDT The negative predictive value of this diagnostic test is high and should only be used to consider de-escalating anti-MRSA therapy. A positive result may indicate colonization with MRSA and must be correlated clinically. [facility] Kontiki Apro PA-C MICROBIOLOGY - GENERAL ORDERABLES Final Result [facility]
[address] [place] [address], * (ABNORMAL) Hemoglobin A1c (11/22/2024 9:04 AM EDT) Hemoglobin A1C 5.76(H) 4.80 - 5.60 % 11/22/2024 10:28 AM EDT [facility] Blood Venipuncture / Unknown 11/22/2024 9:04 AM EDT 11/22/2024 9:18 AM EDT Narrative [facility] - 11/22/2024 10:28 AM EDT Hemoglobin A1C Ranges: Increased Risk for Diabetes 5.7% to 6.4% Diabetes >= 6.5% Diabetic Goal < 7.0% us Modesto Elizabeth MD LAB BLOOD ORDERABLES Final Re sult [facility]
[address] [place] [address], * (ABNORMAL) Comprehensive Metabolic Panel (11/22/2024 9:04 AM EDT) Glucose 101(H) 65 - 99 mg/dL 11/22/2024 9:53 AM EDT [facility] BUN 16.4 8.0 - 23.0 mg/dL 11/22/2024 9:53 AM EDT [facility] Creatinine 0.81 0.76 - 1.27 mg/dL 11/22/2024 9:53 AM EDT [facility] Sodium 139 136 - 145 mmol/L 11/22/2024 9:53 AM EDT [facility] Potassium 4.2 3.5 - 5.2 mmol/L 11/22/2024 9:53 AM EDT [facility] Chloride 104 98 - 107 mmol/L 11/22/2024 9:53 AM EDT [facility] CO2 25.0 22.0 - 29.0 mmol/L 11/22/2024 9:53 AM EDT [facility] Calcium 9.1 8.6 - 10.5 mg/dL 11/22/2024 9:53 AM EDT [facility] Total Protein 7.0 6.0 - 8.5 g/dL 11/22/2024 9:53 AM EDT [facility] Albumin 4.0 3.5 - 5.2 g/dL 11/22/2024 9:53 AM EDT [facility] ALT (SGPT) 16 1 - 41 U/L 11/22/2024 9:53 AM EDT [facility] AST (SGOT) 18 1 - 40 U/L 11/22/2024 9:53 AM EDT [facility] Alkaline Phosphatase 94 39 - 117 U/L 11/22/2024 9:53 AM EDT [facility] Total Bilirubin 0.5 0.0 - 1.2 mg/dL 11/22/2024 9:53 AM EDT [facility] Globulin 3.0 gm/dL 11/22/2024 9:53 AM T [facility] Comment:Calculated Result A/G Ratio 1.3 g/dL 11/22/2024 9:53 AM [facility] BUN/Creatinine Ratio 20.2 7.0 - 25.0 11/22/2024 9:53 AM T [facility] Anion Gap 10.0 5.0 - 15.0 mmol/L 11/22/2024 9:53 AM [facility] eGFR 99.7 >60.0 mL/min/1.7 3 11/22/2024 9:53 AM [facility] Blood Venipuncture / Unknown 11/22/2024 9:04 AM EDT 11/22/2024 9:18 AM EDT [facility] - 11/22/2024 9:53 AM EDT GFR [...] does not include race as a factor [facility] Miguel Duarte PA-C LAB BLOOD ORDERABLES Fi nal Result [facility]
[address] [place] [address], * ECG Scan (11/22/2024) us [facility] ECG ORDERABLES Final Result from Last 3 Months Additional Health Concerns Active Problems Noted Date Diagnosed Date Autogenerated Problem 12/30/2024 Insurance [place] [id number] [facility] MEDICARE ADVANTAGE PPO Advance Directives * CPR (Attempt to Resuscitate) (Latest Code Status on File) Date Activated Date Inactivated Comments 11/29/2024 1:33 PM 12/02/2024 2:04 PM Question Answer Comments Code Status (Patient has no pulse and is not breathing): CPR (Attempt to Resuscitate) Medical Interventions (Patie nt has pulse or is breathing): Full Care Teams Bathhouse Attendant Relationship Specialty Start Date End Date Win Mccauley MD [facility] [address] [place] [address] PCP - General Internal Medicine 12/19/20
--- OUTSIDE RECORDS SUMMARY | 2025-02-04 08:54 | XMS_ITS | Encounter Summary ---
[facility] Address [address] [place] [address] Care Team Providers Care Environmental Services Floor Tech Name Role Phone Win Mccauley MD Primary Care Provider Encounter Details Date Type Department Care Team (Late st Contact Info) Description 12/13/2024 Refill [facility] [address] [facility] [address] [place] [address] Modesto Elizabeth MD [address] [facility] [address] [place] [id number] Spinal stenosis of lumbar region without neurogenic [...] or training? Not on file Preferred Language Greek 11/22/2024 Sex and Gender Information Value Date [...] he could have a refill of the [place]. Please Advise and I will put this [...] and heat What therapies/medications have you tried: [place] 1 every 8 hours Robaxin 1 three times a day Tylenol in between Heat and ice more heat documented in this encounter Plan of Treatment Upcoming Encounters Date Type Department Care Team (Late st Contact Info) Description 02/16/2025 11:20 AM EDT Office Visit [facility] [address] [facility] [address] [place] [id number] Modesto Elizabeth MD [address] [facility] [address] [place] [address] documented as of this encounter Goals Goal Patient Goal Type Associated Problems Recent Progress Patient-Stated? Author Autogenera wen Goal Care Plan Autogenerated Problem No Apro, Rika Rivera PA-C documented as of this encounter Visit Diagnoses Diagnosis Spinal stenosis of lumbar region without neurogenic claudication- Primary documented in this encounter Additional Health Concerns Active Problems Noted Date Diagnosed Date Autogenerated Problem 12/30/2024 documented as of this encounter Care Teams Environmental Services Floor Tech Relationship Specialty Start Date End Date Win Mccauley MD [address] [facility] [address] [place] [address] PCP - General Internal Medicine 12/19/20 documented as of this encounter
--- OUTSIDE RECORDS SUMMARY | 2025-02-04 08:54 | XMS_ITS | Encounter Summary ---
[facility] Address [address] [place] [address] Care Team Providers Care Lumber Press Operator Name Role Phone Win Mccauley MD Primary Care Provider [phone] Encounter Details Date Type Department Care Team [...] or training? Not on file Preferred Language Luxembourgish 11/22/2024 Sex and Gender Information Value Date Recorded Sex Assigned at Male 09/23/2024 2:54 PM EDT Legal Sex Male 12:00 PM EDT Gender Identity Not on file Sexual Orientation Not on file documented as of this encounter Plan of Treatment Upcoming Encounters Date Type Department Care Team (Late st Contact Info) Description 02/16/2025 11:20 AM EDT Office Visit [facility] [address] [facility] [address] [place] [address] Modesto Elizabeth MD [address] [facility] [address] [place] [address] documented as of this encounter Goals Goal Patient Goal Type Associated Problems Recent Progress Patient-Stated? Author Autogenera wen Goal Care Plan Autogenerated Problem No Felicia, Rika Rivera PA-C documented as of this encounter Visit Diagnoses Not on filedocumented in this encounter Additional Health Concerns Active Problems Noted Date Diagnosed Date Autogenerated Problem 12/30/2024 documented as of this encounter Care Teams Lumber Press Operator Relationship Specialty Start Date End Date Win Mccauley MD [address] [facility] [address] [place] [address] PCP - General Internal Medicine 12/19/20 documented as of this encounter
--- OUTSIDE RECORDS SUMMARY | 2025-02-04 08:54 | XMS_ITS | Clinical Summary ---
Author Organization Healthcare Address [address] [place] [address] Care Team Providers Care Hat Conditioner Name Role Phone Otilio Pierce MD Primary Care Provider [phone] Social History Tobacco Use Types Packs/Day Years [...] of Treatment Not on file Care Teams Hat Conditioner Relationship Specialty Start Date End Date Otilio Pierce MD [address] [place] [address] PCP - General 09/01/20
--- OUTSIDE RECORDS SUMMARY | 2025-02-04 08:54 | XMS_ITS | Data Portability ---
Author Organization [facility] ADDI David LATON CLOSED Address [address] [facility] [place] [address] Care Team Providers Care Ramp Manager Name Role Phone LOLA PEGUERO Primary Care Provider Assessment No assessment recorded. Plan of Treatment Reminders Order Date Submit Date Provider Last Modified By Organization Details Last Modified Time Details Appointments RECHECK 2024 01:40P M RAJINDER HUMPHREY MD Not available Not available Not available Lab None recorded . Referral None recorded . Procedures None recorded . Surgeries None recorded . Imaging None recorded . Medication Orders None recorded . Patient TargetsNo targets recorded. Patient Instructions Encounter Date Encounter Id Patient Instructions Last Modified By Organization Details Last Modified Time 10/04/2024 [id number] 1. Order thyroid ultrasound with FNA in 6-8 months if T RADS four 9 mm lesion on right thyroid increases in size 2. F/u with results willie Not available 10/04/2024 17:13:56 Reason for Referral None Reported. Results Created Date Observation Date Name Description Value Unit Range Abnormal Flag Note LastModifiedBy Organization Detail LastModifiedTime 10/05/19 25 08/23/2024 biops y, thyro id, ultra sound fan nce (PROC ) No observ ation record ed. BARCODE Not Available 2024 17:02:58 Result Notes None recorded. Procedures Surgical History Date Name Laterality Status Provider Name and Address Organization Details Recorded Time repair of musculotendinous cuff of shoulder completed Goldie [facility] 10/04/2024 15:57:26 operation on vertebra completed [facility] 10/04/2024 15:57:39 Imaging Results None recorded. Procedure Notes None recorded. Medical Equipment None Reported. Allergies No known drug allergies Medications Name Sig Start Date Stop Date Status Note LastModified by Organization Details LastModified Time atorvastat in 40 mg tablet TAKE 1 TABLET BY MOUTH ONCE DAILY AT BEDTIME active Not Available Not Available No t Available ibuprofen 800 mg tablet TAKE 1 TABLET BY MOUTH THREE TIMES DAILY NEEDED FOR PAIN active Not Available Not Available No t Available spironolac tone 25 mg tablet TAKE 1 TABLET BY MOUTH EVERY OTHER DAY active Not Available Not Available No t Available famotidine 20 mg tablet TAKE 1 TABLET BY MOUTH AT BEDTIME active Not Available Not Available No t Available meclizine 25 mg tablet TAKE 1/2 TO 1 (ONE-HALF TO ONE) TABLET BY MOUTH EVERY 8 HOURS NEEDED FOR DIZZINESS active Not Available Not Available No t Available diclofenac sodium 75 mg tablet,del ayed release TAKE 1 TABLET BY MOUTH TWICE DAILY WITH FOOD active Not Available Not Available No t Available doxycyclin e hyclate 20 mg tablet TAKE 1 TABLET BY MOUTH TWICE DAILY active Not Available Not Available No t Available ramipril 5 mg capsule TAKE 1 CAPSULE BY MOUTH ONCE DAILY FOR BLOOD PRESSURE active Not Available Not Available No t Available Vytorin active Medicatio n Descripti on: ezetimibe -simvasta tin; Route:ora l; refills:0 Not Available Not Available Not Available Procto-Med HC 2.5 % topical cream perineal applicator APPLY CREAM RECTALLY 4 TIMES DAILY NEEDED HEMORRHOI DS active Not Available Not Available No t Available Vitals Date Recorded Body height Body mass index (BMI) Body weight Body temperature Heart rate Systolic And Diastolic Provider Name and Address Organization Details Last Updated DateTime 5 177.8 cm 39.3 kg/m2 079034. 31 g 97.9 [degF] 68 /min 116/72 mm[Hg] Goldie Ramos [facility] 5 16:01:15 Social History None recorded. Functional Status None recorded. Mental Status None recorded. Family History Relationship Description Onset Age of this Age Resolved Age Notes LastModified by Organization Details LastModified Time Father Hypertensive disorder [email or web address] Not available 10/04 15:58:00 Father Asthma [email or web address] Not available 10/04/2024 15:58:11 Medical History No medical history recorded. Past Encounters Encounter ID Performer Location Encounter Start Date Encounter Closed Date Diagnosis/Indication Diagnosis SNOMED-CT Code Diagnosis ICD10 Code Diagnosis IMO Codes Diagnosis Note [id number] RAJINDER HUMPHREY MD [facility] [address] [place] [address] 10/04/2024 14:53:17 10/11/2024 10:33:54 Obstructive sleep apnea syndrome 96508537 G47.33 7271794 Thyroid nodule 908998393 E04.1 48046 R 2.5 cm cyst and nodule(9mm TiRADS 4) Habitual snoring 8995067 00 R06.83 6096828137 History of tonsillectomy 382313584 Z90.89 663789 Health Concerns Section Related Observation LastModified by Organization Detai ls LastModified Time None Recorded Concern Status LastModified by Organization Details LastModified Time None Recorded Advance Directives Directive None Recorded Payers Insurance Date Sequence Insurance Name Policy Number Policy Ruiz Covered Member ID Ruiz Member ID Guarantor Name 10/11/2024 1 [employer] (MEDICARE REPLACEMENT/ ADVANTAGE - PPO) Huan Hawkins [id number] Huan Hawkins Notes Date Note Type Note Provider Name and Address Organization Details Recorded Time 10/04/2024 text/html ROS as noted in the HPI Huan (64M) presents in the office as a new patient ot address a thyroid nodule. He began to feel light headed upon sitting up and his alteration manager checked his carotid artery and showed incidental finding of nodules. Huan was then sent for a thyroid ultrasound. RAJINDER HUMPHREY MD [facility] [place], [address], [facility] 10/04/2024 17:14:13
--- OUTSIDE RECORDS SUMMARY | 2025-02-04 08:54 | XMS_ITS | Encounter Summary ---
[facility] Address [address] [place] [address] Care Team Providers Care Manager Transmission Name Role Phone Win Mccauley MD Primary Care Provider [phone] Reason for Visit * Reason Onset Date Comments Med Refill 12/06/2024 Encounter Details Date Type Department Care Team (Late st Contact Info) Description 12/06/2024 Refill [facility] [address] [facility] [address] [place] [phone] Modesto Elizabeth MD [address] [facility] [address] [place] [address] Spinal stenosis of lumbar region without neurogenic [...] or training? Not on file Preferred Language Tongan 11/22/2024 Sex and Gender Information Value Date [...] having significant incisional pain. Martin: 1 12/02/2024 [id number] Oxycodone/Acetaminophen 325MG/7.5MG [facility] 10-0591 20.00 5 45 03 [place] New 12/02/2024 TABS Curry Lapel 1 10/27/2024 [id number] Tramadol Hydrochloride 50MG Felicia [facility] 10-0591 50.00 13 19 03 [place] New 10/27/2024 TABS Curry Lapel documented in this encounter Plan of Treatment Upcoming Encounters Date Type Department Care Team (Late st Contact Info) Description 02/16/2025 11:20 AM EDT Office Visit [facility]UR[facility] [address] [address] Mod[place] Elizabeth MD [address] [facility] [address] [place] [address] documented as of this encounter Goals Goal Patient Goal Type Associated Problems Recent Progress Patient-Stated? Author Autogenera wen Goal Care Plan Autogenerated Problem No Felicia, Rika Rivera PA-C documented as of this encounter Visit Diagnoses Diagnosis Spinal stenosis of lumbar region without neurogenic claudication documented in this encounter Additional Health Concerns Active Problems Noted Date Diagnosed Date Autogenerated Problem 12/30/2024 documented as of this encounter Care Teams Manager Transmission Relationship Specialty Start Date End Date Win Mccauley MD [address] [facility] [address] [place] [address] PCP - General Internal Medicine 12/19/20 documented as of this encounter
--- OUTSIDE RECORDS SUMMARY | 2025-02-04 08:54 | XMS_ITS | Encounter Summary ---
Author Organization [facility] Address [address] [place] [address] Care Team Providers Care Plug Maker Name Role Phone Win Mccauley MD Primary Care Provider [phone] Reason for Referral * Physical Therapy (Routine) - Pending Review Specialty Diagnoses / Procedures Referred By Contac t Referred To Contact Physical Therapy Diagnoses Spinal stenosis of lumbar region with neurogenic claudication Procedures RI OFFICE/OUTPATIENT NEW MODERATE MDM 45 MINUTES Rika Duarte PA-C [address] [address] Phone: tel: fax: [facility] - OUTPT PHYSICAL THERAPY [address] [address] Phone: tel: fax: Referral ID Status Reason Start Date Expiration Date Visits Requested Visits Authorized [id number] Pending Review Specialty Services Required 01/04/2025 04/05/2026 1 1 Encounter Details Date Type Department Care Team (Late st Contact Info) Description 01/04/2025 Telephone [facility] NEUR[facility]ERY [address] [address] Rika Duarte PA-C [address] [place] [address] Social History Tobacco Use Types Packs/Day Years [...] or training? Not on file Preferred Language German 11/22/2024 Sex and Gender Information Value Date Recorded Sex Assigned at Male 09/23/2024 2:54 PM EDT Legal Sex Male 12:00 PM EDT Gender Identity Not on file Sexual Orientation Not on file documented as of this encounter Miscellaneous Notes * Telephone Encounter - Rika Duarte PA-C - 01/05/2025 11:13 AM EDT Lets start with PT and see how he does before prescribing gabapentin * Telephone Encounter - Froilan Celeste RN - 01/04/2025 2:33 PM EDT Provider: Felicia Surgery/Procedure: Lumbar fusion decompression with pedicle screws L4-5, L5-S1 Surgery/Procedure Date: 11/29/24 Last visit: 12/22/24 Next visit: 02/16/25 Reason for call: Spoke to patient, he would like a referral for physical therapy. States he has been walking a lot, but is having some worsening foot pain with tingling. There is also some pain in his calves but not as bad as his feet. States this is a new pain, was not having this pain at his recent office visit. His lower back pain is minimal and manageable. He is using a tens unit and ice for his foot pain. Martin: 2 12/22/2024 [id number] Tramadol Hydrochloride 50MG Rika Duarte [facility] 10-0591 30.00 10 15 03 [place] New 12/22/2024 TABS Curry Watson 1 12/13/2024 [id number] Tramadol Hydrochloride 50MG [place] Elizabeth [facility] 30.00 1015 03 [place] New 12/13/2024 TABS Curry Watson documented in this encounter Plan of Treatment Upcoming Encounters Date Type Department Care Team (Late st Contact Info) Description 02/16/2025 11:20 AM EDT Office Visit [facility] [address] [phone] Mod[place] Elizabeth MD [address] [facility] [address] [place] [address] documented as of this encounter Goals Goal Patient Goal Type Associated Problems Recent Progress Patient-Stated? Author Autogenera wen Goal Care Plan Autogenerated Problem No Felicia, Rika Rivera PA-C documented as of this encounter Visit Diagnoses Diagnosis Spinal stenosis of lumbar region with neurogenic claudication- Primary documented in this encounter Additional Health Concerns Active Problems Noted Date Diagnosed Date Autogenerated Problem 12/30/2024 documented as of this encounter Care Teams Plug Maker Relationship Specialty Start Date End Date Win Mccauley MD [address] [facility] [address] [place] [address] PCP - General Internal Medicine 12/19/20 documented as of this encounter
== END 2025-02-04 23:59 | disposition home or self-care (01) ==
LOC: RAD 08:51
PROVIDERS: PCP Internal Medicine; Visit Provider Otolaryngology
DX: E04.2 Nontoxic multinodular goiter (principal)
CPT/HCPCS: 76536

== ENCOUNTER 2025-02-15 14:00 | Outpatient (RCR) | payer MEDICARE, SELFPAY | END 2025-02-15 23:59 | disposition home or self-care (01) | LOC: PT 14:00 | PROVIDERS: PCP Internal Medicine; Visit Provider Physician Assistant | DX: M48.062 Spinal stenosis, lumbar region with neurogenic claudication (principal) | CPT/HCPCS: 97110; 97530 ==

== ENCOUNTER 2025-03-29 12:57 | Outpatient (CLI) | payer MEDICARE, SELFPAY ==
[2025-03-29 12:49] LABS: Hematocrit 42.9 % (42.0-52.0); Hemoglobin 13.3 g/dL (14.1-18.0); Immature Granulocytes % 0.4 %; Mean Corpuscular HGB Conc 31.0 g/dL (31.8-35.4); Mean Corpuscular Hemoglobin 24.5 pg (27.0-31.2); Mean Corpuscular Volume 79.2 fl (80-94); Nucleated Red Blood Cells % 0 %; Platelet Count 287 K/mm3 (142-424); Red Blood Count 5.42 M/mm3 (4.60-6.20); Red Cell Distribution Width-SD 46.0 fL; White Blood Count 8.5 K/mm3 (4.8-10.8)
[2025-03-29 13:29] LABS: Alanine Aminotransferase 21 U/L (12-78); Albumin Level 3.8 g/dl (3.5-5.0); Albumin/Globulin Ratio 1.2 (1.1-1.8); Alkaline Phosphatase 102 U/L (38-126); Anion Gap 15.4 mEq/L (5-15); Aspartate Amino Transferase 29 U/L (17-59); Bilirubin,Total 0.6 mg/dl (0.2-1.3); Blood Urea Nitrogen 18 mg/dl (9-20); Calcium 9.3 mg/dl (8.4-10.2); Carbon Dioxide 24 mmol/L (22.0-30.0); Chloride 106 mmol/L (98-107); Cholesterol 126 mg/dl (140-200); Creatinine,Serum 0.80 mg/dl (0.66-1.25); Estimated Glomerular Filt Rate 98 ml/min (>60); GFR (African American) 118 ML/MIN (>60); Globulin 3.2 g/dL (1.3-3.2); Glucose 104 mg/dl (74-100); HDL Cholesterol 40 mg/dl (40-60); Potassium 4.4 mmoL/L (3.5-5.1); Sodium 141 mmol/L (136-145); Total Protein,Serum 7.0 g/dl (6.3-8.2); Triglycerides 79 mg/dl (30-150)
== END 2025-03-29 23:59 | disposition home or self-care (01) ==
LOC: LAB.DROPOF 03-31 12:58
PROVIDERS: PCP Internal Medicine; Visit Provider Internal Medicine
DX: I25.10 Atherosclerotic heart disease of native coronary artery without angina pectoris (principal); I10 Essential (primary) hypertension; E66.01 Morbid (severe) obesity due to excess calories; E78.2 Mixed hyperlipidemia
CPT/HCPCS: 80053; 80061; 85025